=== PATIENT | female | born 1965 | race Caucasian/White ===

== ENCOUNTER 2019-10-25 13:25 | Outpatient (RCR) | payer BC, SELFPAY ==
[2019-10-25] VITALS (9 sets, daily range): BP systolic 99–136; BP diastolic 54–76; PULSE 56–68; RESP 16–20; TEMP 35.7–35.9; O2SAT 91–95
--- NOTE | 2019-10-25 13:30 | PC.NURSE ---
REGISTRATION COMPLETED FOR OUTPATIENT BLOOD TRANSFUSION. NAME BAND PLACED ON PATIENT. WILL ENTER ORDERS, OBTAIN CONSENT, START IV, SEND LABS.
[2019-10-25 14:15] LABS: Hematocrit 24.3 % (37.0-47.0)
[2019-10-25 14:17] LABS: Hemoglobin 6.9 g/dL (12.0-15.0)
[2019-10-25] MEDS: ACETAMINOPHEN 325 MG TABLET 650 MG PO (15:47)
[2019-10-25] MEDS: SODIUM CHLORIDE 0.9% IV 250 ML 30 ML IV CONT (15:50)
[2019-10-25] MEDS: FUROSEMIDE INJ 40 MG/4 ML VIAL IV PUSH (18:21)
--- NOTE | 2019-10-25 21:31 | PC.NURSE ---
Addendum entered by Sharmila Lomeli RN 10/25/19 21:42: ARRIVED TO [facility] AT 1245. NOTE TIME 1245. KE Original Note: ARRIVED TO [facility] VIA [facility] FROM [facility] FOR BLOOD TRANSFUSION PLANNED FOR 1400. NO ORDERS HAD BEEN RECEIVED FROM [facility] OF ARRIVAL TIME. CONTACTED [facility] RE: TRANSFUSION ORDERS. PLACED PT. IN MACHINE I CUTTER 2 AND AWAIT ORDERS TO ARRIVE. PT. A&OX3, BUT DROWSY, SLIGHTLY LETHARGIC. DENIES PAIN. PT. IS NON WT. BEARING ON LEGS AND IS TOTAL ASSIST TO TRANSFER.
--- NOTE | 2019-10-25 21:37 | PC.NURSE ---
Addendum entered by Sharmila Lomeli RN 10/25/19 21:44: NOTE TIME 1300. KE Original Note: ORDERS FOR TRANSFUSION HAVE ARRIVED VIA FAX FROM [facility]. FAXED TO ADMITTING FOR V# TO INITIATE OUTPATIENT REGISTRATION.
== END 2019-11-14 23:59 | disposition home or self-care (01) ==
LOC: ANHCPCTRAN 13:25
PROVIDERS: Visit Provider Family Medicine
DX: D64.9 Anemia, unspecified (principal)
CPT/HCPCS: 36415; 36430; 85014; 85018; 86850; 86900; 86901; 86923; 96374; A9270; C1751; J1940; J7050; P9016

== ENCOUNTER 2019-10-27 02:48 | Inpatient (IN) | payer BC, SELFPAY ==
[2019-10-27] VITALS (52 sets, daily range): BP systolic 96–148; BP diastolic 55–86; PULSE 47–81; RESP 13–23; TEMP 28.9–36.4; O2SAT 94–100; BMI 66.4
--- NOTE | ~2019-10-27 | XR_ITS ---
XR chest 1V portable DATE: 11/14/2019 05:57 INDICATION: Pneumonia, aspiration TECHNIQUE: Portable AP chest on 11/14/2019 at 0519 hours COMPARISON: 11/13/2019 portable AP chest at 1736 hours FINDINGS: Tracheostomy tube in satisfactory position. Left upper extremity PIC catheter tip overlies upper right atrium. The examination is limited due to single portable view and also rotation of the patient. There is bor derline or increased heart size. There is pulmonary vascular congestion and redistribution. There is prominence of the minor fissure. There is prominence of the pulmonary interstitium suggesting pulmona ry interstitial edema. Small pleural effusions are suggested. There are infiltrates primarily in the lower lung zones which may be due to aspiration pneumonitis gi rohith history of aspiration; differential diagnosis includes pneumonia, pulmonary edema. IMPRESSION: No significant change since 11/13/2019 Reviewed, dictated and finalized at location A. D OPERATIONS SUPERVISOR
--- NOTE | ~2019-10-27 | XR_ITS ---
EXAMINATION: XR chest ET placement DATE: 10/30/2019 17:14 INDICATION: Endotracheal tube advancement TECHNIQUE: frontal view of the chest was obtained. COMPARISON: Chest radiograph dated 10/30/2019 at 11:56 AM FINDINGS: Endotracheal tube tip 2.9 cm above the desire. Nasogastric tube extends below the left hemidiaphragm with distal tip collimated off the study. Right subclavian central venous catheter with distal tip n ear the superior cavoatrial junction. Persistent diffuse indistinct interstitial and patchy airspace opacities throughout both lungs. More dense consolidation in the left lower lung zone with blunting lateral blunting consistent with small to moderate left pleural effusion and associated basilar compressive atelectasis. No pneumothorax. Sm all posteriorly layering right pleural effusion is not excludable. Cardiac silhouette appears partial ly obscured but is likely enlarged conifer mild leftward rotation of the patient. IMPRESSION: 1. Persistent diffuse bilateral interstitial and patchy airspace opacities which could represent pulm onary edema, pneumonia, ARDS or some combination thereof. 2. Small to moderate left and possible small right pleural effusions with compressive atelectasis in the left lower lung zone. 3. Likely cardiomegaly. Reviewed, dictated and finalized at location A. ICAL LAB ASSISTANT IMPRESSION: 1. Persistent diffuse bilateral interstitial and patchy airspace opacities whic h could represent pulmonary edema, pneumonia, ARDS or some combination thereof. 2. Small to moderate left and possible small right pleural effusions with compr essive atelectasis in the left lower lung zone. 3. Likely cardiomegaly.
--- NOTE | ~2019-10-27 | XR_ITS ---
EXAMINATION: XR chest 1V portable DATE: 11/02/2019 05:36 INDICATION: Respiratory failure. Diffuse infiltrates bilaterally. TECHNIQUE: A single frontal view of the chest was obtained. COMPARISON: Chest single view 11/01/2019 FINDINGS: There are airspace opacities in all lung zones bilaterally, left worse than right. There is a small left pleural effusion. No pneumothorax. Cardiomegaly is noted. The endotracheal tube tip is 3.1 cm above the desire. The nasogastric tube tip is beyond the inferior margin of the radiograph, bu t at least to the stomach. A right subclavian central venous catheter is seen with tip in the right a trium. IMPRESSION: 1. Stable diffuse lung disease, consistent with pulmonary edema versus pneumonia. 2. Small left pleural effusion. 3. Cardiomegaly. Reviewed, dictated and finalized at location A. OFFICIAL IMPRESSION: 1. Stable diffuse lung disease, consistent with pulmonary edema versus pneumoni a. 2. Small left pleural effusion. 3. Cardiomegaly.
--- NOTE | ~2019-10-27 | XR_ITS ---
EXAMINATION: XR chest 1V DATE: 10/27/2019 04:28 INDICATION: Altered mental status. TECHNIQUE: A single frontal view of the chest was obtained. COMPARISON: None. FINDINGS: The patient is rotated to her left. Lung volumes are small. There are airspace opacities in the perihilar regions and at left lung base. Blunting of left lateral costophrenic angle may be a pr ominent pericardial fat pad or a small pleural effusion. No pneumothorax. The heart size is obscured. IMPRESSION: 1. Small lung volumes with airspace opacities in the perihilar regions and at left lung base, consist ent with atelectasis versus pulmonary edema versus pneumonia. 2. Possible small left pleural effusion. Reviewed, dictated and finalized at location A. SACTION MANAGER IMPRESSION: 1. Small lung volumes with airspace opacities in the perihilar regions and at l eft lung base, consistent with atelectasis versus pulmonary edema versus pneumo ciarra. 2. Possible small left pleural effusion.
--- NOTE | ~2019-10-27 | XR_ITS ---
XR chest 1V portable DATE: 11/04/2019 06:06 INDICATION: Respiratory failure. Bilateral diffuse infiltrates. TECHNIQUE: Portable AP chest on 11/14/2019 at 0547 hours COMPARISON: 11/03/2019 portable AP chest at 0528 hours FINDINGS: Cardiomegaly and prominent pulmonary vascular congestion and redistribution and bilateral p rominent pulmonary joints predominating centrally and in the lower lung zones, suggesting pulmonary e sai, increased since 11/03/2019. Right-sided central venous catheter. ET and NG tubes appear in satisfactory position. Diffuse osteopenia. IMPRESSION: Congestive heart failure, pulmonary edema, increased since 11/03/2019 Reviewed, dictated and finalized at location A. OPEDIC NURSE
--- NOTE | ~2019-10-27 | XR_ITS ---
XR chest 1V portable 11/13/2019 17:42 Indication: Aspiration. Tube feedings. Procedure: AP portable chest Comparison: Comparison to multiple prior studies sequentially, with oldest reviewed study dated 11/10. Findings: Cardiomegaly with interstitial edema. No significant change. Small pleural effusions. No pn eumothorax. Tracheostomy tube present. No pneumothorax. There are are advanced degenerative changes o f the left glenohumeral joint. Impression: 1: Cardiomegaly with interstitial edema. Cannot exclude superimposed pneumonia. No significant change . Reviewed, dictated and finalized at location A. E PRACTITIONER PHYSICIAN ASSISTANT Impression: 1: Cardiomegaly with interstitial edema. Cannot exclude superimposed pneumonia. No significant change.
--- NOTE | ~2019-10-27 | XR_ITS ---
EXAMINATION: XR chest PICC line DATE: 11/05/2019 15:27 INDICATION: Central line placement. TECHNIQUE: A single frontal view of the chest was obtained on 2 radiographs. COMPARISON: Chest single view 11/05/2019 at 5:49 AM FINDINGS: The patient is rotated to her left. There are airspace opacities in all lung zones bilatera lly with a perihilar predominance. There is a small left pleural effusion. No pneumothorax or cardiom egaly is noted. The endotracheal tube tip is 3.3 cm above the desire. The nasogastric tube tip is bey ond the inferior margin of the radiograph, but at least to the stomach. A right subclavian central ve nous catheter is seen with tip in the right atrium. The catheter is deviated between the clavicle and first rib. A left upper extremity peripherally inserted central venous catheter (PICC) doubles back down the arm at the axilla with tip likely in a brachial vein. IMPRESSION: 1. PICC tip in a left brachial vein. 2. Diffuse lung disease with worsening on the right, consistent with pulmonary edema versus pneumonia . 3. Unchanged small left pleural effusion. 4. Cardiomegaly. Reviewed, dictated and finalized at location A. L EQUIPMENT MAINTENANCE SUPERVISOR IMPRESSION: 1. PICC tip in a left brachial vein. 2. Diffuse lung disease with worsening on the right, consistent with pulmonary edema versus pneumonia. 3. Unchanged small left pleural effusion. 4. Cardiomegaly.
--- NOTE | ~2019-10-27 | XR_ITS ---
EXAMINATION: XR abdomen NG/feed tube insert DATE: 10/27/2019 11:29 INDICATION: Orogastric tube placement. TECHNIQUE: A supine view of the abdomen was obtained. COMPARISON: None. FINDINGS: The lower abdomen and right side of the abdomen are excluded. The nasogastric tube tip is i n the stomach. IMPRESSION: 1. Nasogastric tube tip in the stomach. Reviewed, dictated and finalized at location A. ECT TECHNICIAN
--- NOTE | ~2019-10-27 | US_ITS ---
EXAMINATION: US renal BI DATE: 10/31/2019 08:41 INDICATION: Abnormal kidney function. TECHNIQUE: Multiple ultrasound grayscale images of the kidneys were obtained. COMPARISON: Ultrasound 10/27/2019 FINDINGS: The right kidney measures 11.2 x 6.7 x 5.7 cm. The left kidney is not visualized The right kidney dem onstrates normal parenchymal echogenicity. There is no hydronephrosis. The bladder is nonvisualized. IMPRESSION: 1. Normal right kidney. No hydronephrosis. 2. Left kidney not identified. Sensitivity is decreased by obesity. Reviewed, dictated and finalized at location A. RUMENTATION TECHNICIAN
--- NOTE | ~2019-10-27 | XR_ITS ---
EXAMINATION: XR chest ET placement DATE: 11/07/2019 08:11 INDICATION: Advanced endotracheal tube. TECHNIQUE: A single frontal view of the chest was obtained on 3 radiographs. COMPARISON: Chest single view at 5:02 AM FINDINGS: There are airspace opacities in all lung zones bilaterally with a perihilar and left basila r predominance. There is a small left pleural effusion. No pneumothorax. Cardiomegaly is noted. The e ndotracheal tube tip is 4.2 cm above the desire. The nasogastric tube tip in the stomach. A left uppe r extremity peripherally inserted central venous catheter (PICC) is seen with tip in the right atrium . IMPRESSION: 1. Unchanged diffuse lung disease, consistent with pulmonary edema versus pneumonia. 2. Unchanged small left pleural effusion. 3. Cardiomegaly. Reviewed, dictated and finalized at location A. ST PATROLMAN IMPRESSION: 1. Unchanged diffuse lung disease, consistent with pulmonary edema versus pneum onia. 2. Unchanged small left pleural effusion. 3. Cardiomegaly.
--- NOTE | ~2019-10-27 | XR_ITS ---
EXAMINATION: XR chest 1V portable DATE: 10/29/2019 05:51 INDICATION: Acute respiratory failure. Pneumonia. TECHNIQUE: A single frontal view of the chest was obtained. COMPARISON: Chest single view 10/28/2019 FINDINGS: The patient is rotated to her left. There are airspace opacities in the perihilar regions a nd at left lung base. There is a small to moderate-sized left pleural effusion. No pneumothorax. The heart size is obscured. The endotracheal tube tip is 4.0 cm above the desire. A right subclavian cent ral venous catheter is seen with tip in the right atrium. The catheter is deviated between the clavic le and first rib. The nasogastric tube tip is beyond the inferior margin of the radiograph, but at le ast to the stomach. IMPRESSION: 1. Unchanged airspace opacities in the perihilar regions and at left lung base, consistent with pulmo nary edema versus pneumonia. 2. Unchanged small to moderate-sized left pleural effusion. Reviewed, dictated and finalized at location A. RTYPE OPERATOR IMPRESSION: 1. Unchanged airspace opacities in the perihilar regions and at left lung base, consistent with pulmonary edema versus pneumonia. 2. Unchanged small to moderate-sized left pleural effusion.
--- NOTE | ~2019-10-27 | XR_ITS ---
EXAMINATION: XR abdomen NG/feed tube insert DATE: 10/29/2019 00:02 INDICATION: Orogastric tube placement. TECHNIQUE: A semiupright view of the abdomen was obtained. COMPARISON: Abdomen single view 10/27/2019 FINDINGS: The lower abdomen and right lateral aspect of the abdomen are excluded. The nasogastric tub e tip is in the stomach. IMPRESSION: 1. Nasogastric tube tip in the stomach. Reviewed, dictated and finalized at location A. ILER HAND
--- NOTE | ~2019-10-27 | XR_ITS ---
EXAMINATION: XR chest 1V portable DATE: 11/09/2019 05:41 INDICATION: Acute respiratory failure. Pulmonary infiltrates. TECHNIQUE: A single frontal view of the chest was obtained. COMPARISON: Chest single view 11/08/2019 FINDINGS: The patient is rotated to her left. There are airspace opacities in the perihilar regions a nd at left lung base. There is a small left pleural effusion. No pneumothorax. Cardiomegaly is noted. There is a tracheostomy tube in expected position. A left upper extremity peripherally inserted cent ral venous catheter (PICC) is seen with tip at the superior cavoatrial junction. IMPRESSION: 1. Unchanged airspace opacities in the perihilar regions and at left lung base, consistent with pulmo nary edema versus pneumonia. 2. Stable small left pleural effusion. 3. Cardiomegaly. Reviewed, dictated and finalized at location A. NURSE IMPRESSION: 1. Unchanged airspace opacities in the perihilar regions and at left lung base, consistent with pulmonary edema versus pneumonia. 2. Stable small left pleural effusion. 3. Cardiomegaly.
--- NOTE | ~2019-10-27 | XR_ITS ---
EXAMINATION: XR chest 1V portable DATE: 11/10/2019 06:50 INDICATION: Acute respiratory failure. Pulmonary infiltrates. TECHNIQUE: frontal view of the chest was obtained. COMPARISON: Chest radiograph dated 11/09/2019 FINDINGS: Evaluation is somewhat limited by patient body habitus. Tracheostomy tube at the thoracic inlet. Left upper extremity peripherally inserted central venous catheter (PICC) tip at the superior cavoatrial junction. Small lung volumes. Retrocardiac opacity left lower lung zone. Asymmetric hazy airspace opacity throu ghout the right lung. No pneumothorax. Cardiomegaly. IMPRESSION: 1. Consolidation at the left lower lung zone consistent with atelectasis and/or pneumonia, likely wit h associated small left pleural effusion. 2. Asymmetric hazy opacity in the right hemithorax which could represent a posteriorly layering small right pleural effusion. 3. Cardiomegaly. Reviewed, dictated and finalized at location A. ST EXAMINER IMPRESSION: 1. Consolidation at the left lower lung zone consistent with atelectasis and/or pneumonia, likely with associated small left pleural effusion. 2. Asymmetric hazy opacity in the right hemithorax which could represent a post eriorly layering small right pleural effusion. 3. Cardiomegaly.
--- NOTE | ~2019-10-27 | XR_ITS ---
EXAMINATION: XR chest 1V portable DATE: 11/11/2019 05:39 INDICATION: Acute respiratory failure. Pulmonary infiltrates. TECHNIQUE: frontal view of the chest was obtained. COMPARISON: Chest radiograph dated 11/10/2019 FINDINGS: Tracheostomy tube at the thoracic inlet. Dense consolidation in the left lower lung zone. Diffuse haz y airspace opacities throughout the right hemithorax and in the left midlung zone. Blunting at the b ilateral costophrenic angles consistent with small left and very small right pleural effusions. No pn eumothorax. Cardiomegaly. Patient is rotated towards the right. Degenerative skeletal changes at the bilateral shoulders. One of the right acromioclavicular joint which could be related to prior trauma or surgery. IMPRESSION: 1. Bilateral airspace disease consistent with pneumonia, pulmonary edema, atelectasis or some combina tion thereof. 2. Small left and very small right pleural effusions. 3. Cardiomegaly. Reviewed, dictated and finalized at location A. O TUNER IMPRESSION: 1. Bilateral airspace disease consistent with pneumonia, pulmonary edema, atele ctasis or some combination thereof. 2. Small left and very small right pleural effusions. 3. Cardiomegaly.
--- NOTE | ~2019-10-27 | XR_ITS ---
EXAMINATION: XR chest port-a-cath/central DATE: 10/27/2019 08:56 INDICATION: Central line placement. TECHNIQUE: A single frontal view of the chest was obtained. COMPARISON: Chest single view at 7:34 AM FINDINGS: The patient is rotated to her left. The lung volumes are small. There are airspace opacitie s in the perihilar regions. There are likely small pleural effusions. No pneumothorax. The heart size is normal. The endotracheal tube tip is 4.0 cm above the desire. There is a right chest injury as ca theter with tip at superior cavoatrial junction. IMPRESSION: 1. Central line tip at superior cavoatrial junction. No pneumothorax. 2. Persistent airspace opacities in the perihilar regions, consistent with pulmonary edema versus pne umonia. 3. Small pleural effusions. Reviewed, dictated and finalized at location A. IC AFFAIRS MANAGER IMPRESSION: 1. Central line tip at superior cavoatrial junction. No pneumothorax. 2. Persistent airspace opacities in the perihilar regions, consistent with pulm onary edema versus pneumonia. 3. Small pleural effusions.
--- NOTE | ~2019-10-27 | XR_ITS ---
EXAMINATION: XR chest 1V portable EXAM DATE: 10/30/2019 10:48 INDICATION: Endotracheal tube advanced. TECHNIQUE: Portable AP frontal chest x-ray was obtained. Comparison is made to prior examination from earlier same date. FINDINGS: The endotracheal tube is at the thoracic inlet, should be advanced about 4-5 cm. Endotrache al tube balloon appears to be inflated at the level of larynx. I discussed this finding with ICU nurs e at 10/30/2019 10:56 CRANE OILER. Can't identify the tip of the nasogastric tube but appears to be at least at the gastroesophageal felton ction. Exam is limited from patient rotation. There is probably extensive bilateral edema or pneumoni a. No evidence of pneumothorax. IMPRESSION: 1. ET tube should be advanced 4-5 cm. 2. Extensive bilateral edema or pneumonia. Reviewed, dictated and finalized at location A. E OILER
--- NOTE | ~2019-10-27 | US_ITS ---
EXAMINATION: US renal BI DATE: 10/27/2019 11:11 INDICATION: Acute kidney injury. Hyperkalemia. TECHNIQUE: Multiple ultrasound grayscale images of the kidneys were obtained. COMPARISON: None. FINDINGS: The right kidney measures 11.4 x 5.6 x 5.3 cm cm. The left kidney is not visualized. The right kidney demonstrates normal parenchymal echogenicity. There is no hydronephrosis. The bladder is decompresse d by a [place] catheter. IMPRESSION: 1. Normal right kidney. No hydronephrosis. 2. Left kidney not identified. Sensitivity is decreased by obesity. Reviewed, dictated and finalized at location A. LE OR PROBATION OFFICER
--- NOTE | ~2019-10-27 | XR_ITS ---
EXAMINATION: XR chest 1V portable DATE: 11/05/2019 06:03 INDICATION: Bilateral diffuse pulmonary infiltrates and respiratory failure. TECHNIQUE: frontal view of the chest was obtained. COMPARISON: Chest radiograph dated 11/04/2019 FINDINGS: Endotracheal tube tip 4.5 cm above the desire. Nasogastric tube extends below the left hemidiaphragm with distal tip collimated off the study. Right subclavian central venous catheter with distal tip a t the caudal superior vena cava. Small lung volumes. Slight improvement in bilateral perihilar and basilar predominant airspace opacit ies, left greater than right. Likely small left pleural effusion. No pneumothorax. Enlarged cardiac s ilhouette is partially obscured. IMPRESSION: 1. Small lung volumes with slight improvement in bilateral perihilar and basilar predominant lung dis ease most likely pulmonary edema possibly with associated atelectasis and/or pneumonia. 2. Small left pleural effusion. 3. Cardiomegaly. Reviewed, dictated and finalized at location A. HER TENDER IMPRESSION: 1. Small lung volumes with slight improvement in bilateral perihilar and basila r predominant lung disease most likely pulmonary edema possibly with associated atelectasis and/or pneumonia. 2. Small left pleural effusion. 3. Cardiomegaly.
--- NOTE | ~2019-10-27 | XR_ITS ---
EXAMINATION: XR chest 1V portable DATE: 10/30/2019 06:01 INDICATION: Acute respiratory failure. Pneumonia. TECHNIQUE: A single frontal view of the chest was obtained. COMPARISON: Chest single view 10/29/2019 FINDINGS: The patient is rotated to her left. There are airspace opacities in all lung zones bilatera lly, left worse than right. There are likely small right and moderate-sized left pleural effusions. N o pneumothorax. Cardiomegaly is noted. The endotracheal tube tip is 3.9 cm above the desire. The naso gastric tube is not well-visualized beyond the midesophagus. A right subclavian central venous cathet er is seen with tip not well visualized. IMPRESSION: 1. Stable diffuse lung disease, consistent with pulmonary edema versus pneumonia. 2. Stable small right and moderate-sized left pleural effusions. 3. Cardiomegaly. Reviewed, dictated and finalized at location A. FRIDAY IMPRESSION: 1. Stable diffuse lung disease, consistent with pulmonary edema versus pneumoni a. 2. Stable small right and moderate-sized left pleural effusions. 3. Cardiomegaly.
--- NOTE | ~2019-10-27 | XR_ITS ---
XR chest 1V portable DATE: 11/03/2019 05:36 INDICATION: Respiratory failure TECHNIQUE: Portable AP chest on 11/03/2019 at 0528 hours COMPARISON: 11/02/2019 portable AP chest at 0520 hours FINDINGS: Cardiomegaly, pulmonary vascular congestion and redistribution and extensive bilateral pred ominantly central pulmonary infiltrates are again noted, as well as prominence of minor fissure and p robable small pleural effusions, suggesting congestive heart failure and pulmonary edema. There is le ft lower lobe atelectasis and/or consolidation with air bronchograms. Endotracheal tube in satisfactory position approximately 4.5 cm above desire. NG tube noted passing i nto stomach. Right subclavian central venous catheter overlies right atrium. No pneumothorax. Osteoarthritis at the glenohumeral joints. Diffuse osteopenia. IMPRESSION: Congestive heart failure, pulmonary edema, left lower lobe atelectasis and/or consolidati on stable since 11/02/2019 Reviewed, dictated and finalized at location A. SEWER IMPRESSION: Congestive heart failure, pulmonary edema, left lower lobe atelecta sis and/or consolidation stable since 11/02/2019
--- NOTE | ~2019-10-27 | XR_ITS ---
XR chest ET placement DATE: 10/30/2019 12:00 INDICATION: Advancement of ET tube TECHNIQUE: Portable AP chest on 10/30/2019 at 1156 hours COMPARISON: 10/30/2019 portable AP chest at 1029 hours FINDINGS: ET tube is in satisfactory position 2.8 cm above desire. There is prominent lateral pulmonary infiltrate, most prominent centrally, suggesting pulmonary edema . Probable cardiomegaly, although heart size is not optimally evaluated on AP projection because of m agnification, also because of rotation of the patient. Diffuse osteopenia. A right subclavian central venous catheter overlies the superior vena cava. No evidence of pneumothor ax. A nasogastric tube is noted extending to the lower margin of the radiograph is far as the distal esop hagus, the distal portion of the tube not included in this examination. IMPRESSION: ET tube in satisfactory position Severe bilateral pulmonary infiltrates predominating centrally, suggesting severe pulmonary edema Reviewed, dictated and finalized at Location A. Reviewed, dictated and finalized at location B. NING AND MAINTENANCE WORKER IMPRESSION: ET tube in satisfactory position Severe bilateral pulmonary infiltrates predominating centrally, suggesting marin re pulmonary edema
--- NOTE | ~2019-10-27 | XR_ITS ---
EXAMINATION: XR chest 1V portable DATE: 11/07/2019 05:33 INDICATION: Acute respiratory failure. Pulmonary infiltrates. TECHNIQUE: frontal view of the chest was obtained. COMPARISON: Chest radiograph dated 11/06/2019 FINDINGS: Endotracheal tube tip 6.7 cm above the desire. Nasogastric tube extends below the left hemidiaphragm with distal tip collimated off the study. Left upper extremity peripherally inserted central venous catheter (PICC) tip at the caudal superior vena cava. Diffuse increased interstitial pattern with airspace opacities in the bilateral mid and lower lung zo bridget. Possible small left pleural effusion. No pneumothorax. Cardiomediastinal silhouette is normal ac counting for leftward rotation. Severe bilateral glenohumeral osteoarthritis. IMPRESSION: 1. No significant change in diffuse lung disease consistent with pulmonary edema versus pneumonia. 2. Likely small left pleural effusion. Reviewed, dictated and finalized at location A. ISION GRINDER EXTERNAL IMPRESSION: 1. No significant change in diffuse lung disease consistent with pulmonary milena a versus pneumonia. 2. Likely small left pleural effusion.
--- NOTE | ~2019-10-27 | XR_ITS ---
EXAMINATION: XR chest 1V portable DATE: 11/06/2019 06:01 INDICATION: Diffuse bilateral pulmonary infiltrates. Respiratory failure. TECHNIQUE: frontal view of the chest was obtained. COMPARISON: Chest radiograph dated 11/05/2019 FINDINGS: Endotracheal tube tip 6.0 cm above the desire. Right subclavian central venous catheter with distal t ip near the superior cavoatrial junction. Nasogastric tube extends below the left hemidiaphragm with distal tip collimated off the study. Elevation of the right hemidiaphragm. Again seen are patchy perihilar and lower lung predominant airs pace opacities with a few air bronchograms in the left infrahilar region. Improved aeration at the le ft lung base. No pneumothorax. Likely small left pleural effusion. Cardiomegaly. IMPRESSION: 1. Bilateral perihilar and lower lung predominant lung disease with improved aeration at the left naz g base. Differential includes pulmonary edema, pneumonia, atelectasis or combination thereof. 2. Small left pleural effusion. 3. Cardiomegaly. 4. Endotracheal tube tip 6 cm above the desire. Consider advancement by 3-4 cm. Reviewed, dictated and finalized at location A. ER PRINTED CIRCUIT BOARDS IMPRESSION: 1. Bilateral perihilar and lower lung predominant lung disease with improved ae ration at the left lung base. Differential includes pulmonary edema, pneumonia, atelectasis or combination thereof. 2. Small left pleural effusion. 3. Cardiomegaly. 4. Endotracheal tube tip 6 cm above the desire. Consider advancement by 3-4 cm.
--- NOTE | ~2019-10-27 | XR_ITS ---
EXAMINATION: XR chest 1V portable DATE: 11/13/2019 05:30 INDICATION: Pneumonia TECHNIQUE: frontal view of the chest was obtained. COMPARISON: Chest radiograph and CT dated 11/12/2019 FINDINGS: Tracheostomy tube in expected position at the thoracic inlet. Diffuse airspace opacities throughout b oth lungs with more dense retrocardiac consolidation in the left lower lung zone. Small bilateral ple ural effusions. No pneumothorax. Cardiomegaly. Right glenohumeral joint effusion with widening of the joint space. IMPRESSION: 1. Bilateral lung disease likely some combination of multifocal pneumonia, pulmonary edema and atelec tasis. 2. Cardiomegaly. Reviewed, dictated and finalized at location A. XER IMPRESSION: 1. Bilateral lung disease likely some combination of multifocal pneumonia, pulm onary edema and atelectasis. 2. Cardiomegaly.
--- NOTE | ~2019-10-27 | XR_ITS ---
EXAMINATION: XR chest 1V portable DATE: 11/01/2019 05:28 INDICATION: Acute respiratory failure. Pneumonia. TECHNIQUE: A single frontal view of the chest was obtained. COMPARISON: Chest single view 10/31/2019 FINDINGS: Sensitivity is decreased by obesity. There is elevation of right hemidiaphragm. There are p atchy airspace opacities throughout the lungs bilaterally. There are small pleural effusions. No pneu mothorax. Cardiomegaly is noted. The endotracheal tube tip is 4.3 cm above the desire. The nasogastri c tube tip is beyond the inferior margin of the radiograph, but at least to the stomach. IMPRESSION: 1. Unchanged diffuse lung disease, consistent with pulmonary edema versus pneumonia. 2. Small pleural effusions. 3. Cardiomegaly. Reviewed, dictated and finalized at location A. ING HEAD TENDER IMPRESSION: 1. Unchanged diffuse lung disease, consistent with pulmonary edema versus pneum onia. 2. Small pleural effusions. 3. Cardiomegaly.
--- NOTE | ~2019-10-27 | XR_ITS ---
EXAMINATION: XR chest 1V portable DATE: 11/08/2019 05:48 INDICATION: Acute respiratory failure and pulmonary infiltrates. TECHNIQUE: frontal and lateral views of the chest were obtained. COMPARISON: Chest radiograph dated 11/07/2019 FINDINGS: Endotracheal tube tip 3.0 cm above the desire. Is a gastric tube tip in the stomach left upper extrem ity peripherally inserted central venous catheter (PICC) tip at the superior vena cava. No significant change in bilateral perihilar airspace opacities and more dense consolidation in the l eft lower lung zone. Small left pleural effusion. No pneumothorax. Cardiomegaly. IMPRESSION: 1. Unchanged bilateral lung disease consistent with pulmonary edema versus pneumonia. 2. Small left pleural effusion. 3. Cardiomegaly. Reviewed, dictated and finalized at location A. HER STRIP MECHANIC IMPRESSION: 1. Unchanged bilateral lung disease consistent with pulmonary edema versus pneu monia. 2. Small left pleural effusion. 3. Cardiomegaly.
--- NOTE | ~2019-10-27 | XR_ITS ---
EXAMINATION: XR chest ET placement DATE: 10/27/2019 07:38 INDICATION: Intubation. TECHNIQUE: A single frontal view of the chest was obtained. COMPARISON: Chest single view at 3:20 AM FINDINGS: The patient is rotated to her left. The lung volumes are small. There are airspace opacitie s in the perihilar regions and at left lung base. There are small pleural effusions. No pneumothorax. The heart size is normal. The endotracheal tube tip is 2.6 cm above the desire. IMPRESSION: 1. Small lung volumes with worsened airspace opacities in the perihilar regions and at left lung base , consistent with pulmonary edema versus pneumonia versus atelectasis. 2. Small pleural effusions. Reviewed, dictated and finalized at location A. ES SCHEDULER IMPRESSION: 1. Small lung volumes with worsened airspace opacities in the perihilar regions and at left lung base, consistent with pulmonary edema versus pneumonia versus atelectasis. 2. Small pleural effusions.
--- NOTE | ~2019-10-27 | XR_ITS ---
XR abdomen NG/feed tube rechec DATE: 10/30/2019 12:00 INDICATION: Orogastric tube placement TECHNIQUE: Portable AP view on 10/30/2019 at 1151 hours COMPARISON: 10/30/2019 KUB at 1036 hours FINDINGS: The tip of the NG tube overlies the distal stomach or proximal duodenum. IMPRESSION: NG tube in distal stomach or proximal duodenum Reviewed, dictated and finalized at Location A. Reviewed, dictated and finalized at location B. ND CONTROL APPROACH TECHNICIAN
--- NOTE | ~2019-10-27 | XR_ITS ---
EXAMINATION: XR abdomen NG/feed tube rechec EXAM DATE: 10/30/2019 10:48 INDICATION: Feeding tube needs to be advanced. TECHNIQUE: Frontal projection(s) of the abdomen for interpretation. Comparison is made to prior exami nation from 10/28/2019. FINDINGS: Feeding tube tip and side-port project over left upper quadrant, expected position. Upper abdominal bowel gas pattern is nonobstructive. IMPRESSION: Feeding tube overlying expected position. Reviewed, dictated and finalized at location A. EE MAKER
--- NOTE | ~2019-10-27 | CT_ITS ---
EXAMINATION: CT chest wo con DATE: 11/12/2019 14:35 INDICATION: pneumonia, respiratory failure TECHNIQUE: Computed tomography (CT) of the chest was performed without intravenous contrast. Addition al 3D reconstructions utilizing coronal maximum intensity projection (MIP) were performed. Pneumonia. Respiratory failure. The dose-length product was 912.15 mGy-cm. COMPARISON: None FINDINGS: Tracheostomy tube in expected position with distal tip 4.4 cm above the desire. Left upper extremity peripherally inserted central venous catheter (PICC) tip at the high right atrium. Small left pleur al effusion. Consolidation throughout the basilar segments of the left lower lobe and in the posterio r basilar segment of the right lower lobe. Additional groundglass opacities and more focal small niles on of centrilobular nodular consolidation throughout much of the remainder of the lungs consistent wi th multifocal pneumonia. Cardiomegaly. Atherosclerotic coronary artery calcific lesions. No pericardi al effusion. Thoracic aorta is normal in caliber. No pathologically enlarged thoracic lymphadenopathy . Partially visualized at least 7.4 x 6.6 x 4.2 cm loculated fluid collection at the right supraspina tus fossa deep to the left trapezius muscle without surrounding inflammatory stranding most likely re presenting a large ganglion cyst. Severe fatty atrophy of the right rotator cuff musculature with adv anced osteoarthritis at the right glenohumeral joint. Visualized upper abdomen is unremarkable. There are bridging osteophytes at multiple levels in the spine, consistent with diffuse idiopathic skeleta l hyperostosis (DISH). IMPRESSION: 1. Dense consolidation in the bilateral lower lobes left greater than right consistent with pneumonia . More diffuse less dense airspace disease throughout the remainder of the lungs most likely addition al pneumonia although superimposed pulmonary edema not excludable. 2. Small left pleural effusion. 3. Cardiomegaly. 4. Chronic rotator cuff tears with severe fatty atrophy and advanced right rotator cuff arthritis wit h joint effusion. Likely communicating large ganglion cyst at the supraspinatus fossa. Reviewed, dictated and finalized at location A. NCIAL SYSTEMS ANALYST IMPRESSION: 1. Dense consolidation in the bilateral lower lobes left greater than right con sistent with pneumonia. More diffuse less dense airspace disease throughout the remainder of the lungs most likely additional pneumonia although superimposed pulmonary edema not excludable. 2. Small left pleural effusion. 3. Cardiomegaly. 4. Chronic rotator cuff tears with severe fatty atrophy and advanced right rota tor cuff arthritis with joint effusion. Likely communicating large ganglion cys t at the supraspinatus fossa.
--- NOTE | ~2019-10-27 | XR_ITS ---
EXAMINATION: XR chest 1V portable DATE: 10/31/2019 05:45 INDICATION: Acute respiratory failure. Pneumonia. TECHNIQUE: A single frontal view of the chest was obtained. COMPARISON: Chest single view 10/30/2019 FINDINGS: There are patchy airspace opacities throughout the lungs bilaterally with a perihilar predo minance. There is a moderate-sized left pleural effusion. No pneumothorax. Cardiomegaly is noted. The endotracheal tube tip is 2.6 cm above the desire. A right subclavian central venous catheter is seen with tip not well visualized. The nasogastric tube tip is beyond the inferior margin of the radiogra ph, but at least to the stomach. IMPRESSION: 1. Stable diffuse lung disease, consistent with pulmonary edema versus pneumonia. 2. Stable moderate-sized left pleural effusion. 3. Cardiomegaly. Reviewed, dictated and finalized at location A. RESTORER IMPRESSION: 1. Stable diffuse lung disease, consistent with pulmonary edema versus pneumoni a. 2. Stable moderate-sized left pleural effusion. 3. Cardiomegaly.
--- NOTE | ~2019-10-27 | CT_ITS ---
EXAMINATION: CT brain wo con EXAM DATE: 11/12/2019 14:34 INDICATION: Acute encephalopathy. TECHNIQUE: Spiral CT of the head was performed without contrast. Axial, coronal and sagittal images were reviewed. The dose-length product (DLP) for this examination was 1210.67 mGy-cm. The exposure was tailored according to patient size, and iterative reconstruction (ASIR) was used as additional do se reduction technique. There is no prior study for comparison. FINDINGS: Study is limited due to patient motion. There is no acute intraparenchymal hemorrhage. No evidence of intraparenchymal brain mass lesion. No evidence of acute infarction. Please note that i nitial head CT has limited sensitivity for small or acute infarctions. There is mild periventricular and subcortical hypodensity, nonspecific but probably related to small vessel ischemic disease. The re is mild prominence of the sulci and ventricles related to cerebral atrophy. There is intracrania l carotid arteriosclerosis. There are no extra-axial collections. There is no mass effect or midlin e shift. The orbits are unremarkable. Soft tissue is unremarkable. There is extensive sinus opacif ication with air-fluid levels, consistent with sinusitis. Opacified left mastoid air cells, effusion. IMPRESSION: 1. Limited but acute intracranial findings. 2. Chronic age related findings. 3. Extensive sinusitis. Reviewed, dictated and finalized at location A. SHER EYEGLASS FRAMES
--- NOTE | ~2019-10-27 | XR_ITS ---
EXAMINATION: XR chest ET placement DATE: 11/07/2019 08:11 INDICATION: Endotracheal tube repositioning. TECHNIQUE: A single frontal view of the chest was obtained. COMPARISON: Chest single view at 7:50 AM FINDINGS: There are airspace opacities in all lung zones bilaterally with a perihilar and left basila r predominance. There is a small left pleural effusion. No pneumothorax. Cardiomegaly is noted. A lef t upper extremity peripherally inserted central venous catheter (PICC) is seen with tip in the right atrium. The nasogastric tube tip is beyond the inferior margin of the radiograph, but at least to the stomach. The endotracheal tube tip is 4.5 cm above the desire. IMPRESSION: 1. Unchanged diffuse lung disease, consistent with pulmonary edema versus pneumonia. 2. Unchanged small left pleural effusion. 3. Cardiomegaly. Reviewed, dictated and finalized at location A. CAL MANAGER IMPRESSION: 1. Unchanged diffuse lung disease, consistent with pulmonary edema versus pneum onia. 2. Unchanged small left pleural effusion. 3. Cardiomegaly.
--- NOTE | ~2019-10-27 | XR_ITS ---
EXAMINATION: XR chest 1V portable INDICATION: Pneumonia and shortness of breath TECHNIQUE: Portable AP chest at 0544 hours COMPARISON: 11/11/2019 FINDINGS: A tracheostomy is in expected position. A left upper extremity PICC ends with its tip in pr oximal right atrium. Diffuse interstitial and airspace opacities of the right lung persist with sligh t improvement. Airspace opacities of the left mid and lower lung zones are unchanged. The cardiomedia stinal silhouette is normal. Small pleural effusions are suggested and unchanged. There is no pneumot horax. There is stable cardiomegaly. IMPRESSION: 1. Bilateral opacities, with slight improvement on the right, consistent with atelectasis and/or pneu monia and/or pulmonary edema. 2. Stable cardiomegaly. Reviewed, dictated and finalized at location A. RMATION SYSTEMS ANALYST IMPRESSION: 1. Bilateral opacities, with slight improvement on the right, consistent with a telectasis and/or pneumonia and/or pulmonary edema. 2. Stable cardiomegaly.
--- NOTE | ~2019-10-27 | XR_ITS ---
XR chest 1V portable 10/28/2019 06:16 Indication: Dyspnea Procedure: AP portable chest Comparison: 10/27/2019 Findings: Cardiomegaly with pulmonary edema. Left pleural effusion. Endotracheal tube tip 4.5 cm abov e the desire. NG tube in the stomach. No pneumothorax. Impression: 1: Cardiomegaly with pulmonary edema. 2: Left pleural effusion. Reviewed, dictated and finalized at location A. RVISOR WHEEL SHOP Impression: 1: Cardiomegaly with pulmonary edema. 2: Left pleural effusion.
--- NOTE | 2019-10-27 03:02 | ECG_ITS ---
Measurements Intervals [place] Rate: 80 P: -3 FL: 243 QRS: -22 QRSD: 89 T: 57 QT: 394 QTc: 456 Interpretive Statements SINUS RHYTHM WITH FIRST DEGREE AV BLOCK DELAYED PRECORDIAL R/S TRANSITION LOW QRS VOLTAGE- DIFFUSE LEADS BORDERLINE ST-T WAVE ABNORMALITY- LATERAL LEADS BASELINE ARTIFACT- I, III, AVR, AVL, AVF ABNORMAL ECG Electronically Signed On 10-27-2019 8:06:26 STRATEGIC INTELLIGENCE OFFICER by Honorio Gaviria D.O.
--- NOTE | 2019-10-27 03:06 | ED.GENADULT ---
HPI - General Adult General Chief complaint: Abdominal Pain Stated complaint: ams Time Seen by Provider: 10/27/19 03:01 History of Present Illness HPI narrative: History limited by clinical condition Sent from senior living for altered mental status. She was reportedly not herself yesterday and had been complaining of abdominal pain. She was noted to have low BP as well. EMS was called and they found her to have altered mental status. ON arrival to the ED she is awake but unable to assist in providing history. She is a morbidly obese female with h/o Related Data Allergies Allergy/AdvReac Type Severity Reaction Status Date / Time adhesive tape Allergy Unknown Verified 10/25/19 15:28 cimetidine Allergy Unknown Verified 10/25/19 15:25 gabapentin Allergy Unknown Verified 10/25/19 15:26 methotrexate Allergy Unknown Verified 10/25/19 15:26 sulfamethoxazole Allergy Unknown Verified 10/25/19 15:25 [From Bactrim] trimethoprim [From Bactrim] Allergy Unknown Verified 10/25/19 15:25 warfarin Allergy Unknown Verified 10/25/19 15:27 [facility] Social History Social History Gender identity (if verbalized by the patient): Female Course Vital Signs Vital signs: Vital Signs Temperature 36.4 C L 10/27/19 02:59 Pulse Rate 81 10/27/19 02:59 Respiratory Rate 18 10/27/19 02:59 Blood Pressure 116/65 10/27/19 02:59 Pulse Oximetry 95 10/27/19 02:59 Temperature 36.4 C L 10/27/19 02:59 Pulse Rate 74 10/27/19 05:39 Respiratory Rate 15 10/27/19 05:39 Blood Pressure 118/65 10/27/19 05:39 Pulse Oximetry 95 10/27/19 05:39 Medical Decision Making [facility] Narrative Medical decision making narrative: Evaluation of this patient is made very difficult by her size. The chest x-ray is unreadable. She is too large to obtain CT of the chest, abdomen, or pelvis. Furthermore she was not able to lay flat without quickly becoming hypoxic, so we were not able to obtain a ct of her brain either. Due to her elevated WBCs and breathing difficulties I started empirical antibiotics for pneumonia Differential Diagnosis Differential Diagnosis: Sepsis, UTI, Pneumonia, intrabdominal infection, ICH, other Medical Records Medical records reviewed: Yes I reviewed the patient's medical records. Vital Signs Vital Signs: Vital Signs Temperature 36.4 C L 10/27/19 02:59 Pulse Rate 81 10/27/19 02:59 Respiratory Rate 18 10/27/19 02:59 Blood Pressure 116/65 10/27/19 02:59 Pulse Oximetry 95 10/27/19 02:59 Temperature 36.4 C L 10/27/19 02:59 Pulse Rate 74 10/27/19 05:39 Respiratory Rate 15 10/27/19 05:39 Blood Pressure 118/65 10/27/19 05:39 Pulse Oximetry 95 10/27/19 05:39 Lab Data Result diagrams: 10/27/19 03:36 10/27/19 03:36 Labs: Lab Results 10/27/19 10/27/19 10/27/19 Range/Units 03:36 03:36 03:36 WBC 16.6 H (4.5-10.0) K/mm3 RBC 3.54 L (4.2-5.4) M/mm3 Hgb 9.7 L (12.0-15.0) g/dL Hct 32.4 L (37.0-47.0) % MCV 91.5 (80-100) fl MCH 27.4 (26-34) pg MCHC 29.9 L (32-36) g/dl RDW 17.9 H (11.5-14.5) % Plt Count 168 (150-375) k/mm3 MPV 10.8 H (7.4-10.4) fl Immature Gran % (Auto) Not Reportable Neut % (Auto) Not Reportable Lymph % (Auto) Not Reportable [place] % (Auto) Not Reportable Eos % (Auto) Not Reportable Baso % (Auto) Not Reportable Lymph # (Auto) Not Reportable [place] # (Auto) Not Reportable Eos # (Auto) Not Reportable Baso # (Auto) Not Reportable Abs Immat Gran (auto) Not Reportable Absolute Neuts (auto) Not Reportable Absolute Nucleated RBC Not Reportable Total Counted 100 Neutrophils % (Manual) 80 H (46-73) % Band Neutrophils % 13 H (0-6) % Lymphocytes % (Manual) 3.0 L (18-44) % Monocytes % (Manual) 3 (3-9) % Metamyelocytes % 1 % Nucleated RBC % Not Reportable Abs Neuts (Manual) 15.43 H (1.7-7.2) K/mm3 Abs L
[2019-10-27 03:25] LABS: Base Excess ABG -13.9 mEq/l (+/-2.0); Fractional Inspired Oxygen 21 %; Oxygen Content ABG 11.6 %vol (16.0-22.0); Oxygen Saturation ABG 92.8 % (95.0-100.0); Oxyhemoglobin 88.7 % THb (90.0-100.0); PCO2 ABG 40.7 mmHg (35.0-45.0); Total Hemoglobin 9.2 g/dL (12.0-18.0)
[2019-10-27 03:27] LABS: Device ROOM AIR; Modified Allen's Test Pass; Site Drawn LEFT RADIAL; pH ABG 7.154 (7.350-7.450)
[2019-10-27 03:44] LABS: Hematocrit 32.4 % (37.0-47.0); Hemoglobin 9.7 g/dL (12.0-15.0); Mean Corpuscular HGB Conc 29.9 g/dl (32-36); Mean Corpuscular Hemoglobin 27.4 pg (26-34); Mean Corpuscular Volume 91.5 fl (80-100); Mean Platelet Volume 10.8 fl (7.4-10.4); Platelet Count Result 168 k/mm3 (150-375); Red Blood Count 3.54 M/mm3 (4.2-5.4); Red Cell Distribution Width 17.9 % (11.5-14.5); White Blood Count 16.6 K/mm3 (4.5-10.0)
[2019-10-27] MEDS: SODIUM CHLORIDE 0.9% IV 1,000 ML 999 ML IV CONT ×3 (03:50→07:17)
[2019-10-27 04:00] LABS: INR 1.1; Prothrombin Time 13.4 Seconds (11.1-14.7)
[2019-10-27 04:01] LABS: Partial Thromboplastin Time 30.6 SECONDS (22.3-36.8)
[2019-10-27 04:05] LABS: Lactic Acid Reflex 0.8 mmol/L (0.7-2.1)
--- NOTE | 2019-10-27 04:08 | PC.NURSE ---
pt to CT via stretcher
[2019-10-27 04:13] LABS: Alanine Aminotransferase 27 U/L (4-35); Alkaline Phosphatase 168 U/L (38-126); Aspartate Amino Transferase 24 U/L (14-36); Bilirubin,Total 0.6 mg/dL (0.2-1.3); Carbon Dioxide 14 mmol/L (22-30); Chloride 108 mmol/L (98-107); Estimated Glomerular Filt Rate 16; Glucose 191 mg/dL (65-105); Potassium 6.2 mmol/L (3.4-5.0); Sodium 137 mmol/L (137-145)
[2019-10-27 04:16] LABS: Troponin I < 0.012 ng/mL (0.000-0.034)
[2019-10-27 04:21] LABS: Blood Urea Nitrogen 125 mg/dL (7-17); CRP 14.7 mg/dL (<1.0)
--- NOTE | 2019-10-27 04:30 | PC.NURSE ---
this rn saw pt HR drop to 35 on transport monitor while pt is in CT. this RN went to OB and had CT help get pt over to her stretcher and lift head of bed up. they state pt wouldn't hold still which is why they weren't finished with CT. Pt pulse increased to 82. pt brought back to ed room 4 at this time. notified. will continue to monitor.
[2019-10-27 04:44] LABS: Band Neutrophils Percent 13 % (0-6); Lymphocytes Absolute Manual 0.49 K/mm3 (1.1-4.5); Metamyelocytes Percent 1 %; Monocytes Absolute Manual 0.49 K/mm3 (0.1-0.90); Monocytes Percent Manual 3 % (3-9); Neutrophils Absolute Manual 15.43 K/mm3 (1.7-7.2); Neutrophils Percent Manual 80 % (46-73); Platelet Estimate Adequate (Adequate); Total Cells Counted 100
[2019-10-27 04:45] LABS: Macrocytosis 1+ (NORMAL); Ovalocytes 1+ (NORMAL)
[2019-10-27] MEDS: ALBUTEROL SULFATE NEB 2.5 MG/0.5 ML INH 10 MG INHALATION (04:49)
[2019-10-27] MEDS: CALCIUM GLUCONATE 1,000 MG/10 ML VIAL 1000 MG IV PUSH ×2 (04:57→13:17)
[2019-10-27] MEDS: INSULIN HUMAN REGULAR (*BKC) 100 UNITS/ML 10 UNITS IV PUSH ×2 (04:57→11:49)
[2019-10-27] MEDS: DEXTROSE 50% 25 GM/50 ML SYRINGE IV PUSH ×2 (04:57→11:52)
[2019-10-27 05:51] LABS: Add Urine Microscopic? YES; Appearance Urine Cloudy (Clear); Bacteria Urine Trace /hpf; Bilirubin Urine Negative (Negative); Blood Urine Negative (Negative); Color Urine Yellow (Yellow); Glucose Urine UA Negative (Negative); Ketones Urine Negative (Negative); Leukocyte Esterase Ur Trace LEU/UL (Negative); Mucus Urine Rare /lpf; Nitrate Urine Negative (Negative); Protein Urine Negative (Negative); Specific Grav Ur 1.013 (1.001-1.035); Squamous Epithelial Cell Urine Few /hpf (Few); Urobilinogen Urine Negative mg/dL (<2.0)
--- NOTE | 2019-10-27 06:50 | PC.NURSE ---
pt lost pulse 0650, acls protocol started. rob rn doing compressions at this time.
--- NOTE | 2019-10-27 06:52 | PC.NURSE ---
pt has a pulse at this time. see code sheet.
[2019-10-27 07:26] LABS: Blood Urea Nitrogen 118 mg/dL (7-17); Calcium 6.8 mg/dL (8.4-10.2); Carbon Dioxide 14 mmol/L (22-30); Chloride 107 mmol/L (98-107); Estimated Glomerular Filt Rate 16; Glucose 262 mg/dL (65-105); Potassium 5.7 mmol/L (3.4-5.0); Sodium 137 mmol/L (137-145)
[2019-10-27 07:30] LABS: Glucose Point of Care 260 (65-105)
[2019-10-27] MEDS: RAPID SEQUENCE INTUBATION KIT 1 EACH (07:38)
[2019-10-27 07:40] LABS: Alveolar/Arterial O2 Gradient 403.2 mmHg; Base Excess ABG -14.9 mEq/l (+/-2.0); Carboxyhemoglobin 0.1 % THb (0-2.0); Fractional Inspired Oxygen 100 %; HCO3 ABG 15.7 mEq/l (22.0-26.0); Methemoglobin ABG 0.1 %THb (0-1.5); Oxygen Saturation ABG 99.1 % (95.0-100.0); Oxyhemoglobin 94.7 % THb (90.0-100.0); PO2 ABG 246.4 mmHg (80.0-100.0); PO2 FiO2 Ratio Arterial Blood 2.46 %; Reduced Hemoglobin 5.1 %THb (0-5.0); Total Hemoglobin 9.3 g/dL (12.0-18.0)
[2019-10-27 07:41] LABS: pH ABG 7.013 (7.350-7.450)
[2019-10-27 07:42] LABS: Device VENTILATOR; Modified Allen's Test Pass; PCO2 ABG 63.4 mmHg (35.0-45.0); Site Drawn LEFT RADIAL
[2019-10-27 07:43] LABS: Arterial Blood Gas PEEP 5 cmH2O; Arterial Blood Gas Tidal Volume 400 ml; Arterial Blood Gas Vent Mode CMV; Arterial Blood Gas Ventilator rate 16 /MIN; Peak Inspiratory Pressure 0 cmH2O
[2019-10-27] MEDS: MIDAZOLAM HCL 50 MG in DEXTROSE 5% 90 ML IV CONT ×2 (07:55→18:44)
--- NOTE | 2019-10-27 08:04 | PC.NURSE ---
Attempted central x [address] Fernández, unsuccessful at this time.
--- NOTE | 2019-10-27 09:41 | ADMGEN ---
This patient, Stevan Rahman, was admitted to Intensive Care Unit-12. Patient/family oriented to hospital policies and general routines including ID bracelet, bed and alarms, visiting hours, pain management, procedures, bathroom and other care routines, personal items, smoking policy, room service/diet, and visiting hours. Valuables list has been completed. Information on how to activate the Rapid Response Team has been discussed. Patient/Family are encouraged to report perceived risks to care and to ask questions if they do not understand what they are told or what they should do.
[2019-10-27] MEDS: SODIUM BICARBONATE 8.4% 150 MEQ in WATER, STERILE FOR INJECTION 1,000 ML 100 MEQ IV CONT (10:21)
[2019-10-27] MEDS: PANTOPRAZOLE SODIUM IV 40 MG VIAL IV PUSH (10:28)
[2019-10-27 10:30] LABS: Alveolar/Arterial O2 Gradient 203.6 mmHg; Base Excess ABG -11.9 mEq/l (+/-2.0); Fractional Inspired Oxygen 50 %; HCO3 ABG 14.5 mEq/l (22.0-26.0); Oxygen Content ABG 11.5 %vol (16.0-22.0); Oxygen Saturation ABG 97.5 % (95.0-100.0); Oxyhemoglobin 93.1 % THb (90.0-100.0); PCO2 ABG 34.8 mmHg (35.0-45.0); PO2 ABG 113.8 mmHg (80.0-100.0); PO2 FiO2 Ratio Arterial Blood 2.28 %; Total Hemoglobin 8.6 g/dL (12.0-18.0)
[2019-10-27 10:33] LABS: Device VENTILATOR; Modified Allen's Test Pass; Site Drawn LEFT RADIAL; pH ABG 7.237 (7.350-7.450)
[2019-10-27 10:35] LABS: Arterial Blood Gas PEEP 10 cmH2O; Arterial Blood Gas Tidal Volume 400 ml; Arterial Blood Gas Vent Mode CMV; Arterial Blood Gas Ventilator rate 24 /MIN
[2019-10-27 10:38] LABS: Creatine Kinase 78 U/L (30-135); Lactic Acid Reflex 0.6 mmol/L (0.7-2.1)
[2019-10-27 10:40] LABS: Alanine Aminotransferase 41 U/L (4-35); Albumin Level 2.5 g/dL (3.5-5.1); Alkaline Phosphatase 179 U/L (38-126); Aspartate Amino Transferase 49 U/L (14-36); Bilirubin,Total 0.4 mg/dL (0.2-1.3); Blood Urea Nitrogen 115 mg/dL (7-17); Calcium 6.6 mg/dL (8.4-10.2); Carbon Dioxide 15 mmol/L (22-30); Chloride 107 mmol/L (98-107); Estimated CRCL calculation 31 ml/min; Estimated Glomerular Filt Rate 16; Glucose 246 mg/dL (65-105); Potassium 5.6 mmol/L (3.4-5.0); Sodium 138 mmol/L (137-145)
--- NOTE | 2019-10-27 10:56 | ECHO_ITS ---
Patient Info Name: Stevan Rahman Age: 54 years : 1965 Gender: Female Ht: 63 in Wt: 375 lbs BSA: 2.87 m2 HR: 53 bpm BP: 142 / 77 mmHg Technical Quality: Poor Exam Date: 10/27/2019 12:15 PM Exam Location: [facility] Pulmonary Exam Room: ICU- Patient Status: Inpatient Admit Date: 10/27/2019 Staff Ordering Physician: Shanta Anaya MD Breaker Off: Jordana Amezquita RDCS Attending Provider: Samuel Trent MD Referring Physician: Jaclyn STEINER; Exam Type: CA echo doppler color flow Study Info Indications - severe sepsis chf afib Complete two-dimensional, color flow and Doppler transthoracic echocardiogram is performed. Contrast/Agitated Saline Contrast/Ag. Saline: Agitated Saline Amount: 20.00 ml Existing IV Access: Yes Reason for Poor Study: patient body habitus Summary 1. Left ventricular systolic function is normal, estimated at 50-55%. 2. There is moderately increased left ventricular wall thickness. 3. Right ventricular chamber dimension is mildly enlarged. 4. Right ventricular systolic function is normal. 5. There is no pericardial effusion. 6. No significant valvular abnormalities. Left Ventricle Left ventricular chamber dimension is normal. Left ventricular systolic function is normal, estimated at 50-55%. There is moderately increased left ventricular wall thickness. Left ventricular septal wall motion is normal. The left ventricular diastolic function is indeterminate. Right Ventricle Right ventricular chamber dimension is mildly enlarged. Right ventricular systolic function is normal. Left Atria Left atrial chamber dimension is enlarged. Right Atria Right atrial chamber dimension is normal. Aortic Valve The aortic valve is trileaflet. There is no aortic valve sclerosis. There is no aortic valve stenosis. There is no aortic valve regurgitation. Pulmonic Valve The pulmonic valve is normal. There is no pulmonic valve stenosis. There is no pulmonic regurgitation. Mitral Valve The mitral valve has normal leaflets. There is no mitral valve stenosis. There is no mitral valve regurgitation. Tricuspid Valve The tricuspid valve leaflets are normal. There is no significant tricuspid valve stenosis. There is no tricuspid valve regurgitation. No pulmonary hypertension, estimated pulmonary arterial systolic pressure is 32 mmHg. Pericardium/Pleural There is no pericardial effusion. Inferior Vena Cava Inferior vena cava is not well visualized. Left Ventricular Outflow Tract Name Value Normal LVOT 2D LVOT Diameter 2.1 cm LVOT Doppler LVOT Peak Gradient 2 mmHg LVOT Mean Gradient 1 mmHg LVOT VTI 24 cm LVOT VTI/AV VTI Ratio 0.9 LVOT Stroke Volume 82 ml LVOT CO 11.9 l/min LVOT CI 4.1 l/min/m2 Pulmonic Valve
[2019-10-27 10:57] LABS: Troponin I 0.059 ng/mL (0.000-0.034)
--- NOTE | 2019-10-27 11:17 | WPDCNINT ---
Assessment and Plan Assessment and plan (1) Sepsis: Qualifiers: Sepsis type: sepsis due to unspecified organism Sepsis acute organ dysfunction status: unspecified Qualified Code(s): A41.9 - Sepsis, unspecified organism Code(s): A41.9 - Sepsis, unspecified organism Status: Acute Assessment and Plan: patient presented with altered mental status, leukocytosis, bradycardic, hypotensive, metabolic acidosis - was adequately fluid-resuscitated - central line was inserted in the right subclavian - blood pressures have been stable since, - lactic acid levels have been normal - patient started on ceftriaxone, azithromycin for presumed pneumonia, vancomycin was added - CRP is elevated - cultures have been obtained (2) Cardiac arrest: Code(s): I46.9 - Cardiac arrest, cause unspecified Status: Acute Assessment and Plan: brief cardiac arrest most likely related to bradycardia, hyperkalemia, hypoxia, respiratory failure - ROSC brief CPR, atropine, epinephrine and bicarb was give after which her heart rate has been stable. - First set of troponin was less than 0.012, 2nd set of troponin post CPR is 0.059, will trend troponin levels - obtain echocardiogram (3) Respiratory failure: Qualifiers: Chronicity: acute Respiratory failure complication: hypoxia and hypercapnia Qualified Code(s): J96.01 - Acute respiratory failure with hypoxia; J96.02 - Acute respiratory failure with hypercapnia Code(s): J96.90 - Respiratory failure, unspecified, unspecified whether with hypoxia or hypercapnia Status: Acute Assessment and Plan: acute respiratory failure likely related to severe metabolic acidosis, hypercapnia - patient on full mechanical ventilator support, - chest x-ray shows persistent airspace opacities in the perihilar regions consistent with pulmonary edema versus pneumonia, no pneumothorax, central line at the cavoatrial junction. - ABGs reviewed, ventilator adjusted - add bronchodilators - with fentanyl and Versed infusion, daily sedation vacation, maintained RASS of 0- 2 (4) Metabolic acidosis: Code(s): E87.2 - Acidosis Status: Acute Assessment and Plan: severe metabolic acidosis likely related to acute on chronic kidney disease, possibly also due to hypercapnia, hypotension, sepsis - patient received IV fluids, maintain mean arterial pressure is greater than 65 mmHg - started on bicarb infusion - continue to monitor (5) Anemia: Qualifiers: Anemia type: unspecified type Qualified Code(s): D64.9 - Anemia, unspecified Code(s): D64.9 - Anemia, unspecified Status: Acute Assessment and Plan: patient has chronic anemia, was transfused packed RBCs on 10/25/2019 here at [facility] - hemoglobin stable today - continue to monitor (6) Atrial fibrillation: Qualifiers: Atrial fibrillation type: unspecified Qualified Code(s): I48.91 - Unspecified atrial fibrillation Code(s): I48.91 - Unspecified atrial fibrillation Status: Acute Assessment and Plan: history of chronic AFib, on Xarelto at assisted, currently in sinus bradycardia, continue to monitor - Xarelto was restarted (7) Acute kidney injury superimposed on chronic kidney disease: Code(s): N17.9 - Acute kidney failure, unspecified; N18.9 - Chronic kidney disease, unspecified Status: Acute Assessment and Plan: acute on chronic kidney disease, baseline creatinine unknown, obtaining records from [facility] and [facility]. - Likely due to dehydration, sepsis, hypertension, diuretics. Also has longstanding diabetes, hypertension, CHF which all could be contributing to her chronic kidney disease - patient has been adequately fluid-resuscitated, start bicarb infusion to severe metabolic acidosis - monitor urine output, renal function electrolytes - Hyperkal
[2019-10-27] MEDS: ALBUTEROL SULFATE NEB 2.5 MG/0.5 ML INH 15 MG INHALATION (11:37)
[2019-10-27] MEDS: INSULIN ASPART (*BKC) 100 UNITS/ML SUB-Q ×2 (11:51→18:07)
[2019-10-27] MEDS: SODIUM BICARBONATE 8.4% 50 MEQ/50 ML VIAL IV PUSH (11:55)
[2019-10-27 12:02] LABS: Glucose Point of Care 247 (65-105)
--- NOTE | 2019-10-27 12:04 | WPDPROCEDUR ---
Procedures Central Line Placement: Right SC: Discussed w/ patient and/or surrogate, the non-emergent placement of a central venous catheter, including its clinical necessity/indication & associated potential risks & complications.: No ( no one was available to discuss and patient was hypotensive) The patient and/or surrogate understand(s) and acknowledge(s) the need to proceed with central venous catheter insertion as an important element of the patient's clinical management.: No Emergently Placed - (Given emergent patient conditions, temporal constraints may not have permitted and aforementioned informed consent.): No Central Line Date: 10/27/19 Central Line Time: 08:14 Pre-procedural Time-Out was completed immediately before starting the procedure and confirmed: Patient Identification, Site, Procedure, Patient Position and the Availability of Requisite Equipment.: Yes Patient Position: supine Patient placed on monitor/pulse ox: Yes Provider Prep: mask, sterile gown, sterile gloves, Max. sterile barrier precautions, cap and hand hygiene Central line prep: Chlorhexidine scrub and sterile full body sheet applied Local anesthesia used: lidocaine 1% Amount of anesthesia used (ml): 3 Ultrasound used for placement: Yes Central line lumen inserted: triple Vietnamese: 16 Length (cm): 16 Depth of Insertion (cm): 14 Post procedure: sutured in place, good blood return, all ports aspirated, flushed, capped, tegaderm, hemostatic disc, antimicrobial disc and aseptic technique maintained throughout procedure Post procedure x-ray: tip of catheter in good position and no pneumothorax seen Patient tolerated procedure: well and no complications Complications: none
[2019-10-27 13:29] LABS: Creatinine Urine 37.1 mg/dL
[2019-10-27 13:32] LABS: Potassium Urine Random 14.5 meq/L; Sodium Urine Random 89 meq/L
[2019-10-27 14:03] LABS: Iron 39 ug/dL (37-170)
[2019-10-27 14:12] LABS: Percent Iron Saturation 19 % (20-50)
[2019-10-27 14:33] LABS: Alanine Aminotransferase 36 U/L (4-35); Albumin Level 2.3 g/dL (3.5-5.1); Alkaline Phosphatase 154 U/L (38-126); Aspartate Amino Transferase 37 U/L (14-36); Bilirubin,Total 0.4 mg/dL (0.2-1.3); Blood Urea Nitrogen 117 mg/dL (7-17); Calcium 6.5 mg/dL (8.4-10.2); Carbon Dioxide 16 mmol/L (22-30); Chloride 105 mmol/L (98-107); Estimated CRCL calculation 33 ml/min; Estimated Glomerular Filt Rate 18; Glucose 293 mg/dL (65-105); Lipase 426 U/L (23-300); Potassium 4.9 mmol/L (3.4-5.0); Sodium 136 mmol/L (137-145)
[2019-10-27] MEDS: IPRATROPIUM BR 0.02% INH SOLN 0.5 MG/2.5 ML VIAL INHALATION ×2 (14:41→20:46)
[2019-10-27] MEDS: ALBUTEROL SULFATE NEB 2.5 MG/0.5 ML INH 5 MG INHALATION ×2 (14:41→20:47)
[2019-10-27 14:56] LABS: Troponin I 0.114 ng/mL (0.000-0.034)
[2019-10-27 15:27] LABS: Influenza Control Positive
[2019-10-27 16:33] LABS: Amphetamine Screen Urine Negative (Negative); Barbiturate Screen Urine Negative (Negative); Benzodiazepines Screen Urine Negative (Negative); Cannabinoid Screen Urine Negative (Negative); Cocaine Screen Urine Negative (Negative); Methadone Screen Urine Negative (Negative); Opiate Screen Urine Positive (Negative); Phencyclidine Screen Urine Negative (Negative)
[2019-10-27] MEDS: OSELTAMIVIR PHOSPHATE 30 MG CAPSULE PO (17:13)
[2019-10-27] MEDS: RIVAROXABAN 20 MG TABLET PO (17:13)
[2019-10-27 17:44] LABS: Glucose Point of Care 231 (65-105)
--- NOTE | 2019-10-27 17:48 | PC.NURSE ---
Upon patient arrival to unit patient was turned to get excess linens out from underneath her, skin tears were noted to bilateral buttocks and this RN went to get camera and mepilex, while patient was on side her heart rate dropped into the 30's and Dr. Anaya asked us to lay her flat and sit her up. The patient also laid flat while radiology technicians were obtaining an xray and while boosting patient in bed, during both of these instances patient had episodes of bradycardia into the 30s. Dr. Anaya aware of patient's inability to turn or lay flat
[2019-10-27 18:26] LABS: Troponin I 0.115 ng/mL (0.000-0.034)
[2019-10-27] MEDS: SODIUM BICARBONATE 8.4% 150 MEQ in WATER, STERILE FOR INJECTION 950 ML 100 MEQ IV CONT (22:23)
--- NOTE | 2019-10-27 23:14 | HP_ITS ---
DATE OF SERVICE: 10/27/2019 HISTORY OF PRESENT ILLNESS: The patient is currently in the ICU, intubated on a ventilator. The patient wasseen around 11:30 this morning. The patient was brought in overnight around animal rescuer for altered mental status from the longterm. Patient lives in [place]. She is there for rehabilitation. The patient has a history of rheumatoid arthritis, severe for 5 years, has been wheelchair bound. The patient is also having some diarrhea and abdominal pain at [place]. The patient has a history of narcotic abuse, diabetes, chronic kidney disease, congestive heart failure, atrial fibrillation, chronic pain, severe rheumatoid arthritis, hyperlipidemia, psoriasis, lymphedema, chronic pancreatitis, and cervical disk disorder. The patient was found to be hypotensive in the emergency room. Unfortunately, patient suffered a cardiac arrest and has had a CPR in the emergency room, was intubated and brought up to the ICU. The patient was found to have hyperkalemia. The patient is also found to have a heart rate which is slow. The patient is found to be in acute on chronic renal failure. The patient is acidotic on the blood gas. Long discussion with the parents, patient has been living in [place] for rehabilitation, has been down with an infection and having diarrhea for few days. REVIEW OF SYSTEMS: Systems review is difficult to obtain as patient is intubated in the ICU and sedated. PAST MEDICAL HISTORY: Diabetes type 2, chronic kidney disease, congestive heart failure, atrial fibrillation, rheumatoid arthritis, chronic pain with narcotic use, hyperlipidemia, anemia, psoriasis, toxic metabolic encephalopathy lymphadenopathy, cervical disk disorder, chronic pancreatitis. PAST SURGICAL HISTORY: Mom states she has had several surgeries to her feet. Also a surgery to her stomach, having a stoma reversed. The patient does not smoke or drink. Lives in [place]. FAMILY HISTORY: Positive for rheumatoid arthritis. PHYSICAL EXAMINATION: VITALS: In the emergency room temperature is 37.5, pulse 58, respirations 20, sats 95, blood pressure 136/76. GENERAL: The patient is presently on a ventilator. The patient is morbidly obese. HEART: Sounds are present, but very slow. CHEST: Respirations have decreased breath sounds bilaterally. ABDOMEN: Soft, nontender. Central obesity. 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 NEUROLOGIC: Difficult to assess. Patient is sedated. The patient has a chronic edema. LABORATORY STUDIES: Hemoglobin and hematocrit 9.7 and 32.4, white cells 16.6, and platelets 168. Sodium 138, potassium 5.6, BUN 115, creatinine 3, glucose 246. Troponin 0.012, total kinase 76, bilirubin 0.6, AST 24, ALT 27, alkaline phos of 168, albumin 3. Urine was negative. The patient had an ABG, pH 7.237, pCO2 34, PO2 113, bicarb 14.5. Influenza A and B. The patient had a positive flu. The patient had an ultrasound of the kidneys which were normal. The patient had an echo Doppler, which shows ejection fraction of 50% with left ventricular septal wall motion is normal. The patient had a chest x-ray, which showed some small effusions and pulmonary edema versus pneumonia. The patient had abdominal x-ray which was normal. The patient is to continue on breathing treatments for acute respiratory failure. The patient is also on a corrective insulin sliding scale for her diabetes. The patient is on Levophed for blood pressure support. The patient is started on tamsulosin type A influenza positive. The patient has IV Protonix. The patient is on also on vancomycin for antibiotic coverage and patient is on Xarelto for DVT coverage. Continue to monitor patient's kidney function and respiratory
[2019-10-28] VITALS (96 sets, daily range): BP systolic 81–147; BP diastolic 49–85; PULSE 50–76; RESP 15–24; TEMP 32.7–36.4; O2SAT 88–99
[2019-10-28] MEDS: INSULIN ASPART (*BKC) 100 UNITS/ML SUB-Q ×2 (01:22→18:13)
[2019-10-28 01:42] LABS: Glucose Point of Care 240 (65-105)
[2019-10-28 03:02] LABS: Free T4 Free Thyroxine Reflex 1.04 ng/dL (0.78-2.19)
[2019-10-28 04:16] LABS: Alveolar/Arterial O2 Gradient 163.8 mmHg; Base Excess ABG -7.2 mEq/l (+/-2.0); Carboxyhemoglobin 0.3 % THb (0-2.0); Device VENTILATOR; Fractional Inspired Oxygen 40 %; HCO3 ABG 17.5 mEq/l (22.0-26.0); Methemoglobin ABG 0.1 %THb (0-1.5); Modified Allen's Test Pass; Oxygen Content ABG 10.5 %vol (16.0-22.0); Oxygen Saturation ABG 96.2 % (95.0-100.0); PCO2 ABG 31.8 mmHg (35.0-45.0); PO2 ABG 84.8 mmHg (80.0-100.0); PO2 FiO2 Ratio Arterial Blood 2.12 %; Reduced Hemoglobin 8.6 %THb (0-5.0); Site Drawn LEFT RADIAL; Total Hemoglobin 8.1 g/dL (12.0-18.0); pH ABG 7.359 (7.350-7.450)
[2019-10-28 04:17] LABS: Arterial Blood Gas PEEP 10 cmH2O; Arterial Blood Gas Vent Mode CMV; Arterial Blood Gas Ventilator rate 20 /MIN
[2019-10-28 04:18] LABS: Arterial Blood Gas Tidal Volume 400 ml
[2019-10-28 06:03] LABS: Hematocrit 25.8 % (37.0-47.0); Hemoglobin 7.8 g/dL (12.0-15.0); Mean Corpuscular HGB Conc 30.2 g/dl (32-36); Mean Corpuscular Hemoglobin 27.1 pg (26-34); Mean Corpuscular Volume 89.6 fl (80-100); Mean Platelet Volume 11.5 fl (7.4-10.4); Platelet Count Result 143 k/mm3 (150-375); Red Blood Count 2.88 M/mm3 (4.2-5.4); Red Cell Distribution Width 17.8 % (11.5-14.5); White Blood Count 11.3 K/mm3 (4.5-10.0)
[2019-10-28 06:08] LABS: Lactic Acid 1.3 mmol/L (0.7-2.1)
[2019-10-28 06:17] LABS: Alanine Aminotransferase 30 U/L (4-35); Albumin Level 2.2 g/dL (3.5-5.1); Alkaline Phosphatase 134 U/L (38-126); Aspartate Amino Transferase 25 U/L (14-36); Bilirubin,Total 0.2 mg/dL (0.2-1.3); Blood Urea Nitrogen 114 mg/dL (7-17); Calcium 6.4 mg/dL (8.4-10.2); Carbon Dioxide 19 mmol/L (22-30); Chloride 108 mmol/L (98-107); Estimated CRCL calculation 32 ml/min; Estimated Glomerular Filt Rate 17; Glucose 192 mg/dL (65-105); Magnesium 1.9 mg/dL (1.6-2.3); Phosphorus 7.2 mg/dL (2.5-4.5); Potassium 4.9 mmol/L (3.4-5.0); Sodium 140 mmol/L (137-145)
[2019-10-28 06:22] LABS: Troponin I 0.088 ng/mL (0.000-0.034)
[2019-10-28] MEDS: MIDAZOLAM HCL 50 MG in DEXTROSE 5% 90 ML 6 MG IV CONT ×2 (06:40→23:33)
[2019-10-28] MEDS: NOREPINEPHRINE 8 MG/D5W 250 ML 8 MG/250 ML BAG 9.4 MG IV CONT (07:40)
[2019-10-28 07:53] LABS: Immature Reticulocyte Fraction 24.7 % (3.0-15.9); Reticulocyte Hemoglobin Conten 29.8 pg (28.2-35.7); Reticulocyte Percent 3.28 % (0.7-4.3); Reticulocytes Absolute 0.09 B/L (32.2-175.7)
[2019-10-28] MEDS: LACTATED RINGERS 1,000 ML 999 ML IV CONT (07:57)
[2019-10-28] MEDS: OSELTAMIVIR PHOSPHATE 30 MG CAPSULE PO ×2 (07:59→17:53)
[2019-10-28] MEDS: TOLNAFTATE 1% POWDER 45 GM BTL 1 APPLIC TOPICAL ×2 (08:00→20:29)
[2019-10-28] MEDS: PANTOPRAZOLE SODIUM IV 40 MG VIAL IV PUSH (08:00)
[2019-10-28 08:03] LABS: Lactate Dehydrogenase 533 U/L (313-618)
[2019-10-28] MEDS: ALBUTEROL SULFATE NEB 2.5 MG/0.5 ML INH 5 MG INHALATION ×5 (09:27→22:16)
[2019-10-28] MEDS: IPRATROPIUM BR 0.02% INH SOLN 0.5 MG/2.5 ML VIAL INHALATION ×4 (09:28→22:14)
[2019-10-28] MEDS: SODIUM BICARBONATE 8.4% 150 MEQ in WATER, STERILE FOR INJECTION 950 ML 100 MEQ IV CONT ×2 (09:57→20:33)
[2019-10-28 11:49] LABS: Glucose Point of Care 194 (65-105)
--- NOTE | 2019-10-28 13:31 | WPDINTPN ---
Progress Note: A&P Assessment and Plan (1) Septic shock: Code(s): A41.9 - Sepsis, unspecified organism; R65.21 - Severe sepsis with septic shock Status: Acute Assessment and Plan: patient presented with altered mental status, leukocytosis, bradycardic, hypotensive, metabolic acidosis - dropped her blood pressures this morning likely secondary sedation, requiring Levophed. Will maintain mean arterial pressures > 65 mmHg - will give additional IV fluid bolus this morning - central line was inserted in the right subclavian on 10/27/2019 - lactic acid levels have been normal, CRP 14.7 - continue ceftriaxone, azithromycin and vancomycin - CRP is elevated - blood cultures negative x2, MRSA nasal swab poitive (2) Cardiac arrest: Code(s): I46.9 - Cardiac arrest, cause unspecified Status: Acute Assessment and Plan: brief cardiac arrest most likely related to bradycardia, hyperkalemia, hypoxia, respiratory failure - ROSC brief CPR, atropine, epinephrine and bicarb was give after which her heart rate has been stable. - troponins trending down, likely related to cardiac arrest from respiratory failure - echocardiogram done on 10/27/2019: LVEF 50-55%, left ventricular chamber dimension is normal. Moderately increased left ventricular wall thickness, RV systolic function is normal, no pericardial effusion, no significant valvular abnormalities (3) Respiratory failure: Qualifiers: Chronicity: acute Respiratory failure complication: hypoxia and hypercapnia Qualified Code(s): J96.01 - Acute respiratory failure with hypoxia; J96.02 - Acute respiratory failure with hypercapnia Code(s): J96.90 - Respiratory failure, unspecified, unspecified whether with hypoxia or hypercapnia Status: Acute Assessment and Plan: acute respiratory failure likely related to severe metabolic acidosis, hypercapnia - patient on full mechanical ventilator support, - chest x-ray shows cardiomegaly with pulmonary edema, left pleural effusion. - ABGs reviewed, ventilator adjusted - Continue bronchodilators - with fentanyl and Versed infusion, daily sedation vacation, maintained RASS of 0- 2 (4) Metabolic acidosis: Code(s): E87.2 - Acidosis Status: Acute Assessment and Plan: RESOLVED: severe metabolic acidosis ON ADMISSION likely related to acute on chronic kidney disease, possibly also due to hypercapnia, hypotension, sepsis - patient received IV fluids, maintain mean arterial pressure is greater than 65 mmHg - continue bicarb infusion - continue to monitor (5) Anemia: Qualifiers: Anemia type: unspecified type Qualified Code(s): D64.9 - Anemia, unspecified Code(s): D64.9 - Anemia, unspecified Status: Acute Assessment and Plan: patient has chronic anemia, was transfused packed RBCs on 10/25/2019 here at [facility] - hemoglobin is dropped to 7.8 this morning. Iron panel showing anemia of chronic disease - continue to monitor (6) Influenza A: Code(s): J10.1 - Influenza due to other identified influenza virus with other respiratory manifestations Status: Acute Assessment and Plan: patient positive for influenza A, started on Tamiflu, renally dosed - droplet precautions (7) Atrial fibrillation: Qualifiers: Atrial fibrillation type: unspecified Qualified Code(s): I48.91 - Unspecified atrial fibrillation Code(s): I48.91 - Unspecified atrial fibrillation Status: Acute Assessment and Plan: history of chronic AFib, on Xarelto at [facility], currently in sinus bradycardia, continue to monitor - continue Xarelto (8) Acute kidney injury superimposed on chronic kidney disease: Code(s): N17.9 - Acute kidney failure, unspecified; N18.9 - Chronic kidney disease, unspecified Status: Acute Assessment and Plan: acute on chronic kidney disease, baseli
--- NOTE | 2019-10-28 16:59 | PM.IMPN ---
Progress Note: A&P Assessment and Plan (1) Influenza A: Code(s): J10.1 - Influenza due to other identified influenza virus with other respiratory manifestations Status: Acute Assessment and Plan: Pt is on tamiflu (2) Septic shock: Code(s): A41.9 - Sepsis, unspecified organism; R65.21 - Severe sepsis with septic shock Status: Acute Assessment and Plan: As per ICu attending, patient started on ceftriaxone, azithromycin for presumed pneumonia, vancomycin was added Pt is on levophed pt is on a bear hugger. for hypothermia (3) History of CHF (congestive heart failure): Code(s): Z86.79 - Personal history of other diseases of the circulatory system Status: Acute Assessment and Plan: Hold diuretics due to hypotension (4) Acute kidney injury superimposed on chronic kidney disease: Code(s): N17.9 - Acute kidney failure, unspecified; N18.9 - Chronic kidney disease, unspecified Status: Acute Assessment and Plan: continue to watch kidney function , pt has history of CKD, potassium is high (5) Atrial fibrillation: Qualifiers: Atrial fibrillation type: unspecified Qualified Code(s): I48.91 - Unspecified atrial fibrillation Code(s): I48.91 - Unspecified atrial fibrillation Status: Acute Assessment and Plan: pt is on xarelto for anticoagulation (6) DVT prophylaxis: Code(s): Z29.9 - Encounter for prophylactic measures, unspecified Status: Acute Assessment and Plan: pt is on xarelto for anticoagulation (7) Anemia: Qualifiers: Anemia type: unspecified type Qualified Code(s): D64.9 - Anemia, unspecified Code(s): D64.9 - Anemia, unspecified Status: Chronic Assessment and Plan: Continue to monitor (8) Metabolic acidosis: Code(s): E87.2 - Acidosis Status: Acute Assessment and Plan: pt is on sodium bicarbondate drip (9) Respiratory failure: Qualifiers: Chronicity: acute Respiratory failure complication: hypoxia and hypercapnia Qualified Code(s): J96.01 - Acute respiratory failure with hypoxia; J96.02 - Acute respiratory failure with hypercapnia Code(s): J96.90 - Respiratory failure, unspecified, unspecified whether with hypoxia or hypercapnia Status: Acute Assessment and Plan: Pt is intubated in icu (10) Cardiac arrest: Code(s): I46.9 - Cardiac arrest, cause unspecified Status: Acute Assessment and Plan: REcent cardiac arrest due to resp arrest and hyperkalaemia (11) Acute renal failure: Qualifiers: Acute renal failure type: unspecified Qualified Code(s): N17.9 - Acute kidney failure, unspecified Code(s): N17.9 - Acute kidney failure, unspecified Status: Acute Assessment and Plan: Pt has a history of CKD (12) Hyperkalemia: Code(s): E87.5 - Hyperkalemia Status: Acute Assessment and Plan: continue to monitor potassium levels. pt is on sodium bicarbonate drip Subjective Date/time seen: 10/28/19 16:59 Interval history: The patient was brought in overnight around reading intervention teacher for altered mental status from the halfway. Patient lives in [place]. She is there for rehabilitation. The patient has a history of rheumatoid arthritis, severe for 5 years, has been wheelchair bound. The patient is also having some diarrhea and abdominal pain at [place]. The patient has a history of narcotic abuse, diabetes, chronic kidney disease, congestive heart failure, atrial fibrillation, chronic pain, severe rheumatoid arthritis, hyperlipidemia, psoriasis, lymphedema, chronic pancreatitis, and cervical disk disorder. The patient was found to be hypotensive in the emergency room. Unfortunately, patient suffered a cardiac arrest and has had a CPR in the emergency room, was intubated and brought up to the ICU. The patient was found to have hyperkalemia. Pt
[2019-10-28] MEDS: RIVAROXABAN 20 MG TABLET PO (17:53)
[2019-10-28 18:21] LABS: Glucose Point of Care 208 (65-105)
[2019-10-28] MEDS: MUPIROCIN 2% OINT 22 GM TUBE 1 APPLIC EACH NARE (20:29)
[2019-10-28 23:47] LABS: Glucose Point of Care 186 (65-105)
[2019-10-29] VITALS (28 sets, daily range): BP systolic 92–118; BP diastolic 47–57; PULSE 71–87; RESP 18–21; TEMP 36.3–37.7; O2SAT 86–99; BMI 86.3
[2019-10-29] MEDS: ALBUTEROL SULFATE NEB 2.5 MG/0.5 ML INH 5 MG INHALATION ×4 (02:15→21:25)
[2019-10-29] MEDS: IPRATROPIUM BR 0.02% INH SOLN 0.5 MG/2.5 ML VIAL INHALATION ×4 (02:15→21:24)
[2019-10-29 03:52] LABS: Base Excess ABG -4.3 mEq/l (+/-2.0); Carboxyhemoglobin 1.3 % THb (0-2.0); Fractional Inspired Oxygen 40 %; HCO3 ABG 20.5 mEq/l (22.0-26.0); Methemoglobin ABG 0.1 %THb (0-1.5); Oxygen Content ABG 9.2 %vol (16.0-22.0); Oxygen Saturation ABG 92.1 % (95.0-100.0); Oxyhemoglobin 86.2 % THb (90.0-100.0); PCO2 ABG 36.4 mmHg (35.0-45.0); PO2 ABG 64.3 mmHg (80.0-100.0); PO2 FiO2 Ratio Arterial Blood 1.61 %; Reduced Hemoglobin 12.4 %THb (0-5.0); pH ABG 7.369 (7.350-7.450)
[2019-10-29 03:56] LABS: Device VENTILATOR; Modified Allen's Test Pass; Site Drawn LEFT RADIAL; Total Hemoglobin 7.5 g/dL (12.0-18.0)
[2019-10-29 03:57] LABS: Arterial Blood Gas PEEP 10 cmH2O; Arterial Blood Gas Tidal Volume 400 ml; Arterial Blood Gas Vent Mode CMV; Arterial Blood Gas Ventilator rate 20 /MIN
[2019-10-29 04:17] LABS: Hematocrit 25.9 % (37.0-47.0); Hemoglobin 7.9 g/dL (12.0-15.0); Mean Corpuscular HGB Conc 30.5 g/dl (32-36); Mean Corpuscular Hemoglobin 27.4 pg (26-34); Mean Corpuscular Volume 89.9 fl (80-100); Mean Platelet Volume 11.9 fl (7.4-10.4); Platelet Count Result 115 k/mm3 (150-375); Red Blood Count 2.88 M/mm3 (4.2-5.4); Red Cell Distribution Width 18.6 % (11.5-14.5); White Blood Count 16.5 K/mm3 (4.5-10.0)
[2019-10-29 04:31] LABS: Alanine Aminotransferase 26 U/L (4-35); Albumin Level 2.1 g/dL (3.5-5.1); Alkaline Phosphatase 129 U/L (38-126); Aspartate Amino Transferase 20 U/L (14-36); Bilirubin,Total 0.3 mg/dL (0.2-1.3); Blood Urea Nitrogen 113 mg/dL (7-17); Carbon Dioxide 19 mmol/L (22-30); Chloride 106 mmol/L (98-107); Estimated CRCL calculation 34 ml/min; Estimated Glomerular Filt Rate 18; Glucose 211 mg/dL (65-105); Magnesium 1.8 mg/dL (1.6-2.3); Phosphorus 6.9 mg/dL (2.5-4.5); Sodium 138 mmol/L (137-145)
[2019-10-29] MEDS: OSELTAMIVIR PHOSPHATE 30 MG CAPSULE PO ×2 (06:26→16:55)
[2019-10-29] MEDS: INSULIN ASPART (*BKC) 100 UNITS/ML SUB-Q ×2 (06:32→12:14)
[2019-10-29 06:52] LABS: Glucose Point of Care 202 (65-105)
[2019-10-29] MEDS: SODIUM BICARBONATE 8.4% 150 MEQ in WATER, STERILE FOR INJECTION 950 ML 100 MEQ IV CONT (07:31)
[2019-10-29] MEDS: MUPIROCIN 2% OINT 22 GM TUBE 1 APPLIC EACH NARE ×2 (08:22→20:35)
[2019-10-29] MEDS: TOLNAFTATE 1% POWDER 45 GM BTL 1 APPLIC TOPICAL ×2 (08:22→20:35)
[2019-10-29] MEDS: PANTOPRAZOLE SODIUM IV 40 MG VIAL IV PUSH (08:23)
[2019-10-29 08:57] LABS: Hematocrit 24.6 % (37.0-47.0); Hemoglobin 7.3 g/dL (12.0-15.0); Mean Corpuscular HGB Conc 29.7 g/dl (32-36); Mean Corpuscular Hemoglobin 26.8 pg (26-34); Mean Corpuscular Volume 90.4 fl (80-100); Mean Platelet Volume 11.2 fl (7.4-10.4); Platelet Count Result 100 k/mm3 (150-375); Red Blood Count 2.72 M/mm3 (4.2-5.4); Red Cell Distribution Width 18.6 % (11.5-14.5); White Blood Count 14.1 K/mm3 (4.5-10.0)
[2019-10-29 09:26] LABS: Blood Urea Nitrogen 113 mg/dL (7-17); Calcium 5.9 mg/dL (8.4-10.2); Carbon Dioxide 21 mmol/L (22-30); Chloride 102 mmol/L (98-107); Estimated CRCL calculation 39 ml/min; Estimated Glomerular Filt Rate 18; Glucose 217 mg/dL (65-105); Potassium 4.7 mmol/L (3.4-5.0); Sodium 135 mmol/L (137-145)
[2019-10-29] MEDS: FUROSEMIDE INJ 100 MG/10 ML VIAL 80 MG IV PUSH (10:13)
[2019-10-29 12:07] LABS: Glucose Point of Care 211 (65-105)
[2019-10-29] MEDS: NEOMYCIN/POLYMYXIN/BACITRACIN OINTMENT 15 GM TUBE 1 APPLIC TOPICAL (12:18)
[2019-10-29] MEDS: FUROSEMIDE INJ 100 MG in SODIUM CHLORIDE 0.9% IV 90 ML IV CONT (14:24)
[2019-10-29] MEDS: SILVERGEL (ELTA) 45 ML 1 APPLIC TOPICAL (15:14)
--- NOTE | 2019-10-29 15:34 | WPDINTPN ---
Progress Note: A&P Assessment and Plan (1) Septic shock: Code(s): A41.9 - Sepsis, unspecified organism; R65.21 - Severe sepsis with septic shock Status: Acute Assessment and Plan: patient presented with altered mental status, leukocytosis, bradycardic, hypotensive, metabolic acidosis - dropped her blood pressures this morning likely secondary sedation, requiring Levophed. Will maintain mean arterial pressures > 65 mmH - central line was inserted in the right subclavian on 10/27/2019 - lactic acid levels have been normal, CRP 14.7 - continue ceftriaxone, azithromycin and vancomycin - CRP is elevated - blood cultures negative x2, MRSA nasal swab positive (2) Cardiac arrest: Code(s): I46.9 - Cardiac arrest, cause unspecified Status: Acute Assessment and Plan: brief cardiac arrest most likely related to bradycardia, hyperkalemia, hypoxia, respiratory failure - ROSC brief CPR, atropine, epinephrine and bicarb was give after which her heart rate has been stable. - troponins trending down, likely related to cardiac arrest from respiratory failure - echocardiogram done on 10/27/2019: LVEF 50-55%, left ventricular chamber dimension is normal. Moderately increased left ventricular wall thickness, RV systolic function is normal, no pericardial effusion, no significant valvular abnormalities (3) Respiratory failure: Qualifiers: Chronicity: acute Respiratory failure complication: hypoxia and hypercapnia Qualified Code(s): J96.01 - Acute respiratory failure with hypoxia; J96.02 - Acute respiratory failure with hypercapnia Code(s): J96.90 - Respiratory failure, unspecified, unspecified whether with hypoxia or hypercapnia Status: Acute Assessment and Plan: acute respiratory failure likely related to severe metabolic acidosis, hypercapnia - patient on full mechanical ventilator support, - chest x-ray shows cardiomegaly with pulmonary edema, left pleural effusion. - ABGs reviewed, ventilator adjusted - Continue bronchodilators - sedation is off - strated on lasix drip (4) Metabolic acidosis: Code(s): E87.2 - Acidosis Status: Acute Assessment and Plan: RESOLVED: severe metabolic acidosis ON ADMISSION likely related to acute on chronic kidney disease, possibly also due to hypercapnia, hypotension, sepsis - patient received IV fluids, maintain mean arterial pressure is greater than 65 mmHg - continue bicarb infusion - continue to monitor (5) Anemia: Qualifiers: Anemia type: unspecified type Qualified Code(s): D64.9 - Anemia, unspecified Code(s): D64.9 - Anemia, unspecified Status: Chronic Assessment and Plan: patient has chronic anemia, was transfused packed RBCs on 10/25/2019 here at [facility] - hemoglobin is dropped to 7.3 this morning. Iron panel showing anemia of chronic disease - continue to monitor (6) Influenza A: Code(s): J10.1 - Influenza due to other identified influenza virus with other respiratory manifestations Status: Acute Assessment and Plan: patient positive for influenza A, started on Tamiflu, renally dosed - droplet precautions (7) Atrial fibrillation: Qualifiers: Atrial fibrillation type: unspecified Qualified Code(s): I48.91 - Unspecified atrial fibrillation Code(s): I48.91 - Unspecified atrial fibrillation Status: Acute Assessment and Plan: history of chronic AFib, on Xarelto at [facility], currently in sinus bradycardia, continue to monitor - continue Xarelto (8) Acute kidney injury superimposed on chronic kidney disease: Code(s): N17.9 - Acute kidney failure, unspecified; N18.9 - Chronic kidney disease, unspecified Status: Acute Assessment and Plan: acute on chronic kidney disease, baseline creatinine 1.1-1.3 in November 2018 at [facility]. - Likely due to deh
[2019-10-29] MEDS: RIVAROXABAN 20 MG TABLET PO (16:55)
[2019-10-29 17:12] LABS: Glucose Point of Care 173 (65-105)
--- NOTE | 2019-10-29 18:45 | PM.IMPN ---
Progress Note: A&P Assessment and Plan (1) Influenza A: Code(s): J10.1 - Influenza due to other identified influenza virus with other respiratory manifestations Status: Acute Assessment and Plan: Pt is on tamiflu (2) Septic shock: Code(s): A41.9 - Sepsis, unspecified organism; R65.21 - Severe sepsis with septic shock Status: Acute Assessment and Plan: Patient is a 54-year-old female morbidly obese resident of [facility] was sent to emergency department acute mental status change as patient was not responding and was not herself upon arrival to emergency department see was not able to provide any review of symptoms patient was re-evaluated and was found to be bradycardiac and may need to cardiac arrest CPR was initiated and patient was intubated and transferred to ICU currently patient on vent and to provide any review of symptoms, patient was found to have pneumonia positive for influenza A, in ICU patient was hypothermic be hugger was started as well as hypertensive and was placed on Levophed patient is seen by hand cell tuber and we appreciate (3) History of CHF (congestive heart failure): Code(s): Z86.79 - Personal history of other diseases of the circulatory system Status: Acute Assessment and Plan: Hold diuretics due to hypotension (4) Acute kidney injury superimposed on chronic kidney disease: Code(s): N17.9 - Acute kidney failure, unspecified; N18.9 - Chronic kidney disease, unspecified Status: Acute Assessment and Plan: continue to watch kidney function , pt has history of CKD, potassium is high (5) Atrial fibrillation: Qualifiers: Atrial fibrillation type: unspecified Qualified Code(s): I48.91 - Unspecified atrial fibrillation Code(s): I48.91 - Unspecified atrial fibrillation Status: Acute Assessment and Plan: pt is on xarelto for anticoagulation (6) DVT prophylaxis: Code(s): Z29.9 - Encounter for prophylactic measures, unspecified Status: Acute Assessment and Plan: pt is on xarelto for anticoagulation (7) Anemia: Qualifiers: Anemia type: unspecified type Qualified Code(s): D64.9 - Anemia, unspecified Code(s): D64.9 - Anemia, unspecified Status: Chronic Assessment and Plan: Continue to monitor (8) Metabolic acidosis: Code(s): E87.2 - Acidosis Status: Acute Assessment and Plan: pt is on sodium bicarbondate drip (9) Respiratory failure: Qualifiers: Chronicity: acute Respiratory failure complication: hypoxia and hypercapnia Qualified Code(s): J96.01 - Acute respiratory failure with hypoxia; J96.02 - Acute respiratory failure with hypercapnia Code(s): J96.90 - Respiratory failure, unspecified, unspecified whether with hypoxia or hypercapnia Status: Acute Assessment and Plan: Pt is intubated in icu (10) Cardiac arrest: Code(s): I46.9 - Cardiac arrest, cause unspecified Status: Acute Assessment and Plan: REcent cardiac arrest due to resp arrest and hyperkalaemia (11) Acute renal failure: Qualifiers: Acute renal failure type: unspecified Qualified Code(s): N17.9 - Acute kidney failure, unspecified Code(s): N17.9 - Acute kidney failure, unspecified Status: Acute Assessment and Plan: Pt has a history of CKD (12) Hyperkalemia: Code(s): E87.5 - Hyperkalemia Status: Acute Assessment and Plan: continue to monitor potassium levels. pt is on sodium bicarbonate drip Subjective Date/time seen: 10/29/19 18:45 Interval history: Patient is a 54-year-old female morbidly obese [facility] was sent to emergency department acute mental status change as patient was not responding and was not herself upon arrival to emergency department see was not able to provide any review of symptoms patient was re-evaluated and was found to be br
[2019-10-29] MEDS: SODIUM BICARBONATE 8.4% 150 MEQ in WATER, STERILE FOR INJECTION 950 ML 60 MEQ IV CONT (23:28)
[2019-10-29 23:37] LABS: Glucose Point of Care 274 (65-105)
[2019-10-29] MEDS: FUROSEMIDE INJ 100 MG in SODIUM CHLORIDE 0.9% IV 90 ML 15 MG IV CONT (23:37)
[2019-10-30] VITALS (33 sets, daily range): BP systolic 101–169; BP diastolic 47–103; PULSE 64–93; RESP 18–22; TEMP 35.2–37.6; O2SAT 90–98
[2019-10-30] MEDS: INSULIN ASPART (*BKC) 100 UNITS/ML SUB-Q ×5 (00:10→23:49)
[2019-10-30] MEDS: ALBUTEROL SULFATE NEB 2.5 MG/0.5 ML INH 5 MG INHALATION ×4 (02:48→19:10)
[2019-10-30] MEDS: IPRATROPIUM BR 0.02% INH SOLN 0.5 MG/2.5 ML VIAL INHALATION ×4 (02:48→19:10)
[2019-10-30 04:10] LABS: Alveolar/Arterial O2 Gradient 238.4 mmHg; Base Excess ABG -4.8 mEq/l (+/-2.0); Carboxyhemoglobin 0.5 % THb (0-2.0); Fractional Inspired Oxygen 50 %; HCO3 ABG 20.7 mEq/l (22.0-26.0); Methemoglobin ABG 0.1 %THb (0-1.5); Oxygen Content ABG 9.9 %vol (16.0-22.0); Oxygen Saturation ABG 93.8 % (95.0-100.0); Oxyhemoglobin 88.2 % THb (90.0-100.0); PO2 ABG 73.1 mmHg (80.0-100.0); PO2 FiO2 Ratio Arterial Blood 1.46 %; Reduced Hemoglobin 11.2 %THb (0-5.0); pH ABG 7.332 (7.350-7.450)
[2019-10-30 04:13] LABS: Arterial Blood Gas Ventilator rate 20 /MIN; Device VENTILATOR; Modified Allen's Test Pass; Site Drawn LEFT RADIAL; Total Hemoglobin 7.9 g/dL (12.0-18.0)
[2019-10-30 04:14] LABS: Arterial Blood Gas PEEP 10 cmH2O; Arterial Blood Gas Tidal Volume 400 ml; Arterial Blood Gas Vent Mode CMV
[2019-10-30] MEDS: FUROSEMIDE INJ 100 MG in SODIUM CHLORIDE 0.9% IV 90 ML 15 MG IV CONT ×3 (05:58→23:11)
[2019-10-30] MEDS: OSELTAMIVIR PHOSPHATE 30 MG CAPSULE PO ×2 (06:04→17:10)
[2019-10-30 06:12] LABS: Hematocrit 23.5 % (37.0-47.0); Mean Corpuscular HGB Conc 29.4 g/dl (32-36); Mean Corpuscular Hemoglobin 27.2 pg (26-34); Mean Corpuscular Volume 92.5 fl (80-100); Mean Platelet Volume 12.3 fl (7.4-10.4); Platelet Count Result 77 k/mm3 (150-375); Red Blood Count 2.54 M/mm3 (4.2-5.4); Red Cell Distribution Width 18.6 % (11.5-14.5); White Blood Count 13.1 K/mm3 (4.5-10.0)
[2019-10-30 06:17] LABS: Alanine Aminotransferase 20 U/L (4-35); Albumin Level 1.9 g/dL (3.5-5.1); Alkaline Phosphatase 124 U/L (38-126); Aspartate Amino Transferase 19 U/L (14-36); Bilirubin,Total 0.5 mg/dL (0.2-1.3); Blood Urea Nitrogen 116 mg/dL (7-17); Carbon Dioxide 24 mmol/L (22-30); Chloride 103 mmol/L (98-107); Estimated CRCL calculation 38 ml/min; Estimated Glomerular Filt Rate 17; Glucose 234 mg/dL (65-105); Magnesium 1.8 mg/dL (1.6-2.3); Phosphorus 7.4 mg/dL (2.5-4.5); Potassium 4.9 mmol/L (3.4-5.0); Sodium 137 mmol/L (137-145)
[2019-10-30 06:25] LABS: Hemoglobin 6.9 g/dL (12.0-15.0)
[2019-10-30] MEDS: PANTOPRAZOLE SODIUM IV 40 MG VIAL IV PUSH (07:57)
[2019-10-30] MEDS: MUPIROCIN 2% OINT 22 GM TUBE 1 APPLIC EACH NARE ×2 (07:58→22:18)
[2019-10-30] MEDS: TOLNAFTATE 1% POWDER 45 GM BTL 1 APPLIC TOPICAL ×2 (07:58→22:18)
[2019-10-30] MEDS: NEOMYCIN/POLYMYXIN/BACITRACIN OINTMENT 15 GM TUBE 1 APPLIC TOPICAL (07:58)
[2019-10-30] MEDS: SILVERGEL (ELTA) 45 ML 1 APPLIC TOPICAL (07:58)
[2019-10-30] MEDS: MIDAZOLAM HCL 2 MG/2 ML VIAL 4 MG IV PUSH (10:17)
--- NOTE | 2019-10-30 11:31 | PCDIET ---
Nutrition Follow-Up Complete: Nutrition Diagnosis: Inadequate oral intake related to oral intubation as evidenced by inability to take oral diet. Nutrition Goal: Tube feeding tolerance at goal rate Goal met. Patient tolerating Nepro @ 40mL/hr goal rate with residuals 130mL and below. Last recorded weight is 218 kg which is down from previous day. +I/O. Bowel Motility: +BM today. Labs Reviewed: Glu (234), BUN (116), Cr (2.9), Alb (1.9), Hgb (6.9), Hct (23.5) Meds Noted: Albuterol, Fentanyl, Novolog, Versed, Rocephin, IV Lasix, Levophed, Protonix, Vancomycin Additional Notes: Patient receiving 1 unit RBC today. Bilateral feet with ulcers; abdomen and backside macerated, per nursing. Recommend continuing present tube feeding at this time. Will continue to monitor with same goal. Nutrition Monitoring and Evaluation: Follow up every Tuesday/Tuesday. Follow daily in ICU rounds.
[2019-10-30 12:18] LABS: Glucose Point of Care 247 (65-105)
--- NOTE | 2019-10-30 13:20 | PM.CNNEP ---
Assessment and Plan Assessment and plan (1) Acute renal failure: Qualifiers: Acute renal failure type: unspecified Qualified Code(s): N17.9 - Acute kidney failure, unspecified Code(s): N17.9 - Acute kidney failure, unspecified Status: Acute Assessment and Plan: The patient has acute kidney injury. She may have very mild chronic kidney disease depending on how her muscle mass is. Since she is wheelchair-bound if her muscle mass is very low then her serum creatinine would underestimate her degree of kidney insufficiency. There are several possibilities of why she has ALLEGRA She did have a cardiac arrest when she was admitted. She also had hypotension requiring Levophed for the days before yesterday. She could have acute tubular necrosis from these processes. She could also have pre renal azotemia. The main issues swaying toward this possibility is that she was on metolazone and furosemide before she came in. In addition she has pulmonary hypertension and so could have a mild chronic pre renal azotemia from the diuretics. In addition the patient has a very high BUN to creatinine ratio which might suggest pre renal azotemia as well. She could have both of the above. Other issues could be obstruction. We will get a renal ultrasound. Also interstitial nephritis We will get urine eosinophils and also a CBC with diff. Also glomerulonephritis as she already has rheumatoid arthritis and psoriasis and so she might be more likely to get another autoimmune disease. However her urinalysis shows a bland sediment. At this point will get serology and immunofixation. The renal ultrasound, urine electrolytes eosinophils and urine urea nitrogen. It is hard do know what her volume status really is. Clearly she is very swollen and her chest x-ray does show some fluid. She is on 50% oxygen with 10 of peep. So she does not have a whole lot of room for desaturation so looking at the risks and benefits of fluid verses diuretics I would lean on the side of diuretics for now and reassess as we go. I do not think we are going to make so much urine that she becomes more dehydrated. (2) Septic shock: Code(s): A41.9 - Sepsis, unspecified organism; R65.21 - Severe sepsis with septic shock Status: Acute Assessment and Plan: She is getting supportive care. Her blood pressure is better. Her lactic acid level was okay. (3) Anemia: Qualifiers: Anemia type: unspecified type Qualified Code(s): D64.9 - Anemia, unspecified Code(s): D64.9 - Anemia, unspecified Status: Chronic Assessment and Plan: Hemoglobin has dropped a little bit Will keep an eye on this. (4) Metabolic acidosis: Code(s): E87.2 - Acidosis Status: Acute (5) Respiratory failure: Qualifiers: Chronicity: acute Respiratory failure complication: hypoxia and hypercapnia Qualified Code(s): J96.01 - Acute respiratory failure with hypoxia; J96.02 - Acute respiratory failure with hypercapnia Code(s): J96.90 - Respiratory failure, unspecified, unspecified whether with hypoxia or hypercapnia Status: Acute Assessment and Plan: She is on the ventilator. She has fairly aggressive ventilator. Settings to keep up with her oxygenation. (6) Atrial fibrillation: Qualifiers: Atrial fibrillation type: unspecified Qualified Code(s): I48.91 - Unspecified atrial fibrillation Code(s): I48.91 - Unspecified atrial fibrillation Status: Acute Assessment and Plan: This must be paroxysmal. He is in sinus rhythm now. (7) Rheumatoid arthritis: Code(s): M06.9 - Rheumatoid arthritis, unspecified Status: Acute Assessment and Plan: She has rheumatoid arthritis treated with prednisone. We will get a cortisol level and start on stress dose steroids. History of Present Illness Reason for Consult Consult date: 10/30/19 Chief Complaint Ch
[2019-10-30] MEDS: SODIUM CHLORIDE 0.9% IV 250 ML 30 ML IV CONT (14:04)
--- NOTE | 2019-10-30 14:08 | WPDCNINT ---
Physician Anesthesiologist Consult Note Consult date: 10/30/19 [facility] Past Medical History Medical History (Updated 10/30/19 @ 13:59 by Peter Bey MD) Rheumatoid arthritis Family History Family History Other Unknown family medical history Social History Social History Smoking status: Never smoker Alcohol intake: former Substance use: never Gender identity (if verbalized by the patient): Female Spiritual care concerns: No Agree to blood products: Yes Meds Home Medications and Allergies Home Medications Medication Instructions Recorded Confirmed Type amlodipine 10 mg PO DAILY 10/27/19 10/27/19 History atorvastatin 20 mg PO HS 10/27/19 10/27/19 History carvedilol 25 mg PO Q12H 10/27/19 10/27/19 History ergocalciferol (vitamin D2) 1,250 mcg PO WEEKLY 10/27/19 10/27/19 History ferrous sulfate 325 mg PO BID 10/27/19 10/27/19 History furosemide 40 mg PO DAILY 10/27/19 10/27/19 History hydralazine 25 mg PO TID 10/27/19 10/27/19 History hydroxychloroquine 200 mg PO BID 10/27/19 10/27/19 History insulin NPH isoph U-100 human 45 unit SUBCUT BID 10/27/19 10/28/19 History [Humulin N NPH U-100 Insulin] insulin lispro [Humalog U-100 40 sliding scale dose SUBCUT AC 10/27/19 10/28/19 History Insulin] leflunomide 20 mg PO DAILY 10/27/19 10/27/19 History wswneu-chjohnjr-vacvplt [Creon] 1 cap PO TID 10/27/19 10/27/19 History meloxicam 7.5 mg PO BID 10/27/19 10/27/19 History methocarbamol 750 mg PO TID 10/27/19 10/27/19 History metolazone 5 mg PO DAILY 10/27/19 10/27/19 History morphine 30 mg PO Q12H 10/27/19 10/27/19 History multivitamin [Daily-Devin] 1 tablet PO DAILY 10/27/19 10/27/19 History naloxegol [Movantik] 25 mg PO QAM 10/27/19 10/27/19 History omeprazole 20 mg PO DAILY 10/27/19 10/27/19 History oxycodone-acetaminophen 1 tablet PO Q4H PRN 10/27/19 10/27/19 History prednisone 20 mg PO DAILY 10/27/19 10/27/19 History rivaroxaban [Xarelto] 20 mg PO DAILY 10/27/19 10/27/19 History sennosides [senna] 8.6 mg PO BID PRN 10/27/19 10/27/19 History Allergies Allergy/AdvReac Type Severity Reaction Status Date / Time adhesive tape Allergy Unknown Verified 10/25/19 15:28 cimetidine Allergy Unknown Verified 10/25/19 15:25 gabapentin Allergy Unknown Verified 10/25/19 15:26 methotrexate Allergy Unknown Verified 10/25/19 15:26 sulfamethoxazole Allergy Unknown Verified 10/25/19 15:25 [From Bactrim] trimethoprim [From Bactrim] Allergy Unknown Verified 10/25/19 15:25 warfarin Allergy Unknown Verified 10/25/19 15:27 Vital Signs Vital Signs - 24 hr 10/29/19 15:15 10/29/19 15:16 10/29/19 16:00 Temperature 37.0 C Pulse Rate 75 76 77 Respiratory Rate 20 18 Blood Pressure 96/51 L Pulse Oximetry 91 87 L 10/29/19 18:00 10/29/19 18:01 10/29/19 18:09 Temperature 37.1 C Pulse Rate 76 76 77 Respiratory Rate 20 Blood Pressure 109/56 L Pulse Oximetry 93 92 10/29/19 20:00 10/29/19 21:25 10/29/19 21:36 Temperature 37.1 C Pulse Rate 83 84 85 Respiratory Rate 20 20 20 Blood Pressure 118/53 L Pulse Oximetry 92 91 10/29/19 22:00 10/29/19 23:34 10/30/19 00:00 Temperature 37.3 C Pulse Rate 83 79 82 Respiratory Rate 20 20 Blood Pressure 118/55 L 107/47 L Pulse Oximetry 91 91 91 10/30/19 02:00 10/30/19 02:48 10/30/19 02:57 Temperature Pulse Rate 84 87 86 Respiratory Rate 20 20 20 Blood Pressure 101/50 L Pulse Oximetry 92 96 10/30/19 04:00 10/30/19 05:00 10/30/19 06:00 Temperature 37.3 C 37.4 C Pulse Rate 82 82 82 Respiratory Rate 20 20 Blood Pressure 103/47 L 101/50 L Pulse Oximetry 93 94 93 10/30/19 08:00 10/30/19 08:58 10/30/19 09:05 Temperature 37.6 C H Pulse Rate 89 89 92 Respiratory Rate 18 20 Blood Pressure 112/57 L Pulse Oximetry 91 92 10/30/19 11:30 10/30/19 14:06 Temperature 36.3 C L Pulse Rate 92 76 Respiratory Rate 20 Bl
[2019-10-30] MEDS: HYDROCORTISONE SODIUM SUCCINATE 100 MG/2 ML VIAL 50 MG IV PUSH ×3 (14:29→23:48)
[2019-10-30 14:38] LABS: Creatine Kinase 77 U/L (30-135)
[2019-10-30 14:40] LABS: Hemoglobin A1C 6.7 % (<5.7)
[2019-10-30 14:44] LABS: IFOB Positive Control Positive; Immunochemical Fecal Occult Bl Positive (N)
[2019-10-30 14:47] LABS: Complement C3 76 mg/dL (88-165)
[2019-10-30 14:58] LABS: Rheumatoid Factor < 8.6 IU/ML (<12)
[2019-10-30 15:09] LABS: Cortisol Random 6.73 ug/dL
[2019-10-30 15:21] LABS: Erythrocyte Sedimentation Rate > 140 mm/hr (0-20)
[2019-10-30 15:45] LABS: Total Protein Urine Random 12 mg/dL
[2019-10-30 15:49] LABS: Creatinine Urine 33.3 mg/dL; Urea Random Urine 305 MG/DL
[2019-10-30 15:52] LABS: Sodium Urine Random 95 meq/L
--- NOTE | 2019-10-30 16:11 | WPDINTPN ---
Progress Note: A&P Assessment and Plan (1) Septic shock: Code(s): A41.9 - Sepsis, unspecified organism; R65.21 - Severe sepsis with septic shock Status: Acute Assessment and Plan: patient presented with altered mental status, leukocytosis, bradycardic, hypotensive, metabolic acidosis - off levophed - central line was inserted in the right subclavian on 10/27/2019 - lactic acid levels have been normal, CRP 14.7 - continue ceftriaxone, azithromycin and vancomycin - CRP is elevated - blood cultures negative x2, MRSA nasal swab positive (2) Cardiac arrest: Code(s): I46.9 - Cardiac arrest, cause unspecified Status: Acute Assessment and Plan: brief cardiac arrest most likely related to bradycardia, hyperkalemia, hypoxia, respiratory failure - ROSC brief CPR, atropine, epinephrine and bicarb was give after which her heart rate has been stable. - troponins trending down, likely related to cardiac arrest from respiratory failure - echocardiogram done on 10/27/2019: LVEF 50-55%, left ventricular chamber dimension is normal. Moderately increased left ventricular wall thickness, RV systolic function is normal, no pericardial effusion, no significant valvular abnormalities (3) Respiratory failure: Qualifiers: Chronicity: acute Respiratory failure complication: hypoxia and hypercapnia Qualified Code(s): J96.01 - Acute respiratory failure with hypoxia; J96.02 - Acute respiratory failure with hypercapnia Code(s): J96.90 - Respiratory failure, unspecified, unspecified whether with hypoxia or hypercapnia Status: Acute Assessment and Plan: acute respiratory failure likely related to severe metabolic acidosis, hypercapnia - patient on full mechanical ventilator support, - chest x-ray shows cardiomegaly with pulmonary edema, left pleural effusion. - ABGs reviewed, ventilator adjusted - Continue bronchodilators - sedation is off - strated on lasix drip - on IV abx and tamiflu (4) Metabolic acidosis: Code(s): E87.2 - Acidosis Status: Acute Assessment and Plan: RESOLVED: severe metabolic acidosis ON ADMISSION likely related to acute on chronic kidney disease, possibly also due to hypercapnia, hypotension, sepsis - patient received IV fluids, maintain mean arterial pressure is greater than 65 mmHg - continue bicarb infusion - continue to monitor (5) Anemia: Qualifiers: Anemia type: unspecified type Qualified Code(s): D64.9 - Anemia, unspecified Code(s): D64.9 - Anemia, unspecified Status: Chronic Assessment and Plan: patient has chronic anemia, was transfused packed RBCs on 10/25/2019 here at [facility] - hemoglobin is dropped to 6.9 this morning. Iron panel showing anemia of chronic disease. one unit PRBC given today - continue to monitor - stool guaiac pending (6) Influenza A: Code(s): J10.1 - Influenza due to other identified influenza virus with other respiratory manifestations Status: Acute Assessment and Plan: patient positive for influenza A, started on Tamiflu, renally dosed - droplet precautions (7) Atrial fibrillation: Qualifiers: Atrial fibrillation type: unspecified Qualified Code(s): I48.91 - Unspecified atrial fibrillation Code(s): I48.91 - Unspecified atrial fibrillation Status: Acute Assessment and Plan: history of chronic AFib, [facility], currently in sinus bradycardia, continue to monitor - continue Xarelto (8) Acute kidney injury superimposed on chronic kidney disease: Code(s): N17.9 - Acute kidney failure, unspecified; N18.9 - Chronic kidney disease, unspecified Status: Acute Assessment and Plan: acute on chronic kidney disease, baseline creatinine 1.1-1.3 in November 2018 at [facility]. - Likely due to dehydration, sepsis, hypertension, diuretics. A
[2019-10-30] MEDS: RIVAROXABAN 20 MG TABLET PO (17:13)
[2019-10-30 17:48] LABS: Glucose Point of Care 248 (65-105)
[2019-10-30 20:17] LABS: Hematocrit 26.9 % (37.0-47.0); Hemoglobin 8.2 g/dL (12.0-15.0)
[2019-10-31] VITALS (32 sets, daily range): BP systolic 124–195; BP diastolic 77–112; PULSE 67–92; RESP 20–27; TEMP 36.1–36.8; O2SAT 94–98
[2019-10-31 00:01] LABS: Glucose Point of Care 337 (65-105)
[2019-10-31] MEDS: ALBUTEROL SULFATE NEB 2.5 MG/0.5 ML INH 5 MG INHALATION ×4 (01:15→20:19)
[2019-10-31] MEDS: IPRATROPIUM BR 0.02% INH SOLN 0.5 MG/2.5 ML VIAL INHALATION ×4 (01:15→20:19)
[2019-10-31 05:08] LABS: Alveolar/Arterial O2 Gradient 209.8 mmHg; Base Excess ABG -4.8 mEq/l (+/-2.0); Carboxyhemoglobin 0.3 % THb (0-2.0); Fractional Inspired Oxygen 50 %; HCO3 ABG 19.5 mEq/l (22.0-26.0); Methemoglobin ABG 0.1 %THb (0-1.5); Oxygen Content ABG 11.1 %vol (16.0-22.0); Oxyhemoglobin 93.6 % THb (90.0-100.0); PCO2 ABG 33.1 mmHg (35.0-45.0); PO2 ABG 109.5 mmHg (80.0-100.0); PO2 FiO2 Ratio Arterial Blood 2.19 %; Total Hemoglobin 8.3 g/dL (12.0-18.0); pH ABG 7.389 (7.350-7.450)
[2019-10-31 05:09] LABS: Device VENTILATOR; Modified Allen's Test Pass; Site Drawn LEFT RADIAL
[2019-10-31 05:10] LABS: Arterial Blood Gas Minute Volume 8 LPM; Arterial Blood Gas PEEP 10 cmH2O; Arterial Blood Gas Tidal Volume 400 ml; Arterial Blood Gas Vent Mode CMV; Arterial Blood Gas Ventilator rate 20 /MIN
[2019-10-31 05:31] LABS: Hematocrit 27.3 % (37.0-47.0); Hemoglobin 8.3 g/dL (12.0-15.0); Mean Corpuscular HGB Conc 30.4 g/dl (32-36); Mean Corpuscular Volume 88.9 fl (80-100); Mean Platelet Volume 11.1 fl (7.4-10.4); Platelet Count Result 70 k/mm3 (150-375); Red Blood Count 3.07 M/mm3 (4.2-5.4); Red Cell Distribution Width 17.6 % (11.5-14.5); White Blood Count 18.4 K/mm3 (4.5-10.0)
[2019-10-31] MEDS: FUROSEMIDE INJ 100 MG in SODIUM CHLORIDE 0.9% IV 90 ML 15 MG IV CONT ×3 (05:54→20:02)
[2019-10-31] MEDS: HYDROCORTISONE SODIUM SUCCINATE 100 MG/2 ML VIAL 50 MG IV PUSH (05:57)
[2019-10-31] MEDS: OSELTAMIVIR PHOSPHATE 30 MG CAPSULE PO ×2 (06:03→17:17)
[2019-10-31] MEDS: INSULIN ASPART (*BKC) 100 UNITS/ML SUB-Q ×3 (06:11→17:20)
[2019-10-31] MEDS: LABETALOL HCL INJ 100 MG/20 ML VIAL 20 MG IV PUSH (06:19)
[2019-10-31 06:26] LABS: Glucose Point of Care 396 (65-105)
[2019-10-31 06:31] LABS: Alanine Aminotransferase 20 U/L (4-35); Albumin Level 2.2 g/dL (3.5-5.1); Alkaline Phosphatase 163 U/L (38-126); Aspartate Amino Transferase 25 U/L (14-36); Bilirubin,Total 0.4 mg/dL (0.2-1.3); Blood Urea Nitrogen 116 mg/dL (7-17); Calcium 6.4 mg/dL (8.4-10.2); Carbon Dioxide 23 mmol/L (22-30); Chloride 98 mmol/L (98-107); Estimated CRCL calculation 39 ml/min; Estimated Glomerular Filt Rate 18; Glucose 365 mg/dL (65-105); Magnesium 1.8 mg/dL (1.6-2.3); Phosphorus 7.8 mg/dL (2.5-4.5); Sodium 134 mmol/L (137-145)
[2019-10-31] MEDS: SILVERGEL (ELTA) 45 ML 1 APPLIC TOPICAL (09:11)
[2019-10-31] MEDS: MUPIROCIN 2% OINT 22 GM TUBE 1 APPLIC EACH NARE ×2 (09:11→20:04)
[2019-10-31] MEDS: NEOMYCIN/POLYMYXIN/BACITRACIN OINTMENT 15 GM TUBE 1 APPLIC TOPICAL (09:12)
[2019-10-31] MEDS: TOLNAFTATE 1% POWDER 45 GM BTL 1 APPLIC TOPICAL ×2 (09:12→20:05)
[2019-10-31] MEDS: PANTOPRAZOLE SODIUM IV 40 MG VIAL IV PUSH (09:12)
--- NOTE | 2019-10-31 11:59 | PCDIET ---
ICU Rounding Note: Patient continues to tolerate Nepro @ 40mL/hr goal rate. Residuals 50mL and below. Last recorded weight is 217kg which is slightly decreased, despite +I/O. Bowel Motility: +BM on 10/30/19. Labs Reviewed: Glu (365), BUN (116), Cr (2.8), Na (134), Alb (2.2), PO4 (7.8) Meds Noted: Albuterol, Rocephin, Fentanyl, Lasix, Novolog, Levophed, Protonix, Vancomycin Additional Notes: Discussed blood sugars during rounds. MD to add insulin. Recommend continuing present tube feeding at this time. Following daily in ICU rounds. Assessing/reassessing every Tuesday/Tuesday.
[2019-10-31] MEDS: INSULIN GLARGINE (*BKC) 100 UNITS/ML 20 UNITS SUB-Q (14:06)
--- NOTE | 2019-10-31 15:31 | WPDINTPN ---
Progress Note: A&P Assessment and Plan (1) Septic shock: Code(s): A41.9 - Sepsis, unspecified organism; R65.21 - Severe sepsis with septic shock Status: Acute Assessment and Plan: patient presented with altered mental status, leukocytosis, bradycardic, hypotensive, metabolic acidosis - off levophed - central line was inserted in the right subclavian on 10/27/2019 - lactic acid levels have been normal, CRP 14.7 - continue ceftriaxone, azithromycin and vancomycin - CRP is elevated - blood cultures negative x2, MRSA nasal swab positive (2) Cardiac arrest: Code(s): I46.9 - Cardiac arrest, cause unspecified Status: Acute Assessment and Plan: brief cardiac arrest most likely related to bradycardia, hyperkalemia, hypoxia, respiratory failure - ROSC brief CPR, atropine, epinephrine and bicarb was give after which her heart rate has been stable. - troponins trending down, likely related to cardiac arrest from respiratory failure - echocardiogram done on 10/27/2019: LVEF 50-55%, left ventricular chamber dimension is normal. Moderately increased left ventricular wall thickness, RV systolic function is normal, no pericardial effusion, no significant valvular abnormalities (3) Respiratory failure: Qualifiers: Chronicity: acute Respiratory failure complication: hypoxia and hypercapnia Qualified Code(s): J96.01 - Acute respiratory failure with hypoxia; J96.02 - Acute respiratory failure with hypercapnia Code(s): J96.90 - Respiratory failure, unspecified, unspecified whether with hypoxia or hypercapnia Status: Acute Assessment and Plan: acute respiratory failure likely related to severe metabolic acidosis, hypercapnia - patient on full mechanical ventilator support, - chest x-ray shows cardiomegaly with pulmonary edema, left pleural effusion. - ABGs reviewed, ventilator adjusted - Continue bronchodilators - on low dose fentanyl drip - strated on lasix drip - on IV abx and tamiflu (4) Metabolic acidosis: Code(s): E87.2 - Acidosis Status: Acute Assessment and Plan: RESOLVED: severe metabolic acidosis ON ADMISSION likely related to acute on chronic kidney disease, possibly also due to hypercapnia, hypotension, sepsis - patient received IV fluids, maintain mean arterial pressure is greater than 65 mmHg - off bicarb infusion - continue to monitor (5) Anemia: Qualifiers: Anemia type: unspecified type Qualified Code(s): D64.9 - Anemia, unspecified Code(s): D64.9 - Anemia, unspecified Status: Chronic Assessment and Plan: patient has chronic anemia, was transfused packed RBCs on 10/25/2019 here at [facility] - hemoglobin is dropped to 6.9 this morning. Iron panel showing anemia of chronic disease. one unit PRBC given today - continue to monitor - stool guaiac positive (6) Influenza A: Code(s): J10.1 - Influenza due to other identified influenza virus with other respiratory manifestations Status: Acute Assessment and Plan: patient positive for influenza A, started on Tamiflu, renally dosed - droplet precautions (7) Atrial fibrillation: Qualifiers: Atrial fibrillation type: unspecified Qualified Code(s): I48.91 - Unspecified atrial fibrillation Code(s): I48.91 - Unspecified atrial fibrillation Status: Acute Assessment and Plan: history of chronic AFib, [facility], currently in sinus bradycardia, continue to monitor - continue Xarelto (8) Acute kidney injury superimposed on chronic kidney disease: Code(s): N17.9 - Acute kidney failure, unspecified; N18.9 - Chronic kidney disease, unspecified Status: Acute Assessment and Plan: acute on chronic kidney disease, baseline creatinine 1.1-1.3 in November 2018 at [facility]. - Likely due to dehydration, sepsis, hypertension, diure
[2019-10-31 15:35] LABS: Glucose Point of Care 403 (65-105)
[2019-10-31] MEDS: RIVAROXABAN 20 MG TABLET PO (17:17)
[2019-10-31 17:27] LABS: Glucose Point of Care 403 (65-105)
[2019-10-31 17:30] LABS: Chloride Rand Ur 73 mmol/L (32-290); Chloride/Creatinine Rand Ur 203 (38-318); Creatinine Random Urine 36 mg/dL (20-275)
--- NOTE | 2019-10-31 17:37 | PM.CNNEP ---
Assessment and Plan Assessment and plan (1) Acute renal failure: Qualifiers: Acute renal failure type: unspecified Qualified Code(s): N17.9 - Acute kidney failure, unspecified Code(s): N17.9 - Acute kidney failure, unspecified Status: Acute Assessment and Plan: The patient has acute kidney injury. renal ultrasound only could see the right kidney. This was normal. Left kidney was unable to be seen. Possibly technical limitation because of her obesity urine electrolytes are non pre renal. fractional secretion of urea is around 30% which is borderline pre renal. She is on diuretics. Her CPK is normal. Other tests are pending. The urine output has picked up dramatically. Her blood pressure is also much higher. Hopefully she is turning around. At this point since she is doing better, urine output is up, and blood pressure is good, we should continue her diuretics. Her blood pressure is high. Will restart antihypertensives discussed with DR Steel. (2) Septic shock: Code(s): A41.9 - Sepsis, unspecified organism; R65.21 - Severe sepsis with septic shock Status: Acute Assessment and Plan: She is getting supportive care. Her blood pressure Much improved. (3) Anemia: Qualifiers: Anemia type: unspecified type Qualified Code(s): D64.9 - Anemia, unspecified Code(s): D64.9 - Anemia, unspecified Status: Chronic Assessment and Plan: Hemoglobin has dropped a little bit Will keep an eye on this. (4) Metabolic acidosis: Code(s): E87.2 - Acidosis Status: Acute Assessment and Plan: Her CO2 is now normal. (5) Respiratory failure: Qualifiers: Chronicity: acute Respiratory failure complication: hypoxia and hypercapnia Qualified Code(s): J96.01 - Acute respiratory failure with hypoxia; J96.02 - Acute respiratory failure with hypercapnia Code(s): J96.90 - Respiratory failure, unspecified, unspecified whether with hypoxia or hypercapnia Status: Acute Assessment and Plan: She is on the ventilator. She has fairly aggressive ventilator. Settings to keep up with her oxygenation. (6) Atrial fibrillation: Qualifiers: Atrial fibrillation type: unspecified Qualified Code(s): I48.91 - Unspecified atrial fibrillation Code(s): I48.91 - Unspecified atrial fibrillation Status: Acute Assessment and Plan: This must be paroxysmal. He is in sinus rhythm now. (7) Rheumatoid arthritis: Code(s): M06.9 - Rheumatoid arthritis, unspecified Status: Acute Assessment and Plan: She has rheumatoid arthritis treated with prednisone. She inessa stress dose steroids. her serum cortisol level was only 6.7. History of Present Illness Reason for Consult Consult date: 10/31/19 Chief Complaint Chief complaint: acute renal failure/hyperkalemia/altered mental st History of Present Illness Narrative: Stevan is resting comfortably in bed on the ventilator. She is sedated. Review of Systems Cardiovascular: Cardiovascular: Reports no additional cardiovascular complaints Respiratory: Respiratory: Reports no additional respiratory complaints Gastrointestinal: Gastrointestinal: Reports no additional gastrointestinal complaints Genitourinary: Genitourinary: Reports no additional female genitourinary complaints [facility] Past Medical History Medical History (Updated 10/30/19 @ 13:59 by Peter Bey MD) Rheumatoid arthritis Family History Family History Other Unknown family medical history Social History Social History Smoking status: Never smoker Alcohol intake: former Substance use: never Gender identity (if verbalized by the patient): Female Spiritual care concerns: No Agree to blood products: Yes Meds Kian
[2019-10-31] MEDS: hydrALAZINE HCL 25 MG TABLET PO (20:09)
[2019-10-31 22:12] LABS: Haptoglobin 290 mg/dL (43-212)
[2019-11-01] VITALS (27 sets, daily range): BP systolic 133–183; BP diastolic 68–88; PULSE 65–84; RESP 11–25; TEMP 36.1–36.8; O2SAT 90–94
[2019-11-01 01:09] LABS: Glucose Point of Care 358 (65-105)
[2019-11-01] MEDS: hydrALAZINE HCL 25 MG TABLET PO ×5 (01:16→20:12)
[2019-11-01] MEDS: INSULIN ASPART (*BKC) 100 UNITS/ML SUB-Q ×5 (01:18→23:06)
[2019-11-01] MEDS: MIDAZOLAM HCL 50 MG in DEXTROSE 5% 90 ML IV CONT (01:18)
[2019-11-01] MEDS: ALBUTEROL SULFATE NEB 2.5 MG/0.5 ML INH 5 MG INHALATION ×4 (02:13→20:53)
[2019-11-01] MEDS: IPRATROPIUM BR 0.02% INH SOLN 0.5 MG/2.5 ML VIAL INHALATION ×4 (02:13→20:53)
[2019-11-01] MEDS: FUROSEMIDE INJ 100 MG in SODIUM CHLORIDE 0.9% IV 90 ML 15 MG IV CONT ×4 (03:19→23:00)
[2019-11-01 04:09] LABS: Alveolar/Arterial O2 Gradient 107.6 mmHg; Base Excess ABG -2.5 mEq/l (+/-2.0); Fractional Inspired Oxygen 30 %; HCO3 ABG 21.7 mEq/l (22.0-26.0); Methemoglobin ABG 0.1 %THb (0-1.5); Oxygen Content ABG 11.4 %vol (16.0-22.0); Oxygen Saturation ABG 93.2 % (95.0-100.0); Oxyhemoglobin 87.2 % THb (90.0-100.0); PCO2 ABG 35.1 mmHg (35.0-45.0); PO2 ABG 65.1 mmHg (80.0-100.0); PO2 FiO2 Ratio Arterial Blood 2.17 %; Reduced Hemoglobin 11.7 %THb (0-5.0); Total Hemoglobin 9.2 g/dL (12.0-18.0)
[2019-11-01 04:11] LABS: Device VENTILATOR; Modified Allen's Test Pass; Site Drawn LEFT RADIAL
[2019-11-01 04:12] LABS: Arterial Blood Gas PEEP 8 cmH2O; Arterial Blood Gas Vent Mode PRESSURE CONTROL; Arterial Blood Gas Ventilator rate 20 /MIN; Peak Inspiratory Pressure 28 cmH2O
[2019-11-01 05:41] LABS: Basophils Percent Auto 0.1 % (0.2-1.2); Eosinophils Absolute Auto 0.1 K/mm3 (0-0.3); Eosinophils Percent Auto 1.1 % (0-4.4); Hematocrit 24.9 % (37.0-47.0); Hemoglobin 7.7 g/dL (12.0-15.0); Immature Granulocyte Absolute 0.11 K/mm3 (0.00-0.031); Immature Granulocyte Percent A 0.9 % (0-0.5); Immature Platelet Fraction Pct 4.5 % (0.9-11.2); Lymphocytes Absolute Auto 0.61 K/mm3 (0.9-3.2); Mean Corpuscular HGB Conc 30.9 g/dl (32-36); Mean Corpuscular Hemoglobin 27.6 pg (26-34); Mean Corpuscular Volume 89.2 fl (80-100); Mean Platelet Volume 13.1 fl (7.4-10.4); Monocytes Absolute Auto 0.2 K/mm3 (0.1-0.6); Monocytes Percent Auto 1.5 % (2.6-8.5); Neutrophils Absolute Auto 11.2 K/mm3 (1.3-6.7); Neutrophils Percent Auto 91.4 % (45.5-73.1); Nucleated Red Blood Cells Absolute Auto 0.1 K/mm3 (0.0-0.012); Platelet Count Result 56 k/mm3 (150-375); Red Blood Count 2.79 M/mm3 (4.2-5.4); Red Cell Distribution Width 17.4 % (11.5-14.5); White Blood Count 12.3 K/mm3 (4.5-10.0)
[2019-11-01 05:43] LABS: Lactic Acid 1.2 mmol/L (0.7-2.1)
[2019-11-01 05:44] LABS: Alanine Aminotransferase 16 U/L (4-35); Albumin Level 2.1 g/dL (3.5-5.1); Alkaline Phosphatase 148 U/L (38-126); Aspartate Amino Transferase 16 U/L (14-36); Bilirubin,Total 0.2 mg/dL (0.2-1.3); Blood Urea Nitrogen 112 mg/dL (7-17); Calcium 6.5 mg/dL (8.4-10.2); Carbon Dioxide 25 mmol/L (22-30); Chloride 98 mmol/L (98-107); Estimated CRCL calculation 38 ml/min; Estimated Glomerular Filt Rate 17; Glucose 361 mg/dL (65-105); Magnesium 1.8 mg/dL (1.6-2.3); Phosphorus 7.1 mg/dL (2.5-4.5); Potassium 3.8 mmol/L (3.4-5.0); Sodium 136 mmol/L (137-145)
[2019-11-01] MEDS: OSELTAMIVIR PHOSPHATE 30 MG CAPSULE PO (06:17)
--- NOTE | 2019-11-01 08:04 | PM.PNNEP ---
Progress Note: A&P Assessment and Plan (1) Acute renal failure: Qualifiers: Acute renal failure type: unspecified Qualified Code(s): N17.9 - Acute kidney failure, unspecified Code(s): N17.9 - Acute kidney failure, unspecified Status: Acute Assessment and Plan: The patient has acute kidney injury. renal ultrasound only could see the right kidney. This was normal. Left kidney was unable to be seen. Possibly technical limitation because of her obesity urine electrolytes are non pre renal. fractional secretion of urea is around 30% which is borderline pre renal. She is on diuretics. UA shows a bland sediment. Her CPK is normal. ESR is greater than 140 C3 is slightly low at 76. C4 is normal. Rheumatoid factor is low. Other tests are pending. The urine output has picked up dramatically. Her blood pressure is also much higher. Creatinine seems stable. At this point since she is doing better, urine output is up, and blood pressure is good, Her chest x-ray still shows fluid. We should continue her diuretics. She is on a Lasix drip. Her blood pressure is better on the antihypertensives. I do not want to over control. (2) Septic shock: Code(s): A41.9 - Sepsis, unspecified organism; R65.21 - Severe sepsis with septic shock Status: Acute Assessment and Plan: She is getting supportive care. Her blood pressure is much improved. (3) Anemia: Qualifiers: Anemia type: unspecified type Qualified Code(s): D64.9 - Anemia, unspecified Code(s): D64.9 - Anemia, unspecified Status: Chronic Assessment and Plan: Hemoglobin has dropped a little bit Iron saturation is low but with infection we will not treat this. Stool guaiac is positive but the stools are not grossly bloody. (4) Metabolic acidosis: Code(s): E87.2 - Acidosis Status: Acute Assessment and Plan: Her CO2 is now normal. (5) Respiratory failure: Qualifiers: Chronicity: acute Respiratory failure complication: hypoxia and hypercapnia Qualified Code(s): J96.01 - Acute respiratory failure with hypoxia; J96.02 - Acute respiratory failure with hypercapnia Code(s): J96.90 - Respiratory failure, unspecified, unspecified whether with hypoxia or hypercapnia Status: Acute Assessment and Plan: She is on the ventilator. She has fairly aggressive ventilator. Settings to keep up with her oxygenation. (6) Atrial fibrillation: Qualifiers: Atrial fibrillation type: unspecified Qualified Code(s): I48.91 - Unspecified atrial fibrillation Code(s): I48.91 - Unspecified atrial fibrillation Status: Acute Assessment and Plan: This must be paroxysmal. He is in sinus rhythm now. (7) Rheumatoid arthritis: Code(s): M06.9 - Rheumatoid arthritis, unspecified Status: Acute Assessment and Plan: She has rheumatoid arthritis treated chronically with prednisone. She is currently on stress dose steroids. her serum cortisol level was only 6.7. Subjective Date/time seen: 11/01/19 08:04 Interval history: Patient is sedated on the vent. She is not in distress. Review of Systems Cardiovascular: Cardiovascular: Reports no additional cardiovascular complaints Respiratory: Respiratory: Reports no additional respiratory complaints Gastrointestinal: Gastrointestinal: Reports no additional gastrointestinal complaints Genitourinary: Genitourinary: Reports no additional female genitourinary complaints Exam Narrative: Exam Narrative: Well developed well-nourished in no acute distress Lungs Coarse bilaterally. Heart regular without rub Abdomen bowel sounds positive soft nontender Extremities 2-3 + edema Skin no rash or subcu nodules Objective Data Vital Signs Vital Signs: Vital Signs - 24 hr 10/31/19 08:20 10/31/19 08:26 10/31/19 08:32 Temper
[2019-11-01] MEDS: NEOMYCIN/POLYMYXIN/BACITRACIN OINTMENT 15 GM TUBE 1 APPLIC TOPICAL (08:16)
[2019-11-01] MEDS: predniSONE 20 MG TABLET FEED TUBE (08:16)
[2019-11-01] MEDS: MUPIROCIN 2% OINT 22 GM TUBE 1 APPLIC EACH NARE ×2 (08:16→20:12)
[2019-11-01] MEDS: TOLNAFTATE 1% POWDER 45 GM BTL 1 APPLIC TOPICAL ×2 (08:17→20:13)
[2019-11-01] MEDS: PANTOPRAZOLE SODIUM IV 40 MG VIAL IV PUSH (08:17)
[2019-11-01] MEDS: SILVERGEL (ELTA) 45 ML 1 APPLIC TOPICAL (08:17)
[2019-11-01] MEDS: INSULIN DETEMIR 100 UNITS/ML 20 UNITS SUB-Q ×2 (09:31→20:10)
[2019-11-01] MEDS: LIOTHYRONINE SODIUM 25 MCG TABLET PO (12:10)
[2019-11-01] MEDS: LEVOTHYROXINE SODIUM INJ 100 MCG/5 ML VIAL 200 MCG IV PUSH (12:14)
[2019-11-01] MEDS: MIDAZOLAM HCL 50 MG in DEXTROSE 5% 90 ML 12 MG IV CONT ×2 (12:37→21:42)
[2019-11-01 12:47] LABS: Glucose Point of Care 286 (65-105)
--- NOTE | 2019-11-01 13:43 | PCDIET ---
ICU Rounding Note: Patient remains on Nepro @ 40mL/hr. Tolerating well with residuals 40mL and below. Last recorded weight is 220kg which is increased, despite -I/O. Bowel Motility: +BM on 10/31/19. Labs Reviewed: BUN (112), Cr (2.9), Na (136), Alb (2.1), PO4 (7.1), Thomas Ca (8.02) Meds Noted: Rocephin, Novolog, Versed, Protonix, Vancomycin, Fentanyl, IV Lasix, Levemir, Levophed, Prednisone Additional Notes: Wound nurse saw patient for multiple skin issues. Recommend continuing present tube feeding at this time. Following daily in ICU rounds. Assessing/reassessing every Tuesday/Tuesday.
--- NOTE | 2019-11-01 13:57 | WPDINTPN ---
Progress Note: A&P Assessment and Plan (1) Septic shock: Code(s): A41.9 - Sepsis, unspecified organism; R65.21 - Severe sepsis with septic shock Status: Acute Assessment and Plan: : RESOLVED: patient presented with altered mental status, leukocytosis, bradycardic, hypotensive, metabolic acidosis - off levophed - central line was inserted in the right subclavian on 10/27/2019 - lactic acid levels have been normal, CRP 14.7 - continue ceftriaxone, azithromycin and vancomycin - CRP is elevated, will repeat in a.m. - blood cultures negative x2, MRSA nasal swab positive (2) Cardiac arrest: Code(s): I46.9 - Cardiac arrest, cause unspecified Status: Acute Assessment and Plan: brief cardiac arrest most likely related to bradycardia, hyperkalemia, hypoxia, respiratory failure, hypothermia - ROSC brief CPR, atropine, epinephrine and bicarb was give after which her heart rate has been stable. - troponins trending down, likely related to cardiac arrest from respiratory failure - echocardiogram done on 10/27/2019: LVEF 50-55%, left ventricular chamber dimension is normal. Moderately increased left ventricular wall thickness, RV systolic function is normal, no pericardial effusion, no significant valvular abnormalities (3) Respiratory failure: Qualifiers: Chronicity: acute Respiratory failure complication: hypoxia and hypercapnia Qualified Code(s): J96.01 - Acute respiratory failure with hypoxia; J96.02 - Acute respiratory failure with hypercapnia Code(s): J96.90 - Respiratory failure, unspecified, unspecified whether with hypoxia or hypercapnia Status: Acute Assessment and Plan: acute respiratory failure likely related to severe metabolic acidosis, hypercapnia - patient on full mechanical ventilator support, pressure control ventilation - chest x-ray shows cardiomegaly with pulmonary edema, left pleural effusion. - ABGs reviewed, ventilator adjusted - Continue bronchodilators - continue fentanyl Versed infusion, maintain RASS of 0 to -2 - patient on Lasix drip with excellent urine output - on antibiotics as above, status post Tamiflu (4) Metabolic acidosis: Code(s): E87.2 - Acidosis Status: Acute Assessment and Plan: RESOLVED: severe metabolic acidosis ON ADMISSION likely related to acute on chronic kidney disease, possibly also due to hypercapnia, hypotension, sepsis - patient received IV fluids, maintain mean arterial pressure is greater than 65 mmHg - off bicarb infusion - continue to monitor (5) Anemia: Qualifiers: Anemia type: unspecified type Qualified Code(s): D64.9 - Anemia, unspecified Code(s): D64.9 - Anemia, unspecified Status: Chronic Assessment and Plan: patient has chronic anemia, was transfused packed RBCs on 10/25/2019 here at [facility] - hemoglobin stable. Iron panel showing anemia of chronic disease. one unit PRBC given today - continue to monitor - stool guaiac positive (6) Influenza A: Code(s): J10.1 - Influenza due to other identified influenza virus with other respiratory manifestations Status: Acute Assessment and Plan: patient positive for influenza A, status post Tamiflu - droplet precautions (7) Atrial fibrillation: Qualifiers: Atrial fibrillation type: unspecified Qualified Code(s): I48.91 - Unspecified atrial fibrillation Code(s): I48.91 - Unspecified atrial fibrillation Status: Acute Assessment and Plan: history of chronic AFib, on Xarelto at [facility], currently in sinus bradycardia, continue to monitor - continue Xarelto (8) Acute kidney injury superimposed on chronic kidney disease: Code(s): N17.9 - Acute kidney failure, unspecified; N18.9 - Chronic kidney disease, unspecified Status: Acute Assessment and Plan: acute on chronic kidney disease, baseline
--- NOTE | 2019-11-01 15:02 | PM.IMPN ---
Progress Note: A&P Assessment and Plan (1) Influenza A: Code(s): J10.1 - Influenza due to other identified influenza virus with other respiratory manifestations Status: Acute Assessment and Plan: Pt is on tamiflu (2) Septic shock: Code(s): A41.9 - Sepsis, unspecified organism; R65.21 - Severe sepsis with septic shock Status: Acute Assessment and Plan: Patient is a 54-year-old female morbidly obese resident of custodial was sent to emergency department acute mental status change as patient was not responding and was not herself upon arrival to emergency department see was not able to provide any review of symptoms patient was re-evaluated and was found to be bradycardiac and may need to cardiac arrest CPR was initiated and patient was intubated and transferred to ICU currently patient on vent and to provide any review of symptoms, patient was found to have pneumonia positive for influenza A, in ICU patient was hypothermic be hugger was started as well as hypertensive and was placed on Levophed patient is seen by [employer] and we appreciate, on 11/01 patient still on vent, symptoms are improving, patient is off levophed however patient with hypothyroids, low free T3, hypothermia, bradycardia pantient may have myxedema coma patient on steroids, will add levothyroxine and liothyronine (3) History of CHF (congestive heart failure): Code(s): Z86.79 - Personal history of other diseases of the circulatory system Status: Acute Assessment and Plan: Hold diuretics due to hypotension (4) Acute kidney injury superimposed on chronic kidney disease: Code(s): N17.9 - Acute kidney failure, unspecified; N18.9 - Chronic kidney disease, unspecified Status: Acute Assessment and Plan: continue to watch kidney function , pt has history of CKD, potassium was high, seen by Dr. Bey (5) Atrial fibrillation: Qualifiers: Atrial fibrillation type: unspecified Qualified Code(s): I48.91 - Unspecified atrial fibrillation Code(s): I48.91 - Unspecified atrial fibrillation Status: Acute Assessment and Plan: pt is on xarelto for anticoagulation (6) DVT prophylaxis: Code(s): Z29.9 - Encounter for prophylactic measures, unspecified Status: Acute Assessment and Plan: pt is on xarelto for anticoagulation (7) Anemia: Qualifiers: Anemia type: unspecified type Qualified Code(s): D64.9 - Anemia, unspecified Code(s): D64.9 - Anemia, unspecified Status: Chronic Assessment and Plan: Continue to monitor (8) Metabolic acidosis: Code(s): E87.2 - Acidosis Status: Acute Assessment and Plan: pt was on sodium bicarbondate drip now resolved (9) Respiratory failure: Qualifiers: Chronicity: acute Respiratory failure complication: hypoxia and hypercapnia Qualified Code(s): J96.01 - Acute respiratory failure with hypoxia; J96.02 - Acute respiratory failure with hypercapnia Code(s): J96.90 - Respiratory failure, unspecified, unspecified whether with hypoxia or hypercapnia Status: Acute Assessment and Plan: Pt is intubated in icu (10) Cardiac arrest: Code(s): I46.9 - Cardiac arrest, cause unspecified Status: Acute Assessment and Plan: REcent cardiac arrest due to resp arrest and hyperkalaemia (11) Acute renal failure: Qualifiers: Acute renal failure type: unspecified Qualified Code(s): N17.9 - Acute kidney failure, unspecified Code(s): N17.9 - Acute kidney failure, unspecified Status: Acute Assessment and Plan: Pt has a history of CKD (12) Hyperkalemia: Code(s): E87.5 - Hyperkalemia Status: Acute Assessment and Plan: continue to monitor potassium levels. pt is on sodium bicarbonate drip Subjective Date/time seen: 11/01/19 15:02 Patient is a 54-year-old female morbidly obese residen
[2019-11-01] MEDS: RIVAROXABAN 20 MG TABLET PO (17:01)
[2019-11-01 17:22] LABS: Glucose Point of Care 284 (65-105)
[2019-11-01 19:19] LABS: RNP Antibodies <1.0
[2019-11-01 22:50] LABS: Vancomycin Trough 20.1 ug/mL (10.0-20.0)
[2019-11-01 23:07] LABS: Glucose Point of Care 303 (65-105)
[2019-11-02] VITALS (31 sets, daily range): BP systolic 131–193; BP diastolic 57–93; PULSE 62–92; RESP 14–20; TEMP 36.1–37.9; O2SAT 90–95
[2019-11-02] MEDS: ALBUTEROL SULFATE NEB 2.5 MG/0.5 ML INH 5 MG INHALATION ×4 (03:20→19:11)
[2019-11-02] MEDS: IPRATROPIUM BR 0.02% INH SOLN 0.5 MG/2.5 ML VIAL INHALATION ×4 (03:20→19:11)
[2019-11-02 05:09] LABS: Alveolar/Arterial O2 Gradient 100.4 mmHg; Base Excess ABG 3.2 mEq/l (+/-2.0); Carboxyhemoglobin 1.4 % THb (0-2.0); Fractional Inspired Oxygen 30 %; HCO3 ABG 26.8 mEq/l (22.0-26.0); Methemoglobin ABG 0.1 %THb (0-1.5); Oxygen Content ABG 9.9 %vol (16.0-22.0); Oxygen Saturation ABG 95.5 % (95.0-100.0); Oxyhemoglobin 89.5 % THb (90.0-100.0); PO2 ABG 71.2 mmHg (80.0-100.0); PO2 FiO2 Ratio Arterial Blood 2.37 %; pH ABG 7.489 (7.350-7.450)
[2019-11-02 05:10] LABS: Site Drawn LEFT RADIAL; Total Hemoglobin 7.8 g/dL (12.0-18.0)
[2019-11-02 05:11] LABS: Device VENTILATOR; Modified Allen's Test Pass
[2019-11-02 05:12] LABS: Arterial Blood Gas PEEP 10 cmH2O; Arterial Blood Gas Vent Mode PRESSURE CONTROL; Arterial Blood Gas Ventilator rate 20 /MIN; Peak Inspiratory Pressure 28 cmH2O
[2019-11-02] MEDS: INSULIN ASPART (*BKC) 100 UNITS/ML SUB-Q ×3 (05:16→17:25)
[2019-11-02] MEDS: FUROSEMIDE INJ 100 MG in SODIUM CHLORIDE 0.9% IV 90 ML 15 MG IV CONT ×3 (05:18→20:22)
[2019-11-02] MEDS: MIDAZOLAM HCL 50 MG in DEXTROSE 5% 90 ML 12 MG IV CONT ×2 (05:20→15:19)
[2019-11-02] MEDS: LEVOTHYROXINE SODIUM INJ 100 MCG/5 ML VIAL 50 MCG IV PUSH (05:22)
[2019-11-02 05:54] LABS: Albumin Level 2.2 g/dL (3.5-5.1); Blood Urea Nitrogen 114 mg/dL (7-17); Calcium 6.5 mg/dL (8.4-10.2); Carbon Dioxide 28 mmol/L (22-30); Chloride 98 mmol/L (98-107); Estimated CRCL calculation 42 ml/min; Estimated Glomerular Filt Rate 19; Glucose 284 mg/dL (65-105); Phosphorus 6.1 mg/dL (2.5-4.5); Potassium 3.5 mmol/L (3.4-5.0); Sodium 139 mmol/L (137-145)
[2019-11-02 05:55] LABS: Blood Urea Nitrogen 110 mg/dL (7-17); Calcium 6.6 mg/dL (8.4-10.2); Carbon Dioxide 28 mmol/L (22-30); Chloride 97 mmol/L (98-107); Estimated CRCL calculation 40 ml/min; Estimated Glomerular Filt Rate 18; Glucose 282 mg/dL (65-105); Magnesium 1.7 mg/dL (1.6-2.3); Potassium 3.5 mmol/L (3.4-5.0); Sodium 139 mmol/L (137-145)
[2019-11-02 06:18] LABS: CRP 25.2 mg/dL (<1.0)
[2019-11-02 08:00] LABS: Hematocrit 24.4 % (37.0-47.0); Hemoglobin 7.5 g/dL (12.0-15.0); Mean Corpuscular HGB Conc 30.7 g/dl (32-36); Mean Corpuscular Hemoglobin 27.2 pg (26-34); Mean Corpuscular Volume 88.4 fl (80-100); Mean Platelet Volume 11.3 fl (7.4-10.4); Platelet Count Result 50 k/mm3 (150-375); Red Blood Count 2.76 M/mm3 (4.2-5.4); Red Cell Distribution Width 17.2 % (11.5-14.5); White Blood Count 9.7 K/mm3 (4.5-10.0)
[2019-11-02] MEDS: predniSONE 20 MG TABLET FEED TUBE (08:29)
[2019-11-02] MEDS: hydrALAZINE HCL 25 MG TABLET PO ×4 (08:29→20:26)
[2019-11-02] MEDS: LIOTHYRONINE SODIUM 25 MCG TABLET PO (08:29)
[2019-11-02] MEDS: SILVERGEL (ELTA) 45 ML 1 APPLIC TOPICAL (08:30)
[2019-11-02] MEDS: TOLNAFTATE 1% POWDER 45 GM BTL 1 APPLIC TOPICAL ×2 (08:30→20:35)
[2019-11-02] MEDS: NEOMYCIN/POLYMYXIN/BACITRACIN OINTMENT 15 GM TUBE 1 APPLIC TOPICAL (08:30)
[2019-11-02] MEDS: MUPIROCIN 2% OINT 22 GM TUBE 1 APPLIC EACH NARE (08:30)
[2019-11-02] MEDS: PANTOPRAZOLE SODIUM IV 40 MG VIAL IV PUSH (08:30)
[2019-11-02] MEDS: INSULIN DETEMIR 100 UNITS/ML 20 UNITS SUB-Q (08:32)
[2019-11-02] MEDS: INSULIN DETEMIR 100 UNITS/ML 35 UNITS SUB-Q ×2 (08:47→23:02)
--- NOTE | 2019-11-02 10:22 | PM.PNNEP ---
Progress Note: A&P Assessment and Plan (1) Acute renal failure: Qualifiers: Acute renal failure type: unspecified Qualified Code(s): N17.9 - Acute kidney failure, unspecified Code(s): N17.9 - Acute kidney failure, unspecified Status: Acute Assessment and Plan: The patient has acute kidney injury. renal ultrasound only could see the right kidney. This was normal. Left kidney was unable to be seen. Possibly technical limitation because of her obesity urine electrolytes are non pre renal. fractional secretion of urea is around 30% which is borderline pre renal. She is on diuretics. UA shows a bland sediment. Urine eosinophils are negative. Her CPK is normal. ESR is greater than 140 C3 is slightly low at 76. C4 is normal. Rheumatoid factor is low. Other tests are pending. The urine output has picked up dramatically. Her oxygenation is better. Her blood pressure is okay. After discussion with , I think we can continue the diuretics for now. We can reassess tomorrow as to whether we should cut back on them. (2) Septic shock: Code(s): A41.9 - Sepsis, unspecified organism; R65.21 - Severe sepsis with septic shock Status: Acute Assessment and Plan: She is getting supportive care. Her blood pressure is much improved. (3) Anemia: Qualifiers: Anemia type: unspecified type Qualified Code(s): D64.9 - Anemia, unspecified Code(s): D64.9 - Anemia, unspecified Status: Chronic Assessment and Plan: Hemoglobin has dropped a little bit Iron saturation is low but with infection we will not treat this. Stool guaiac is positive but the stools are not grossly bloody. Will start Epogen. (4) Metabolic acidosis: Code(s): E87.2 - Acidosis Status: Acute Assessment and Plan: Her CO2 is now normal. (5) Respiratory failure: Qualifiers: Chronicity: acute Respiratory failure complication: hypoxia and hypercapnia Qualified Code(s): J96.01 - Acute respiratory failure with hypoxia; J96.02 - Acute respiratory failure with hypercapnia Code(s): J96.90 - Respiratory failure, unspecified, unspecified whether with hypoxia or hypercapnia Status: Acute Assessment and Plan: She is on the ventilator. She has fairly aggressive ventilator settings, but these are improved (6) Atrial fibrillation: Qualifiers: Atrial fibrillation type: unspecified Qualified Code(s): I48.91 - Unspecified atrial fibrillation Code(s): I48.91 - Unspecified atrial fibrillation Status: Acute Assessment and Plan: This must be paroxysmal. He is in sinus rhythm now. (7) Rheumatoid arthritis: Code(s): M06.9 - Rheumatoid arthritis, unspecified Status: Acute Assessment and Plan: She has rheumatoid arthritis treated chronically with prednisone. She is currently on stress dose steroids. her serum cortisol level was only 6.7. Subjective Date/time seen: 11/02/19 10:22 Interval history: Patient is sedated on the vent. She is not in distress. She made 9L of urine yesterday! Blood pressure is good. Oxygenation is improved. Swelling is a little better. Review of Systems Cardiovascular: Cardiovascular: Reports no additional cardiovascular complaints Respiratory: Respiratory: Reports no additional respiratory complaints Gastrointestinal: Gastrointestinal: Reports no additional gastrointestinal complaints Genitourinary: Genitourinary: Reports no additional female genitourinary complaints Exam Narrative: Exam Narrative: Well developed well-nourished in no acute distress Lungs Coarse bilaterally. Heart regular without rub Abdomen bowel sounds positive soft nontender Extremities 2-3 + edema. There seems to be some improvement. Specially in the lower extremities. Skin no rash or subcu nodules Objective Data Vital Signs Vital Si
[2019-11-02 11:57] LABS: Glucose Point of Care 271 (65-105)
[2019-11-02] MEDS: EPOETIN ALFA 10,000 UNITS/ML VIAL 10000 UNITS SUB-Q (12:06)
[2019-11-02 12:10] LABS: Glucose Point of Care 242 (65-105)
[2019-11-02 12:35] LABS: Complement Total CH50 43 U/mL (31-60)
--- NOTE | 2019-11-02 14:59 | PCDIET ---
Nutrition Follow-Up Complete: Nutrition Diagnosis: Inadequate oral intake related to oral intubation as evidenced by inability to take oral diet. Nutrition Goal: Tube feeding tolerance at goal rate Goal met. Patient tolerating Nepro @ 40mL/hr goal rate with residuals 150mL and below. Last recorded weight is 216.4 kg which is decreased. I/O negative. Bowel Motility: Small bowel movement documented on 11/01/19. Labs Reviewed: Glu (284), BUN (114), Cr (2.6), Alb (2.2), Thomas Ca (7.94), PO4 (6.1), Hgb (7.5), Hct (24.4) Meds Noted: Albuterol, Rocephin, Fentanyl, Furosemide, Vancomycin, Novolog, Levemir, Versed, Levophed, Protonix, Prednisone Additional Notes: No change in skin issues, per nursing. Patient with multiple areas of maceration. Recommend continuing present tube feeding/rate. Would consider obtaining ionized calcium and replacing, if indicated. Will continue to monitor with same goal. Nutrition Monitoring and Evaluation: Follow up every Tuesday/Tuesday. Follow daily in ICU rounds.
--- NOTE | 2019-11-02 15:54 | PM.IMPN ---
Progress Note: A&P Assessment and Plan (1) Influenza A: Code(s): J10.1 - Influenza due to other identified influenza virus with other respiratory manifestations Status: Acute Assessment and Plan: Pt is on tamiflu (2) Septic shock: Code(s): A41.9 - Sepsis, unspecified organism; R65.21 - Severe sepsis with septic shock Status: Acute Assessment and Plan: 11/02/19 15:54 Patient is a 54-year-old female morbidly obese resident of custodial was sent to emergency department acute mental status change as patient was not responding and was not herself upon arrival to emergency department see was not able to provide any review of symptoms patient was re-evaluated and was found to be bradycardiac and may need to cardiac arrest CPR was initiated and patient was intubated and transferred to ICU currently patient on vent and to provide any review of symptoms, patient was found to have pneumonia positive for influenza A, in ICU patient was hypothermic be hugger was started as well as hypertensive and was placed on Levophed patient is seen by [employer] and we appreciate, on 11/01 patient still on vent, symptoms are improving, patient is off levophed however patient with hypothyroids, low free T3, hypothermia, bradycardia pantient may have myxedema coma patient on steroids, added levothyroxine and liothyronine, patient's prognosis is very poor will need trach family is thinking about possible hospice care (3) History of CHF (congestive heart failure): Code(s): Z86.79 - Personal history of other diseases of the circulatory system Status: Acute Assessment and Plan: Hold diuretics due to hypotension (4) Acute kidney injury superimposed on chronic kidney disease: Code(s): N17.9 - Acute kidney failure, unspecified; N18.9 - Chronic kidney disease, unspecified Status: Acute Assessment and Plan: continue to watch kidney function , pt has history of CKD, potassium was high, seen by Dr. Bey (5) Atrial fibrillation: Qualifiers: Atrial fibrillation type: unspecified Qualified Code(s): I48.91 - Unspecified atrial fibrillation Code(s): I48.91 - Unspecified atrial fibrillation Status: Acute Assessment and Plan: pt is on xarelto for anticoagulation (6) DVT prophylaxis: Code(s): Z29.9 - Encounter for prophylactic measures, unspecified Status: Acute Assessment and Plan: pt is on xarelto for anticoagulation (7) Anemia: Qualifiers: Anemia type: unspecified type Qualified Code(s): D64.9 - Anemia, unspecified Code(s): D64.9 - Anemia, unspecified Status: Chronic Assessment and Plan: Continue to monitor (8) Metabolic acidosis: Code(s): E87.2 - Acidosis Status: Acute Assessment and Plan: pt was on sodium bicarbondate drip now resolved (9) Respiratory failure: Qualifiers: Chronicity: acute Respiratory failure complication: hypoxia and hypercapnia Qualified Code(s): J96.01 - Acute respiratory failure with hypoxia; J96.02 - Acute respiratory failure with hypercapnia Code(s): J96.90 - Respiratory failure, unspecified, unspecified whether with hypoxia or hypercapnia Status: Acute Assessment and Plan: Pt is intubated in icu (10) Cardiac arrest: Code(s): I46.9 - Cardiac arrest, cause unspecified Status: Acute Assessment and Plan: REcent cardiac arrest due to resp arrest and hyperkalaemia (11) Acute renal failure: Qualifiers: Acute renal failure type: unspecified Qualified Code(s): N17.9 - Acute kidney failure, unspecified Code(s): N17.9 - Acute kidney failure, unspecified Status: Acute Assessment and Plan: Pt has a history of CKD (12) Hyperkalemia: Code(s): E87.5 - Hyperkalemia Status: Acute Assessment and Plan: continue to monitor potassium levels. pt is on sodium bicarbon
--- NOTE | 2019-11-02 16:09 | WPDINTPN ---
Progress Note: A&P Assessment and Plan (1) Septic shock: Code(s): A41.9 - Sepsis, unspecified organism; R65.21 - Severe sepsis with septic shock Status: Acute Assessment and Plan: : RESOLVED: patient presented with altered mental status, leukocytosis, bradycardic, hypotensive, metabolic acidosis - off levophed - central line was inserted in the right subclavian on 10/27/2019 - lactic acid levels have been normal, - continue ceftriaxone, azithromycin and vancomycin. - blood cultures negative x2, MRSA nasal swab positive - CRP 25.2 01/21/2020 (2) Cardiac arrest: Code(s): I46.9 - Cardiac arrest, cause unspecified Status: Acute Assessment and Plan: brief cardiac arrest most likely related to bradycardia, hyperkalemia, hypoxia, respiratory failure, hypothermia - ROSC brief CPR, atropine, epinephrine and bicarb was give after which her heart rate has been stable. - troponins trending down, likely related to cardiac arrest from respiratory failure - echocardiogram done on 10/27/2019: LVEF 50-55%, left ventricular chamber dimension is normal. Moderately increased left ventricular wall thickness, RV systolic function is normal, no pericardial effusion, no significant valvular abnormalities (3) Respiratory failure: Qualifiers: Chronicity: acute Respiratory failure complication: hypoxia and hypercapnia Qualified Code(s): J96.01 - Acute respiratory failure with hypoxia; J96.02 - Acute respiratory failure with hypercapnia Code(s): J96.90 - Respiratory failure, unspecified, unspecified whether with hypoxia or hypercapnia Status: Acute Assessment and Plan: acute respiratory failure likely related to severe metabolic acidosis, hypercapnia - patient on full mechanical ventilator support, pressure control ventilation - chest x-ray shows cardiomegaly with pulmonary edema, left pleural effusion. - ABGs reviewed, increased FiO2 40% and currently in a peep of 10 - Continue bronchodilators - continue fentanyl Versed infusion, maintain RASS of 0 to -2 - patient on Lasix drip with excellent urine output, discussed with nephrology - on antibiotics as above, status post Tamiflu (4) Metabolic acidosis: Code(s): E87.2 - Acidosis Status: Acute Assessment and Plan: RESOLVED: severe metabolic acidosis ON ADMISSION likely related to acute on chronic kidney disease, possibly also due to hypercapnia, hypotension, sepsis - patient received IV fluids, maintain mean arterial pressure is greater than 65 mmHg - off bicarb infusion - continue to monitor (5) Anemia: Qualifiers: Anemia type: unspecified type Qualified Code(s): D64.9 - Anemia, unspecified Code(s): D64.9 - Anemia, unspecified Status: Chronic Assessment and Plan: patient has chronic anemia, was transfused packed RBCs on 10/25/2019 here at [facility] - hemoglobin stable. Iron panel showing anemia of chronic disease. one unit PRBC given today - continue to monitor - stool guaiac positive (6) Influenza A: Code(s): J10.1 - Influenza due to other identified influenza virus with other respiratory manifestations Status: Acute Assessment and Plan: patient positive for influenza A, status post Tamiflu (7) Atrial fibrillation: Qualifiers: Atrial fibrillation type: unspecified Qualified Code(s): I48.91 - Unspecified atrial fibrillation Code(s): I48.91 - Unspecified atrial fibrillation Status: Acute Assessment and Plan: history of chronic AFib, on Xarelto at [facility], currently in sinus bradycardia, continue to monitor - continue Xarelto (8) Acute kidney injury superimposed on chronic kidney disease: Code(s): N17.9 - Acute kidney failure, unspecified; N18.9 - Chronic kidney disease, unspecified Status: Acute Assessment and Plan: acute on chronic kidney disease
[2019-11-02] MEDS: RIVAROXABAN 20 MG TABLET PO (17:23)
[2019-11-02 17:39] LABS: Glucose Point of Care 277 (65-105)
[2019-11-02 22:18] LABS: Kappa\\Lambda Light Chains 2.03 (0.26-1.65); Lambda Light Chain 37.8 mg/L (5.7-26.3)
[2019-11-03] VITALS (37 sets, daily range): BP systolic 142–171; BP diastolic 58–82; PULSE 56–84; RESP 14–21; TEMP 35.7–37.9; O2SAT 93–97
[2019-11-03] MEDS: MIDAZOLAM HCL 50 MG in DEXTROSE 5% 90 ML 12 MG IV CONT ×3 (00:42→18:19)
[2019-11-03] MEDS: INSULIN ASPART (*BKC) 100 UNITS/ML SUB-Q ×4 (01:00→18:19)
[2019-11-03 01:06] LABS: Glucose Point of Care 295 (65-105)
[2019-11-03 01:06] LABS: Glucose Point of Care 304 (65-105)
[2019-11-03] MEDS: IPRATROPIUM BR 0.02% INH SOLN 0.5 MG/2.5 ML VIAL INHALATION ×4 (01:11→20:56)
[2019-11-03] MEDS: ALBUTEROL SULFATE NEB 2.5 MG/0.5 ML INH 5 MG INHALATION ×4 (01:12→20:56)
[2019-11-03 03:32] LABS: Alveolar/Arterial O2 Gradient 177.7 mmHg; Base Excess ABG 3.7 mEq/l (+/-2.0); Carboxyhemoglobin 0.9 % THb (0-2.0); Fractional Inspired Oxygen 40 %; HCO3 ABG 26.2 mEq/l (22.0-26.0); Oxygen Content ABG 12.7 %vol (16.0-22.0); Oxyhemoglobin 90.7 % THb (90.0-100.0); PCO2 ABG 31.8 mmHg (35.0-45.0); PO2 ABG 70.9 mmHg (80.0-100.0); PO2 FiO2 Ratio Arterial Blood 1.77 %; Reduced Hemoglobin 8.4 %THb (0-5.0); Total Hemoglobin 9.9 g/dL (12.0-18.0)
[2019-11-03 03:33] LABS: pH ABG 7.533 (7.350-7.450)
[2019-11-03 03:34] LABS: Arterial Blood Gas Vent Mode PRESSURE CONTROL; Arterial Blood Gas Ventilator rate 20 /MIN; Device VENTILATOR; Modified Allen's Test Pass; Site Drawn LEFT RADIAL
[2019-11-03 03:35] LABS: Arterial Blood Gas PEEP 10 cmH2O; Peak Inspiratory Pressure 28 cmH2O
[2019-11-03] MEDS: FUROSEMIDE INJ 100 MG in SODIUM CHLORIDE 0.9% IV 90 ML 15 MG IV CONT (04:00)
[2019-11-03] MEDS: LEVOTHYROXINE SODIUM INJ 100 MCG/5 ML VIAL 50 MCG IV PUSH ×2 (05:42→06:11)
[2019-11-03 06:48] LABS: Hematocrit 25.2 % (37.0-47.0); Hemoglobin 7.6 g/dL (12.0-15.0); Immature Platelet Fraction Pct 5.9 % (0.9-11.2); Mean Corpuscular HGB Conc 30.2 g/dl (32-36); Mean Corpuscular Volume 89.7 fl (80-100); Mean Platelet Volume 12.4 fl (7.4-10.4); Platelet Count Result 51 k/mm3 (150-375); Red Blood Count 2.81 M/mm3 (4.2-5.4); Red Cell Distribution Width 16.9 % (11.5-14.5); White Blood Count 7.6 K/mm3 (4.5-10.0)
[2019-11-03 07:04] LABS: Blood Urea Nitrogen 109 mg/dL (7-17); Calcium 6.3 mg/dL (8.4-10.2); Carbon Dioxide 31 mmol/L (22-30); Chloride 94 mmol/L (98-107); Estimated CRCL calculation 47 ml/min; Estimated Glomerular Filt Rate 22; Glucose 293 mg/dL (65-105); Magnesium 1.6 mg/dL (1.6-2.3); Phosphorus 4.8 mg/dL (2.5-4.5); Potassium 3.2 mmol/L (3.4-5.0); Sodium 138 mmol/L (137-145)
[2019-11-03 07:08] LABS: Albumin Level 2.2 g/dL (3.5-5.1); Blood Urea Nitrogen 110 mg/dL (7-17); Calcium 6.3 mg/dL (8.4-10.2); Carbon Dioxide 32 mmol/L (22-30); Chloride 93 mmol/L (98-107); Estimated CRCL calculation 47 ml/min; Estimated Glomerular Filt Rate 22; Glucose 291 mg/dL (65-105); Phosphorus 4.8 mg/dL (2.5-4.5); Potassium 3.2 mmol/L (3.4-5.0); Sodium 139 mmol/L (137-145)
[2019-11-03 07:17] LABS: T4 Thyroxine 3.97 ug/dL (5.53-11.0)
[2019-11-03 07:18] LABS: Vancomycin Random 15.5 ug/mL (10-20)
[2019-11-03 07:31] LABS: Total Triiodothyronine (T3) 0.29 NG/ML (0.97-1.69)
[2019-11-03] MEDS: TOLNAFTATE 1% POWDER 45 GM BTL 1 APPLIC TOPICAL ×2 (09:44→22:19)
[2019-11-03] MEDS: PANTOPRAZOLE SODIUM IV 40 MG VIAL IV PUSH (09:47)
[2019-11-03] MEDS: SILVERGEL (ELTA) 45 ML 1 APPLIC TOPICAL (09:47)
[2019-11-03] MEDS: LIOTHYRONINE SODIUM 25 MCG TABLET PO (09:48)
[2019-11-03] MEDS: hydrALAZINE HCL 25 MG TABLET PO ×4 (09:48→22:22)
[2019-11-03] MEDS: INSULIN DETEMIR 100 UNITS/ML 50 UNITS SUB-Q ×2 (09:48→22:53)
[2019-11-03] MEDS: NEOMYCIN/POLYMYXIN/BACITRACIN OINTMENT 15 GM TUBE 1 APPLIC TOPICAL (09:48)
[2019-11-03] MEDS: predniSONE 20 MG TABLET FEED TUBE (09:49)
--- NOTE | 2019-11-03 11:09 | PM.PNNEP ---
Progress Note: A&P Assessment and Plan (1) Acute renal failure: Qualifiers: Acute renal failure type: unspecified Qualified Code(s): N17.9 - Acute kidney failure, unspecified Code(s): N17.9 - Acute kidney failure, unspecified Status: Acute Assessment and Plan: baseline creatinine ~ 0.8 - 1.3mg/dl (from review of OSH records) renal ultrasound only could see the right kidney which was normal; left kidney was unable to be seen possibly technical limitation because of her obesity urine electrolytes are non pre renal, Fe-Urea is around 30% which is borderline pre renal. She is on diuretic gtt UA shows a bland sediment; urine eosinophils are negative; CPK is normal; ESR is greater than 140; C3 is slightly low at 76 and C4 is normal. Rheumatoid factor is low;other tests are pending. urine output is better with lasix gtt -- component of overdiuresis - CXR does not look significantly different despite being almost 14L negative discussed with Dr. Anaya - trial of scheduled diuretics (lasix 80mg IV q12hr) and follow trend of labs and UOP (2) Septic shock: Code(s): A41.9 - Sepsis, unspecified organism; R65.21 - Severe sepsis with septic shock Status: Acute Assessment and Plan: doing much better at this time follow trend of hemodynamics (3) Anemia: Qualifiers: Anemia type: unspecified type Qualified Code(s): D64.9 - Anemia, unspecified Code(s): D64.9 - Anemia, unspecified Status: Chronic Assessment and Plan: likely due to acute illness, ALLEGRA, and iron deficiency based on anemia studies - holding venofer in the setting of acute infection empirically started on Epogen follow trend of H/H (4) Respiratory failure: Qualifiers: Chronicity: acute Respiratory failure complication: hypoxia and hypercapnia Qualified Code(s): J96.01 - Acute respiratory failure with hypoxia; J96.02 - Acute respiratory failure with hypercapnia Code(s): J96.90 - Respiratory failure, unspecified, unspecified whether with hypoxia or hypercapnia Status: Acute Assessment and Plan: remains on ventilator settings are stable if not better however, CXR concerning that fluid may not be the only issues/problems (5) Rheumatoid arthritis: Code(s): M06.9 - Rheumatoid arthritis, unspecified Status: Acute Assessment and Plan: treated chronically with prednisone currently on stress dose steroids serum cortisol level was only 6.7 Will continue to follow Subjective Date/time seen: 11/03/19 11:09 She remains intubated and on mechanical ventilation -- however, she is opening her eyes and follow some simple commands; continues to make excellent urine output with lasix gtt; no apparent distress noted. Exam Narrative: Exam Narrative: General: WD/WN female in NAD Heart: normal S1 and S2; no rub Lungs: coarse throughout Abdomen: soft, nontender, nondistended, positive bowel sounds Extremities: no cyanosis or clubbing; 2+ edema Skin: warm and dry Objective Data Vital Signs Vital Signs: Vital Signs Temp Pulse Resp BP Pulse Ox 11/03/19 10:11 76 11/03/19 10:00 36.6 C 73 16 143/65 H 96 11/03/19 08:55 71 94 11/03/19 08:07 81 96 11/03/19 08:00 36.9 C 72 21 H 161/72 H 96 11/03/19 07:58 81 20 11/03/19 06:00 37.3 C 65 20 142/59 H 95 11/03/19 05:28 65 94 11/03/19 04:00 71 11/03/19 03:30 37.7 C H 65 20 163/66 H 94 11/03/19 02:00 37.8 C H 65 20 164/71 H 95 11/03/19 01:26 79 18 11/03/19 01:13 75 94 11/03/19 01:12 77 18 11/03/19 00:00 37.9 C H 63 20 171/58 H 94 11/02/19 23:36 62 94 11/02/19 22:00 37.9 C H 82 18 193/65 H 95 11/02/19 20:00 37.8 C H 72 20 181/66 H 95 11/02/19 19:20 88 20 11/02/19 19:12 82 95 11/02/19 19:11 83 20 11/02/19 18:01 37.8 C H 72 20 166/60 H 94 11/02/19 17
[2019-11-03] MEDS: MAGNESIUM SULF 2 GM/WATER 50ML 2 GM/50 ML BAG IVPB (11:57)
[2019-11-03] MEDS: POTASSIUM CHLORIDE 20 MEQ PACKET (FOR LIQUID) 60 MEQ PO (11:57)
[2019-11-03 13:22] LABS: Glucose Point of Care 301 (65-105)
--- NOTE | 2019-11-03 13:56 | WPDINTPN ---
Progress Note: A&P Assessment and Plan (1) Respiratory failure: Qualifiers: Chronicity: acute Respiratory failure complication: hypoxia and hypercapnia Qualified Code(s): J96.01 - Acute respiratory failure with hypoxia; J96.02 - Acute respiratory failure with hypercapnia Code(s): J96.90 - Respiratory failure, unspecified, unspecified whether with hypoxia or hypercapnia Status: Acute Assessment and Plan: acute respiratory failure likely related to severe metabolic acidosis, hypercapnia - patient intubated on 10/27/2019, pressure control ventilation, chest x-ray and ABGs reviewed, on 40% FiO2 and peep of 10 - Continue bronchodilators, continue ceftriaxone, azithromycin and vancomycin - continue fentanyl Versed infusion, maintain RASS of 0 to -2 - patient has been on Lasix infusion with excellent urine output and 14 L negative fluid balance since admission, chest x-ray continues to show diffuse bilateral infiltrates - pulmonology has been consulted for possible bronchoscopy - status post Tamiflu (2) Septic shock: Code(s): A41.9 - Sepsis, unspecified organism; R65.21 - Severe sepsis with septic shock Status: Acute Assessment and Plan: : RESOLVED: patient presented with altered mental status, leukocytosis, bradycardic, hypotensive, metabolic acidosis - off levophed - central line was inserted in the right subclavian on 10/27/2019 - continue ceftriaxone, azithromycin and vancomycin. - blood cultures negative x2, MRSA nasal swab positive - CRP 25.2 01/21/2020 (3) Cardiac arrest: Code(s): I46.9 - Cardiac arrest, cause unspecified Status: Acute Assessment and Plan: brief cardiac arrest most likely related to bradycardia, hyperkalemia, hypoxia, respiratory failure, hypothermia, ROSC brief CPR, - echocardiogram done on 10/27/2019: LVEF 50-55%, left ventricular chamber dimension is normal. Moderately increased left ventricular wall thickness, RV systolic function is normal, no pericardial effusion, no significant valvular abnormalities - patient open her eyes and follows commands today - hemodynamically stable (4) Metabolic acidosis: Code(s): E87.2 - Acidosis Status: Acute Assessment and Plan: RESOLVED: severe metabolic acidosis ON ADMISSION likely related to acute on chronic kidney disease, possibly also due to hypercapnia, hypotension, sepsis - patient received IV fluids, maintain mean arterial pressure is greater than 65 mmHg - off bicarb infusion - continue to monitor (5) Anemia: Qualifiers: Anemia type: unspecified type Qualified Code(s): D64.9 - Anemia, unspecified Code(s): D64.9 - Anemia, unspecified Status: Chronic Assessment and Plan: patient has chronic anemia, was transfused packed RBCs on 10/25/2019 here at [facility] - hemoglobin stable. Iron panel showing anemia of chronic disease. one unit PRBC given today - continue to monitor - stool guaiac positive (6) Influenza A: Code(s): J10.1 - Influenza due to other identified influenza virus with other respiratory manifestations Status: Acute Assessment and Plan: patient was positive for influenza A on admission, status post Tamiflu (7) Atrial fibrillation: Qualifiers: Atrial fibrillation type: unspecified Qualified Code(s): I48.91 - Unspecified atrial fibrillation Code(s): I48.91 - Unspecified atrial fibrillation Status: Acute Assessment and Plan: history of chronic AFib, [facility], currently in sinus bradycardia, continue to monitor - continue Xarelto (8) Acute kidney injury superimposed on chronic kidney disease: Code(s): N17.9 - Acute kidney failure, unspecified; N18.9 - Chronic kidney disease, unspecified Status: Acute Assessment and Plan: acute on chronic kidney disease, baseline creatinine 1.1-1.3 in November 25
[2019-11-03] MEDS: FUROSEMIDE INJ 100 MG/10 ML VIAL 80 MG IV PUSH ×2 (13:58→22:18)
--- NOTE | 2019-11-03 14:10 | PM.PNPUL ---
Progress Note: A&P Assessment and Plan (1) Respiratory failure: Qualifiers: Chronicity: acute Respiratory failure complication: hypoxia and hypercapnia Qualified Code(s): J96.01 - Acute respiratory failure with hypoxia; J96.02 - Acute respiratory failure with hypercapnia Code(s): J96.90 - Respiratory failure, unspecified, unspecified whether with hypoxia or hypercapnia Status: Acute Assessment and Plan: She has acute hypoxemic respiratory failure, on 40%, is not optimized for extubation as the CXR remains abnormal with Congestive heart failure, pulmonary edema, left lower lobe atelectasis and/or consolidation stable since 11/02/2019 ; she has been diuresed with 14 L off; d/w/ Dr. Anaya; will consider bronchoscopy with washings and brushings for specimen for opportunistic infections; will not perform transbronchial biopsy with increased risk of pneumothorax on ventilator. PC mode; 40%, 10 PEEP. (2) Influenza A: Code(s): J10.1 - Influenza due to other identified influenza virus with other respiratory manifestations Status: Acute Assessment and Plan: She has confirmed influenza A, with secondary bacterial pneumonia, on treatment. Had Tamiflu. (3) Acute kidney injury superimposed on chronic kidney disease: Code(s): N17.9 - Acute kidney failure, unspecified; N18.9 - Chronic kidney disease, unspecified Status: Acute Assessment and Plan: BUN was as high as 125, creat 3.0; improved with fluids, now BUN 110, creat 2.3. Still high. Dr. Soliz is managing this; K+ is acceptable. No urgent need for HD. (4) Hypothyroidism: Qualifiers: Hypothyroidism type: unspecified Qualified Code(s): E03.9 - Hypothyroidism, unspecified Code(s): E03.9 - Hypothyroidism, unspecified Status: Acute Assessment and Plan: consistent with myxedema coma; high TSH, bradycardic, hypotensive, hypothermia, hypoventilation; mild drop in sodium 134, elevated T3 and T4; she has thin eyebrows, doughy skin, decreased body hair, puffy eyelids, very classic. She is on treatment with IV Synthroid, cytomel, supportive measure including mechanical ventilation and management of infection. (5) Sepsis: Qualifiers: Sepsis acute organ dysfunction status: unspecified Sepsis type: sepsis due to unspecified organism Qualified Code(s): A41.9 - Sepsis, unspecified organism Code(s): A41.9 - Sepsis, unspecified organism Status: Acute Assessment and Plan: with hypotension; has a small amount of pressor at this time; source is lungs with influenza and pneumonia; Subjective Date/time seen: 11/03/19 14:[address] Anaya requested pulmonary consult for this 54 yo female with RA who has bilateral infiltrates with influenza; she was admitted with septic shock, acute respiratory failure, had brief respiratory arrest with ROSC; she met criteria for myxedema coma with initially high TSH, low pulse, low body temp, low T4 and T3. She has been diuresed 14 L; this was with a Lasix drip then converted to Lasix 80 mg b.i.d. She is in Pressure Control mode with FiO2 0.4, PEEP 10, and a CXR that continues to have dense bilateral infiltrates. With influenza, she may have a secondary bacterial pneumonia, and is being treated with Vanco and azithromycin. She is failing to respond to treatment for pneumonia, continues to have vent dependent respiratory failure; she was on a Lasix drip, now on Lasix 80 mg b.i.d. She is sedated with versed and fentanyl, can open eyes, nod to questions. Still requires small amount of pressors to maintain blood press
--- NOTE | 2019-11-03 15:39 | PM.IMPN ---
Progress Note: A&P Assessment and Plan (1) Influenza A: Code(s): J10.1 - Influenza due to other identified influenza virus with other respiratory manifestations Status: Acute Assessment and Plan: Pt is on tamiflu (2) Septic shock: Code(s): A41.9 - Sepsis, unspecified organism; R65.21 - Severe sepsis with septic shock Status: Acute Assessment and Plan: 11/03/19 15:39 Patient is a 54-year-old female morbidly obese resident of long term was sent to emergency department acute mental status change as patient was not responding and was not herself upon arrival to emergency department see was not able to provide any review of symptoms patient was re-evaluated and was found to be bradycardiac and may need to cardiac arrest CPR was initiated and patient was intubated and transferred to ICU currently patient on vent and to provide any review of symptoms, patient was found to have pneumonia positive for influenza A, in ICU patient was hypothermic be hugger was started as well as hypertensive and was placed on Levophed patient is seen by hasher operator and we appreciate, on 11/01 patient still on vent, symptoms are improving, patient is off levophed however patient with hypothyroids, low free T3, hypothermia, bradycardia pantient may have myxedema coma patient on steroids, added levothyroxine and liothyronine, patient is off Lasix infusion diuresed with had a 14 L urine output is still showing infiltrate pulmonology been consulted for bronchoscopy patient's prognosis is very poor will need trach family is thinking about possible hospice care (3) History of CHF (congestive heart failure): Code(s): Z86.79 - Personal history of other diseases of the circulatory system Status: Acute Assessment and Plan: Patient was placed on Lasix infusion diuresed 14 L, off infusion will schedule IV Lasix (4) Acute kidney injury superimposed on chronic kidney disease: Code(s): N17.9 - Acute kidney failure, unspecified; N18.9 - Chronic kidney disease, unspecified Status: Acute Assessment and Plan: continue to watch kidney function , pt has history of CKD, potassium was high, seen by Dr. Bey (5) Atrial fibrillation: Qualifiers: Atrial fibrillation type: unspecified Qualified Code(s): I48.91 - Unspecified atrial fibrillation Code(s): I48.91 - Unspecified atrial fibrillation Status: Acute Assessment and Plan: pt is on xarelto for anticoagulation (6) DVT prophylaxis: Code(s): Z29.9 - Encounter for prophylactic measures, unspecified Status: Acute Assessment and Plan: pt is on xarelto for anticoagulation (7) Anemia: Qualifiers: Anemia type: unspecified type Qualified Code(s): D64.9 - Anemia, unspecified Code(s): D64.9 - Anemia, unspecified Status: Chronic Assessment and Plan: Continue to monitor (8) Metabolic acidosis: Code(s): E87.2 - Acidosis Status: Acute Assessment and Plan: pt was on sodium bicarbondate drip now resolved (9) Respiratory failure: Qualifiers: Chronicity: acute Respiratory failure complication: hypoxia and hypercapnia Qualified Code(s): J96.01 - Acute respiratory failure with hypoxia; J96.02 - Acute respiratory failure with hypercapnia Code(s): J96.90 - Respiratory failure, unspecified, unspecified whether with hypoxia or hypercapnia Status: Acute Assessment and Plan: Pt is intubated in icu (10) Cardiac arrest: Code(s): I46.9 - Cardiac arrest, cause unspecified Status: Acute Assessment and Plan: REcent cardiac arrest due to resp arrest and hyperkalaemia (11) Acute renal failure: Qualifiers: Acute renal failure type: unspecified Qualified Code(s): N17.9 - Acute kidney failure, unspecified Code(s): N17.9 - Acute kidney failure, unspecified Status: Acute Assessment and Plan: Pt
[2019-11-03] MEDS: RIVAROXABAN 20 MG TABLET PO (17:20)
[2019-11-03] MEDS: POTASSIUM CHLORIDE 20 MEQ PACKET (FOR LIQUID) 40 MEQ PO (17:22)
[2019-11-03 17:40] LABS: Glucose Point of Care 315 (65-105)
[2019-11-03 23:43] LABS: Glucose Point of Care 271 (65-105)
[2019-11-04] VITALS (50 sets, daily range): BP systolic 123–177; BP diastolic 61–82; PULSE 56–108; RESP 14–30; TEMP 35.4–36.9; O2SAT 90–100
[2019-11-04] MEDS: ALBUTEROL SULFATE NEB 2.5 MG/0.5 ML INH 5 MG INHALATION ×4 (02:16→19:41)
[2019-11-04] MEDS: IPRATROPIUM BR 0.02% INH SOLN 0.5 MG/2.5 ML VIAL INHALATION ×4 (02:16→19:41)
[2019-11-04] MEDS: MIDAZOLAM HCL 50 MG in DEXTROSE 5% 90 ML 12 MG IV CONT ×3 (02:41→20:30)
[2019-11-04] MEDS: INSULIN ASPART (*BKC) 100 UNITS/ML SUB-Q ×3 (02:41→12:09)
[2019-11-04 03:18] LABS: Glucose Point of Care 248 (65-105)
[2019-11-04 04:45] LABS: Alveolar/Arterial O2 Gradient 162.9 mmHg; Base Excess ABG 10.1 mEq/l (+/-2.0); Carboxyhemoglobin 0.2 % THb (0-2.0); Fractional Inspired Oxygen 40 %; Methemoglobin ABG 0.1 %THb (0-1.5); Oxygen Content ABG 10.8 %vol (16.0-22.0); Oxygen Saturation ABG 97.8 % (95.0-100.0); Oxyhemoglobin 93.3 % THb (90.0-100.0); PCO2 ABG 32.4 mmHg (35.0-45.0); PO2 FiO2 Ratio Arterial Blood 2.13 %; Reduced Hemoglobin 6.4 %THb (0-5.0); Total Hemoglobin 8.1 g/dL (12.0-18.0)
[2019-11-04 06:42] LABS: pH ABG 7.613 (7.350-7.450)
[2019-11-04 06:43] LABS: Device VENTILATOR; Modified Allen's Test Unable to perform; Site Drawn LEFT RADIAL
[2019-11-04 06:50] LABS: Arterial Blood Gas PEEP 10 cmH2O; Arterial Blood Gas Vent Mode PRESSURE CONTROL; Arterial Blood Gas Ventilator rate 16 /MIN; Peak Inspiratory Pressure 28 cmH2O
[2019-11-04 06:53] LABS: Hematocrit 25.9 % (37.0-47.0); Immature Platelet Fraction Pct 5.4 % (0.9-11.2); Mean Corpuscular HGB Conc 30.9 g/dl (32-36); Mean Corpuscular Hemoglobin 27.3 pg (26-34); Mean Corpuscular Volume 88.4 fl (80-100); Mean Platelet Volume 13.1 fl (7.4-10.4); Platelet Count Result 76 k/mm3 (150-375); Red Blood Count 2.93 M/mm3 (4.2-5.4); Red Cell Distribution Width 16.6 % (11.5-14.5); White Blood Count 7.5 K/mm3 (4.5-10.0)
[2019-11-04 07:03] LABS: Blood Urea Nitrogen 104 mg/dL (7-17); Calcium 6.8 mg/dL (8.4-10.2); Carbon Dioxide 34 mmol/L (22-30); Chloride 90 mmol/L (98-107); Estimated CRCL calculation 46 ml/min; Estimated Glomerular Filt Rate 23; Glucose 278 mg/dL (65-105); Magnesium 1.7 mg/dL (1.6-2.3); Potassium 3.5 mmol/L (3.4-5.0); Sodium 138 mmol/L (137-145)
[2019-11-04] MEDS: INSULIN DETEMIR 100 UNITS/ML 65 UNITS SUB-Q ×2 (09:00→20:46)
[2019-11-04] MEDS: FUROSEMIDE INJ 100 MG/10 ML VIAL 80 MG IV PUSH ×2 (09:07→23:09)
[2019-11-04] MEDS: PANTOPRAZOLE SODIUM IV 40 MG VIAL IV PUSH (09:08)
[2019-11-04] MEDS: SILVERGEL (ELTA) 45 ML 1 APPLIC TOPICAL (09:08)
[2019-11-04] MEDS: TOLNAFTATE 1% POWDER 45 GM BTL 1 APPLIC TOPICAL ×2 (09:08→20:44)
[2019-11-04] MEDS: NEOMYCIN/POLYMYXIN/BACITRACIN OINTMENT 15 GM TUBE 1 APPLIC TOPICAL (09:08)
[2019-11-04] MEDS: LIOTHYRONINE SODIUM 25 MCG TABLET PO (09:08)
[2019-11-04] MEDS: hydrALAZINE HCL 25 MG TABLET PO ×4 (09:09→20:45)
[2019-11-04 12:19] LABS: Glucose Point of Care 226 (65-105)
[2019-11-04 12:37] LABS: Alveolar/Arterial O2 Gradient 144.6 mmHg; Base Excess ABG 10.8 mEq/l (+/-2.0); Carboxyhemoglobin 1.1 % THb (0-2.0); Fractional Inspired Oxygen 40 %; HCO3 ABG 35.6 mEq/l (22.0-26.0); Methemoglobin ABG 0.1 %THb (0-1.5); Oxygen Saturation ABG 96.6 % (95.0-100.0); Oxyhemoglobin 91.4 % THb (90.0-100.0); PO2 ABG 83.1 mmHg (80.0-100.0); PO2 FiO2 Ratio Arterial Blood 2.08 %; Reduced Hemoglobin 7.4 %THb (0-5.0)
[2019-11-04 12:41] LABS: Modified Allen's Test Pass; Total Hemoglobin 7.7 g/dL (12.0-18.0)
[2019-11-04 12:42] LABS: Arterial Blood Gas PEEP 10 cmH2O; Arterial Blood Gas Tidal Volume 400 ml; Arterial Blood Gas Vent Mode CMV; Arterial Blood Gas Ventilator rate 16 /MIN; Device VENTILATOR; Site Drawn LEFT RADIAL
--- NOTE | 2019-11-04 13:38 | PM.PNNEP ---
Progress Note: A&P Assessment and Plan (1) Acute renal failure: Qualifiers: Acute renal failure type: unspecified Qualified Code(s): N17.9 - Acute kidney failure, unspecified Code(s): N17.9 - Acute kidney failure, unspecified Status: Acute Assessment and Plan: baseline creatinine ~ 0.8 - 1.3mg/dl (from review of OSH records) renal ultrasound could see only the right kidney which was normal; left kidney was unable to be seen possibly due to technical limitation because of her obesity urine electrolytes are non pre renal, Fe-Urea is around 30% which is borderline pre renal. UA shows a bland sediment; urine eosinophils are negative; CPK is normal; ESR is greater than 140; C3 is slightly low at 76 and C4 is normal. Rheumatoid factor is low; other tests are pending. concern for overdiuresis with lasix gtt - CXR does not look significantly different despite being almost 22L negative changed over to scheduled diuretics (lasix 80mg IV q12hr) follow trend of labs and UOP (2) Septic shock: Code(s): A41.9 - Sepsis, unspecified organism; R65.21 - Severe sepsis with septic shock Status: Acute Assessment and Plan: doing much better at this time follow trend of hemodynamics (3) Anemia: Qualifiers: Anemia type: unspecified type Qualified Code(s): D64.9 - Anemia, unspecified Code(s): D64.9 - Anemia, unspecified Status: Chronic Assessment and Plan: likely due to acute illness, ALLEGRA, and iron deficiency based on anemia studies - holding venofer in the setting of acute infection empirically started on Epogen follow trend of H/H (4) Respiratory failure: Qualifiers: Chronicity: acute Respiratory failure complication: hypoxia and hypercapnia Qualified Code(s): J96.01 - Acute respiratory failure with hypoxia; J96.02 - Acute respiratory failure with hypercapnia Code(s): J96.90 - Respiratory failure, unspecified, unspecified whether with hypoxia or hypercapnia Status: Acute Assessment and Plan: remains on ventilator settings are stable if not better however, CXR concerning that fluid may not be the only issues/problems (5) Rheumatoid arthritis: Code(s): M06.9 - Rheumatoid arthritis, unspecified Status: Acute Assessment and Plan: treated chronically with prednisone currently on stress dose steroids serum cortisol level was only 6.7 Will continue to follow Subjective Date/time seen: 11/04/19 13:38 Continues to make good urine output but no significant change in CXR appearance -- plan bronchoscopy next week; stable hemodynamics and remains on ventilator support. Exam Narrative: Exam Narrative: General: WD/WN female in NAD Heart: normal S1 and S2; no rub Lungs: coarse throughout Abdomen: soft, nontender, nondistended, positive bowel sounds Extremities: no cyanosis or clubbing; 2+ edema Skin: warm and dry Objective Data Vital Signs Vital Signs: Vital Signs Temp Pulse Resp BP Pulse Ox 11/04/19 12:01 36.6 C 61 16 127/61 96 11/04/19 12:00 60 11/04/19 11:30 61 96 11/04/19 10:45 36.7 C 69 16 95 11/04/19 10:30 36.7 C 77 16 94 11/04/19 10:15 36.8 C 83 16 95 11/04/19 10:00 36.8 C 82 21 H 133/72 94 11/04/19 09:45 36.8 C 65 16 96 11/04/19 09:30 36.8 C 56 L 16 97 11/04/19 09:15 36.8 C 58 L 14 97 11/04/19 09:01 36.8 C 72 16 155/72 H 96 11/04/19 09:00 36.8 C 73 21 H 90 11/04/19 08:50 62 20 96 11/04/19 08:45 36.8 C 65 16 97 11/04/19 08:01 36.9 C 59 L 16 169/70 H 97 11/04/19 08:00 73 11/04/19 06:00 36.9 C 59 L 16 159/63 H 95 11/04/19 05:00 36.9 C 62 16 168/65 H 95 11/04/19 04:50 60 96 11/04/19 04:00 36.9 C 75 16 172/79 H 95 11/04/19 03:00 36.7 C 76 16 168/69 H 96 11/04/19 02:31 74 20 11/04/19 02:30 36.6 C 79 19 177/75 H 96 11/04/19 02:1
--- NOTE | 2019-11-04 13:43 | WPDINTPN ---
Progress Note: A&P Assessment and Plan (1) Respiratory failure: Qualifiers: Chronicity: acute Respiratory failure complication: hypoxia and hypercapnia Qualified Code(s): J96.01 - Acute respiratory failure with hypoxia; J96.02 - Acute respiratory failure with hypercapnia Code(s): J96.90 - Respiratory failure, unspecified, unspecified whether with hypoxia or hypercapnia Status: Acute Assessment and Plan: acute respiratory failure likely related to severe metabolic acidosis, hypercapnia. Iintubated on 10/27/2019, - chest x-ray and ABGs noted, patient alkalotic, switched to CMV mode of ventilation with improvement in her gases - Continue bronchodilators, continue ceftriaxone, azithromycin and vancomycin - continue fentanyl Versed infusion, maintain RASS of 0 to -2 - Lasix infusion has been turned off as patient has been negative 20 L in fluid balance despite which chest x-ray continues to show bilateral diffuse infiltrates - appreciate pulmonology evaluation and recommendation question consider bronchoscopy on Tuesday11/05/2019. (2) Septic shock: Code(s): A41.9 - Sepsis, unspecified organism; R65.21 - Severe sepsis with septic shock Status: Acute Assessment and Plan: : RESOLVED: patient presented with altered mental status, leukocytosis, bradycardic, hypotensive, metabolic acidosis - off levophed - central line was inserted in the right subclavian on 10/27/2019 - continue ceftriaxone, azithromycin and vancomycin. - blood cultures negative x2, MRSA nasal swab positive - CRP 25.2 01/21/2020 (3) Cardiac arrest: Code(s): I46.9 - Cardiac arrest, cause unspecified Status: Acute Assessment and Plan: brief cardiac arrest most likely related to bradycardia, hyperkalemia, hypoxia, respiratory failure, hypothermia, ROSC brief CPR, - echocardiogram done on 10/27/2019: LVEF 50-55%, left ventricular chamber dimension is normal. Moderately increased left ventricular wall thickness, RV systolic function is normal, no pericardial effusion, no significant valvular abnormalities - patient open her eyes and follows commands today - hemodynamically stable (4) Metabolic acidosis: Code(s): E87.2 - Acidosis Status: Acute Assessment and Plan: RESOLVED: severe metabolic acidosis ON ADMISSION likely related to acute on chronic kidney disease, possibly also due to hypercapnia, hypotension, sepsis - patient received IV fluids, maintain mean arterial pressure is greater than 65 mmHg - off bicarb infusion - continue to monitor (5) Anemia: Qualifiers: Anemia type: unspecified type Qualified Code(s): D64.9 - Anemia, unspecified Code(s): D64.9 - Anemia, unspecified Status: Chronic Assessment and Plan: patient has chronic anemia, was transfused packed RBCs on 10/25/2019 here at [facility] - hemoglobin stable. Iron panel showing anemia of chronic disease. Status post one unit PRBC given on 10/30/2019 - continue to monitor - stool guaiac positive (6) Influenza A: Code(s): J10.1 - Influenza due to other identified influenza virus with other respiratory manifestations Status: Acute Assessment and Plan: patient was positive for influenza A on admission, status post Tamiflu (7) Atrial fibrillation: Qualifiers: Atrial fibrillation type: unspecified Qualified Code(s): I48.91 - Unspecified atrial fibrillation Code(s): I48.91 - Unspecified atrial fibrillation Status: Acute Assessment and Plan: history of chronic AFib, [facility], currently in sinus bradycardia, continue to monitor - continue Xarelto (8) Acute kidney injury superimposed on chronic kidney disease: Code(s): N17.9 - Acute kidney failure, unspecified; N18.9 - Chronic kidney disease, unspecified Status: Acute Assessment and Plan: acute on chronic
--- NOTE | 2019-11-04 16:08 | PM.IMPN ---
Progress Note: A&P Assessment and Plan (1) Influenza A: Code(s): J10.1 - Influenza due to other identified influenza virus with other respiratory manifestations Status: Acute Assessment and Plan: Pt is on tamiflu (2) Septic shock: Code(s): A41.9 - Sepsis, unspecified organism; R65.21 - Severe sepsis with septic shock Status: Acute Assessment and Plan: 11/04/19 16:08 Patient is a 54-year-old female morbidly obese resident of long-term was sent to emergency department acute mental status change as patient was not responding and was not herself upon arrival to emergency department see was not able to provide any review of symptoms patient was re-evaluated and was found to be bradycardiac and may need to cardiac arrest CPR was initiated and patient was intubated and transferred to ICU currently patient on vent and to provide any review of symptoms, patient was found to have pneumonia positive for influenza A, in ICU patient was hypothermic be hugger was started as well as hypertensive and was placed on Levophed patient is seen by [facility] and we appreciate, on 11/01 patient still on vent, symptoms are improving, patient is off levophed however patient with hypothyroids, low free T3, hypothermia, bradycardia pantient may have myxedema coma patient on steroids, added levothyroxine and liothyronine, patient Lasix infusion was turned off 11/03 diuresed with had a 20 L urine output, chest x-ray is still showing infiltrate pulmonology been consulted for bronchoscopy possibly on 11/05, patient's prognosis is very poor will need trach family is thinking about possible hospice care (3) History of CHF (congestive heart failure): Code(s): Z86.79 - Personal history of other diseases of the circulatory system Status: Acute Assessment and Plan: Patient was placed on Lasix infusion diuresed 14 L, off infusion will schedule IV Lasix (4) Acute kidney injury superimposed on chronic kidney disease: Code(s): N17.9 - Acute kidney failure, unspecified; N18.9 - Chronic kidney disease, unspecified Status: Acute Assessment and Plan: continue to watch kidney function , pt has history of CKD, potassium was high, seen by Dr. Bey (5) Atrial fibrillation: Qualifiers: Atrial fibrillation type: unspecified Qualified Code(s): I48.91 - Unspecified atrial fibrillation Code(s): I48.91 - Unspecified atrial fibrillation Status: Acute Assessment and Plan: pt is on xarelto for anticoagulation (6) DVT prophylaxis: Code(s): Z29.9 - Encounter for prophylactic measures, unspecified Status: Acute Assessment and Plan: pt is on xarelto for anticoagulation (7) Anemia: Qualifiers: Anemia type: unspecified type Qualified Code(s): D64.9 - Anemia, unspecified Code(s): D64.9 - Anemia, unspecified Status: Chronic Assessment and Plan: Continue to monitor (8) Metabolic acidosis: Code(s): E87.2 - Acidosis Status: Acute Assessment and Plan: pt was on sodium bicarbondate drip now resolved (9) Respiratory failure: Qualifiers: Chronicity: acute Respiratory failure complication: hypoxia and hypercapnia Qualified Code(s): J96.01 - Acute respiratory failure with hypoxia; J96.02 - Acute respiratory failure with hypercapnia Code(s): J96.90 - Respiratory failure, unspecified, unspecified whether with hypoxia or hypercapnia Status: Acute Assessment and Plan: Pt is intubated in icu (10) Cardiac arrest: Code(s): I46.9 - Cardiac arrest, cause unspecified Status: Acute Assessment and Plan: REcent cardiac arrest due to resp arrest and hyperkalaemia (11) Acute renal failure: Qualifiers: Acute renal failure type: unspecified Qualified Code(s): N17.9 - Acute kidney failure, unspecified Code(s): N17.9 - Acute kidney failure, unspecified
[2019-11-04] MEDS: RIVAROXABAN 20 MG TABLET PO (16:20)
[2019-11-04 18:16] LABS: Glucose Point of Care 154 (65-105)
[2019-11-04 20:43] LABS: Glucose Point of Care 109 (65-105)
[2019-11-04 23:07] LABS: Glucose Point of Care 79 (65-105)
[2019-11-05] VITALS (29 sets, daily range): BP systolic 108–149; BP diastolic 54–66; PULSE 70–98; RESP 12–97; TEMP 36.2–36.8; O2SAT 92–100
[2019-11-05 00:28] LABS: Glucose Point of Care 77 (65-105)
[2019-11-05] MEDS: IPRATROPIUM BR 0.02% INH SOLN 0.5 MG/2.5 ML VIAL INHALATION ×4 (02:23→20:45)
[2019-11-05] MEDS: ALBUTEROL SULFATE NEB 2.5 MG/0.5 ML INH 5 MG INHALATION ×4 (02:23→20:45)
[2019-11-05] MEDS: DEXTROSE 50% 25 GM/50 ML SYRINGE IV PUSH ×4 (03:04→12:33)
[2019-11-05 03:24] LABS: Glucose Point of Care 100 (65-105)
[2019-11-05 03:24] LABS: Glucose Point of Care 46 (65-105)
[2019-11-05 03:54] LABS: Alveolar/Arterial O2 Gradient 232.5 mmHg; Base Excess ABG 14.3 mEq/l (+/-2.0); Carboxyhemoglobin 1.7 % THb (0-2.0); Fractional Inspired Oxygen 50 %; HCO3 ABG 39.7 mEq/l (22.0-26.0); Methemoglobin ABG 0.1 %THb (0-1.5); Oxygen Content ABG 10.8 %vol (16.0-22.0); Oxygen Saturation ABG 91.9 % (95.0-100.0); PCO2 ABG 56.5 mmHg (35.0-45.0); PO2 ABG 60.4 mmHg (80.0-100.0); PO2 FiO2 Ratio Arterial Blood 1.21 %; Reduced Hemoglobin 11.2 %THb (0-5.0); Total Hemoglobin 8.8 g/dL (12.0-18.0); pH ABG 7.465 (7.350-7.450)
[2019-11-05 03:55] LABS: Device VENTILATOR; Modified Allen's Test Pass; Site Drawn LEFT RADIAL
[2019-11-05 03:56] LABS: Arterial Blood Gas PEEP 10 cmH2O; Arterial Blood Gas Tidal Volume 400 ml; Arterial Blood Gas Vent Mode CMV; Arterial Blood Gas Ventilator rate 20 /MIN
[2019-11-05] MEDS: MIDAZOLAM HCL 50 MG in DEXTROSE 5% 90 ML 12 MG IV CONT ×2 (04:54→15:33)
[2019-11-05 05:01] LABS: Hematocrit 24.7 % (37.0-47.0); Hemoglobin 7.3 g/dL (12.0-15.0); Mean Corpuscular HGB Conc 29.6 g/dl (32-36); Mean Corpuscular Volume 91.5 fl (80-100); Mean Platelet Volume 12.6 fl (7.4-10.4); Platelet Count Result 115 k/mm3 (150-375); Red Cell Distribution Width 16.7 % (11.5-14.5); White Blood Count 8.6 K/mm3 (4.5-10.0)
[2019-11-05 05:17] LABS: Glucose Point of Care 52 (65-105)
[2019-11-05 05:17] LABS: Glucose Point of Care 106 (65-105)
[2019-11-05 05:25] LABS: Blood Urea Nitrogen 107 mg/dL (7-17); Calcium 6.8 mg/dL (8.4-10.2); Carbon Dioxide 39 mmol/L (22-30); Chloride 90 mmol/L (98-107); Estimated CRCL calculation 49 ml/min; Estimated Glomerular Filt Rate 26; Glucose 57 mg/dL (65-105); Magnesium 1.7 mg/dL (1.6-2.3); Phosphorus 3.9 mg/dL (2.5-4.5); Sodium 139 mmol/L (137-145)
[2019-11-05 06:08] LABS: Glucose Point of Care 131 (65-105)
[2019-11-05] MEDS: LEVOTHYROXINE SODIUM INJ 100 MCG/5 ML VIAL 50 MCG IV PUSH (06:45)
[2019-11-05] MEDS: LIOTHYRONINE SODIUM 25 MCG TABLET PO (08:45)
[2019-11-05] MEDS: hydrALAZINE HCL 25 MG TABLET PO ×3 (08:45→21:03)
[2019-11-05] MEDS: PANTOPRAZOLE SODIUM IV 40 MG VIAL IV PUSH (08:47)
[2019-11-05] MEDS: predniSONE 10 MG TABLET FEED TUBE (08:47)
[2019-11-05] MEDS: SILVERGEL (ELTA) 45 ML 1 APPLIC TOPICAL (08:49)
[2019-11-05] MEDS: NEOMYCIN/POLYMYXIN/BACITRACIN OINTMENT 15 GM TUBE 1 APPLIC TOPICAL (08:54)
[2019-11-05] MEDS: MAGNESIUM SULF 2 GM/WATER 50ML 2 GM/50 ML BAG IVPB (09:01)
[2019-11-05] MEDS: POTASSIUM CHLORIDE 20 MEQ PACKET (FOR LIQUID) 40 MEQ FEED TUBE (09:01)
[2019-11-05] MEDS: EPOETIN ALFA 10,000 UNITS/ML VIAL 10000 UNITS SUB-Q (09:14)
[2019-11-05] MEDS: TOLNAFTATE 1% POWDER 45 GM BTL 1 APPLIC TOPICAL ×2 (09:14→21:03)
[2019-11-05] MEDS: FUROSEMIDE INJ 100 MG/10 ML VIAL 80 MG IV PUSH ×2 (09:15→22:31)
[2019-11-05 10:11] LABS: Glucose Point of Care 59 (65-105)
[2019-11-05 10:11] LABS: Glucose Point of Care 91 (65-105)
[2019-11-05 10:11] LABS: Glucose Point of Care 71 (65-105)
[2019-11-05 10:42] LABS: Vancomycin Random 18.3 ug/mL (10-20)
--- NOTE | 2019-11-05 11:00 | PCDIET ---
ICU Rounding Note: Patient has been tolerating Nepro @ 40mL/hr goal rate with residuals less than 100mL. Tube feedings now being held for planned bronchoscopy today. Expect tube feedings to resume post-procedure. Last recorded weight is 188.5kg which is decreased. I/O negative. Bowel Motility: +BM today. Labs Reviewed: Glu (131), BUN (107), Cr (2.0), K (3.0), Hgb (7.3), Hct (24.7) Meds Noted: KCl, Vancomycin, Albuterol, Fentanyl, Lasix, Novolog, Rocephin, Epogen, Levemir, Magnesium Sulfate, Versed, Protonix, Prednisone Additional Notes: Multiple skin issues noted; no significant changes reported. Following daily in ICU rounds. Assessing/reassessing every Tuesday/Tuesday.
[2019-11-05] MEDS: MUPIROCIN 2% OINT 22 GM TUBE 1 APPLIC EACH NARE ×2 (12:31→21:03)
[2019-11-05 12:38] LABS: Glucose Point of Care 58 (65-105)
[2019-11-05] MEDS: DEXTROSE 10% 1,000 ML 50 ML IV CONT (13:03)
[2019-11-05 13:09] LABS: Glucose Point of Care 118 (65-105)
--- NOTE | 2019-11-05 13:28 | PM.OP ---
Procedure Note - Brief Procedure Note - Brief Date of procedure: 11/05/19 Pre-op diagnosis: acute renal failure/hyperkalemia/altered mental st Surgeon: Brief bronchoscopy note Reason: acute respiratory failure, pneumonia, on vent, failure to wean, suspect infection Post procedure dx: same Start time : 13:07 End time :13:21 Lidocaine 1%; 2 ml x 1 Moderate secretions throughout airway, mild to moderate inflammation; BAL 150 ml in LLL -> 35 ml return washing LLL 30 ml; 15 ml return FiO2 increased to 80%. Emelia Ho MD
[2019-11-05] MEDS: LIDOCAINE HCL 2% LOCAL INJ 20 ML VIAL INFILTRATE (13:29)
--- NOTE | 2019-11-05 13:30 | SUR.OPER ---
50 cc fluid back during bronchoscopy
--- NOTE | 2019-11-05 14:11 | WPDINTPN ---
Progress Note: A&P Assessment and Plan (1) Respiratory failure: Qualifiers: Chronicity: acute Respiratory failure complication: hypoxia and hypercapnia Qualified Code(s): J96.01 - Acute respiratory failure with hypoxia; J96.02 - Acute respiratory failure with hypercapnia Code(s): J96.90 - Respiratory failure, unspecified, unspecified whether with hypoxia or hypercapnia Status: Acute Assessment and Plan: acute respiratory failure likely related to severe metabolic acidosis, hypercapnia. Iintubated on 10/27/2019, - chest x-ray and ABGs noted, FiO2 requirements increased this morning to 50% - Continue bronchodilators, continue ceftriaxone, azithromycin and vancomycin - continue fentanyl Versed infusion, maintain RASS of 0 to -2 - Lasix infusion has been turned off as patient has been negative 20 L in fluid balance despite which chest x-ray continues to show bilateral diffuse infiltrates, now on scheduled Lasix 80 mg IV b.i.d. - appreciate pulmonology evaluation and recommendation. Bronchoscopy to be done today (2) Septic shock: Code(s): A41.9 - Sepsis, unspecified organism; R65.21 - Severe sepsis with septic shock Status: Acute Assessment and Plan: : RESOLVED: patient presented with altered mental status, leukocytosis, bradycardic, hypotensive, metabolic acidosis - off levophed - central line was inserted in the right subclavian on 10/27/2019, will discontinue central line and have a PICC line placed - continue ceftriaxone, azithromycin and vancomycin. - blood cultures negative x2, MRSA nasal swab positive - CRP 25.2 01/21/2020 (3) Cardiac arrest: Code(s): I46.9 - Cardiac arrest, cause unspecified Status: Acute Assessment and Plan: brief cardiac arrest most likely related to bradycardia, hyperkalemia, hypoxia, respiratory failure, hypothermia, ROSC brief CPR, - echocardiogram done on 10/27/2019: LVEF 50-55%, left ventricular chamber dimension is normal. Moderately increased left ventricular wall thickness, RV systolic function is normal, no pericardial effusion, no significant valvular abnormalities - patient open her eyes and follows commands - hemodynamically stable (4) Metabolic acidosis: Code(s): E87.2 - Acidosis Status: Acute Assessment and Plan: RESOLVED: severe metabolic acidosis ON ADMISSION likely related to acute on chronic kidney disease, possibly also due to hypercapnia, hypotension, sepsis - patient received IV fluids, maintain mean arterial pressure is greater than 65 mmHg - off bicarb infusion - continue to monitor (5) Anemia: Qualifiers: Anemia type: unspecified type Qualified Code(s): D64.9 - Anemia, unspecified Code(s): D64.9 - Anemia, unspecified Status: Chronic Assessment and Plan: patient has chronic anemia, was transfused packed RBCs on 10/25/2019 here at [facility] - hemoglobin stable. Iron panel showing anemia of chronic disease. Status post one unit PRBC given on 10/30/2019 - continue to monitor - stool guaiac positive (6) Influenza A: Code(s): J10.1 - Influenza due to other identified influenza virus with other respiratory manifestations Status: Acute Assessment and Plan: patient was positive for influenza A on admission, status post Tamiflu (7) Atrial fibrillation: Qualifiers: Atrial fibrillation type: unspecified Qualified Code(s): I48.91 - Unspecified atrial fibrillation Code(s): I48.91 - Unspecified atrial fibrillation Status: Acute Assessment and Plan: history of chronic AFib, on Xarelto at [facility], currently in sinus rhythm, continue to monitor - continue Xarelto (8) Acute kidney injury superimposed on chronic kidney disease: Code(s): N17.9 - Acute kidney failure, unspecified; N18.9 - Chronic kidney disease, unspecified Status: Acute Assessme
[2019-11-05 14:26] LABS: Glucose Point of Care 107 (65-105)
[2019-11-05 16:28] LABS: Glucose Point of Care 115 (65-105)
[2019-11-05] MEDS: RIVAROXABAN 20 MG TABLET PO (16:58)
[2019-11-05 18:13] LABS: Glucose Point of Care 148 (65-105)
--- NOTE | 2019-11-05 18:52 | PM.PNNEP ---
Progress Note: A&P Assessment and Plan (1) Acute renal failure: Qualifiers: Acute renal failure type: unspecified Qualified Code(s): N17.9 - Acute kidney failure, unspecified Code(s): N17.9 - Acute kidney failure, unspecified Status: Acute Assessment and Plan: baseline creatinine ~ 0.8 - 1.3mg/dl (from review of OSH records) renal ultrasound could see only the right kidney which was normal; left kidney was unable to be seen possibly due to technical limitation because of her obesity urine electrolytes are non pre renal, Fe-Urea is around 30% which is borderline pre renal. UA shows a bland sediment; urine eosinophils are negative; CPK is normal; ESR is greater than 140; C3 is slightly low at 76 and C4 is normal. Rheumatoid factor is low; other tests are pending. concern for overdiuresis with lasix gtt - CXR does not look significantly different despite being almost 24L negative changed over to scheduled diuretics (lasix 80mg IV q12hr) follow trend of labs and UOP (2) Septic shock: Code(s): A41.9 - Sepsis, unspecified organism; R65.21 - Severe sepsis with septic shock Status: Acute Assessment and Plan: doing much better at this time follow trend of hemodynamics (3) Anemia: Qualifiers: Anemia type: unspecified type Qualified Code(s): D64.9 - Anemia, unspecified Code(s): D64.9 - Anemia, unspecified Status: Chronic Assessment and Plan: likely due to acute illness, ALLEGRA, and iron deficiency based on anemia studies - holding venofer in the setting of acute infection empirically started on Epogen follow trend of H/H (4) Respiratory failure: Qualifiers: Chronicity: acute Respiratory failure complication: hypoxia and hypercapnia Qualified Code(s): J96.01 - Acute respiratory failure with hypoxia; J96.02 - Acute respiratory failure with hypercapnia Code(s): J96.90 - Respiratory failure, unspecified, unspecified whether with hypoxia or hypercapnia Status: Acute Assessment and Plan: remains on ventilator settings are stable if not better however, CXR concerning that fluid may not be the only issues/problems s/p bronchoscopy today Will continue to follow. Subjective Date/time seen: 11/05/19 18:52 Renal function continues to improve with adequate urine output with scheduled lasix; CXR remains unchanged; s/p bronchoscopy earlier today and tolerated procedure; remains on ventilator support with stable hemodynamics. Exam Narrative: Exam Narrative: General: WD/WN female in NAD Heart: normal S1 and S2; no rub Lungs: coarse throughout Abdomen: soft, nontender, nondistended, positive bowel sounds Extremities: no cyanosis or clubbing; 2+ edema Skin: warm and dry Objective Data Vital Signs Vital Signs: Vital Signs Temp Pulse Resp BP Pulse Ox 11/05/19 18:00 73 20 146/64 H 98 11/05/19 16:45 89 97 11/05/19 16:00 36.6 C 85 20 149/62 H 98 11/05/19 14:47 77 97 H 11/05/19 14:11 75 20 11/05/19 14:10 75 96 11/05/19 14:00 78 19 122/61 95 11/05/19 12:00 36.2 C L 79 19 122/54 L 96 11/05/19 11:37 76 96 11/05/19 10:00 76 12 108/65 97 11/05/19 09:20 83 20 11/05/19 08:52 84 20 11/05/19 08:44 84 97 11/05/19 08:00 36.2 C L 78 19 113/63 95 11/05/19 06:00 36.6 C 83 20 125/64 96 11/05/19 05:09 86 100 11/05/19 04:00 36.3 C L 76 20 123/66 96 11/05/19 03:26 82 21 H 94 11/05/19 02:35 87 20 11/05/19 02:24 88 92 11/05/19 02:23 89 26 H 11/05/19 02:00 36.3 C L 87 23 H 124/54 L 92 11/05/19 00:00 36.4 C L 78 20 123/60 95 11/04/19 23:31 81 20 91 11/04/19 22:08 81 91 11/04/19 22:00 36.1 C L 102 H 20 123/69 90 11/04/19 21:01 36.0 C L 108 H 20 99 11/04/19 21:00 36.0 C L 108 H 20 140/82 100 11/04/19 20:01 36.1 C L 86 20 133/64 92 11/04/19
--- NOTE | 2019-11-05 19:09 | PM.PNPUL ---
Subjective Date/time seen: 11/06/19 19:09 Objective Data Vital Signs Vital Signs: Vital Signs - 24 hr 11/04/19 19:41 11/04/19 19:42 11/04/19 19:49 Temperature Pulse Rate 88 87 83 Respiratory Rate 19 20 Blood Pressure Pulse Oximetry 92 11/04/19 20:00 11/04/19 20:01 11/04/19 21:00 Temperature 36.1 C L 36.1 C L 36.0 C L Pulse Rate 86 86 108 H Respiratory Rate 20 20 20 Blood Pressure 133/64 140/82 Pulse Oximetry 92 92 100 11/04/19 21:01 11/04/19 22:00 11/04/19 22:08 Temperature 36.0 C L 36.1 C L Pulse Rate 108 H 102 H 81 Respiratory Rate 20 20 Blood Pressure 123/69 Pulse Oximetry 99 90 91 11/04/19 23:31 11/05/19 00:00 11/05/19 02:00 Temperature 36.4 C L 36.3 C L Pulse Rate 81 78 87 Respiratory Rate 20 20 23 H Blood Pressure 123/60 124/54 L Pulse Oximetry 91 95 92 11/05/19 02:23 11/05/19 02:24 11/05/19 02:35 Temperature Pulse Rate 89 88 87 Respiratory Rate 26 H 20 Blood Pressure Pulse Oximetry 92 11/05/19 03:26 11/05/19 04:00 11/05/19 05:09 Temperature 36.3 C L Pulse Rate 82 76 86 Respiratory Rate 21 H 20 Blood Pressure 123/66 Pulse Oximetry 94 96 100 11/05/19 06:00 11/05/19 08:00 11/05/19 08:44 Temperature 36.6 C 36.2 C L Pulse Rate 83 78 84 Respiratory Rate 20 19 Blood Pressure 125/64 113/63 Pulse Oximetry 96 95 97 11/05/19 08:52 11/05/19 09:20 11/05/19 10:00 Temperature Pulse Rate 84 83 76 Respiratory Rate 20 20 12 Blood Pressure 108/65 Pulse Oximetry 97 11/05/19 11:37 11/05/19 12:00 11/05/19 14:00 Temperature 36.2 C L Pulse Rate 76 79 78 Respiratory Rate 19 19 Blood Pressure 122/54 L 122/61 Pulse Oximetry 96 96 95 11/05/19 14:10 11/05/19 14:11 11/05/19 14:47 Temperature Pulse Rate 75 75 77 Respiratory Rate 20 97 H Blood Pressure Pulse Oximetry 96 11/05/19 16:00 11/05/19 16:45 11/05/19 18:00 Temperature 36.6 C Pulse Rate 85 89 73 Respiratory Rate 20 20 Blood Pressure 149/62 H 146/64 H Pulse Oximetry 98 97 98 Intake/Output Intake/Output: Intake & Output 11/02/19 11/03/19 11/04/19 11/05/19 23:59 23:59 23:59 23:59 Intake Total 2238.0 2479 1496 2386.9 Output Total 56982 9700 6875 4150 [facility] -[phone] [phone] Meds/Results Medications: Active Medications Generic Name Dose Route Start Last Admin Trade Name Freq PRN Reason Stop Dose Admin Albuterol 5 mg 10/27/19 08:00 11/05/19 14:07 Albuterol Sulf Neb 2.5mg/0.5ml INHALATION 5 mg Q6HRT PILI Administration Atropine Sulfate 1 mg 10/27/19 15:48 Atropine Sulfate IV PUSH PRN PRN Bradycardia Dextrose 12.5 gm 10/27/19 10:01 11/05/19 12:33 Dextrose 50% Syringe IV PUSH 12.5 gm PRN PRN Administration Hypoglycemia Protocol Dornase Molina 2.5 mg 11/05/19 20:00 Pulmozyme INHALATION Q12HRT PILI Epoetin Molina 10,000 units 11/02/19 10:30 11/05/19 09:14 Epogen SUB-Q 10,000 units MOWEFR PILI Administration Furosemide 80 mg 11/03/19 10:40 11/05/19 09:15 Lasix Inj IV PUSH 80 mg Q12H PILI Administration Glucagon 1 mg 10/27/19 10:01 Glucagon For Inj IM PRN PRN Hypoglycemia Protocol Glucose 15 gm 10/27/19 10:01 Glutose 15 PO PRN PRN Hypoglycemia Protocol Hydralazine HCl 25 mg 10/31/19 17:00 11/05/19 17:01 Apresoline Tablet PO 25 mg QID PILI Administration Norepinephrine Bitartrate 8 mg in 250 mls @ 0 mls/hr 10/27/19 12:00 10/30/19 07:38 Levophed 8 Mg/D5w 250 Ml IV CONT Not Given .Q0M PILI Protocol Dextrose 1,000 mls @ 100 mls/hr 10/27/19 10:01 Dextrose 5% 1,000 Ml IVPB PRN PRN Hypoglycemia Protocol Ceftriaxone Sodium 2 gm in 100 mls @ 200 mls/hr 10/31/19 06:00 11/05/19 05:51 Rocephin 2 Gm/D5w 100 Ml IVPB Infused Q24H PILI Infusion Fentanyl Citrate 2,500 mcg/ 250 mls @ 15 mls/hr 10/30/19 17:30 11/05/19 17:56 Sodium Chloride IV CONT 150 mcg/hr
[2019-11-05] MEDS: DORNASE ALFA INH SOLN 1 MG/ML 2.5 ML AMP 2.5 MG INHALATION (20:45)
[2019-11-05 21:00] LABS: Glucose Point of Care 176 (65-105)
[2019-11-06] VITALS (30 sets, daily range): BP systolic 139–172; BP diastolic 56–83; PULSE 73–98; RESP 15–21; TEMP 37.1–38.5; O2SAT 96–98
[2019-11-06 00:01] LABS: Glucose Point of Care 207 (65-105)
[2019-11-06] MEDS: INSULIN ASPART (*BKC) 100 UNITS/ML SUB-Q ×4 (00:01→17:48)
[2019-11-06] MEDS: ALBUTEROL SULFATE NEB 2.5 MG/0.5 ML INH 5 MG INHALATION ×4 (02:25→20:43)
[2019-11-06] MEDS: IPRATROPIUM BR 0.02% INH SOLN 0.5 MG/2.5 ML VIAL INHALATION ×4 (02:25→20:44)
[2019-11-06 04:49] LABS: Alveolar/Arterial O2 Gradient 114.5 mmHg; Carboxyhemoglobin 0.6 % THb (0-2.0); Fractional Inspired Oxygen 40 %; HCO3 ABG 33.9 mEq/l (22.0-26.0); Methemoglobin ABG 0.1 %THb (0-1.5); Oxygen Content ABG 10.6 %vol (16.0-22.0); Oxygen Saturation ABG 98.7 % (95.0-100.0); Oxyhemoglobin 94.7 % THb (90.0-100.0); PCO2 ABG 43.3 mmHg (35.0-45.0); PO2 ABG 120.9 mmHg (80.0-100.0); PO2 FiO2 Ratio Arterial Blood 3.02 %; Reduced Hemoglobin 4.6 %THb (0-5.0)
[2019-11-06 04:50] LABS: pH ABG 7.512 (7.350-7.450)
[2019-11-06 04:51] LABS: Arterial Blood Gas Vent Mode CMV; Arterial Blood Gas Ventilator rate 20 /MIN; Device VENTILATOR; Modified Allen's Test Pass; Site Drawn LEFT RADIAL; Total Hemoglobin 7.8 g/dL (12.0-18.0)
[2019-11-06 04:52] LABS: Arterial Blood Gas PEEP 10 cmH2O; Arterial Blood Gas Tidal Volume 400 ml
[2019-11-06] MEDS: MIDAZOLAM HCL 50 MG in DEXTROSE 5% 90 ML 6 MG IV CONT (05:02)
[2019-11-06 05:09] LABS: Glucose Point of Care 268 (65-105)
[2019-11-06 05:17] LABS: Hematocrit 25.3 % (37.0-47.0); Hemoglobin 7.4 g/dL (12.0-15.0); Mean Corpuscular HGB Conc 29.2 g/dl (32-36); Mean Corpuscular Volume 92.3 fl (80-100); Mean Platelet Volume 12.4 fl (7.4-10.4); Platelet Count Result 153 k/mm3 (150-375); Red Blood Count 2.74 M/mm3 (4.2-5.4); Red Cell Distribution Width 16.7 % (11.5-14.5); White Blood Count 10.1 K/mm3 (4.5-10.0)
[2019-11-06] MEDS: LEVOTHYROXINE SODIUM INJ 100 MCG/5 ML VIAL 50 MCG IV PUSH (05:36)
[2019-11-06 06:04] LABS: Blood Urea Nitrogen 99 mg/dL (7-17); Calcium 7.3 mg/dL (8.4-10.2); Carbon Dioxide 38 mmol/L (22-30); Chloride 88 mmol/L (98-107); Estimated CRCL calculation 48 ml/min; Estimated Glomerular Filt Rate 26; Glucose 274 mg/dL (65-105); Magnesium 1.9 mg/dL (1.6-2.3); Sodium 136 mmol/L (137-145)
[2019-11-06 06:08] LABS: T4 Thyroxine 3.63 ug/dL (5.53-11.0)
[2019-11-06 06:22] LABS: Total Triiodothyronine (T3) 0.44 NG/ML (0.97-1.69)
[2019-11-06 06:31] LABS: Vancomycin Random 15.5 ug/mL (10-20)
[2019-11-06 06:56] LABS: CRP 29.5 mg/dL (<1.0)
[2019-11-06] MEDS: MUPIROCIN 2% OINT 22 GM TUBE 1 APPLIC EACH NARE ×2 (08:33→21:24)
[2019-11-06] MEDS: hydrALAZINE HCL 25 MG TABLET PO ×4 (08:34→21:22)
[2019-11-06] MEDS: PANTOPRAZOLE SODIUM IV 40 MG VIAL IV PUSH (08:34)
[2019-11-06] MEDS: predniSONE 10 MG TABLET FEED TUBE (08:34)
[2019-11-06] MEDS: LIOTHYRONINE SODIUM 25 MCG TABLET PO (08:34)
[2019-11-06] MEDS: NEOMYCIN/POLYMYXIN/BACITRACIN OINTMENT 15 GM TUBE 1 APPLIC TOPICAL (08:35)
[2019-11-06] MEDS: SILVERGEL (ELTA) 45 ML 1 APPLIC TOPICAL (08:35)
[2019-11-06] MEDS: TOLNAFTATE 1% POWDER 45 GM BTL 1 APPLIC TOPICAL ×2 (08:35→21:24)
[2019-11-06] MEDS: DORNASE ALFA INH SOLN 1 MG/ML 2.5 ML AMP 2.5 MG INHALATION ×2 (09:43→20:44)
--- NOTE | 2019-11-06 11:29 | PM.PNNEP ---
Progress Note: A&P Assessment and Plan (1) Acute renal failure: Qualifiers: Acute renal failure type: unspecified Qualified Code(s): N17.9 - Acute kidney failure, unspecified Code(s): N17.9 - Acute kidney failure, unspecified Status: Acute Assessment and Plan: baseline creatinine ~ 0.8 - 1.3mg/dl (from review of OSH records) renal ultrasound could see only the right kidney which was normal; left kidney was unable to be seen possibly due to technical limitation because of her obesity urine electrolytes are non pre renal, Fe-Urea is around 30% which is borderline pre renal. UA shows a bland sediment; urine eosinophils are negative; CPK is normal; ESR is greater than 140; C3 is slightly low at 76 and C4 is normal. Rheumatoid factor is low; other tests are pending. concern for overdiuresis with lasix gtt - CXR does not look significantly different despite being almost 24L negative changed over to scheduled diuretics (lasix 80mg IV q12hr) follow trend of labs and UOP (2) Septic shock: Code(s): A41.9 - Sepsis, unspecified organism; R65.21 - Severe sepsis with septic shock Status: Acute Assessment and Plan: doing much better at this time follow trend of hemodynamics (3) Anemia: Qualifiers: Anemia type: unspecified type Qualified Code(s): D64.9 - Anemia, unspecified Code(s): D64.9 - Anemia, unspecified Status: Chronic Assessment and Plan: likely due to acute illness, ALLEGRA, and iron deficiency based on anemia studies - holding venofer in the setting of acute infection empirically started on Epogen follow trend of H/H (4) Respiratory failure: Qualifiers: Chronicity: acute Respiratory failure complication: hypoxia and hypercapnia Qualified Code(s): J96.01 - Acute respiratory failure with hypoxia; J96.02 - Acute respiratory failure with hypercapnia Code(s): J96.90 - Respiratory failure, unspecified, unspecified whether with hypoxia or hypercapnia Status: Acute Assessment and Plan: remains on ventilator settings are stable if not better however, CXR concerning that fluid may not be the only issues/problems s/p bronchoscopy Will continue to follow intermittently since renal continues to improve. Subjective Date/time seen: 11/06/19 11:29 Appears about the same -- remains intubated and mechanical ventilation; hemodynamically stable; awakes and follows simple commands; CXR unchanged but some improved oxygenation. Exam Narrative: Exam Narrative: General: WD/WN female in NAD Heart: normal S1 and S2; no rub Lungs: coarse throughout Abdomen: soft, nontender, nondistended, positive bowel sounds Extremities: no cyanosis or clubbing; 2+ edema Skin: warm and dry Objective Data Vital Signs Vital Signs: Vital Signs Temp Pulse Resp BP Pulse Ox 11/06/19 10:07 89 19 11/06/19 09:53 85 98 11/06/19 09:46 87 18 11/06/19 08:00 37.3 C 80 18 140/63 97 11/06/19 06:00 80 20 139/67 97 11/06/19 05:57 80 11/06/19 05:05 86 97 11/06/19 04:00 37.1 C 85 20 142/69 H 97 11/06/19 03:47 83 20 96 11/06/19 02:34 85 20 11/06/19 02:30 86 97 11/06/19 02:25 87 18 11/06/19 02:00 88 16 143/69 H 97 11/06/19 00:00 37.2 C 86 20 149/66 H 96 11/05/19 23:15 84 96 11/05/19 22:00 82 21 H 142/58 H 96 11/05/19 20:55 72 20 11/05/19 20:45 72 20 11/05/19 20:00 36.8 C 74 20 149/66 H 97 11/05/19 19:55 85 97 11/05/19 18:00 73 20 146/64 H 98 11/05/19 16:45 89 97 11/05/19 16:00 36.6 C 85 20 149/62 H 98 11/05/19 14:47 77 97 H 11/05/19 14:11 75 20 11/05/19 14:10 75 96 11/05/19 14:00 78 19 122/61 95 11/05/19 12:00 36.2 C L 79 19 122/54 L 96 11/05/19 11:37 76 96 Intake/Output Intake/Output: Intake & Output 11/03/19 11/04/19 11/05/19 11/06/19 23:59
[2019-11-06 11:30] LABS: Appearance Bronchial Fluid Hazy; Color Bronchial Fluid Colorless; Lymphocytes Bronchial Fluid 1 %; Neutrophils Bronchial Fluid 99 %; Source Bronchial Fluid Bronchial Lavage
[2019-11-06] MEDS: INSULIN DETEMIR 100 UNITS/ML 20 UNITS SUB-Q ×2 (11:31→21:35)
[2019-11-06] MEDS: FUROSEMIDE INJ 100 MG/10 ML VIAL 80 MG IV PUSH ×2 (11:32→21:37)
--- NOTE | 2019-11-06 12:17 | WPDINTPN ---
Progress Note: A&P Assessment and Plan (1) Respiratory failure: Qualifiers: Chronicity: acute Respiratory failure complication: hypoxia and hypercapnia Qualified Code(s): J96.01 - Acute respiratory failure with hypoxia; J96.02 - Acute respiratory failure with hypercapnia Code(s): J96.90 - Respiratory failure, unspecified, unspecified whether with hypoxia or hypercapnia Status: Acute Assessment and Plan: acute respiratory failure likely related to severe metabolic acidosis, hypercapnia. Iintubated on 10/27/2019, - chest x-ray with no change, patient on 40% FiO2 - Continue bronchodilators, continue ceftriaxone, azithromycin and vancomycin - continue fentanyl Versed infusion, maintain RASS of 0 to -2 - was on Lasix infusion, patient diuresed very well, Now switched to scheduled Lasix 80 mg IV b.i.d. - appreciate pulmonology evaluation and recommendation. status post bronchoscopy on 11/05/2019 which showed moderate secretion throughout the airway, mild to moderate inflammation - will discuss with family regarding tracheostomy and PEG tube placement (2) Septic shock: Code(s): A41.9 - Sepsis, unspecified organism; R65.21 - Severe sepsis with septic shock Status: Acute Assessment and Plan: : RESOLVED: patient presented with altered mental status, leukocytosis, bradycardic, hypotensive, metabolic acidosis - off levophed - central line was inserted in the right subclavian on 10/27/2019, will discontinue central line, PICC line was unable to be inserted - continue ceftriaxone, azithromycin and vancomycin. - blood cultures negative x2, MRSA nasal swab positive - elevated CRP (3) Cardiac arrest: Code(s): I46.9 - Cardiac arrest, cause unspecified Status: Acute Assessment and Plan: brief cardiac arrest most likely related to bradycardia, hyperkalemia, hypoxia, respiratory failure, hypothermia, ROSC brief CPR, - echocardiogram done on 10/27/2019: LVEF 50-55%, left ventricular chamber dimension is normal. Moderately increased left ventricular wall thickness, RV systolic function is normal, no pericardial effusion, no significant valvular abnormalities - patient open her eyes and follows commands - hemodynamically stable (4) Metabolic acidosis: Code(s): E87.2 - Acidosis Status: Acute Assessment and Plan: RESOLVED: severe metabolic acidosis ON ADMISSION likely related to acute on chronic kidney disease, possibly also due to hypercapnia, hypotension, sepsis - patient received IV fluids, maintain mean arterial pressure is greater than 65 mmHg - off bicarb infusion - continue to monitor (5) Anemia: Qualifiers: Anemia type: unspecified type Qualified Code(s): D64.9 - Anemia, unspecified Code(s): D64.9 - Anemia, unspecified Status: Chronic Assessment and Plan: patient has chronic anemia, was transfused packed RBCs on 10/25/2019 here at [facility] - hemoglobin stable. Iron panel showing anemia of chronic disease. Status post one unit PRBC given on 10/30/2019 - continue to monitor - stool guaiac positive (6) Influenza A: Code(s): J10.1 - Influenza due to other identified influenza virus with other respiratory manifestations Status: Acute Assessment and Plan: patient was positive for influenza A on admission, status post Tamiflu (7) Atrial fibrillation: Qualifiers: Atrial fibrillation type: unspecified Qualified Code(s): I48.91 - Unspecified atrial fibrillation Code(s): I48.91 - Unspecified atrial fibrillation Status: Acute Assessment and Plan: history of chronic AFib, on Xarelto at skilled nursing, currently in sinus rhythm, continue to monitor - continue Xarelto (8) Acute kidney injury superimposed on chronic kidney disease: Code(s): N17.9 - Acute kidney failure, unspecified; N18.9 - Chronic kidney disease, uns
[2019-11-06 12:40] LABS: Glucose Point of Care 319 (65-105)
--- NOTE | 2019-11-06 12:58 | PCDIET ---
Nutrition Follow-Up Complete: Nutrition Diagnosis: Inadequate oral intake related to oral intubation as evidenced by inability to take oral diet. Nutrition Goal: Tube feeding tolerance at goal rate Goal met. Patient tolerating Nepro at 40mL/hr goal rate with no significant residuals. Last recorded weight is 186 kg which is decreased due to diuresis. Bowel Motility: +BM on 11/05/19 Labs Reviewed: Glu (268), BUN (99), Cr (2.0), Na (136), Hgb (7.4), Hct (25.3) Meds Noted: Albuterol, Rocephin, Epogen, Fentanyl, Lasix, Novolog, Levemir, Versed, Levophed, Protonix, Prednisone, Vancomycin Additional Notes: No skin changes reported; patient with multiple areas/issues. Recommend continuing tube feeding at this time. Will continue to monitor with same goal. Nutrition Monitoring and Evaluation: Follow up every Tuesday/Tuesday. Follow daily in ICU rounds.
[2019-11-06] MEDS: ACETAMINOPHEN 325 MG TABLET 650 MG PO (13:01)
[2019-11-06] MEDS: LIDOCAINE HCL 1% LOCAL INJ 2 ML AMPUL 5 ML INFILTRATE (14:00)
--- NOTE | 2019-11-06 17:33 | PM.IMPN ---
Progress Note: A&P Assessment and Plan (1) Influenza A: Code(s): J10.1 - Influenza due to other identified influenza virus with other respiratory manifestations Status: Acute Assessment and Plan: Pt is on tamiflu (2) Septic shock: Code(s): A41.9 - Sepsis, unspecified organism; R65.21 - Severe sepsis with septic shock Status: Acute Assessment and Plan: 11/06/19 17:33 Patient is a 54-year-old female morbidly obese resident of group home was sent to emergency department acute mental status change as patient was not responding and was not herself upon arrival to emergency department see was not able to provide any review of symptoms patient was re-evaluated and was found to be bradycardiac and may need to cardiac arrest CPR was initiated and patient was intubated and transferred to ICU currently patient on vent and to provide any review of symptoms, patient was found to have pneumonia positive for influenza A, in ICU patient was hypothermic be hugger was started as well as hypertensive and was placed on Levophed patient is seen by larriman helper and we appreciate, on 11/01 patient still on vent, symptoms are improving, patient is off levophed however patient with hypothyroids, low free T3, hypothermia, bradycardia pantient 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 (3) History of CHF (congestive heart failure): Code(s): Z86.79 - Personal history of other diseases of the circulatory system Status: Acute Assessment and Plan: Patient was placed on Lasix infusion diuresed 14 L, off infusion will schedule IV Lasix (4) Acute kidney injury superimposed on chronic kidney disease: Code(s): N17.9 - Acute kidney failure, unspecified; N18.9 - Chronic kidney disease, unspecified Status: Acute Assessment and Plan: continue to watch kidney function , pt has history of CKD, potassium was high, seen by Dr. Bey (5) Atrial fibrillation: Qualifiers: Atrial fibrillation type: unspecified Qualified Code(s): I48.91 - Unspecified atrial fibrillation Code(s): I48.91 - Unspecified atrial fibrillation Status: Acute Assessment and Plan: pt is on xarelto for anticoagulation (6) DVT prophylaxis: Code(s): Z29.9 - Encounter for prophylactic measures, unspecified Status: Acute Assessment and Plan: pt is on xarelto for anticoagulation (7) Anemia: Qualifiers: Anemia type: unspecified type Qualified Code(s): D64.9 - Anemia, unspecified Code(s): D64.9 - Anemia, unspecified Status: Chronic Assessment and Plan: Continue to monitor (8) Metabolic acidosis: Code(s): E87.2 - Acidosis Status: Acute Assessment and Plan: pt was on sodium bicarbondate drip now resolved (9) Respiratory failure: Qualifiers: Chronicity: acute Respiratory failure complication: hypoxia and hypercapnia Qualified Code(s): J96.01 - Acute respiratory failure with hypoxia; J96.02 - Acute respiratory failure with hypercapnia Code(s): J96.90 - Respiratory failure, unspecified, unspecified whether with hypoxia or hypercapnia Status: Acute Assessment and Plan: Pt is intubated in icu (10) Cardiac arrest: Code(s): I46.9 - Cardiac arrest, cause unspecified Status: Acute Assessment and Plan: REcent cardiac arrest due to resp arrest and hyperkalaemia (11) Acute renal failure: Qualifiers: Acute renal failure type: unspecified Qualified Code(s): N17.9 - Acute kidney failure, unspecified C
[2019-11-06] MEDS: RIVAROXABAN 20 MG TABLET PO (17:47)
[2019-11-06 18:02] LABS: Glucose Point of Care 340 (65-105)
[2019-11-07] VITALS (28 sets, daily range): BP systolic 130–164; BP diastolic 49–89; PULSE 63–91; RESP 16–23; TEMP 36.3–37.8; O2SAT 90–100
[2019-11-07 00:34] LABS: Glucose Point of Care 320 (65-105)
[2019-11-07] MEDS: INSULIN ASPART (*BKC) 100 UNITS/ML SUB-Q ×3 (01:03→11:53)
[2019-11-07] MEDS: ACETAMINOPHEN 325 MG TABLET 650 MG PO (01:03)
[2019-11-07] MEDS: ALBUTEROL SULFATE NEB 2.5 MG/0.5 ML INH 5 MG INHALATION ×4 (02:02→20:53)
[2019-11-07] MEDS: IPRATROPIUM BR 0.02% INH SOLN 0.5 MG/2.5 ML VIAL INHALATION ×4 (02:02→20:53)
[2019-11-07] MEDS: MIDAZOLAM HCL 50 MG in DEXTROSE 5% 90 ML 6 MG IV CONT (04:26)
[2019-11-07 04:36] LABS: Alveolar/Arterial O2 Gradient 132.1 mmHg; Carboxyhemoglobin 0.9 % THb (0-2.0); Fractional Inspired Oxygen 40 %; HCO3 ABG 39.5 mEq/l (22.0-26.0); Methemoglobin ABG 0.1 %THb (0-1.5); Oxygen Content ABG 13.9 %vol (16.0-22.0); Oxygen Saturation ABG 97.2 % (95.0-100.0); Oxyhemoglobin 93.3 % THb (90.0-100.0); PCO2 ABG 54.8 mmHg (35.0-45.0); PO2 ABG 90.1 mmHg (80.0-100.0); PO2 FiO2 Ratio Arterial Blood 2.25 %; Reduced Hemoglobin 5.7 %THb (0-5.0); Total Hemoglobin 10.5 g/dL (12.0-18.0); pH ABG 7.476 (7.350-7.450)
[2019-11-07 04:37] LABS: Arterial Blood Gas Vent Mode CMV; Arterial Blood Gas Ventilator rate 18 /MIN; Device VENTILATOR; Modified Allen's Test Pass; Site Drawn RIGHT RADIAL
[2019-11-07 04:38] LABS: Arterial Blood Gas PEEP 10 cmH2O; Arterial Blood Gas Tidal Volume 400 ml
[2019-11-07 06:02] LABS: Lactic Acid 0.8 mmol/L (0.7-2.1)
[2019-11-07 06:10] LABS: Hematocrit 23.9 % (37.0-47.0); Hemoglobin 7.1 g/dL (12.0-15.0); Mean Corpuscular HGB Conc 29.7 g/dl (32-36); Mean Corpuscular Hemoglobin 27.1 pg (26-34); Mean Corpuscular Volume 91.2 fl (80-100); Mean Platelet Volume 12.4 fl (7.4-10.4); Platelet Count Result 187 k/mm3 (150-375); Red Blood Count 2.62 M/mm3 (4.2-5.4); Red Cell Distribution Width 16.5 % (11.5-14.5); White Blood Count 9.5 K/mm3 (4.5-10.0)
[2019-11-07 06:29] LABS: Blood Urea Nitrogen 100 mg/dL (7-17); Calcium 7.7 mg/dL (8.4-10.2); Carbon Dioxide > 40 mmol/L (22-30); Chloride 89 mmol/L (98-107); Estimated CRCL calculation 60 ml/min; Estimated Glomerular Filt Rate 33; Glucose 330 mg/dL (65-105); Magnesium 1.9 mg/dL (1.6-2.3); Phosphorus 3.7 mg/dL (2.5-4.5); Potassium 4.2 mmol/L (3.4-5.0); Sodium 136 mmol/L (137-145)
[2019-11-07] MEDS: LEVOTHYROXINE SODIUM INJ 100 MCG/5 ML VIAL 50 MCG IV PUSH (06:44)
[2019-11-07 08:17] LABS: CMV DNA Quant PCR IU/mL <200 IU/mL (<200); Cytomegalovirus DNA Quant PCR <2.30 log IU/mL (<2.30)
--- NOTE | 2019-11-07 08:30 | WPDINTPN ---
Progress Note: A&P Assessment and Plan (1) Respiratory failure: Qualifiers: Chronicity: acute Respiratory failure complication: hypoxia and hypercapnia Qualified Code(s): J96.01 - Acute respiratory failure with hypoxia; J96.02 - Acute respiratory failure with hypercapnia Code(s): J96.90 - Respiratory failure, unspecified, unspecified whether with hypoxia or hypercapnia Status: Acute Assessment and Plan: Acute respiratory failure likely related to severe metabolic acidosis, hypercapnia. Intubated on 10/27/2019, - chest x-ray with no change, patient on 40% FiO2 - Decrease PEEP to 8 and TV to 350 today - Continue lasix for diuresis - Continue bronchodilators, continue ceftriaxone, azithromycin and vancomycin - In light of issues with protecting her ETT and airway, I will try to switch to propofol and see if we can achieve better and reliable sedation with it. Continue fentanyl and wean off versed - Appreciate pulmonology evaluation and recommendation. status post bronchoscopy on 11/05/2019 which showed moderate secretion throughout the airway, mild to moderate inflammation - will discuss with family regarding tracheostomy and PEG tube placement (2) Septic shock: Code(s): A41.9 - Sepsis, unspecified organism; R65.21 - Severe sepsis with septic shock Status: Acute Assessment and Plan: : RESOLVED: patient presented with altered mental status, leukocytosis, bradycardic, hypotensive, metabolic acidosis - off levophed - central line was inserted in the right subclavian on 10/27/2019, will discontinue central line, PICC line was unable to be inserted - continue ceftriaxone, azithromycin and vancomycin. - blood cultures negative x2, MRSA nasal swab positive - elevated CRP (3) Cardiac arrest: Code(s): I46.9 - Cardiac arrest, cause unspecified Status: Acute Assessment and Plan: brief cardiac arrest most likely related to bradycardia, hyperkalemia, hypoxia, respiratory failure, hypothermia, ROSC brief CPR, - echocardiogram done on 10/27/2019: LVEF 50-55%, left ventricular chamber dimension is normal. Moderately increased left ventricular wall thickness, RV systolic function is normal, no pericardial effusion, no significant valvular abnormalities - patient open her eyes and has followed commands in the past - hemodynamically stable (4) Metabolic acidosis: Code(s): E87.2 - Acidosis Status: Acute Assessment and Plan: RESOLVED: severe metabolic acidosis ON ADMISSION likely related to acute on chronic kidney disease, possibly also due to hypercapnia, hypotension, sepsis - patient received IV fluids, maintain mean arterial pressure is greater than 65 mmHg - Now has developed alkalosis - off bicarb infusion - Will decrease ventilation to allows pH to come to baseleine. I suspect pt is is CO2 retainer at baseline - continue to monitor (5) Anemia: Qualifiers: Anemia type: unspecified type Qualified Code(s): D64.9 - Anemia, unspecified Code(s): D64.9 - Anemia, unspecified Status: Chronic Assessment and Plan: patient has chronic anemia, was transfused packed RBCs on 10/25/2019 here at [facility] - hemoglobin stable. Iron panel showing anemia of chronic disease. Status post one unit PRBC given on 10/30/2019 - continue to monitor - stool guaiac positive (6) Influenza A: Code(s): J10.1 - Influenza due to other identified influenza virus with other respiratory manifestations Status: Acute Assessment and Plan: patient was positive for influenza A on admission, status post Tamiflu treatment course (7) Atrial fibrillation: Qualifiers: Atrial fibrillation type: unspecified Qualified Code(s): I48.91 - Unspecified atrial fibrillation Code(s): I48.91 - Unspecified atrial fibrillation Status: Acute Assessment and Plan: history of coffee shop aide
[2019-11-07] MEDS: hydrALAZINE HCL 25 MG TABLET PO ×4 (08:56→21:29)
[2019-11-07] MEDS: INSULIN DETEMIR 100 UNITS/ML 20 UNITS SUB-Q (08:56)
[2019-11-07] MEDS: PANTOPRAZOLE SODIUM IV 40 MG VIAL IV PUSH (08:58)
[2019-11-07] MEDS: NEOMYCIN/POLYMYXIN/BACITRACIN OINTMENT 15 GM TUBE 1 APPLIC TOPICAL (08:59)
[2019-11-07] MEDS: SILVERGEL (ELTA) 45 ML 1 APPLIC TOPICAL (08:59)
[2019-11-07] MEDS: TOLNAFTATE 1% POWDER 45 GM BTL 1 APPLIC TOPICAL ×2 (09:00→21:29)
[2019-11-07] MEDS: MUPIROCIN 2% OINT 22 GM TUBE 1 APPLIC EACH NARE ×2 (09:00→21:29)
[2019-11-07] MEDS: PROPOFOL IV EMULSION 100 ML 5.6 MG IV CONT (09:00)
[2019-11-07] MEDS: predniSONE 10 MG TABLET FEED TUBE (09:03)
[2019-11-07] MEDS: DORNASE ALFA INH SOLN 1 MG/ML 2.5 ML AMP 2.5 MG INHALATION (09:13)
[2019-11-07] MEDS: LIOTHYRONINE SODIUM 25 MCG TABLET PO (09:21)
[2019-11-07] MEDS: EPOETIN ALFA 10,000 UNITS/ML VIAL 10000 UNITS SUB-Q (11:44)
[2019-11-07] MEDS: INSULIN DETEMIR 100 UNITS/ML 10 UNITS SUB-Q (11:47)
--- NOTE | 2019-11-07 11:49 | PCDIET ---
ICU Rounding Note: Patient continues to tolerate Nepro at 40mL/hr with no significant residuals reported. MD to consult for tracheostomy and PEG placement. Last recorded weight is 186.0kg which is stable. Bowel Motility: +BM on 11/06/19 per RN. Smear BM today. Labs Reviewed: Glu (330), BUN (100), Cr (1.6), Na (136), Ca (7.7), Hgb (7.1), Hct (23.9) Meds Noted: Albuterol, Rocephin, Epogen, Protonix, Levophed, Prednisone, Fentanyl, Lasix, Novolog, Levemir, Propofol (currently infusing at 5.58mL/hr which provides 147kcal over 24 hour period) Additional Notes: MD adjusting medications for improved blood sugar. RN reports new open bleeding areas and has notified wound nurse. Recommend continuing present tube feeding for now. Suggest albumin level to ensure corrected calcium in goal range. Following daily in ICU rounds. Assessing/reassessing every Tuesday/Tuesday.
--- NOTE | 2019-11-07 11:54 | WPDGIPROGNO ---
Progress Note: A&P Additional Plan This is a 54-year-old white female patient I am asked to see at the request of the research greenhouse supervisor. Patient is ventilator dependent NG tube is requested for nutritional support. Patient admitted the hospital October 27, 2019. Patient suffered a cardiopulmonary arrest. Patient suffered respiratory failure in was placed on the ventilator she has been unable to be weaned at this time. Patient is unable to give additional history. History is obtained the assistance of the nursing and medical staff. Patient has a past medical history of morbid obesity. She has a history hypothyroidism, congestive heart failure, atrial fibrillation on Xarelto, she has chronic anemia is required transfusion during this hospital stay. No obvious GI blood loss is noted. Her stools have been Hemoccult positive. At the time of admission patient was felt to be septic, with metabolic acidosis. This is subsequently been corrected in sepsis has been treated. Current medications include albuterol, Atropine, Epogen, Pulmozyme, Lasix, Apresoline, Levophed, erosive in, Zithromax, Versed, vancomycin, propofol, insulin, levothyroxine, pantoprazole, Xarelto, and prednisone, Allergies reported to adhesive tape methotrexate gabapentin Bactrim and warfarin. Physical exam reveals her to be intubated oral gastric tube is also in place she is sedated and not responsive. HEENT exam reveals her to be anicteric. Lungs reveal a few rhonchi. Heart is without murmur. Abdomen is morbidly obese soft nontender no obvious scars are evident. 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 Labs reveal white count 9.5, hemoglobin 7.1, hematocrit 23.9, MCV 91. Platelets 187K, protime 13.4, INR 1.1, BUN of 100, creatinine 1.6. Impression 1. Ventilator dependency. Patient with respiratory failure after arrest. 2. Nutritional support. Currently by oral gastric tube. As she is currently ventilator dependent PEG tube has been requested and will be planned. We will need to hold the Xarelto for several days prior to PEG tube. Plan is for PEG tube on Tuesday. 3. Atrial fibrillation. 4. Xarelto anticoagulation. This will be held is previously mention. 5. Morbid obesity. Often body habitus may limit placement of PEG tube. Hopefully this can be placed without difficulty. 6. Chronic anemia. Occult blood in stool has been noted. This likely is multifactorial. We will evaluate upper GI tract at the time of PEG tube placement. Plan is for PEG tube on Tuesday. After Xarelto is held for several days. Subjective Date/time seen: 11/07/19 11:54 Objective Data Vital Signs Vital Signs: Vital Signs - 24 hr 11/06/19 12:00 11/06/19 12:08 11/06/19 13:01 Temperature 38.5 C H 38.5 C H Pulse Rate 89 85 Respiratory Rate 15 Blood Pressure 152/71 H Pulse Oximetry 96 96 11/06/19 14:00 11/06/19 14:01 11/06/19 14:52 Temperature 37.5 C Pulse Rate 98 97 Respiratory Rate 18 20 Blood Pressure 172/83 H Pulse Oximetry 97 11/06/19 14:56 11/06/19 15:00 11/06/19 16:00 Temperature 37.4 C Pulse Rate 88 84 78 Respiratory Rate 20 18 Blood Pressure 141/56 H Pulse Oximetry 96 97 11/06/19 16:55 11/06/19 18:00 11/06/19 20:00 Temperature 37.2 C Pulse Rate 84 73 73 Respiratory Rate 18 18 Blood Pressure 148/60 H 145/63 H Pulse Oximetry 96 97 98 11/06/19 20:43 11/06/19 20:58 11/06/19 22:00 Temperature Pulse Rate 75 79 74 Respiratory Rate 18 18 21 H Blood Pressure 153/59 H Pulse Oximetry 96 98 11/07/19 00:00 11/07/19 01:03 11/07/19 02:00 Temperature 37.8 C H 37.8 C H 37.2 C Pulse Rate 75 75 Respiratory Rate 17 17 Blood Pressure 161/68 H 156/58 H Pulse Oximetry 98 96 11/07/19 02:04 11/07/19 02:11 11/07/19 04:00 Temperature 37.2 C 37.3 C Pulse Rate 72 84 Respiratory Rate 18 16 Blood Pressure 162/63 H Pulse Oximetry 100 11/07/19 04:40 11/07/19 06:00 11/07/19 09:13 Temperature Pul
[2019-11-07 12:18] LABS: Glucose Point of Care 226 (65-105)
[2019-11-07] MEDS: FUROSEMIDE INJ 100 MG/10 ML VIAL 80 MG IV PUSH ×2 (13:55→21:23)
[2019-11-07 13:59] LABS: Basophils Percent Auto 0.2 % (0.2-1.2); Eosinophils Absolute Auto 0.3 K/mm3 (0-0.3); Eosinophils Percent Auto 2.8 % (0-4.4); Hematocrit 22.3 % (37.0-47.0); Immature Granulocyte Absolute 0.12 K/mm3 (0.00-0.031); Immature Granulocyte Percent A 1.2 % (0-0.5); Lymphocytes Absolute Auto 0.55 K/mm3 (0.9-3.2); Lymphocytes Percent Auto 5.6 % (18.3-44.2); Mean Corpuscular HGB Conc 29.1 g/dl (32-36); Mean Corpuscular Volume 92.5 fl (80-100); Mean Platelet Volume 12.2 fl (7.4-10.4); Monocytes Absolute Auto 0.3 K/mm3 (0.1-0.6); Monocytes Percent Auto 3.1 % (2.6-8.5); Neutrophils Absolute Auto 8.6 K/mm3 (1.3-6.7); Neutrophils Percent Auto 87.1 % (45.5-73.1); Platelet Count Result 182 k/mm3 (150-375); Red Blood Count 2.41 M/mm3 (4.2-5.4); Red Cell Distribution Width 16.2 % (11.5-14.5); White Blood Count 9.8 K/mm3 (4.5-10.0)
[2019-11-07 14:11] LABS: INR 1.2; Partial Thromboplastin Time 36.2 SECONDS (22.3-36.8); Prothrombin Time 14.9 Seconds (11.1-14.7)
[2019-11-07] MEDS: PROPOFOL IV EMULSION 100 ML 22.3 MG IV CONT (14:15)
[2019-11-07 14:18] LABS: Blood Urea Nitrogen 89 mg/dL (7-17); Calcium 7.3 mg/dL (8.4-10.2); Carbon Dioxide 38 mmol/L (22-30); Chloride 90 mmol/L (98-107); Estimated CRCL calculation 68 ml/min; Estimated Glomerular Filt Rate 39; Glucose 208 mg/dL (65-105); Potassium 3.2 mmol/L (3.4-5.0); Sodium 136 mmol/L (137-145)
[2019-11-07 14:25] LABS: Hemoglobin 6.5 g/dL (12.0-15.0)
--- NOTE | 2019-11-07 14:31 | PM.EVENT ---
Event Note Event Note Event Note: Spoke to pt's and sister. Explained her current status, treatment plan and answered questions. They are agreeable to both PEG and Trach. ENT and GI consulted. Pt also has anemia and positive hemoccult. EGD will serve both purposes. Plan for Tuesday. Hold Xarelto per GI Hb 6.5. Will transfuse 1 unit PRBC
--- NOTE | 2019-11-07 17:33 | PM.IMPN ---
Progress Note: A&P Assessment and Plan (1) Influenza A: Code(s): J10.1 - Influenza due to other identified influenza virus with other respiratory manifestations Status: Acute Assessment and Plan: Pt is on tamiflu (2) Septic shock: Code(s): A41.9 - Sepsis, unspecified organism; R65.21 - Severe sepsis with septic shock Status: Acute Assessment and Plan: Patient's prognosis is very poor will need trach and PEG, bag making machine tender spoke with the family, patient deciding on trach and PEG tomorrow. (3) History of CHF (congestive heart failure): Code(s): Z86.79 - Personal history of other diseases of the circulatory system Status: Acute Assessment and Plan: Patient was placed on Lasix infusion diuresed 14 L, off infusion now (4) Acute kidney injury superimposed on chronic kidney disease: Code(s): N17.9 - Acute kidney failure, unspecified; N18.9 - Chronic kidney disease, unspecified Status: Acute Assessment and Plan: continue to watch kidney function , pt has history of CKD (5) Atrial fibrillation: Qualifiers: Atrial fibrillation type: unspecified Qualified Code(s): I48.91 - Unspecified atrial fibrillation Code(s): I48.91 - Unspecified atrial fibrillation Status: Acute Assessment and Plan: pt is on xarelto for anticoagulation (6) DVT prophylaxis: Code(s): Z29.9 - Encounter for prophylactic measures, unspecified Status: Acute Assessment and Plan: pt is on xarelto for anticoagulation (7) Anemia: Qualifiers: Anemia type: unspecified type Qualified Code(s): D64.9 - Anemia, unspecified Code(s): D64.9 - Anemia, unspecified Status: Chronic Assessment and Plan: Continue to monitor (8) Metabolic acidosis: Code(s): E87.2 - Acidosis Status: Resolved Assessment and Plan: pt was on sodium bicarbondate drip now resolved (9) Respiratory failure: Qualifiers: Chronicity: acute Respiratory failure complication: hypoxia and hypercapnia Qualified Code(s): J96.01 - Acute respiratory failure with hypoxia; J96.02 - Acute respiratory failure with hypercapnia Code(s): J96.90 - Respiratory failure, unspecified, unspecified whether with hypoxia or hypercapnia Status: Acute Assessment and Plan: Pt is intubated in icu, on iv vancomycin, iv rocephin ad iv zithromax (10) Cardiac arrest: Code(s): I46.9 - Cardiac arrest, cause unspecified Status: Acute Assessment and Plan: REcent cardiac arrest due to resp arrest and hyperkalaemia (11) Acute renal failure: Qualifiers: Acute renal failure type: unspecified Qualified Code(s): N17.9 - Acute kidney failure, unspecified Code(s): N17.9 - Acute kidney failure, unspecified Status: Acute Assessment and Plan: Pt has a history of CKD (12) Hyperkalemia: Code(s): E87.5 - Hyperkalemia Status: Acute Assessment and Plan: Continue to monitor potassium levels. Subjective Date/time seen: 11/07/19 17:33 Interval history: Patient is a 54-year-old female morbidly obese resident of group home was sent to emergency department acute mental status change as patient was not responding and was not herself upon arrival to emergency department see was not able to provide any review of symptoms patient was re-evaluated and was found to be bradycardiac and may need to cardiac arrest CPR was initiated and patient was intubated and transferred to ICU currently patient on vent and to provide any review of symptoms, patient was found to have pneumonia positive for influenza A, acute kidney injury, septic shock. As per previous notes. Unfortunately pt is difficult to wean off the ventilator, pt in icu, family deciding on PEg and trachestomy Review of Systems Review of Systems: ROS unobtainable: unobtainable due to endotracheal tube Exam Narrative:
[2019-11-07 17:41] LABS: Glucose Point of Care 198 (65-105)
[2019-11-07] MEDS: PROPOFOL IV EMULSION 100 ML 16.7 MG IV CONT (18:03)
--- NOTE | 2019-11-07 19:40 | PM.PNPUL ---
Progress Note: A&P Assessment and Plan (1) Respiratory failure: Qualifiers: Chronicity: acute Respiratory failure complication: hypoxia and hypercapnia Qualified Code(s): J96.01 - Acute respiratory failure with hypoxia; J96.02 - Acute respiratory failure with hypercapnia Code(s): J96.90 - Respiratory failure, unspecified, unspecified whether with hypoxia or hypercapnia Status: Acute Assessment and Plan: She has acute hypoxemic respiratory failure, on 40%, is not optimized for extubation as the CXR remains abnormal with Congestive heart failure, pulmonary edema, left lower lobe atelectasis and/or consolidation stable since 11/02/2019 ; she has been diuresed with 14 L off; d/w/ Dr. Anaya; will consider bronchoscopy with washings and brushings for specimen for opportunistic infections; will not perform transbronchial biopsy with increased risk of pneumothorax on ventilator. PC mode; 40%, 10 PEEP. (2) Influenza A: Code(s): J10.1 - Influenza due to other identified influenza virus with other respiratory manifestations Status: Acute Assessment and Plan: She has confirmed influenza A, with secondary bacterial pneumonia, on treatment. Had Tamiflu. (3) Acute kidney injury superimposed on chronic kidney disease: Code(s): N17.9 - Acute kidney failure, unspecified; N18.9 - Chronic kidney disease, unspecified Status: Acute Assessment and Plan: BUN was as high as 125, creat 3.0; improved with fluids, now BUN 110, creat 2.3. Still high. Dr. Soliz is managing this; K+ is acceptable. No urgent need for HD. (4) Hypothyroidism: Qualifiers: Hypothyroidism type: unspecified Qualified Code(s): E03.9 - Hypothyroidism, unspecified Code(s): E03.9 - Hypothyroidism, unspecified Status: Acute Assessment and Plan: consistent with myxedema coma; high TSH, bradycardic, hypotensive, hypothermia, hypoventilation; mild drop in sodium 134, elevated T3 and T4; she has thin eyebrows, doughy skin, decreased body hair, puffy eyelids, very classic. She is on treatment with IV Synthroid, cytomel, supportive measure including mechanical ventilation and management of infection. (5) Sepsis: Qualifiers: Sepsis acute organ dysfunction status: unspecified Sepsis type: sepsis due to unspecified organism Qualified Code(s): A41.9 - Sepsis, unspecified organism Code(s): A41.9 - Sepsis, unspecified organism Status: Acute Assessment and Plan: with hypotension; has a small amount of pressor at this time; source is lungs with influenza and pneumonia; Subjective Date/time seen: 11/07/19 19:40 This 54 yo female is seen in follow up for acute hypoxemic resp failure; sedated, mechanically ventilated. 'Had bronchoscopy TuesdayNov 05. Review of Systems Review of Systems: Narrative: not obtainable form the patient due to patient factors including sedation and intubation Exam Narrative: Exam Narrative: Morbidly obese female orally intubated; not in distress; she is flat in the bariatric bed, left arm PICC. Scattered ecchymoses over her chest. Edema 2+ in upper extremities. Legs are less swollen, Const: General: no acute distress Eyes: Pupils: Equal, round and reactive pupils present Other: puffy upper eyelids; thinned eyebrows betty outer portion Neck: Lymphatic: lymphadenopathy not noted Other: has bruising under the right side of her chin Resp: Auscultation: diminished lung sounds Other: decreased lung sounds both sides of her chest; she is large BMI 72 in a bariatric bed, and the stethoscope is an isolation scope with li
[2019-11-07 20:48] LABS: Glucose Point of Care 189 (65-105)
[2019-11-07] MEDS: SODIUM CHLORIDE 0.9% IV 250 ML 30 ML IV CONT (21:00)
[2019-11-07] MEDS: INSULIN DETEMIR 100 UNITS/ML 30 UNITS SUB-Q (21:04)
[2019-11-08] VITALS (28 sets, daily range): BP systolic 117–170; BP diastolic 58–74; PULSE 66–98; RESP 17–27; TEMP 36.6–36.8; O2SAT 90–96
[2019-11-08] MEDS: PROPOFOL IV EMULSION 100 ML 16.7 MG IV CONT (00:36)
[2019-11-08 00:43] LABS: Glucose Point of Care 243 (65-105)
[2019-11-08] MEDS: INSULIN ASPART (*BKC) 100 UNITS/ML SUB-Q ×2 (00:43→05:35)
[2019-11-08] MEDS: IPRATROPIUM BR 0.02% INH SOLN 0.5 MG/2.5 ML VIAL INHALATION ×4 (02:37→20:21)
[2019-11-08] MEDS: ALBUTEROL SULFATE NEB 2.5 MG/0.5 ML INH 5 MG INHALATION ×4 (02:37→20:20)
[2019-11-08 04:58] LABS: Hematocrit 27.7 % (37.0-47.0); Hemoglobin 8.4 g/dL (12.0-15.0); Mean Corpuscular HGB Conc 30.3 g/dl (32-36); Mean Corpuscular Hemoglobin 27.5 pg (26-34); Mean Corpuscular Volume 90.8 fl (80-100); Mean Platelet Volume 12.4 fl (7.4-10.4); Platelet Count Result 209 k/mm3 (150-375); Red Blood Count 3.05 M/mm3 (4.2-5.4); White Blood Count 7.6 K/mm3 (4.5-10.0)
[2019-11-08 05:12] LABS: Lactic Acid 1.2 mmol/L (0.7-2.1)
[2019-11-08 05:15] LABS: Alveolar/Arterial O2 Gradient 105.1 mmHg; Base Excess ABG 14.9 mEq/l (+/-2.0); Carboxyhemoglobin 2.3 % THb (0-2.0); Fractional Inspired Oxygen 30 %; HCO3 ABG 39.2 mEq/l (22.0-26.0); Methemoglobin ABG 0.2 %THb (0-1.5); Oxygen Content ABG 10.3 %vol (16.0-22.0); PCO2 ABG 48.1 mmHg (35.0-45.0); PO2 ABG 52.3 mmHg (80.0-100.0); PO2 FiO2 Ratio Arterial Blood 1.74 %; Reduced Hemoglobin 11.5 %THb (0-5.0); Total Hemoglobin 8.5 g/dL (12.0-18.0); pH ABG 7.529 (7.350-7.450)
[2019-11-08 05:16] LABS: Arterial Blood Gas PEEP 8 cmH2O; Arterial Blood Gas Tidal Volume 350 ml; Arterial Blood Gas Vent Mode CMV; Arterial Blood Gas Ventilator rate 18 /MIN; Device VENTILATOR; Modified Allen's Test Unable to perform; Site Drawn LEFT RADIAL
[2019-11-08 05:22] LABS: Blood Urea Nitrogen 93 mg/dL (7-17); Calcium 8.1 mg/dL (8.4-10.2); Carbon Dioxide > 40 mmol/L (22-30); Chloride 88 mmol/L (98-107); Estimated CRCL calculation 64 ml/min; Estimated Glomerular Filt Rate 36; Glucose 256 mg/dL (65-105); Magnesium 1.9 mg/dL (1.6-2.3); Phosphorus 3.9 mg/dL (2.5-4.5); Potassium 4.5 mmol/L (3.4-5.0); Sodium 136 mmol/L (137-145)
[2019-11-08] MEDS: PROPOFOL IV EMULSION 100 ML 11.2 MG IV CONT ×2 (05:37→14:19)
[2019-11-08] MEDS: LEVOTHYROXINE SODIUM INJ 100 MCG/5 ML VIAL 50 MCG IV PUSH (06:02)
[2019-11-08] MEDS: DORNASE ALFA INH SOLN 1 MG/ML 2.5 ML AMP 2.5 MG INHALATION ×2 (08:44→20:21)
[2019-11-08] MEDS: LIOTHYRONINE SODIUM 25 MCG TABLET PO (10:13)
[2019-11-08] MEDS: FUROSEMIDE INJ 100 MG/10 ML VIAL 80 MG IV PUSH ×2 (10:13→21:32)
[2019-11-08] MEDS: hydrALAZINE HCL 25 MG TABLET PO (10:14)
[2019-11-08] MEDS: PANTOPRAZOLE SODIUM IV 40 MG VIAL IV PUSH (10:14)
[2019-11-08] MEDS: MUPIROCIN 2% OINT 22 GM TUBE 1 APPLIC EACH NARE ×2 (10:22→21:31)
[2019-11-08] MEDS: NEOMYCIN/POLYMYXIN/BACITRACIN OINTMENT 15 GM TUBE 1 APPLIC TOPICAL (10:22)
[2019-11-08] MEDS: SILVERGEL (ELTA) 45 ML 1 APPLIC TOPICAL (10:22)
[2019-11-08] MEDS: TOLNAFTATE 1% POWDER 45 GM BTL 1 APPLIC TOPICAL ×2 (10:25→21:28)
--- NOTE | 2019-11-08 10:50 | WPDGIPROGNO ---
Progress Note: A&P Additional Plan Patient unchanged. She remains on the ventilator. Sedated and unresponsive currently. Physical exam reveals her to be ventilator dependent. Lungs reveal rhonchi. Abdomen is obese no organomegaly appreciated. Labs reveal WBC 7.6, hemoglobin 8.4, hematocrit 27. Platelets 209 K BUN 93, creatinine 1.5, Impression 1. Ventilator dependent. 2. Morbid Obesity 3. Xarelto anticoagulation , on hold 4. atrial fibrillation Plan is for PEG tube placement tomorrow on Tuesday. Xarelto will need to continue to be held. Subjective Date/time seen: 11/08/19 10:50 Objective Data Vital Signs Vital Signs: Vital Signs - 24 hr 11/07/19 11:35 11/07/19 12:00 11/07/19 14:00 Temperature 36.6 C Pulse Rate 81 77 67 Respiratory Rate 18 18 Blood Pressure 145/67 H 140/67 Pulse Oximetry 94 94 96 11/07/19 15:02 11/07/19 16:00 11/07/19 17:10 Temperature 36.4 C Pulse Rate 83 64 83 Respiratory Rate 19 18 Blood Pressure 143/89 H Pulse Oximetry 100 97 100 11/07/19 18:00 11/07/19 20:00 11/07/19 20:53 Temperature 36.3 C L Pulse Rate 68 69 74 Respiratory Rate 18 18 18 Blood Pressure 143/89 H 156/77 H Pulse Oximetry 95 94 94 11/07/19 21:01 11/07/19 21:13 11/07/19 21:18 Temperature 36.6 C 36.3 C L Pulse Rate 68 72 71 Respiratory Rate 18 18 18 Blood Pressure 156/77 H 157/78 H Pulse Oximetry 94 90 11/07/19 22:00 11/07/19 22:18 11/07/19 23:15 Temperature 36.3 C L 36.6 C Pulse Rate 69 66 69 Respiratory Rate 18 18 Blood Pressure 161/76 H 164/75 H Pulse Oximetry 94 95 94 11/08/19 00:00 11/08/19 00:18 11/08/19 00:49 Temperature 36.6 C 36.6 C 36.6 C Pulse Rate 66 67 67 Respiratory Rate 18 18 18 Blood Pressure 165/73 H 165/73 H 170/74 H Pulse Oximetry 95 95 95 11/08/19 02:00 11/08/19 02:37 11/08/19 02:50 Temperature Pulse Rate 81 77 74 Respiratory Rate 21 H 18 18 Blood Pressure 165/71 H Pulse Oximetry 95 96 11/08/19 04:00 11/08/19 05:28 11/08/19 06:00 Temperature 36.6 C Pulse Rate 89 69 74 Respiratory Rate 18 21 H Blood Pressure 136/67 147/58 H Pulse Oximetry 90 94 93 11/08/19 08:44 11/08/19 08:47 11/08/19 08:59 Temperature Pulse Rate 80 78 81 Respiratory Rate 20 18 Blood Pressure Pulse Oximetry 93 Intake/Output Intake/Output: Intake & Output 11/05/19 11/06/19 11/07/19 11/08/19 23:59 23:59 23:59 23:59 Intake Total 2386.9 2081.1 1572 1466.7 Output Total 4150 6350 4350 3300 Balance -1763.1 -4268.9 -2778 -1833.3 Meds/Results Medications: Active Medications Generic Name Dose Route Start Last Admin Trade Name Freq PRN Reason Stop Dose Admin Acetaminophen 650 mg 11/06/19 12:37 11/07/19 01:03 Tylenol Tablet PO 650 mg Q6H PRN Administration Mild Pain (1-3) or Fever Albuterol 5 mg 10/27/19 08:00 11/08/19 08:44 Albuterol Sulf Neb 2.5mg/0.5ml INHALATION 5 mg Q6HRT PILI Administration Atropine Sulfate 1 mg 10/27/19 15:48 Atropine Sulfate IV PUSH PRN PRN Bradycardia Dextrose 12.5 gm 10/27/19 10:01 11/05/19 12:33 Dextrose 50% Syringe IV PUSH 12.5 gm PRN PRN Administration Hypoglycemia Protocol Dornase Molina 2.5 mg 11/05/19 20:00 11/08/19 08:44 Pulmozyme INHALATION 2.5 mg Q12HRT PILI Administration Epoetin Molina 10,000 units 11/02/19 10:30 11/07/19 11:44 Epogen SUB-Q 10,000 units MOWEFR PILI Administration Furosemide 80 mg 11/07/19 11:45 11/08/19 10:13 Lasix Inj IV PUSH 80 mg Q12HR PILI Administration Glucagon 1 mg 10/27/19 10:01 Glucagon For Inj IM PRN PRN Hypoglycemia Protocol Glucose 15 gm 10/27/19 10:01 Glutose 15 PO PRN PRN Hypoglycemia Protocol Hydralazine HCl 25 mg 10/31/19 17:00 11/08/19 10:14 Apresoline Tablet PO 25 mg QID PILI Administration Norepinephrine Bitartrate 8 mg in 250 mls @ 0 mls/hr 10/27/19 12:00 10/30/19 07:38 Levophed 8 Mg/D5w 250 Ml
[2019-11-08] MEDS: INSULIN DETEMIR 100 UNITS/ML 30 UNITS SUB-Q (10:51)
[2019-11-08 10:55] LABS: Glucose Point of Care 200 (65-105)
[2019-11-08 11:24] LABS: Vancomycin Random 19.1 ug/mL (10-20)
--- NOTE | 2019-11-08 13:01 | WPDANESEPPF ---
Anes - Initial Pre Proc Eval Procedure: Operation Date: 11/08/19 13:30 Proposed Procedures p Tracheostomy - Eliot Rice MD Date/Time: 11/08/19 13:01 Surgeon: Dwayne Pre Op Diagnosis: acute renal failure/hyperkalemia/altered mental st Patient Data Age: 54 Gender: F Height: 1.6 m Weight: 179 kg Last Vital Signs Temp 36.6 C 11/08/19 04:00 Pulse 77 11/08/19 11:22 Resp 18 11/08/19 08:59 BP 147/58 H 11/08/19 06:00 Pulse Ox 93 11/08/19 11:22 Allergies Allergy/AdvReac Type Severity Reaction Status Date / Time adhesive tape Allergy Unknown Verified 10/25/19 15:28 cimetidine Allergy Unknown Verified 10/25/19 15:25 gabapentin Allergy Unknown Verified 10/25/19 15:26 methotrexate Allergy Unknown Verified 10/25/19 15:26 sulfamethoxazole Allergy Unknown Verified 10/25/19 15:25 [From Bactrim] trimethoprim [From Bactrim] Allergy Unknown Verified 10/25/19 15:25 warfarin Allergy Unknown Verified 10/25/19 15:27 plastic Allergy Blister Uncoded 11/04/19 09:40 Home Medications Medication Instructions Recorded Confirmed Type amlodipine 10 mg PO DAILY 10/27/19 10/27/19 History atorvastatin 20 mg PO HS 10/27/19 10/27/19 History carvedilol 25 mg PO Q12H 10/27/19 10/27/19 History ergocalciferol (vitamin D2) 1,250 mcg PO WEEKLY 10/27/19 10/27/19 History ferrous sulfate 325 mg PO BID 10/27/19 10/27/19 History furosemide 40 mg PO DAILY 10/27/19 10/27/19 History hydralazine 25 mg PO TID 10/27/19 10/27/19 History hydroxychloroquine 200 mg PO BID 10/27/19 10/27/19 History insulin NPH isoph U-100 human 45 unit SUBCUT BID 10/27/19 10/28/19 History [Humulin N NPH U-100 Insulin] insulin lispro [Humalog U-100 40 sliding scale dose SUBCUT AC 10/27/19 10/28/19 History Insulin] leflunomide 20 mg PO DAILY 10/27/19 10/27/19 History brpqmz-lioftlac-zysbgcv [Creon] 1 cap PO TID 10/27/19 10/27/19 History meloxicam 7.5 mg PO BID 10/27/19 10/27/19 History methocarbamol 750 mg PO TID 10/27/19 10/27/19 History metolazone 5 mg PO DAILY 10/27/19 10/27/19 History morphine 30 mg PO Q12H 10/27/19 10/27/19 History multivitamin [Daily-Devin] 1 tablet PO DAILY 10/27/19 10/27/19 History naloxegol [Movantik] 25 mg PO QAM 10/27/19 10/27/19 History omeprazole 20 mg PO DAILY 10/27/19 10/27/19 History oxycodone-acetaminophen 1 tablet PO Q4H PRN 10/27/19 10/27/19 History prednisone 20 mg PO DAILY 10/27/19 10/27/19 History rivaroxaban [Xarelto] 20 mg PO DAILY 10/27/19 10/27/19 History sennosides [senna] 8.6 mg PO BID PRN 10/27/19 10/27/19 History Laboratory Tests 10/30/19 11/05/19 11/05/19 08:06 13:34 13:39 WBC RBC Hgb Hct MCV MCH MCHC RDW Plt Count MPV Immature Gran % (Auto) Neut % (Auto) Lymph % (Auto) Weston % (Auto) Eos % (Auto) Baso % (Auto) Lymph # (Auto) [place]on # (Auto) Eos # (Auto) Baso # (Auto) Abs Immat Gran (auto) Absolute Neuts (auto) Absolute Nucleated RBC Nucleated RBC % PT INR APTT Puncture Site ABG pH ABG pCO2 ABG pO2 ABG PO2/FiO2 Ratio ABG HCO3 ABG O2 Saturation ABG O2 Content ABG Base Excess A-a Gradient Oxyhemoglobin Carboxyhemoglobin Methemoglobin Reduced Hemoglobin Total Hemoglobin O2 Delivery Device O2 Liters/Min Minute Volume Vent Rate Vent Mode FiO2 Tidal Volume PEEP Peak Inspir Pressure Pressure Support Sodium Potassium Chloride
[2019-11-08] MEDS: LIDO 1%/EPINEPHRINE 1:100,000 20 ML VIAL INFILTRATE (13:03)
--- NOTE | 2019-11-08 13:25 | P.OP_ITS ---
Procedure Note - Detailed Date of procedure: 11/08/19 Pre-op diagnosis: acute renal failure/hyperkalemia/altered mental st Description of procedure: Patient was prepped and draped general anesthesia. She was under intubation on a ventilator. A low collar incision was made. Subjective xylocaine with adrenaline. Fat was grasped large amount of fat was removed with bipolar electrocautery. The midline of the tracheal muscles were divided trach hook placed in the 3rd tracheal ring a U-shaped incision made in t he trachea and a 8. Shiley tube placed in and sutured in place was adequate CO2 returned and the patient the procedure was terminated Anesthesia: GLMA and VARGAS Surgeon: Eliot Rice MD Estimated blood loss (mL): 5 Drains: No Packing: No Pathology: none sent Complications: No immediate complications Condition: stable Disposition: ICU
--- NOTE | 2019-11-08 13:44 | WPDINTPN ---
Progress Note: A&P Assessment and Plan (1) Respiratory failure: Qualifiers: Chronicity: acute Respiratory failure complication: hypoxia and hypercapnia Qualified Code(s): J96.01 - Acute respiratory failure with hypoxia; J96.02 - Acute respiratory failure with hypercapnia Code(s): J96.90 - Respiratory failure, unspecified, unspecified whether with hypoxia or hypercapnia Status: Acute Assessment and Plan: Acute respiratory failure likely related to severe metabolic acidosis, hypercapnia. Intubated on 10/27/2019, - chest x-ray with no change, patient on 40% FiO2 - Decrease PEEP to 8 and TV to 350 today - Continue lasix for diuresis - Continue bronchodilators, continue ceftriaxone, azithromycin and vancomycin - patient was switched to propofol infusion for sedation - Appreciate pulmonology evaluation and recommendation. status post bronchoscopy on 11/05/2019 which showed moderate secretion throughout the airway, mild to moderate inflammation - tracheostomy tube to be placed today on 11/08/2019 in peg tube with tube placed tomorrow on 11/09/2019 - patient to LTAC once accepted (2) Septic shock: Code(s): A41.9 - Sepsis, unspecified organism; R65.21 - Severe sepsis with septic shock Status: Acute Assessment and Plan: : RESOLVED: patient presented with altered mental status, leukocytosis, bradycardic, hypotensive, metabolic acidosis - off levophed - central line was inserted in the right subclavian on 10/27/2019, will discontinue central line, PICC line was unable to be inserted - continue ceftriaxone, azithromycin and vancomycin. - blood cultures negative x2, MRSA nasal swab positive - elevated CRP (3) Cardiac arrest: Code(s): I46.9 - Cardiac arrest, cause unspecified Status: Acute Assessment and Plan: brief cardiac arrest most likely related to bradycardia, hyperkalemia, hypoxia, respiratory failure, hypothermia, ROSC brief CPR, - echocardiogram done on 10/27/2019: LVEF 50-55%, left ventricular chamber dimension is normal. Moderately increased left ventricular wall thickness, RV systolic function is normal, no pericardial effusion, no significant valvular abnormalities - patient open her eyes and has followed commands in the past - hemodynamically stable (4) Metabolic acidosis: Code(s): E87.2 - Acidosis Status: Resolved Assessment and Plan: RESOLVED: severe metabolic acidosis ON ADMISSION likely related to acute on chronic kidney disease, possibly also due to hypercapnia, hypotension, sepsis - patient received IV fluids, maintain mean arterial pressure is greater than 65 mmHg - Now has developed alkalosis - off bicarb infusion - Will decrease ventilation to allows pH to come to base[place]. I suspect pt is is CO2 retainer at baseline - continue to monitor (5) Anemia: Qualifiers: Anemia type: unspecified type Qualified Code(s): D64.9 - Anemia, unspecified Code(s): D64.9 - Anemia, unspecified Status: Chronic Assessment and Plan: patient has chronic anemia, was transfused packed RBCs on 10/25/2019 here at [facility] - hemoglobin stable. Iron panel showing anemia of chronic disease. Status post one unit PRBC given on 10/30/2019 - continue to monitor - stool guaiac positive, patient for PEG tube placement 11/09/2019 at the same time patient will get an EGD to evaluate (6) Influenza A: Code(s): J10.1 - Influenza due to other identified influenza virus with other respiratory manifestations Status: Acute Assessment and Plan: patient was positive for influenza A on admission, status post Tamiflu treatment course (7) Atrial fibrillation: Qualifiers: Atrial fibrillation type: unspecified Qualified Code(s): I48.91 - Unspecified atrial fibrillation Code(s): I48.91 - Unspecified atrial fibrillation Status: Acute Assessm
--- NOTE | 2019-11-08 14:16 | PCDIET ---
ICU Rounding Note: Pt current nutrition is Nepro at 40 ml/hour. Nutrition recommendation: Continue with current EN Last recorded weight is 179 kg. Bowel Motility:BM today Labs Reviewed:Na 136, BUN 93, Cr 1.5, GFR 36, Glu 256 Meds Noted:lasix, novolog, levemir, protonix, Prop at 11.2 ml/hour Additional Notes: Pt to get trach today, and PEG placed tomorrow. Continue with current EN at 40 ml / hour of Nepro. Pt on propofol at 11.2 ml/hour providing 296 kcals/day. Pt on diuretic therapy with - I&O balance. Following daily in ICU rounds. Assessing/reassessing every tuesday/tuesday.
[2019-11-08 14:54] LABS: Glucose Point of Care 189 (65-105)
--- NOTE | 2019-11-08 18:07 | PM.PNPUL ---
Progress Note: A&P Assessment and Plan (1) Respiratory failure: Qualifiers: Chronicity: acute Respiratory failure complication: hypoxia and hypercapnia Qualified Code(s): J96.01 - Acute respiratory failure with hypoxia; J96.02 - Acute respiratory failure with hypercapnia Code(s): J96.90 - Respiratory failure, unspecified, unspecified whether with hypoxia or hypercapnia Status: Acute Assessment and Plan: She has acute hypoxemic respiratory failure, on 40%, had trach today; she has been diuresed, was not able to wean, has a new Shiley trach with too much movement of her head for a new tracheostomy/. Spoke with her nurse about increasing sedation to prevent losing the trach. She has mild hypercapnea which is compensatory for hte metabolic alkalosis. Growing Pseudomonas. (2) Influenza A: Code(s): J10.1 - Influenza due to other identified influenza virus with other respiratory manifestations Status: Acute Assessment and Plan: She has confirmed influenza A, with secondary bacterial pneumonia, on treatment. Had Tamiflu. (3) Acute kidney injury superimposed on chronic kidney disease: Code(s): N17.9 - Acute kidney failure, unspecified; N18.9 - Chronic kidney disease, unspecified Status: Acute Assessment and Plan: BUN was as high as 125, creat 3.0; improved with fluids, now BUN 95, creat 1.5. (4) Hypothyroidism: Qualifiers: Hypothyroidism type: unspecified Qualified Code(s): E03.9 - Hypothyroidism, unspecified Code(s): E03.9 - Hypothyroidism, unspecified Status: Acute Assessment and Plan: consistent with myxedema coma; high TSH, bradycardic, hypotensive, hypothermia, hypoventilation; mild drop in sodium 134, elevated T3 and T4; she has thin eyebrows, doughy skin, decreased body hair, puffy eyelids, very classic. She is on treatment with IV Synthroid, cytomel, supportive measure including mechanical ventilation and management of infection. (5) Sepsis: Qualifiers: Sepsis acute organ dysfunction status: unspecified Sepsis type: sepsis due to unspecified organism Qualified Code(s): A41.9 - Sepsis, unspecified organism Code(s): A41.9 - Sepsis, unspecified organism Status: Acute Assessment and Plan: initially with hypotension; weaned from pressor; source was lungs with influenza and pneumonia; Subjective Date/time seen: 11/08/19 18:07 She had a trach today, now sedated on propofol. She is moving her head up and down, and side to side, more now than before the trach. FiO2 30%, PEEP 8, CMV mode. She is not following commands. She is 54 yo, admitted with acute respiratory failure after influenza A; acute kidney injury, sepsis with shock, had trach for failure to wean. Bronch was 11/05; growing Pseudomonas from the bronch specimen. Pansensitive. Review of Systems Review of Systems: Narrative: not obtainable from the patient due to patient factors including sedation and intubation Exam Narrative: Exam Narrative: Morbidly obese female with new trach in place; no bleeding; she is nodding head up and down, very vigorous head movements that my endanger the trach site; not in distress; she is flat in the bariatric bed, left arm PICC. Not following commands. Scattered ecchymoses over her chest. Edema 2+ in upper extremities. She has a new trachesotomy midline neck,legs are less swollen, Const: General: no acute distress Eyes: Pupils: Equal, round and reactive pupils present Other: puffy upper eyelids; thinned eyebrows betty outer portion Neck: Lymphatic: lymphadenopathy not noted Other: h
[2019-11-08 18:41] LABS: Glucose Point of Care 139 (65-105)
--- NOTE | 2019-11-08 18:43 | PM.PNNEP ---
Progress Note: A&P Assessment and Plan (1) Acute renal failure: Qualifiers: Acute renal failure type: unspecified Qualified Code(s): N17.9 - Acute kidney failure, unspecified Code(s): N17.9 - Acute kidney failure, unspecified Status: Acute Assessment and Plan: baseline creatinine ~ 0.8 - 1.3mg/dl (from review of OSH records) renal ultrasound could see only the right kidney which was normal; left kidney was unable to be seen possibly due to technical limitation because of her obesity urine electrolytes are non pre renal, Fe-Urea is around 30% which is borderline pre renal. UA shows a bland sediment; urine eosinophils are negative; CPK is normal; ESR is greater than 140; C3 is slightly low at 76 and C4 is normal. Rheumatoid factor is low; other tests are pending. concern for overdiuresis with lasix gtt - CXR does not look significantly different despite being almost 24L negative changed over to scheduled diuretics (lasix 80mg IV q12hr) follow trend of labs and UOP (2) Septic shock: Code(s): A41.9 - Sepsis, unspecified organism; R65.21 - Severe sepsis with septic shock Status: Acute Assessment and Plan: doing much better at this time follow trend of hemodynamics (3) Anemia: Qualifiers: Anemia type: unspecified type Qualified Code(s): D64.9 - Anemia, unspecified Code(s): D64.9 - Anemia, unspecified Status: Chronic Assessment and Plan: likely due to acute illness, ALLEGRA, and iron deficiency based on anemia studies - holding venofer in the setting of acute infection follow trend of H/H (4) Respiratory failure: Qualifiers: Chronicity: acute Respiratory failure complication: hypoxia and hypercapnia Qualified Code(s): J96.01 - Acute respiratory failure with hypoxia; J96.02 - Acute respiratory failure with hypercapnia Code(s): J96.90 - Respiratory failure, unspecified, unspecified whether with hypoxia or hypercapnia Status: Acute Assessment and Plan: remains on ventilator s/p tracheostomy settings are stable if not better Will continue to follow intermittently since renal continues to improve. Subjective Date/time seen: 11/08/19 18:43 S/P tracheostomy earlier today and tolerated reasonably well; continues to make good urine output albeit with diuretic therapy; no other acute issues or problems noted today. Exam Narrative: Exam Narrative: General: WD/WN female in NAD; tracheostomy Heart: normal S1 and S2; no rub Lungs: coarse throughout Abdomen: soft, nontender, nondistended, positive bowel sounds Extremities: no cyanosis or clubbing; 1+ edema Skin: warm and dry Objective Data Vital Signs Vital Signs: Vital Signs Temp Pulse Resp BP Pulse Ox 11/08/19 17:25 85 93 11/08/19 14:16 88 27 H 11/08/19 14:00 83 20 11/08/19 13:40 76 92 11/08/19 12:00 77 20 145/62 H 92 11/08/19 11:22 77 93 11/08/19 10:00 82 20 137/60 91 11/08/19 08:59 81 18 11/08/19 08:47 78 93 11/08/19 08:44 80 20 11/08/19 08:00 36.7 C 78 18 117/68 93 11/08/19 06:00 74 21 H 147/58 H 93 11/08/19 05:28 69 94 11/08/19 04:00 36.6 C 89 18 136/67 90 11/08/19 02:50 74 18 11/08/19 02:37 77 18 96 11/08/19 02:00 81 21 H 165/71 H 95 11/08/19 00:49 36.6 C 67 18 170/74 H 95 11/08/19 00:18 36.6 C 67 18 165/73 H 95 11/08/19 00:00 36.6 C 66 18 165/73 H 95 11/07/19 23:15 69 94 11/07/19 22:18 36.6 C 66 18 164/75 H 95 11/07/19 22:00 36.3 C L 69 18 161/76 H 94 11/07/19 21:18 36.3 C L 71 18 157/78 H 90 11/07/19 21:13 72 18 11/07/19 21:01 36.6 C 68 18 156/77 H 94 11/07/19 20:53 74 18 94 11/07/19 20:00 36.3 C L 69 18 156/77 H 94 Intake/Output Intake/Output: Intake & Output 11/05/19 11/06/19 11/07/19 11/08/19 23:59 23:59 23:59 23:59 Intake Total 2386.9 2081.1 15
[2019-11-08] MEDS: PROPOFOL IV EMULSION 100 ML 22.3 MG IV CONT (20:22)
[2019-11-08 21:43] LABS: Glucose Point of Care 95 (65-105)
[2019-11-09] VITALS (27 sets, daily range): BP systolic 94–154; BP diastolic 45–77; PULSE 82–95; RESP 16–28; TEMP 37.1–37.4; O2SAT 91–96
[2019-11-09] MEDS: DEXTROSE 5% 1,000 ML 1,000 ML 100 ML IVPB (00:36)
[2019-11-09 01:07] LABS: Glucose Point of Care 70 (65-105)
[2019-11-09 01:07] LABS: Glucose Point of Care 79 (65-105)
[2019-11-09] MEDS: PROPOFOL IV EMULSION 100 ML 22.3 MG IV CONT ×2 (01:45→08:11)
[2019-11-09] MEDS: IPRATROPIUM BR 0.02% INH SOLN 0.5 MG/2.5 ML VIAL INHALATION ×4 (03:15→21:09)
[2019-11-09] MEDS: ALBUTEROL SULFATE NEB 2.5 MG/0.5 ML INH 5 MG INHALATION ×4 (03:15→21:09)
[2019-11-09 03:21] LABS: Glucose Point of Care 99 (65-105)
[2019-11-09 05:12] LABS: Alveolar/Arterial O2 Gradient 181.1 mmHg; Base Excess ABG 15.3 mEq/l (+/-2.0); Carboxyhemoglobin 1.4 % THb (0-2.0); Fractional Inspired Oxygen 40 %; HCO3 ABG 38.7 mEq/l (22.0-26.0); Methemoglobin ABG 0.2 %THb (0-1.5); Oxygen Content ABG 12.4 %vol (16.0-22.0); Oxygen Saturation ABG 92.5 % (95.0-100.0); Oxyhemoglobin 88.7 % THb (90.0-100.0); PCO2 ABG 42.6 mmHg (35.0-45.0); PO2 ABG 55.1 mmHg (80.0-100.0); PO2 FiO2 Ratio Arterial Blood 1.38 %; Reduced Hemoglobin 9.7 %THb (0-5.0); Total Hemoglobin 9.9 g/dL (12.0-18.0)
[2019-11-09 05:14] LABS: Arterial Blood Gas PEEP 8 cmH2O; Arterial Blood Gas Tidal Volume 350 ml; Arterial Blood Gas Vent Mode CMV; Arterial Blood Gas Ventilator rate 18 /MIN; Device VENTILATOR; Modified Allen's Test Pass; Site Drawn RIGHT RADIAL; pH ABG 7.576 (7.350-7.450)
[2019-11-09 06:02] LABS: Hematocrit 28.7 % (37.0-47.0); Hemoglobin 8.5 g/dL (12.0-15.0); Mean Corpuscular HGB Conc 29.6 g/dl (32-36); Mean Corpuscular Hemoglobin 27.1 pg (26-34); Mean Corpuscular Volume 91.4 fl (80-100); Mean Platelet Volume 11.5 fl (7.4-10.4); Platelet Count Result 287 k/mm3 (150-375); Red Blood Count 3.14 M/mm3 (4.2-5.4); Red Cell Distribution Width 15.9 % (11.5-14.5); White Blood Count 8.7 K/mm3 (4.5-10.0)
[2019-11-09 06:08] LABS: Glucose Point of Care 98 (65-105)
[2019-11-09 06:10] LABS: Lactic Acid 0.9 mmol/L (0.7-2.1)
[2019-11-09] MEDS: LEVOTHYROXINE SODIUM INJ 100 MCG/5 ML VIAL 50 MCG IV PUSH (06:47)
[2019-11-09 06:51] LABS: Vancomycin Random 16.3 ug/mL (10-20)
[2019-11-09 06:52] LABS: Blood Urea Nitrogen 79 mg/dL (7-17); Calcium 7.8 mg/dL (8.4-10.2); Carbon Dioxide > 40 mmol/L (22-30); Chloride 88 mmol/L (98-107); Estimated CRCL calculation 47 ml/min; Estimated Glomerular Filt Rate 31; Glucose 121 mg/dL (65-105); Magnesium 1.5 mg/dL (1.6-2.3); Phosphorus 2.9 mg/dL (2.5-4.5); Sodium 138 mmol/L (137-145)
[2019-11-09] MEDS: MAGNESIUM SULF 2 GM/WATER 50ML 2 GM/50 ML BAG IVPB (09:40)
[2019-11-09] MEDS: FUROSEMIDE INJ 100 MG/10 ML VIAL 40 MG IV PUSH ×2 (09:40→21:49)
[2019-11-09] MEDS: DORNASE ALFA INH SOLN 1 MG/ML 2.5 ML AMP 2.5 MG INHALATION ×2 (09:50→19:50)
[2019-11-09] MEDS: MUPIROCIN 2% OINT 22 GM TUBE 1 APPLIC EACH NARE ×2 (09:53→21:53)
[2019-11-09] MEDS: PANTOPRAZOLE SODIUM IV 40 MG VIAL IV PUSH (09:53)
[2019-11-09] MEDS: NEOMYCIN/POLYMYXIN/BACITRACIN OINTMENT 15 GM TUBE 1 APPLIC TOPICAL (09:53)
[2019-11-09] MEDS: SILVERGEL (ELTA) 45 ML 1 APPLIC TOPICAL (09:54)
--- NOTE | 2019-11-09 09:57 | PM.PNNEP ---
Progress Note: A&P Assessment and Plan (1) Acute renal failure: Qualifiers: Acute renal failure type: unspecified Qualified Code(s): N17.9 - Acute kidney failure, unspecified Code(s): N17.9 - Acute kidney failure, unspecified Status: Acute Assessment and Plan: baseline creatinine ~ 0.8 - 1.3mg/dl (from review of OSH records) renal ultrasound could see only the right kidney which was normal; left kidney was unable to be seen possibly due to technical limitation because of her obesity urine electrolytes are non pre renal, Fe-Urea is around 30% which is borderline pre renal. UA shows a bland sediment; urine eosinophils are negative; CPK is normal; ESR is greater than 140; C3 is slightly low at 76 and C4 is normal. Rheumatoid factor is low; other tests are pending. The patient's creatinine was improved an hours slightly higher. Volume status looks much better. Holding diuretics discussed with Dr Anaya (2) Septic shock: Code(s): A41.9 - Sepsis, unspecified organism; R65.21 - Severe sepsis with septic shock Status: Acute Assessment and Plan: doing much better at this time On no pressors. (3) Anemia: Qualifiers: Anemia type: unspecified type Qualified Code(s): D64.9 - Anemia, unspecified Code(s): D64.9 - Anemia, unspecified Status: Chronic Assessment and Plan: likely due to acute illness, ALLEGRA, and iron deficiency based on anemia studies - holding venofer in the setting of acute infection follow trend of H/H (4) Respiratory failure: Qualifiers: Chronicity: acute Respiratory failure complication: hypoxia and hypercapnia Qualified Code(s): J96.01 - Acute respiratory failure with hypoxia; J96.02 - Acute respiratory failure with hypercapnia Code(s): J96.90 - Respiratory failure, unspecified, unspecified whether with hypoxia or hypercapnia Status: Acute Assessment and Plan: remains on ventilator s/p tracheostomy Subjective Date/time seen: 11/09/19 09:57 Interval history: Patient is on the ventilator per tracheostomy. She looks comfortable. Review of Systems Review of Systems: ROS unobtainable: unobtainable due to mental condition Exam Narrative: Exam Narrative: General: WD/WN female in NAD; tracheostomy Heart: normal S1 and S2; no rub or gallop Lungs: coarse throughout and symmetric Abdomen: soft, nontender, nondistended, positive bowel sounds Extremities: no cyanosis or clubbing; 1+ edema. Much improved since the last time I saw her Skin: warm and dry without rash Objective Data Vital Signs Vital Signs: Vital Signs - 24 hr 11/08/19 10:00 11/08/19 11:22 11/08/19 12:00 Temperature Pulse Rate 82 77 76 Respiratory Rate 20 20 Blood Pressure 137/60 145/62 H Pulse Oximetry 91 93 92 11/08/19 13:40 11/08/19 14:00 11/08/19 14:16 Temperature Pulse Rate 76 82 88 Respiratory Rate 17 27 H Blood Pressure 146/65 H Pulse Oximetry 92 91 11/08/19 16:00 11/08/19 17:25 11/08/19 18:00 Temperature 36.6 C Pulse Rate 83 85 86 Respiratory Rate 26 H 21 H Blood Pressure 154/69 H 149/73 H Pulse Oximetry 90 93 91 11/08/19 20:00 11/08/19 20:21 11/08/19 20:27 Temperature 36.8 C Pulse Rate 94 91 89 Respiratory Rate 24 H 22 H 25 H Blood Pressure 149/68 H Pulse Oximetry 92 11/08/19 22:00 11/08/19 23:00 11/09/19 00:00 Temperature 37.4 C Pulse Rate 93 93 91 Respiratory Rate 25 H 18 Blood Pressure 156/70 H 154/63 H Pulse Oximetry 94 95 94 11/09/19 02:00 11/09/19 02:18 11/09/19 03:16 Temperature Pulse Rate 89 89 89 Respiratory Rate 22 H 21 H Blood Pressure 145/52 H Pulse Oximetry 92 92 11/09/19 03:22 11/09/19 04:00 11/09/19 05:25 Temperature 37.2 C Pulse Rate 88 95 94 Respiratory Rate 21 H 24 H Blood Pressure 154/45 H Pulse Oximetry 93 92 11/09/19 06:00 11/09/19 08:00 11/09/19 09:55 Temperature 37.4 C Pulse Rate
[2019-11-09 12:04] LABS: Glucose Point of Care 135 (65-105)
[2019-11-09 12:04] LABS: Glucose Point of Care 194 (65-105)
--- NOTE | 2019-11-09 12:05 | PCDIET ---
Nutrition Follow-Up Complete: Nutrition Diagnosis: Inadequate oral intake related to oral intubation as evidenced by inability to take oral diet. Nutrition Goal: Tube feeding tolerance at goal rate Goal previously met, but tube feedings now on hold for PEG placement. Expect feedings to resume once PEG placed and verified for use. Last recorded weight is 142.5 kg. Bowel Motility: +BM on 11/08/19. Labs Reviewed: Glu (121), BUN (79), Cr (1.7), K (3.0), Mg (1.5) Meds Noted: Albuterol, Ceftazidime, Fentanyl, Epogen, Lasix, Novolog, Levemir, Levophed, Protonix, KCl, Vancomycin, Diprivan (rate of 22.3mL/hr provides 588kcal over 24 hour period) Additional Notes: s/p magnesium sulfate earlier today. No new skin issues reported. Will continue to monitor with same goals. Nutrition Monitoring and Evaluation: Follow up every Tuesday/Tuesday. Follow daily in ICU rounds.
--- NOTE | 2019-11-09 13:10 | P.OPB_ITS ---
Procedure Note - Brief Procedure Note - Brief Date of procedure: 11/09/19 Pre-op diagnosis: acute renal failure/hyperkalemia/altered mental st Surgeon: Gennaro Hernandez MD EGD and PEG placement today. Preop diagnosis nutritional support ventilator dependency Postop diagnosis normal EGD with PEG placement Informed consent is obtained from the [id number] the risks benefits alternatives indications discussed agree to prior to starting the procedure risks include but are not limited to adverse reaction to medications including allergies. The risk of bleeding possible need for transfusion. The risk perforation possible need for surgery. Risk for infections at the skin and el sewhere. POA agreed to proceed Description procedure. Quint[employer] video endoscope passes the esophagus which appears normal squamocolumnar junction intact at 40cm. Stomach his hands in turn , u turn is normal. One reveals normal bulb sweep 2nd portion impression normal EGD. In the area of maximal light transillumination and finger indentation left upper quadrant of the abdomen 1% lidocaine anesthesia issues. Needle is passed to the abdominal wall visualized within the body of the stomach. Guidewire passed through the needle. Guidewire was withdrawn through the mouth over this a 20gauge gastrostomy tube is placed without difficulty. Impression status post normal EGD with PEG placement. Plan is to start tube feedings in 4 hours at a slow rate 30cc . or per hour tonight and advance to 60cc per are in the morning. Frequent cleansing of G- tube site is advised in discussed with nursing service thank you
[2019-11-09] MEDS: PROPOFOL IV EMULSION 100 ML 27.9 MG IV CONT ×3 (13:29→21:46)
--- NOTE | 2019-11-09 14:02 | WPDINTPN ---
Progress Note: A&P Assessment and Plan (1) Respiratory failure: Qualifiers: Chronicity: acute Respiratory failure complication: hypoxia and hypercapnia Qualified Code(s): J96.01 - Acute respiratory failure with hypoxia; J96.02 - Acute respiratory failure with hypercapnia Code(s): J96.90 - Respiratory failure, unspecified, unspecified whether with hypoxia or hypercapnia Status: Acute Assessment and Plan: Intubated on 10/27/2019, status post tracheostomy on 11/08/2019 - chest x-ray with no change, patient was hypoxic on ABGs, increased FiO2 to 50%, peep to 10 - creatinine trending up, decreased Lasix to 40 mg IV b.i.d. - Continue bronchodilators - BAL cultures growing Pseudomonas susceptible to ceftazidime, discontinued vancomycin, azithromycin and ceftriaxone - started patient on ceftazidime on 11/09/2019 - on propofol for sedation - Appreciate pulmonology evaluation and recommendation. - status post bronchoscopy on 11/05/2019 which showed moderate secretion throughout the airway, mild to moderate inflammation (2) Septic shock: Code(s): A41.9 - Sepsis, unspecified organism; R65.21 - Severe sepsis with septic shock Status: Acute Assessment and Plan: : RESOLVED: patient presented with altered mental status, leukocytosis, bradycardic, hypotensive, metabolic acidosis - off levophed patient has a PICC line - BAL culture growing Pseudomonas, changed antibiotics to ceftazidime only (3) Cardiac arrest: Code(s): I46.9 - Cardiac arrest, cause unspecified Status: Acute Assessment and Plan: brief cardiac arrest most likely related to bradycardia, hyperkalemia, hypoxia, respiratory failure, hypothermia, ROSC brief CPR, - echocardiogram done on 10/27/2019: LVEF 50-55%, left ventricular chamber dimension is normal. Moderately increased left ventricular wall thickness, RV systolic function is normal, no pericardial effusion, no significant valvular abnormalities - patient open her eyes and has followed commands in the past - hemodynamically stable (4) Metabolic acidosis: Code(s): E87.2 - Acidosis Status: Resolved Assessment and Plan: RESOLVED: severe metabolic acidosis ON ADMISSION likely related to acute on chronic kidney disease, possibly also due to hypercapnia, hypotension, sepsis - patient received IV fluids, maintain mean arterial pressure is greater than 65 mmHg - continue to monitor (5) Anemia: Qualifiers: Anemia type: unspecified type Qualified Code(s): D64.9 - Anemia, unspecified Code(s): D64.9 - Anemia, unspecified Status: Chronic Assessment and Plan: patient has chronic anemia, was transfused packed RBCs on 10/25/2019 here at [facility] - hemoglobin stable. Iron panel showing anemia of chronic disease. Status post one unit PRBC given on 10/30/2019 - continue to monitor - stool guaiac positive, - EGD done on 11/09/2019 with no stigmata of bleeding and the stomach or duodenum. (6) Influenza A: Code(s): J10.1 - Influenza due to other identified influenza virus with other respiratory manifestations Status: Acute Assessment and Plan: patient was positive for influenza A on admission, status post Tamiflu treatment course (7) Atrial fibrillation: Qualifiers: Atrial fibrillation type: unspecified Qualified Code(s): I48.91 - Unspecified atrial fibrillation Code(s): I48.91 - Unspecified atrial fibrillation Status: Acute Assessment and Plan: history of chronic AFib, on Xarelto at [facility], currently in sinus rhythm, continue to monitor - Holding Xarelto post tracheostomy and PEG tube placement (8) Acute kidney injury superimposed on chronic kidney disease: Code(s): N17.9 - Acute kidney failure, unspecified; N18.9 - Chronic kidney disease, unspecified Status: Acute Assessment and Pl
[2019-11-09 14:30] LABS: Glucose Point of Care 216 (65-105)
--- NOTE | 2019-11-09 14:50 | OP_ITS ---
DATE OF PROCEDURE: 11/09/2019 PROCEDURE: EGD and PEG placement. PREOPERATIVE DIAGNOSIS: Nutritional support and ventilator dependent. POSTOPERATIVE DIAGNOSIS: Normal EGD with PEG placement. DESCRIPTION OF PROCEDURE: Informed consent for the procedure is obtained from the patient's [id number]. The risks, benefits, alternatives and indications were discussed thoroughly with them prior to the procedure. The risks include, but are not limited to, adverse reaction to medications including allergies, the risk of bleeding and possible need for transfusion, the risk of perforation, possible need for surgery, and the risk for missed pathology. Also, the risk for infection of the skin site. Power of criminal attorney agreed to proceed. The patient is given no additional sedation aside from what she gets for being on the ventilator. The [employer] ([place]) video endoscope was passed through the esophagus, which appears normal. The squamocolumnar junction is intact at 40 cm. Stomach is seen in its entirety including U-turn is normal. IMPRESSION: Normal EGD. In the area of maximal finger indentation in the left upper quadrant of the abdomen, 1% lidocaine anesthesia is used. Guidewire needle is passed through the abdominal wall and visualized within the body of the stomach. Through the needle a guidewire is passed and withdrawn endoscopically over this 20-gauge gastrostomy tube was placed without difficulty. Patient tolerated the procedure well with no immediate complications. PLAN: Plan is for frequent cleansing of G-tube site. Please with Betadine or hydrogen peroxide. Tube feedings will be started slowly after an interval of 4 hours at 30 cc an hour and advance to 60 cc/hour in the morning, if G-tube is tolerated. No immediate complications ordered. Please send copy of all reports to the ladle patcher and a copy to myself Dr. Hernandez. Mariel I MT: Kaushik
--- NOTE | 2019-11-09 15:33 | WPDANESPN ---
Anes - Prog Note Post-Op Date/Time: 11/09/19 15:33 Cardiovascular status: normal Respiratory status: other (trached/vent) Airway patency: other (trached/vent) Mental status: baseline Post-Op hydration status: normal Vital Signs: Last Vital Signs Temp 37.1 C 11/09/19 12:00 Pulse 89 11/09/19 14:54 Resp 18 11/09/19 14:54 BP 113/58 L 11/09/19 12:00 Pulse Ox 95 11/09/19 14:40 I/O: Intake & Output 11/08/19 11/09/19 11/09/19 23:59 07:59 15:59 Intake Total 183 200 150 Output Total 3450 2325 Balance -8577 -6762 150 Laboratory Tests 11/09/19 05:52 11/09/19 05:51 11/08/19 11/08/19 11/09/19 18:08 21:25 00:21 WBC RBC Hgb Hct MCV MCH MCHC RDW Plt Count MPV Puncture Site ABG pH ABG pCO2 ABG pO2 ABG PO2/FiO2 Ratio ABG HCO3 ABG O2 Saturation ABG O2 Content ABG Base Excess A-a Gradient Oxyhemoglobin Carboxyhemoglobin Methemoglobin Reduced Hemoglobin Total Hemoglobin O2 Delivery Device O2 Liters/Min Minute Volume Vent Rate Vent Mode FiO2 Tidal Volume PEEP Peak Inspir Pressure Pressure Support Sodium Potassium Chloride Carbon Dioxide BUN Creatinine Estim Creat Clear Calc Estimated GFR Glucose POC Capillary Glucose 139 H 95 70 Lactic Acid Calcium Phosphorus Magnesium TSH Thyroxine (T4) Free T3 Random Vancomycin 11/09/19 11/09/19 11/09/19 01:00 03:18 05:04 WBC RBC Hgb Hct MCV MCH MCHC RDW Plt Count MPV Puncture Site Right radial ABG pH 7.576 H* ABG pCO2 42.6 ABG pO2 55.1 L ABG PO2/FiO2 Ratio 1.38 ABG HCO3 38.7 H ABG O2 Saturation 92.5 L ABG O2 Content 12.4 L ABG Base Excess 15.3 A-a Gradient 181.1 Oxyhemoglobin 88.7 L Carboxyhemoglobin 1.4 Methemoglobin 0.2 Reduced Hemoglobin 9.7 H Total Hemoglobin 9.9 L O2 Delivery Device Ventilator O2 Liters/Min Not Reportable Minute Volume Not Reportable Vent Rate 18 Vent Mode Cmv FiO2 40 Tidal Volume 350 PEEP 8 Peak Inspir Pressure Not Reportable Pressure Support Not Reportable Sodium Potassium Chloride Carbon Dioxide BUN Creatinine Estim Creat Clear Calc Estimated GFR Glucose POC Capillary Glucose 79 99 Lactic Acid Calcium Phosphorus Magnesium TSH Thyroxine (T4) Free T3 Random Vancomycin 11/09/19 11/09/19 11/09/19 05:51 05:51 05:51 WBC RBC Hgb Hct MCV MCH MCHC RDW Plt Count MPV Puncture Site ABG pH ABG pCO2 ABG pO2 ABG PO2/FiO2 Ratio ABG HCO3 ABG O2 Saturation ABG O2 Content ABG Base Excess A-a Gradient Oxyhemoglobin Carboxyhemoglobin Methemoglobin Reduced Hemoglobin Total Hemoglobin O2 Delivery Device O2 Liters/Min Minute Volume Vent Rate Vent Mode FiO2 Tidal Volume PEEP Peak Inspir Pressure Pressure Support Sodium 138 Potassium 3.0 L Chloride 88 L Carbon Dioxide > 40 H BUN 79 H D Creatinine 1.70 H Estim Creat Clear Calc 47 Estimated GFR 31 L Glucose 121 H POC Capillary Glucose Lactic Acid Calcium 7.8 L Phosphorus 2.9 Magnesium 1.5 L TSH 2.560 Thyroxine (T4) 4.50 L Free T3 Pending Random Vancomycin 16.3 11/09/19 11/09/19 11/09/19 05:51 05:52 06:00 WBC 8.7 RBC 3.14 L Hgb 8.5 L Hct 28.7 L MCV 91.4 MCH 27.1 MCHC 29.6 L RDW 15.9 H Plt Count 287 MPV 11.5 H Puncture Site ABG pH ABG pCO2 ABG pO2 ABG PO2/FiO2 Ratio ABG HCO3 ABG O2 Saturation ABG O2 Content ABG Base Excess A-a Gradient Oxyhemoglobin Carboxyhemoglobin Methemoglobin Reduced Hemoglobin Total Hemoglobin O2 Delivery Device O2 Liters/
[2019-11-09] MEDS: INSULIN ASPART (*BKC) 100 UNITS/ML SUB-Q ×2 (17:29→22:00)
[2019-11-09] MEDS: EPOETIN ALFA 10,000 UNITS/ML VIAL 10000 UNITS SUB-Q (17:34)
--- NOTE | 2019-11-09 17:37 | PM.IMPN ---
Progress Note: A&P Assessment and Plan (1) Influenza A: Code(s): J10.1 - Influenza due to other identified influenza virus with other respiratory manifestations Status: Acute Assessment and Plan: Pt is on tamiflu (2) Septic shock: Code(s): A41.9 - Sepsis, unspecified organism; R65.21 - Severe sepsis with septic shock Status: Acute Assessment and Plan: Patient's prognosis is very poor will need trach and PEG, site acquisition manager spoke with the family, PEG planned today. (3) History of CHF (congestive heart failure): Code(s): Z86.79 - Personal history of other diseases of the circulatory system Status: Acute Assessment and Plan: Patient was placed on Lasix infusion diuresed 14 L, off infusion now (4) Acute kidney injury superimposed on chronic kidney disease: Code(s): N17.9 - Acute kidney failure, unspecified; N18.9 - Chronic kidney disease, unspecified Status: Acute Assessment and Plan: continue to watch kidney function , pt has history of CKD (5) Atrial fibrillation: Qualifiers: Atrial fibrillation type: unspecified Qualified Code(s): I48.91 - Unspecified atrial fibrillation Code(s): I48.91 - Unspecified atrial fibrillation Status: Acute Assessment and Plan: pt is on xarelto for anticoagulation (6) DVT prophylaxis: Code(s): Z29.9 - Encounter for prophylactic measures, unspecified Status: Acute Assessment and Plan: pt is on xarelto for anticoagulation (7) Anemia: Qualifiers: Anemia type: unspecified type Qualified Code(s): D64.9 - Anemia, unspecified Code(s): D64.9 - Anemia, unspecified Status: Chronic Assessment and Plan: Continue to monitor (8) Metabolic acidosis: Code(s): E87.2 - Acidosis Status: Resolved Assessment and Plan: pt was on sodium bicarbondate drip now resolved (9) Respiratory failure: Qualifiers: Chronicity: acute Respiratory failure complication: hypoxia and hypercapnia Qualified Code(s): J96.01 - Acute respiratory failure with hypoxia; J96.02 - Acute respiratory failure with hypercapnia Code(s): J96.90 - Respiratory failure, unspecified, unspecified whether with hypoxia or hypercapnia Status: Acute Assessment and Plan: Pt is intubated in icu, on iv vancomycin, iv rocephin ad iv zithromax (10) Cardiac arrest: Code(s): I46.9 - Cardiac arrest, cause unspecified Status: Acute Assessment and Plan: REcent cardiac arrest due to resp arrest and hyperkalaemia (11) Acute renal failure: Qualifiers: Acute renal failure type: unspecified Qualified Code(s): N17.9 - Acute kidney failure, unspecified Code(s): N17.9 - Acute kidney failure, unspecified Status: Acute Assessment and Plan: Pt has a history of CKD (12) Hyperkalemia: Code(s): E87.5 - Hyperkalemia Status: Acute Assessment and Plan: Continue to monitor potassium levels. Subjective Date/time seen: 11/09/19 17:37 Interval history: Patient is a 54-year-old female morbidly obese resident of shelter was sent to emergency department acute mental status change as patient was not responding and was not herself upon arrival to emergency department see was not able to provide any review of symptoms patient was re-evaluated and was found to be bradycardiac and may need to cardiac arrest CPR was initiated and patient was intubated and transferred to ICU currently patient on vent and to provide any review of symptoms, patient was found to have pneumonia positive for influenza A, acute kidney injury, septic shock. As per previous notes. Unfortunately pt is difficult to wean off the ventilator, pt in icu, family deciding on PEg and trachestomy. Peg to be placed today. Review of Systems Review of Systems: ROS unobtainable: unobtainable due to endotracheal tube Exam Narrati
[2019-11-09 19:20] LABS: Glucose Point of Care 235 (65-105)
--- NOTE | 2019-11-09 20:43 | PM.PNPUL ---
Progress Note: A&P Assessment and Plan (1) Respiratory failure: Qualifiers: Chronicity: acute Respiratory failure complication: hypoxia and hypercapnia Qualified Code(s): J96.01 - Acute respiratory failure with hypoxia; J96.02 - Acute respiratory failure with hypercapnia Code(s): J96.90 - Respiratory failure, unspecified, unspecified whether with hypoxia or hypercapnia Status: Acute Assessment and Plan: She has acute hypoxemic respiratory failure, on 40%, had trach today; she has been diuresed, was not able to wean, has a new Shiley trach with too much movement of her head for a new tracheostomy/. Spoke with her nurse about increasing sedation to prevent losing the trach. She has mild hypercapnea which is compensatory for hte metabolic alkalosis. Growing Pseudomonas. (2) Influenza A: Code(s): J10.1 - Influenza due to other identified influenza virus with other respiratory manifestations Status: Acute Assessment and Plan: She has confirmed influenza A, with secondary bacterial pneumonia, on treatment. Had Tamiflu. (3) Acute kidney injury superimposed on chronic kidney disease: Code(s): N17.9 - Acute kidney failure, unspecified; N18.9 - Chronic kidney disease, unspecified Status: Acute Assessment and Plan: BUN was as high as 125, creat 3.0; improved with fluids, now BUN 95, creat 1.5. (4) Hypothyroidism: Qualifiers: Hypothyroidism type: unspecified Qualified Code(s): E03.9 - Hypothyroidism, unspecified Code(s): E03.9 - Hypothyroidism, unspecified Status: Acute Assessment and Plan: consistent with myxedema coma; high TSH, bradycardic, hypotensive, hypothermia, hypoventilation; mild drop in sodium 134, elevated T3 and T4; she has thin eyebrows, doughy skin, decreased body hair, puffy eyelids, very classic. She is on treatment with IV Synthroid, cytomel, supportive measure including mechanical ventilation and management of infection. (5) Sepsis: Qualifiers: Sepsis type: sepsis due to unspecified organism Sepsis acute organ dysfunction status: unspecified Qualified Code(s): A41.9 - Sepsis, unspecified organism Code(s): A41.9 - Sepsis, unspecified organism Status: Acute Assessment and Plan: initially with hypotension; weaned from pressor; source was lungs with influenza and pneumonia; Subjective Date/time seen: 11/09/19 20:43 This 54 yo female is seen for acute respiratory failure POD #1 trach, Review of Systems Review of Systems: Narrative: not obtainable from the patient due to patient factors including sedation and intubation Exam Narrative: Exam Narrative: Morbidly obese female with new trach in place; no bleeding; she is nodding head up and down, very vigorous head movements that my endanger the trach site; not in distress; she is flat in the bariatric bed, left arm PICC. Not following commands. Scattered ecchymoses over her chest. Edema 2+ in upper extremities. She has a new trachesotomy midline neck,legs are less swollen, Const: General: no acute distress Eyes: Pupils: Equal, round and reactive pupils present Other: puffy upper eyelids; thinned eyebrows betty outer portion Neck: Lymphatic: lymphadenopathy not noted Other: has bruising under the right side of her chin Resp: Auscultation: diminished lung sounds Other: decreased lung sounds both sides of her chest; she is large BMI 54 in a bariatric bed, and the stethoscope is an isolation scope with limited acoustic range; therefore the auscultation is low yield; she has equal excursion of the chest wall. Cardi
[2019-11-09 21:28] LABS: Glucose Point of Care 214 (65-105)
[2019-11-09] MEDS: hydrALAZINE HCL 25 MG TABLET PO (21:50)
[2019-11-09] MEDS: INSULIN DETEMIR 100 UNITS/ML 30 UNITS SUB-Q (21:51)
[2019-11-09] MEDS: TOLNAFTATE 1% POWDER 45 GM BTL 1 APPLIC TOPICAL (21:52)
[2019-11-10] VITALS (27 sets, daily range): BP systolic 101–133; BP diastolic 50–65; PULSE 78–112; RESP 17–33; TEMP 36.1–37; O2SAT 91–98
[2019-11-10] MEDS: INSULIN ASPART (*BKC) 100 UNITS/ML SUB-Q ×4 (00:25→17:02)
[2019-11-10] MEDS: ACETAMINOPHEN 325 MG TABLET 650 MG PO (00:26)
[2019-11-10 01:02] LABS: Glucose Point of Care 219 (65-105)
[2019-11-10] MEDS: IPRATROPIUM BR 0.02% INH SOLN 0.5 MG/2.5 ML VIAL INHALATION ×4 (02:31→20:40)
[2019-11-10] MEDS: ALBUTEROL SULFATE NEB 2.5 MG/0.5 ML INH 5 MG INHALATION ×4 (02:31→20:40)
[2019-11-10] MEDS: PROPOFOL IV EMULSION 100 ML 27.9 MG IV CONT (03:11)
[2019-11-10 04:28] LABS: Alveolar/Arterial O2 Gradient 227.9 mmHg; Base Excess ABG 12.6 mEq/l (+/-2.0); Carboxyhemoglobin 0.5 % THb (0-2.0); Device VENTILATOR; Fractional Inspired Oxygen 50 %; Methemoglobin ABG 0.2 %THb (0-1.5); Modified Allen's Test Pass; Oxygen Content ABG 14.6 %vol (16.0-22.0); Oxygen Saturation ABG 94.5 % (95.0-100.0); Oxyhemoglobin 91.7 % THb (90.0-100.0); PO2 FiO2 Ratio Arterial Blood 1.38 %; Reduced Hemoglobin 7.6 %THb (0-5.0); Site Drawn RIGHT RADIAL; Total Hemoglobin 11.3 g/dL (12.0-18.0); pH ABG 7.473 (7.350-7.450)
[2019-11-10 04:29] LABS: Arterial Blood Gas PEEP 10 cmH2O; Arterial Blood Gas Tidal Volume 350 ml; Arterial Blood Gas Vent Mode CMV; Arterial Blood Gas Ventilator rate 16 /MIN
[2019-11-10] MEDS: EUCERIN CREAM 120 GM JAR 1 APPLIC TOPICAL (05:57)
[2019-11-10 06:08] LABS: Basophils Absolute Auto 0.1 K/mm3 (0.0-0.1); Basophils Percent Auto 0.7 % (0.2-1.2); Eosinophils Absolute Auto 0.6 K/mm3 (0-0.3); Eosinophils Percent Auto 4.4 % (0-4.4); Hematocrit 28.4 % (37.0-47.0); Hemoglobin 8.4 g/dL (12.0-15.0); Immature Granulocyte Absolute 0.99 K/mm3 (0.00-0.031); Immature Granulocyte Percent A 7.4 % (0-0.5); Lymphocytes Absolute Auto 1.56 K/mm3 (0.9-3.2); Lymphocytes Percent Auto 11.7 % (18.3-44.2); Mean Corpuscular HGB Conc 29.6 g/dl (32-36); Mean Corpuscular Volume 91.3 fl (80-100); Mean Platelet Volume 11.5 fl (7.4-10.4); Monocytes Absolute Auto 0.9 K/mm3 (0.1-0.6); Monocytes Percent Auto 6.5 % (2.6-8.5); Neutrophils Absolute Auto 9.2 K/mm3 (1.3-6.7); Neutrophils Percent Auto 69.3 % (45.5-73.1); Nucleated Red Blood Cells Absolute Auto 0.3 K/mm3 (0.0-0.012); Nucleated Red Blood Cells Perc 1.9 % (0.0-0.2); Platelet Count Result 304 k/mm3 (150-375); Red Blood Count 3.11 M/mm3 (4.2-5.4); Red Cell Distribution Width 15.9 % (11.5-14.5); White Blood Count 13.3 K/mm3 (4.5-10.0)
[2019-11-10 06:12] LABS: Lactic Acid 1.6 mmol/L (0.7-2.1); Magnesium 1.8 mg/dL (1.6-2.3); Phosphorus 4.2 mg/dL (2.5-4.5)
[2019-11-10] MEDS: LEVOTHYROXINE SODIUM INJ 100 MCG/5 ML VIAL 50 MCG IV PUSH (06:12)
[2019-11-10 06:20] LABS: Glucose Point of Care 167 (65-105)
[2019-11-10 06:31] LABS: Albumin Level 2.6 g/dL (3.5-5.1); Blood Urea Nitrogen 76 mg/dL (7-17); Calcium 7.9 mg/dL (8.4-10.2); Carbon Dioxide 38 mmol/L (22-30); Chloride 86 mmol/L (98-107); Estimated CRCL calculation 43 ml/min; Estimated Glomerular Filt Rate 27; Glucose 175 mg/dL (65-105); Phosphorus 4.3 mg/dL (2.5-4.5); Potassium 3.7 mmol/L (3.4-5.0); Sodium 135 mmol/L (137-145)
[2019-11-10] MEDS: PROPOFOL IV EMULSION 100 ML 22.3 MG IV CONT (09:09)
--- NOTE | 2019-11-10 09:12 | WPDINTPN ---
Progress Note: A&P Assessment and Plan (1) Respiratory failure: Qualifiers: Chronicity: acute Respiratory failure complication: hypoxia and hypercapnia Qualified Code(s): J96.01 - Acute respiratory failure with hypoxia; J96.02 - Acute respiratory failure with hypercapnia Code(s): J96.90 - Respiratory failure, unspecified, unspecified whether with hypoxia or hypercapnia Status: Acute Assessment and Plan: Intubated on 10/27/2019, status post tracheostomy on 11/08/2019 - chest x-ray with no change, FiO2 50%, peep to 10 - decreased urine output and creatinine trending up, will discontinue Lasix for now - Continue bronchodilators - BAL cultures growing Pseudomonas susceptible to ceftazidime, discontinued vancomycin, azithromycin and ceftriaxone on 11/09/2019 - started patient on ceftazidime on 11/09/2019 - on propofol for sedation - Appreciate pulmonology evaluation and recommendation. - status post bronchoscopy on 11/05/2019 which showed moderate secretion throughout the airway, mild to moderate inflammation (2) Septic shock: Code(s): A41.9 - Sepsis, unspecified organism; R65.21 - Severe sepsis with septic shock Status: Acute Assessment and Plan: : RESOLVED: patient presented with altered mental status, leukocytosis, bradycardic, hypotensive, metabolic acidosis - off levophed patient has a PICC line - BAL culture growing Pseudomonas, changed antibiotics to ceftazidime only (3) Cardiac arrest: Code(s): I46.9 - Cardiac arrest, cause unspecified Status: Acute Assessment and Plan: brief cardiac arrest most likely related to bradycardia, hyperkalemia, hypoxia, respiratory failure, hypothermia, ROSC brief CPR, - echocardiogram done on 10/27/2019: LVEF 50-55%, left ventricular chamber dimension is normal. Moderately increased left ventricular wall thickness, RV systolic function is normal, no pericardial effusion, no significant valvular abnormalities - patient open her eyes and has followed commands in the past - hemodynamically stable (4) Metabolic acidosis: Code(s): E87.2 - Acidosis Status: Resolved Assessment and Plan: RESOLVED: severe metabolic acidosis ON ADMISSION likely related to acute on chronic kidney disease, possibly also due to hypercapnia, hypotension, sepsis - patient received IV fluids, maintain mean arterial pressure is greater than 65 mmHg - continue to monitor (5) Anemia: Qualifiers: Anemia type: unspecified type Qualified Code(s): D64.9 - Anemia, unspecified Code(s): D64.9 - Anemia, unspecified Status: Chronic Assessment and Plan: patient has chronic anemia, was transfused packed RBCs on 10/25/2019 here at [facility] - hemoglobin stable. Iron panel showing anemia of chronic disease. Status post one unit PRBC given on 10/30/2019 - continue to monitor - stool guaiac positive, - EGD done on 11/09/2019 with no stigmata of bleeding and the stomach or duodenum. (6) Influenza A: Code(s): J10.1 - Influenza due to other identified influenza virus with other respiratory manifestations Status: Acute Assessment and Plan: RESOLVED: patient was positive for influenza A on admission, status post Tamiflu treatment course (7) Atrial fibrillation: Qualifiers: Atrial fibrillation type: unspecified Qualified Code(s): I48.91 - Unspecified atrial fibrillation Code(s): I48.91 - Unspecified atrial fibrillation Status: Acute Assessment and Plan: history of chronic AFib, on Xarelto at [facility], currently in sinus rhythm, continue to monitor - Holding Xarelto post tracheostomy and PEG tube placement - will discuss with GI and ENT regarding restarting Xarelto (8) Acute kidney injury superimposed on chronic kidney disease: Code(s): N17.9 - Acute kidney failure, unspecified; N18.9 - Chronic kid
[2019-11-10] MEDS: PANTOPRAZOLE SODIUM IV 40 MG VIAL IV PUSH (09:15)
[2019-11-10] MEDS: INSULIN DETEMIR 100 UNITS/ML 30 UNITS SUB-Q ×2 (09:20→20:43)
[2019-11-10] MEDS: DORNASE ALFA INH SOLN 1 MG/ML 2.5 ML AMP 2.5 MG INHALATION ×2 (09:46→20:47)
[2019-11-10 09:54] LABS: Glucose Point of Care 221 (65-105)
[2019-11-10] MEDS: hydrALAZINE HCL 25 MG TABLET PO ×4 (09:55→22:18)
[2019-11-10] MEDS: LIOTHYRONINE SODIUM 25 MCG TABLET PO (09:55)
--- NOTE | 2019-11-10 10:07 | PM.PNNEP ---
Progress Note: A&P Assessment and Plan (1) Acute renal failure: Qualifiers: Acute renal failure type: unspecified Qualified Code(s): N17.9 - Acute kidney failure, unspecified Code(s): N17.9 - Acute kidney failure, unspecified Status: Acute Assessment and Plan: baseline creatinine ~ 0.8 - 1.3mg/dl (from review of OSH records) renal ultrasound could see only the right kidney which was normal; left kidney was unable to be seen possibly due to technical limitation because of her obesity urine electrolytes are non pre renal, Fe-Urea is around 30% which is borderline pre renal. UA shows a bland sediment; urine eosinophils are negative; CPK is normal; ESR is greater than 140; C3 is slightly low at 76 and C4 is normal. Rheumatoid factor is low; other tests are pending. The creatinine had improved her recently has risen. Most likely this is in response to diuretics. The diuretics have been held. Discussed with Dr. Alix mtz (2) Septic shock: Code(s): A41.9 - Sepsis, unspecified organism; R65.21 - Severe sepsis with septic shock Status: Acute Assessment and Plan: Resolved (3) Anemia: Qualifiers: Anemia type: unspecified type Qualified Code(s): D64.9 - Anemia, unspecified Code(s): D64.9 - Anemia, unspecified Status: Chronic Assessment and Plan: On Epogen. Hemoglobin gradually improving (4) Respiratory failure: Qualifiers: Chronicity: acute Respiratory failure complication: hypoxia and hypercapnia Qualified Code(s): J96.01 - Acute respiratory failure with hypoxia; J96.02 - Acute respiratory failure with hypercapnia Code(s): J96.90 - Respiratory failure, unspecified, unspecified whether with hypoxia or hypercapnia Status: Acute Assessment and Plan: remains on ventilator s/p tracheostomy Subjective Date/time seen: 11/10/19 10:07 Interval history: Patient is on the ventilator per tracheostomy. She looks comfortable. Not responsive. Review of Systems Cardiovascular: Cardiovascular: Reports no additional cardiovascular complaints Respiratory: Respiratory: Reports no additional respiratory complaints Gastrointestinal: Gastrointestinal: Reports no additional gastrointestinal complaints Genitourinary: Genitourinary: Reports no additional female genitourinary complaints Exam Narrative: Exam Narrative: General: WD/WN female in NAD; tracheostomy Heart: normal S1 and S2; no rub Lungs: coarse throughout and symmetric Abdomen: soft, nontender, nondistended, positive bowel sounds Extremities: 1+ edema. Skin: No rash Objective Data Vital Signs Vital Signs: Vital Signs - 24 hr 11/09/19 12:00 11/09/19 14:00 11/09/19 14:38 Temperature 37.1 C Pulse Rate 89 82 84 Respiratory Rate 21 H 19 Blood Pressure 113/58 L Pulse Oximetry 94 11/09/19 14:40 11/09/19 14:54 11/09/19 16:00 Temperature Pulse Rate 87 89 91 Respiratory Rate 18 Blood Pressure Pulse Oximetry 95 11/09/19 18:00 11/09/19 18:05 11/09/19 20:00 Temperature 37.3 C Pulse Rate 92 93 93 Respiratory Rate 18 Blood Pressure 103/57 L Pulse Oximetry 94 95 11/09/19 21:05 11/09/19 21:10 11/09/19 21:30 Temperature Pulse Rate 95 95 94 Respiratory Rate 24 H 18 Blood Pressure Pulse Oximetry 94 11/09/19 22:00 11/09/19 23:45 11/10/19 00:00 Temperature 37.0 C Pulse Rate 94 89 101 H Respiratory Rate 28 H 25 H Blood Pressure 122/69 121/64 Pulse Oximetry 93 96 91 11/10/19 02:00 11/10/19 02:27 11/10/19 02:32 Temperature Pulse Rate 87 85 84 Respiratory Rate 20 23 H Blood Pressure 101/59 L Pulse Oximetry 95 98 11/10/19 02:42 11/10/19 04:00 11/10/19 05:30 Temperature 36.1 C L Pulse Rate 88 95 88 Respiratory Rate 22 H 19 Blood Pressure 109/58 L Pulse Oximetry 95 96 11/10/19 06:00 11/10/19 08:58 11/10/19 09:00 Temperature Pulse Rate 86 78 81 Respi
--- NOTE | 2019-11-10 11:15 | WPDGIPROGNO ---
Progress Note: A&P Assessment and Plan (1) Dysphagia: Qualifiers: Dysphagia type: unspecified Qualified Code(s): R13.10 - Dysphagia, unspecified Code(s): R13.10 - Dysphagia, unspecified Status: Acute Assessment and Plan: Dr Hernandez placed G-tube and TF working ok, no issues. Plan for LATC when medically more stable. (2) Gastrojejunostomy tube status: Code(s): Z93.4 - Other artificial openings of gastrointestinal tract status Status: Acute (3) Respiratory failure: Qualifiers: Chronicity: acute Respiratory failure complication: hypoxia and hypercapnia Qualified Code(s): J96.01 - Acute respiratory failure with hypoxia; J96.02 - Acute respiratory failure with hypercapnia Code(s): J96.90 - Respiratory failure, unspecified, unspecified whether with hypoxia or hypercapnia Status: Acute Assessment and Plan: trach in place, by datastage architect. (4) Acute kidney injury superimposed on chronic kidney disease: Code(s): N17.9 - Acute kidney failure, unspecified; N18.9 - Chronic kidney disease, unspecified Status: Acute Subjective Date/time seen: 11/10/19 11:15 Interval history: patient tolerating TF by G-tube at 40ml/h. Review of Systems Review of Systems: ROS unobtainable: unobtainable due to endotracheal tube and unobtainable due to mental status Exam Const: General: comfortable HENMT: General nose exam: Normal nares present Other: ETT in place Eyes: Pupils: Equal, round and reactive pupils present Resp: Effort & Inspection: normal respiratory effort Auscultation: rales and diminished lung sounds Cardio: Rate: regular rate GI: Inspection: non-distended GI Palp: Yes Soft to palpation and No Tenderness to palpation present (GI) Auscultation: normal bowel sounds Other: morbid obesity, G-tube in position, tube feeding running : Other: Moscoso catheter in place Urinary Catheter: Urinary Catheter: patent and draining and urine clear Skin: Lesions: lesion noted Wounds: wounds noted (R SC CVC site has wound wth redness around it & small amount serosangdischa) Neuro: Cranial nerves: Yes Equal, round and reactive pupils present Other: patient is intubated and sedated Psych: Other: unable to assess at this time Objective Data Vital Signs Vital Signs: Vital Signs - 24 hr 11/09/19 12:00 11/09/19 14:00 11/09/19 14:38 Temperature 98.7 F Pulse Rate 89 82 84 Respiratory Rate 21 H 19 Blood Pressure 113/58 L Pulse Oximetry 94 11/09/19 14:40 11/09/19 14:54 11/09/19 16:00 Temperature Pulse Rate 87 89 91 Respiratory Rate 18 Blood Pressure Pulse Oximetry 95 11/09/19 18:00 11/09/19 18:05 11/09/19 20:00 Temperature 99.1 F Pulse Rate 92 93 93 Respiratory Rate 18 Blood Pressure 103/57 L Pulse Oximetry 94 95 11/09/19 21:05 11/09/19 21:10 11/09/19 21:30 Temperature Pulse Rate 95 95 94 Respiratory Rate 24 H 18 Blood Pressure Pulse Oximetry 94 11/09/19 22:00 11/09/19 23:45 11/10/19 00:00 Temperature 98.6 F Pulse Rate 94 89 101 H Respiratory Rate 28 H 25 H Blood Pressure 122/69 121/64 Pulse Oximetry 93 96 91 11/10/19 02:00 11/10/19 02:27 11/10/19 02:32 Temperature Pulse Rate 87 85 84 Respiratory Rate 20 23 H Blood Pressure 101/59 L Pulse Oximetry 95 98 11/10/19 02:42 11/10/19 04:00 11/10/19 05:30 Temperature 96.9 F L Pulse Rate 88 95 88 Respiratory Rate 22 H 19 Blood Pressure 109/58 L Pulse Oximetry 95 96 11/10/19 06:00 11/10/19 08:00 11/10/19 08:58 Temperature 98 F Pulse Rate 86 84 78 Respiratory Rate 18 17 Blood Pressure 112/50 L Pulse Oximetry 97 11/10/19 09:00 11/10/19 09:48 11/10/19 09:53 Temperature Pulse Rate 81 80 Respiratory Rate 17 Blood Pressure Pulse Oximetry 98 95 11/10/19 10:00 Temperature Pulse Rate 112 H Respiratory Rate 22 H Blood Pressure 120/55 L Pulse Oximetry 96 Intake/Output In
[2019-11-10] MEDS: TOLNAFTATE 1% POWDER 45 GM BTL 1 APPLIC TOPICAL ×2 (11:17→22:00)
[2019-11-10] MEDS: SILVERGEL (ELTA) 45 ML 1 APPLIC TOPICAL (11:17)
[2019-11-10] MEDS: NEOMYCIN/POLYMYXIN/BACITRACIN OINTMENT 15 GM TUBE 1 APPLIC TOPICAL (11:17)
[2019-11-10 12:05] LABS: Glucose Point of Care 212 (65-105)
[2019-11-10] MEDS: PROPOFOL IV EMULSION 100 ML 13.1 MG IV CONT ×2 (14:54→22:18)
[2019-11-10 17:18] LABS: Glucose Point of Care 201 (65-105)
--- NOTE | 2019-11-10 17:36 | PM.IMPN ---
Progress Note: A&P Assessment and Plan (1) Influenza A: Code(s): J10.1 - Influenza due to other identified influenza virus with other respiratory manifestations Status: Acute Assessment and Plan: Pt is on tamiflu (2) Septic shock: Code(s): A41.9 - Sepsis, unspecified organism; R65.21 - Severe sepsis with septic shock Status: Acute Assessment and Plan: Patient's prognosis is very poor will need trach and PEG, critical care nurse spoke with the family, PEG planned today. (3) History of CHF (congestive heart failure): Code(s): Z86.79 - Personal history of other diseases of the circulatory system Status: Acute Assessment and Plan: Patient was placed on Lasix infusion diuresed 14 L, off infusion now (4) Acute kidney injury superimposed on chronic kidney disease: Code(s): N17.9 - Acute kidney failure, unspecified; N18.9 - Chronic kidney disease, unspecified Status: Acute Assessment and Plan: continue to watch kidney function , pt has history of CKD (5) Atrial fibrillation: Qualifiers: Atrial fibrillation type: unspecified Qualified Code(s): I48.91 - Unspecified atrial fibrillation Code(s): I48.91 - Unspecified atrial fibrillation Status: Acute Assessment and Plan: pt is on xarelto for anticoagulation (6) DVT prophylaxis: Code(s): Z29.9 - Encounter for prophylactic measures, unspecified Status: Acute Assessment and Plan: pt is on xarelto for anticoagulation (7) Anemia: Qualifiers: Anemia type: unspecified type Qualified Code(s): D64.9 - Anemia, unspecified Code(s): D64.9 - Anemia, unspecified Status: Chronic Assessment and Plan: Continue to monitor (8) Metabolic acidosis: Code(s): E87.2 - Acidosis Status: Resolved Assessment and Plan: pt was on sodium bicarbondate drip now resolved (9) Respiratory failure: Qualifiers: Chronicity: acute Respiratory failure complication: hypoxia and hypercapnia Qualified Code(s): J96.01 - Acute respiratory failure with hypoxia; J96.02 - Acute respiratory failure with hypercapnia Code(s): J96.90 - Respiratory failure, unspecified, unspecified whether with hypoxia or hypercapnia Status: Acute Assessment and Plan: Pt is intubated in icu, on iv vancomycin, iv rocephin ad iv zithromax (10) Cardiac arrest: Code(s): I46.9 - Cardiac arrest, cause unspecified Status: Acute Assessment and Plan: REcent cardiac arrest due to resp arrest and hyperkalaemia (11) Acute renal failure: Qualifiers: Acute renal failure type: unspecified Qualified Code(s): N17.9 - Acute kidney failure, unspecified Code(s): N17.9 - Acute kidney failure, unspecified Status: Acute Assessment and Plan: Pt has a history of CKD (12) Hyperkalemia: Code(s): E87.5 - Hyperkalemia Status: Acute Assessment and Plan: Continue to monitor potassium levels. Subjective Date/time seen: 11/10/19 17:36 Interval history: Patient is a 54-year-old female morbidly obese resident of long-term was sent to emergency department acute mental status change as patient was not responding and was not herself upon arrival to emergency department see was not able to provide any review of symptoms patient was re-evaluated and was found to be bradycardiac and may need to cardiac arrest CPR was initiated and patient was intubated and transferred to ICU currently patient on vent and to provide any review of symptoms, patient was found to have pneumonia positive for influenza A, acute kidney injury, septic shock. As per previous notes. Unfortunately pt is difficult to wean off the ventilator, pt in icu, pt is sp trache and peg awaiting RUDY placement Review of Systems Review of Systems: ROS unobtainable: unobtainable due to endotracheal tube Exam Narrative: Exam Narr
--- NOTE | 2019-11-10 18:48 | PM.PNPUL ---
Progress Note: A&P Assessment and Plan (1) Respiratory failure: Qualifiers: Chronicity: acute Respiratory failure complication: hypoxia and hypercapnia Qualified Code(s): J96.01 - Acute respiratory failure with hypoxia; J96.02 - Acute respiratory failure with hypercapnia Code(s): J96.90 - Respiratory failure, unspecified, unspecified whether with hypoxia or hypercapnia Status: Acute Assessment and Plan: She has acute hypoxemic respiratory failure, on 40%, had trach 2/; POD #2, had sedation increased to prevent head shaking and worsening of incision. She has been diuresed 35 liters. Has Shiley trach; She has mild hypercapnea which is compensatory for the metabolic alkalosis. Growing Pseudomonas from bronch TuesdayNov 05. (2) Influenza A: Code(s): J10.1 - Influenza due to other identified influenza virus with other respiratory manifestations Status: Acute Assessment and Plan: She has confirmed influenza A, with secondary bacterial pneumonia, on treatment. Completed Tamiflu. (3) Acute kidney injury superimposed on chronic kidney disease: Code(s): N17.9 - Acute kidney failure, unspecified; N18.9 - Chronic kidney disease, unspecified Status: Acute Assessment and Plan: BUN was as high as 125, creat 3.0; improved with fluids, now BUN 76, creat 1.9. (4) Hypothyroidism: Qualifiers: Hypothyroidism type: unspecified Qualified Code(s): E03.9 - Hypothyroidism, unspecified Code(s): E03.9 - Hypothyroidism, unspecified Status: Acute Assessment and Plan: consistent with myxedema coma; high TSH, bradycardic, hypotensive, hypothermia, hypoventilation; mild drop in sodium 134, elevated T3 and T4; she has thin eyebrows, doughy skin, decreased body hair, puffy eyelids, very classic. She is on treatment with IV Synthroid, cytomel, supportive measure including mechanical ventilation and management of infection. (5) Sepsis: Qualifiers: Sepsis acute organ dysfunction status: unspecified Sepsis type: sepsis due to unspecified organism Qualified Code(s): A41.9 - Sepsis, unspecified organism Code(s): A41.9 - Sepsis, unspecified organism Status: Acute Assessment and Plan: initially with hypotension; weaned from pressor; source was lungs with influenza and pneumonia; (6) Diarrhea: Code(s): R19.7 - Diarrhea, unspecified Status: Acute Assessment and Plan: now has rectal tube; check stool for C diff. Subjective Date/time seen: 11/10/19 18:48 This 54 yo female is seen for acute respiratory failure POD #2 trach, now having diarrhea liquid gold color. She has a rectal tube, still has some escaping the tube in the perineal area. She is lightly sedated, not shaking her head at all. The trach site is healing. FiO2 40%. Review of Systems Review of Systems: Narrative: Narrative: not obtainable from the patient due to patient factors including sedation and intubation Exam Narrative: Exam Narrative: Morbidly obese female with trach in place; no bleeding; not moving her head as she was before. Left arm PICC. Not following commands. Scattered ecchymoses over her chest. Edema 1+ in upper extremities. She has a trachesotomy midline neck,legs are less much swollen, rectal tube with yellow gold liquid stool. Const: General: no acute distress Eyes: Pupils: Equal, round and reactive pupils present Other: puffy upper eyelids; thinned eyebrows Neck: Lymphatic: lymphadenopathy not noted Other: has bruising under the right side of her chin Resp: Auscultation: diminished lung sounds
[2019-11-10 21:18] LABS: Glucose Point of Care 179 (65-105)
[2019-11-11] VITALS (30 sets, daily range): BP systolic 89–129; BP diastolic 47–70; PULSE 88–135; RESP 18–35; TEMP 36.6–37.4; O2SAT 90–96
[2019-11-11] MEDS: ALBUTEROL SULFATE NEB 2.5 MG/0.5 ML INH 5 MG INHALATION ×4 (01:05→19:42)
[2019-11-11] MEDS: IPRATROPIUM BR 0.02% INH SOLN 0.5 MG/2.5 ML VIAL INHALATION ×4 (01:05→19:43)
[2019-11-11 01:07] LABS: Glucose Point of Care 178 (65-105)
[2019-11-11] MEDS: PROPOFOL IV EMULSION 100 ML 13.1 MG IV CONT ×3 (01:28→15:43)
[2019-11-11 04:54] LABS: Hematocrit 27.7 % (37.0-47.0); Hemoglobin 8.5 g/dL (12.0-15.0); Mean Corpuscular HGB Conc 30.7 g/dl (32-36); Mean Corpuscular Volume 91.1 fl (80-100); Mean Platelet Volume 11.2 fl (7.4-10.4); Platelet Count Result 301 k/mm3 (150-375); Red Blood Count 3.04 M/mm3 (4.2-5.4); Red Cell Distribution Width 16.2 % (11.5-14.5); White Blood Count 15.9 K/mm3 (4.5-10.0)
[2019-11-11 04:54] LABS: Alveolar/Arterial O2 Gradient 205.3 mmHg; Base Excess ABG 10.3 mEq/l (+/-2.0); Carboxyhemoglobin 0.9 % THb (0-2.0); Fractional Inspired Oxygen 45 %; HCO3 ABG 34.5 mEq/l (22.0-26.0); Methemoglobin ABG 0.2 %THb (0-1.5); Oxygen Content ABG 15.5 %vol (16.0-22.0); Oxygen Saturation ABG 94.1 % (95.0-100.0); Oxyhemoglobin 90.7 % THb (90.0-100.0); PCO2 ABG 44.9 mmHg (35.0-45.0); PO2 ABG 64.5 mmHg (80.0-100.0); PO2 FiO2 Ratio Arterial Blood 1.43 %; Reduced Hemoglobin 8.2 %THb (0-5.0); Total Hemoglobin 12.1 g/dL (12.0-18.0); pH ABG 7.504 (7.350-7.450)
[2019-11-11 04:55] LABS: Device VENTILATOR; Modified Allen's Test Pass; Site Drawn RIGHT RADIAL
[2019-11-11 04:56] LABS: Arterial Blood Gas PEEP 10 cmH2O; Arterial Blood Gas Tidal Volume 350 ml; Arterial Blood Gas Vent Mode CMV; Arterial Blood Gas Ventilator rate 16 /MIN
[2019-11-11] MEDS: LEVOTHYROXINE SODIUM INJ 100 MCG/5 ML VIAL 50 MCG IV PUSH (05:10)
[2019-11-11 05:14] LABS: Blood Urea Nitrogen 70 mg/dL (7-17); Calcium 7.9 mg/dL (8.4-10.2); Carbon Dioxide 36 mmol/L (22-30); Chloride 87 mmol/L (98-107); Estimated CRCL calculation 38 ml/min; Estimated Glomerular Filt Rate 23; Glucose 212 mg/dL (65-105); Lactic Acid 1.2 mmol/L (0.7-2.1); Magnesium 1.7 mg/dL (1.6-2.3); Phosphorus 4.6 mg/dL (2.5-4.5); Potassium 3.4 mmol/L (3.4-5.0); Sodium 133 mmol/L (137-145)
[2019-11-11] MEDS: INSULIN ASPART (*BKC) 100 UNITS/ML SUB-Q ×4 (05:27→20:22)
[2019-11-11] MEDS: PANTOPRAZOLE SODIUM IV 40 MG VIAL IV PUSH (09:06)
[2019-11-11] MEDS: INSULIN DETEMIR 100 UNITS/ML 30 UNITS SUB-Q ×2 (09:18→20:21)
[2019-11-11] MEDS: LIOTHYRONINE SODIUM 25 MCG TABLET PO (09:23)
[2019-11-11] MEDS: SILVERGEL (ELTA) 45 ML 1 APPLIC TOPICAL (09:23)
[2019-11-11] MEDS: EUCERIN CREAM 120 GM JAR 1 APPLIC TOPICAL (09:23)
[2019-11-11] MEDS: NEOMYCIN/POLYMYXIN/BACITRACIN OINTMENT 15 GM TUBE 1 APPLIC TOPICAL (09:23)
[2019-11-11] MEDS: hydrALAZINE HCL 25 MG TABLET PO ×2 (09:23→12:34)
[2019-11-11] MEDS: TOLNAFTATE 1% POWDER 45 GM BTL 1 APPLIC TOPICAL ×2 (09:41→20:19)
[2019-11-11 09:48] LABS: Glucose Point of Care 197 (65-105)
[2019-11-11 12:31] LABS: Glucose Point of Care 230 (65-105)
--- NOTE | 2019-11-11 12:57 | WPDINTPN ---
Progress Note: A&P Assessment and Plan (1) Respiratory failure: Qualifiers: Chronicity: acute Respiratory failure complication: hypoxia and hypercapnia Qualified Code(s): J96.01 - Acute respiratory failure with hypoxia; J96.02 - Acute respiratory failure with hypercapnia Code(s): J96.90 - Respiratory failure, unspecified, unspecified whether with hypoxia or hypercapnia Status: Acute Assessment and Plan: Intubated on 10/27/2019, status post tracheostomy on 11/08/2019 - chest x-ray with no change, FiO2 50%, peep to 10 - decreased urine output and creatinine trending up, will discontinue Lasix for now - Continue bronchodilators - BAL cultures growing Pseudomonas susceptible to ceftazidime, discontinued vancomycin, azithromycin and ceftriaxone on 11/09/2019 - started patient on ceftazidime on 11/09/2019 - on propofol for sedation - Appreciate pulmonology evaluation and recommendation. - status post bronchoscopy on 11/05/2019 which showed moderate secretion throughout the airway, mild to moderate inflammation (2) Acute kidney injury superimposed on chronic kidney disease: Code(s): N17.9 - Acute kidney failure, unspecified; N18.9 - Chronic kidney disease, unspecified Status: Acute Assessment and Plan: acute on chronic kidney disease, baseline creatinine 1.1-1.3 in November 2018 at [facility]. - Likely due to dehydration, sepsis, hypertension, diuretics. Also has longstanding diabetes, hypertension, CHF which all could be contributing to her chronic kidney disease. - decreased urine output and worsening creatinine, Lasix was stopped. may have over diuresed - will give 1 L IV fluid bolus and discussed with Nephrology - Appreciate nephrology following the patient (3) Septic shock: Code(s): A41.9 - Sepsis, unspecified organism; R65.21 - Severe sepsis with septic shock Status: Acute Assessment and Plan: : RESOLVED: patient presented with altered mental status, leukocytosis, bradycardic, hypotensive, metabolic acidosis - off levophed patient has a PICC line - BAL culture growing Pseudomonas, changed antibiotics to ceftazidime only (4) Cardiac arrest: Code(s): I46.9 - Cardiac arrest, cause unspecified Status: Acute Assessment and Plan: brief cardiac arrest most likely related to bradycardia, hyperkalemia, hypoxia, respiratory failure, hypothermia, ROSC brief CPR, - echocardiogram done on 10/27/2019: LVEF 50-55%, left ventricular chamber dimension is normal. Moderately increased left ventricular wall thickness, RV systolic function is normal, no pericardial effusion, no significant valvular abnormalities - patient open her eyes and has followed commands in the past - hemodynamically stable (5) Metabolic acidosis: Code(s): E87.2 - Acidosis Status: Resolved Assessment and Plan: RESOLVED: severe metabolic acidosis ON ADMISSION likely related to acute on chronic kidney disease, possibly also due to hypercapnia, hypotension, sepsis - patient received IV fluids, maintain mean arterial pressure is greater than 65 mmHg - continue to monitor (6) Anemia: Qualifiers: Anemia type: unspecified type Qualified Code(s): D64.9 - Anemia, unspecified Code(s): D64.9 - Anemia, unspecified Status: Chronic Assessment and Plan: patient has chronic anemia, was transfused packed RBCs on 10/25/2019 here at [facility] - hemoglobin stable. Iron panel showing anemia of chronic disease. Status post one unit PRBC given on 10/30/2019 - continue to monitor - stool guaiac positive, - EGD done on 11/09/2019 with no stigmata of bleeding and the stomach or duodenum. (7) Influenza A: Code(s): J10.1 - Influenza due to other identified influenza virus with other respiratory manifestations Status: Acute Assessment and Plan: RESOLVED: patient was
[2019-11-11] MEDS: SODIUM CHLORIDE 0.9% IV 1,000 ML 999 ML IV CONT (13:30)
[2019-11-11] MEDS: ACETAMINOPHEN 325 MG TABLET 650 MG PO ×2 (13:30→20:13)
[2019-11-11 16:17] LABS: Glucose Point of Care 212 (65-105)
--- NOTE | 2019-11-11 16:36 | PM.IMPN ---
Progress Note: A&P Assessment and Plan (1) Influenza A: Code(s): J10.1 - Influenza due to other identified influenza virus with other respiratory manifestations Status: Acute Assessment and Plan: Pt is on tamiflu completed course (2) Septic shock: Code(s): A41.9 - Sepsis, unspecified organism; R65.21 - Severe sepsis with septic shock Status: Acute Assessment and Plan: Patient's prognosis is very poor will need trach and PEG, strategic planner spoke with the family, PEG planned today. (3) History of CHF (congestive heart failure): Code(s): Z86.79 - Personal history of other diseases of the circulatory system Status: Acute Assessment and Plan: Patient was placed on Lasix infusion diuresed 14 L off lasix now (4) Acute kidney injury superimposed on chronic kidney disease: Code(s): N17.9 - Acute kidney failure, unspecified; N18.9 - Chronic kidney disease, unspecified Status: Acute Assessment and Plan: continue to watch kidney function , pt has history of CKD, pt needs some fluid today (5) Atrial fibrillation: Qualifiers: Atrial fibrillation type: unspecified Qualified Code(s): I48.91 - Unspecified atrial fibrillation Code(s): I48.91 - Unspecified atrial fibrillation Status: Acute Assessment and Plan: pt is on xarelto for anticoagulation (6) DVT prophylaxis: Code(s): Z29.9 - Encounter for prophylactic measures, unspecified Status: Acute Assessment and Plan: pt is on xarelto for anticoagulation (7) Anemia: Qualifiers: Anemia type: unspecified type Qualified Code(s): D64.9 - Anemia, unspecified Code(s): D64.9 - Anemia, unspecified Status: Chronic Assessment and Plan: Continue to monitor hb 8.5 (8) Metabolic acidosis: Code(s): E87.2 - Acidosis Status: Resolved Assessment and Plan: pt was on sodium bicarbondate drip now resolved (9) Respiratory failure: Qualifiers: Chronicity: acute Respiratory failure complication: hypoxia and hypercapnia Qualified Code(s): J96.01 - Acute respiratory failure with hypoxia; J96.02 - Acute respiratory failure with hypercapnia Code(s): J96.90 - Respiratory failure, unspecified, unspecified whether with hypoxia or hypercapnia Status: Acute Assessment and Plan: Pt is intubated in icu, on iv ceftazidime (10) Cardiac arrest: Code(s): I46.9 - Cardiac arrest, cause unspecified Status: Acute Assessment and Plan: REcent cardiac arrest due to resp arrest and hyperkalaemia (11) Acute renal failure: Qualifiers: Acute renal failure type: unspecified Qualified Code(s): N17.9 - Acute kidney failure, unspecified Code(s): N17.9 - Acute kidney failure, unspecified Status: Acute Assessment and Plan: Pt has a history of CKD (12) Hyperkalemia: Code(s): E87.5 - Hyperkalemia Status: Acute Assessment and Plan: Continue to monitor potassium levels. althea 3.4 Subjective Date/time seen: 11/11/19 16:36 Interval history: Patient is a 54-year-old female morbidly obese resident of half-way was sent to emergency department acute mental status change as patient was not responding and was not herself upon arrival to emergency department see was not able to provide any review of symptoms patient was re-evaluated and was found to be bradycardiac and may need to cardiac arrest CPR was initiated and patient was intubated and transferred to ICU currently patient on vent and to provide any review of symptoms, patient was found to have pneumonia positive for influenza A, acute kidney injury, septic shock. As per previous notes. Unfortunately pt is difficult to wean off the ventilator, pt in icu, pt is sp bronchoscopy, trache and peg awaiting RUDY placement. Pt creat is slightly up, pt receiving fluids today Review of Systems Review of
[2019-11-11] MEDS: DORNASE ALFA INH SOLN 1 MG/ML 2.5 ML AMP 2.5 MG INHALATION (19:42)
[2019-11-11] MEDS: SODIUM CHLORIDE 0.9% IV 1,000 ML 500 ML IV CONT (20:35)
--- NOTE | 2019-11-11 22:15 | ECG_ITS ---
Measurements Intervals [place] Rate: 132 P: IN: 0 QRS: -10 QRSD: 79 T: 76 QT: 318 QTc: 472 Interpretive Statements ATRIAL FLUTTER/TACHYCARDIA WITH RAPID VENTRICULAR RESPONSE INFERIOR INFARCT, AGE INDETERMINATE BORDERLINE ST-T WAVE ABNORMALITY- LATERAL LEADS ABNORMAL ECG Electronically Signed On 11-12-2019 10:51:03 ROBOTIC TECHNICIAN by Honorio Gaviria D.O.
[2019-11-11] MEDS: AMIODARONE 150 MG/D5W 100 ML 150 MG/100 ML BAG 600 MG IV CONT (22:37)
[2019-11-11 22:42] LABS: Glucose Point of Care 242 (65-105)
[2019-11-11] MEDS: AMIODARONE 360 MG/D5W 200 ML 360 MG/200 ML BAG 33.3 MG IV CONT (23:08)
[2019-11-12] VITALS (32 sets, daily range): BP systolic 100–144; BP diastolic 53–76; PULSE 76–127; RESP 24–30; TEMP 36.2–36.6; O2SAT 27–97
[2019-11-12 00:47] LABS: Glucose Point of Care 302 (65-105)
[2019-11-12] MEDS: PROPOFOL IV EMULSION 100 ML 8.7 MG IV CONT (00:48)
[2019-11-12] MEDS: INSULIN ASPART (*BKC) 100 UNITS/ML SUB-Q ×6 (00:49→20:55)
[2019-11-12] MEDS: IPRATROPIUM BR 0.02% INH SOLN 0.5 MG/2.5 ML VIAL INHALATION ×4 (01:13→21:40)
[2019-11-12] MEDS: ALBUTEROL SULFATE NEB 2.5 MG/0.5 ML INH 5 MG INHALATION ×4 (01:13→21:40)
[2019-11-12] MEDS: METOPROLOL TARTRATE INJ 5 MG/5 ML VIAL IV PUSH (02:37)
[2019-11-12] MEDS: ACETAMINOPHEN 325 MG TABLET 650 MG PO (03:50)
[2019-11-12] MEDS: AMIODARONE 360 MG/D5W 200 ML 360 MG/200 ML BAG 16.7 MG IV CONT ×3 (04:26→23:06)
[2019-11-12] MEDS: LEVOTHYROXINE SODIUM INJ 100 MCG/5 ML VIAL 50 MCG IV PUSH (05:29)
[2019-11-12 05:38] LABS: Alveolar/Arterial O2 Gradient 101.8 mmHg; Base Excess ABG 4.6 mEq/l (+/-2.0); Device VENTILATOR; Fractional Inspired Oxygen 30 %; Methemoglobin ABG 0.2 %THb (0-1.5); Modified Allen's Test Pass; Oxygen Content ABG 13.9 %vol (16.0-22.0); Oxygen Saturation ABG 95.2 % (95.0-100.0); Oxyhemoglobin 91.4 % THb (90.0-100.0); PCO2 ABG 36.9 mmHg (35.0-45.0); PO2 ABG 68.7 mmHg (80.0-100.0); PO2 FiO2 Ratio Arterial Blood 2.29 %; Reduced Hemoglobin 7.4 %THb (0-5.0); Site Drawn RIGHT RADIAL; Total Hemoglobin 10.8 g/dL (12.0-18.0); pH ABG 7.498 (7.350-7.450)
[2019-11-12 05:39] LABS: Arterial Blood Gas PEEP 10 cmH2O; Arterial Blood Gas Tidal Volume 350 ml; Arterial Blood Gas Vent Mode CMV; Arterial Blood Gas Ventilator rate 16 /MIN
[2019-11-12 06:08] LABS: Basophils Absolute Auto 0.1 K/mm3 (0.0-0.1); Basophils Percent Auto 0.8 % (0.2-1.2); Eosinophils Absolute Auto 0.6 K/mm3 (0-0.3); Hematocrit 28.4 % (37.0-47.0); Hemoglobin 8.6 g/dL (12.0-15.0); Immature Granulocyte Absolute 1.36 K/mm3 (0.00-0.031); Immature Granulocyte Percent A 9.4 % (0-0.5); Lymphocytes Absolute Auto 2.39 K/mm3 (0.9-3.2); Lymphocytes Percent Auto 16.5 % (18.3-44.2); Mean Corpuscular HGB Conc 30.3 g/dl (32-36); Mean Corpuscular Hemoglobin 27.7 pg (26-34); Mean Corpuscular Volume 91.3 fl (80-100); Mean Platelet Volume 11.7 fl (7.4-10.4); Monocytes Absolute Auto 0.7 K/mm3 (0.1-0.6); Monocytes Percent Auto 4.5 % (2.6-8.5); Neutrophils Absolute Auto 9.4 K/mm3 (1.3-6.7); Neutrophils Percent Auto 64.8 % (45.5-73.1); Nucleated Red Blood Cells Absolute Auto 0.3 K/mm3 (0.0-0.012); Nucleated Red Blood Cells Perc 2.3 % (0.0-0.2); Platelet Count Result 285 k/mm3 (150-375); Red Blood Count 3.11 M/mm3 (4.2-5.4); Red Cell Distribution Width 16.5 % (11.5-14.5); White Blood Count 14.5 K/mm3 (4.5-10.0)
[2019-11-12 06:20] LABS: Blood Urea Nitrogen 66 mg/dL (7-17); Calcium 8.1 mg/dL (8.4-10.2); Carbon Dioxide 30 mmol/L (22-30); Chloride 86 mmol/L (98-107); Estimated CRCL calculation 35 ml/min; Estimated Glomerular Filt Rate 21; Glucose 337 mg/dL (65-105); Magnesium 1.7 mg/dL (1.6-2.3); Phosphorus 3.8 mg/dL (2.5-4.5); Potassium 2.9 mmol/L (3.4-5.0); Sodium 132 mmol/L (137-145)
[2019-11-12 06:46] LABS: Free T4 Free Thyroxine 1.62 ng/mL (0.78-2.19)
[2019-11-12 07:22] LABS: Triiodothyronine T3 Free 1.8 pg/mL (2.3-4.2)
[2019-11-12] MEDS: POTASSIUM CHLORIDE 20 MEQ PACKET (FOR LIQUID) 40 MEQ FEED TUBE (08:21)
[2019-11-12] MEDS: NEOMYCIN/POLYMYXIN/BACITRACIN OINTMENT 15 GM TUBE 1 APPLIC TOPICAL (08:24)
[2019-11-12] MEDS: PANTOPRAZOLE SODIUM IV 40 MG VIAL IV PUSH (08:25)
[2019-11-12] MEDS: LIOTHYRONINE SODIUM 25 MCG TABLET PO (08:25)
[2019-11-12] MEDS: EUCERIN CREAM 120 GM JAR 1 APPLIC TOPICAL (08:25)
[2019-11-12] MEDS: hydrALAZINE HCL 25 MG TABLET PO (08:25)
[2019-11-12] MEDS: SILVERGEL (ELTA) 45 ML 1 APPLIC TOPICAL (08:26)
[2019-11-12] MEDS: TOLNAFTATE 1% POWDER 45 GM BTL 1 APPLIC TOPICAL ×2 (08:26→20:46)
[2019-11-12] MEDS: INSULIN DETEMIR 100 UNITS/ML 35 UNITS SUB-Q ×2 (08:27→20:55)
[2019-11-12] MEDS: MAGNESIUM SULF 2 GM/WATER 50ML 2 GM/50 ML BAG IVPB (08:50)
[2019-11-12] MEDS: DORNASE ALFA INH SOLN 1 MG/ML 2.5 ML AMP 2.5 MG INHALATION ×2 (09:11→21:40)
[2019-11-12 09:32] LABS: Glucose Point of Care 340 (65-105)
[2019-11-12 10:22] LABS: Add Urine Microscopic? YES; Appearance Urine Cloudy (Clear); Bacteria Urine Trace /hpf; Bilirubin Urine Negative (Negative); Budding Yeast Urine Present /hpf; Color Urine Yellow (Yellow); Glucose Urine UA Negative (Negative); Ketones Urine Trace mg/dL (Negative); Leukocyte Esterase Ur 2+ LEU/UL (Negative); Mucus Urine Rare /lpf; Nitrate Urine Negative (Negative); Protein Urine 2+ mg/dL (Negative); Specific Grav Ur 1.025 (1.001-1.035); Squamous Epithelial Cell Urine Rare /hpf (Few); Urobilinogen Urine Negative mg/dL (<2.0); WBC Urine >75 /hpf
[2019-11-12 10:31] LABS: Blood Urine Negative (Negative)
--- NOTE | 2019-11-12 11:25 | PCDIET ---
ICU Rounding Note: Patient tolerating PEG feedings: Nepro at goal of 40mL/hr with residuals 30mL and below. Last recorded weight is 149.5kg which is increased. +I/O. Bowel Motility: +BM today. Labs Reviewed: Glu (337), BUN (66), Cr (2.4), Na (132), K (2.9), Ca (8.1) Meds Noted: Albuterol, Precedex, Epogen, Novolog, Levemir, Levophed, Protonix, IV KCl Additional Notes: Recommend obtaining albumin level. Would continue Nepro at goal of 40mL/hr. Recommend adjusting glycemic medications as medically appropriate. Nepro is carbohydrate and volume controlled which is very appropriate. Following daily in ICU rounds. Assessing/reassessing every Tuesday/Tuesday.
[2019-11-12] MEDS: carvediloL 3.125 MG TABLET PO ×2 (11:40→20:50)
[2019-11-12] MEDS: EPOETIN ALFA 10,000 UNITS/ML VIAL 10000 UNITS SUB-Q (11:41)
--- NOTE | 2019-11-12 11:42 | WPDINTPN ---
Progress Note: A&P Assessment and Plan (1) Respiratory failure: Qualifiers: Chronicity: acute Respiratory failure complication: hypoxia and hypercapnia Qualified Code(s): J96.01 - Acute respiratory failure with hypoxia; J96.02 - Acute respiratory failure with hypercapnia Code(s): J96.90 - Respiratory failure, unspecified, unspecified whether with hypoxia or hypercapnia Status: Acute Assessment and Plan: Intubated on 10/27/2019, status post tracheostomy on 11/08/2019 - chest x-ray bilateral opacities with slight improvement of the right, FiO2 30%, peep to 10 - Lasix has been discontinued - Continue bronchodilators - will discontinue propofol and allow patient to wake up, may require CT head if she does not wake up - Appreciate pulmonology evaluation and recommendation. (2) Pneumonia: Qualifiers: Pneumonia type: due to Pseudomonas Laterality: bilateral Lung location: unspecified part of lung Qualified Code(s): J15.1 - Pneumonia due to Pseudomonas Code(s): J18.9 - Pneumonia, unspecified organism Status: Acute Assessment and Plan: - status post bronchoscopy on 11/05/2019 which showed moderate secretion throughout the airway, mild to moderate inflammation - BAL cultures growing Pseudomonas susceptible to ceftazidime, discontinued vancomycin, azithromycin and ceftriaxone on 11/09/2019 - started patient on ceftazidime on 11/09/2019 (3) Acute kidney injury superimposed on chronic kidney disease: Code(s): N17.9 - Acute kidney failure, unspecified; N18.9 - Chronic kidney disease, unspecified Status: Acute Assessment and Plan: acute on chronic kidney disease, baseline creatinine 1.1-1.3 in November [address] [facility]. - Likely due to dehydration, sepsis, hypertension, diuretics. Also has longstanding diabetes, hypertension, CHF which all could be contributing to her chronic kidney disease. - decreased urine output and worsening creatinine, Lasix was stopped. may have over diuresed, patient given 2 L of IV fluids on 11/11/2019. Will add albumin - will discuss with Nephrology (4) Septic shock: Code(s): A41.9 - Sepsis, unspecified organism; R65.21 - Severe sepsis with septic shock Status: Acute Assessment and Plan: : RESOLVED: patient presented with altered mental status, leukocytosis, bradycardic, hypotensive, metabolic acidosis - off levophed patient has a PICC line - BAL culture growing Pseudomonas, changed antibiotics to ceftazidime only (5) Cardiac arrest: Code(s): I46.9 - Cardiac arrest, cause unspecified Status: Acute Assessment and Plan: brief cardiac arrest most likely related to bradycardia, hyperkalemia, hypoxia, respiratory failure, hypothermia, ROSC brief CPR, - echocardiogram done on 10/27/2019: LVEF 50-55%, left ventricular chamber dimension is normal. Moderately increased left ventricular wall thickness, RV systolic function is normal, no pericardial effusion, no significant valvular abnormalities - patient open her eyes and has followed commands in the past - hemodynamically stable (6) Anemia: Qualifiers: Anemia type: unspecified type Qualified Code(s): D64.9 - Anemia, unspecified Code(s): D64.9 - Anemia, unspecified Status: Chronic Assessment and Plan: patient has chronic anemia, was transfused packed RBCs on 10/25/2019 here at [facility] - hemoglobin stable. Iron panel showing anemia of chronic disease. Status post one unit PRBC given on 10/30/2019 - continue to monitor - stool guaiac positive, - EGD done on 11/09/2019 with no stigmata of bleeding and the stomach or duodenum. (7) Influenza A: Code(s): J10.1 - Influenza due to other identified influenza virus with other respiratory manifestations Status: Acute Assessment and Plan: RESOLVED: patient was positive for influ
[2019-11-12 12:32] LABS: Glucose Point of Care 285 (65-105)
[2019-11-12] MEDS: ALBUMIN HUMAN 25% 12.5 GM/50ML 50 ML IVPB ×3 (12:41→23:06)
--- NOTE | 2019-11-12 16:56 | PM.PNNEP ---
Progress Note: A&P Assessment and Plan (1) Acute renal failure: Qualifiers: Acute renal failure type: unspecified Qualified Code(s): N17.9 - Acute kidney failure, unspecified Code(s): N17.9 - Acute kidney failure, unspecified Status: Acute Assessment and Plan: baseline creatinine ~ 0.8 - 1.3mg/dl (from review of OSH records) renal ultrasound could see only the right kidney which was normal; left kidney was unable to be seen possibly due to technical limitation because of her obesity urine electrolytes are non pre renal, Fe-Urea is around 30% which is borderline pre renal. UA shows a bland sediment; urine eosinophils are negative; CPK is normal; ESR is greater than 140; C3 is slightly low at 76 and C4 is normal. Rheumatoid factor is low; other tests are pending. The creatinine had improved however recently has risen daily for the last few days. She is off diuretics. She received IV fluids yesterday. Getting albumin today. Will check urine electrolytes Perhaps her blood pressure is too low. Will stop hydralazine (2) Septic shock: Code(s): A41.9 - Sepsis, unspecified organism; R65.21 - Severe sepsis with septic shock Status: Acute Assessment and Plan: Resolved (3) Anemia: Qualifiers: Anemia type: unspecified type Qualified Code(s): D64.9 - Anemia, unspecified Code(s): D64.9 - Anemia, unspecified Status: Chronic Assessment and Plan: On Epogen. Hemoglobin gradually improving (4) Respiratory failure: Qualifiers: Chronicity: acute Respiratory failure complication: hypoxia and hypercapnia Qualified Code(s): J96.01 - Acute respiratory failure with hypoxia; J96.02 - Acute respiratory failure with hypercapnia Code(s): J96.90 - Respiratory failure, unspecified, unspecified whether with hypoxia or hypercapnia Status: Acute Assessment and Plan: remains on ventilator s/p tracheostomy Subjective Date/time seen: 11/12/19 16:56 Interval history: Patient is on the ventilator per tracheostomy. She looks comfortable. Not responsive. Review of Systems Review of Systems: ROS unobtainable: unobtainable due to mental condition Exam Narrative: Exam Narrative: General: WD/WN female in NAD; tracheostomy Heart: normal S1 and S2; no rub Lungs: coarse throughout and symmetric Abdomen: soft, nontender, nondistended, positive bowel sounds Extremities: 1+ edema. And no cyanosis Skin: No rash or subcu nodules Objective Data Vital Signs Vital Signs: Vital Signs - 24 hr 11/11/19 17:54 11/11/19 18:00 11/11/19 18:22 Temperature Pulse Rate 131 H 127 H 107 H Respiratory Rate 26 H Blood Pressure 113/61 Pulse Oximetry 92 91 11/11/19 19:45 11/11/19 19:50 11/11/19 20:00 Temperature 36.9 C Pulse Rate 127 H 127 H 132 H Respiratory Rate 30 H 28 H Blood Pressure 89/60 L Pulse Oximetry 96 92 11/11/19 20:08 11/11/19 22:00 11/11/19 23:00 Temperature Pulse Rate 129 H 130 H 126 H Respiratory Rate 30 H 28 H Blood Pressure 129/70 Pulse Oximetry 95 94 11/12/19 00:00 11/12/19 01:23 11/12/19 01:33 Temperature Pulse Rate 107 H 101 H 105 H Respiratory Rate 26 H 30 H 30 H Blood Pressure 131/68 Pulse Oximetry 96 96 11/12/19 02:00 11/12/19 02:37 11/12/19 03:55 Temperature 36.2 C L Pulse Rate 127 H 120 H 100 Respiratory Rate 30 H 30 H Blood Pressure 144/76 H 123/63 Pulse Oximetry 93 94 11/12/19 04:00 11/12/19 05:14 11/12/19 06:00 Temperature Pulse Rate 100 110 H 108 H Respiratory Rate 29 H Blood Pressure 117/67 Pulse Oximetry 96 94 11/12/19 08:00 11/12/19 09:12 11/12/19 09:25 Temperature 36.4 C L Pulse Rate 100 102 H 101 H Respiratory Rate 24 H 24 H Blood Pressure Pulse Oximetry 97 11/12/19 10:00 11/12/19 10:09 11/12/19 11:33 Temperature 36.4 C L Pulse Rate 96 95 89 Respiratory Rate 29 H Blood Pressure 132/59 L Pul
[2019-11-12 17:01] LABS: Glucose Point of Care 293 (65-105)
[2019-11-12] MEDS: RIVAROXABAN 20 MG TABLET PO (17:37)
--- NOTE | 2019-11-12 18:14 | PM.IMPN ---
Progress Note: A&P Assessment and Plan (1) Influenza A: Code(s): J10.1 - Influenza due to other identified influenza virus with other respiratory manifestations Status: Acute Assessment and Plan: Pt is on tamiflu completed course (2) Septic shock: Code(s): A41.9 - Sepsis, unspecified organism; R65.21 - Severe sepsis with septic shock Status: Acute Assessment and Plan: Patient's prognosis is very poor patient had trach and PEG placed awaiting LTAC transfer (3) History of CHF (congestive heart failure): Code(s): Z86.79 - Personal history of other diseases of the circulatory system Status: Acute Assessment and Plan: Patient was placed on Lasix infusion diuresed 14 L off lasix now (4) Acute kidney injury superimposed on chronic kidney disease: Code(s): N17.9 - Acute kidney failure, unspecified; N18.9 - Chronic kidney disease, unspecified Status: Acute Assessment and Plan: continue to watch kidney function , pt has history of CKD, pt needs some fluid today (5) Atrial fibrillation: Qualifiers: Atrial fibrillation type: unspecified Qualified Code(s): I48.91 - Unspecified atrial fibrillation Code(s): I48.91 - Unspecified atrial fibrillation Status: Acute Assessment and Plan: pt is on xarelto for anticoagulation (6) DVT prophylaxis: Code(s): Z29.9 - Encounter for prophylactic measures, unspecified Status: Acute Assessment and Plan: pt is on xarelto for anticoagulation (7) Anemia: Qualifiers: Anemia type: unspecified type Qualified Code(s): D64.9 - Anemia, unspecified Code(s): D64.9 - Anemia, unspecified Status: Chronic Assessment and Plan: Continue to monitor hb 8.5 (8) Metabolic acidosis: Code(s): E87.2 - Acidosis Status: Resolved Assessment and Plan: pt was on sodium bicarbondate drip now resolved (9) Respiratory failure: Qualifiers: Chronicity: acute Respiratory failure complication: hypoxia and hypercapnia Qualified Code(s): J96.01 - Acute respiratory failure with hypoxia; J96.02 - Acute respiratory failure with hypercapnia Code(s): J96.90 - Respiratory failure, unspecified, unspecified whether with hypoxia or hypercapnia Status: Acute Assessment and Plan: Pt is intubated in icu, on iv ceftazidime (10) Cardiac arrest: Code(s): I46.9 - Cardiac arrest, cause unspecified Status: Acute Assessment and Plan: REcent cardiac arrest due to resp arrest and hyperkalaemia (11) Acute renal failure: Qualifiers: Acute renal failure type: unspecified Qualified Code(s): N17.9 - Acute kidney failure, unspecified Code(s): N17.9 - Acute kidney failure, unspecified Status: Acute Assessment and Plan: Pt has a history of CKD (12) Hyperkalemia: Code(s): E87.5 - Hyperkalemia Status: Acute Assessment and Plan: Continue to monitor potassium levels. althea 3.4 Subjective Date/time seen: 11/12/19 18:14 nterval history: Patient is a 54-year-old female morbidly obese resident of detention was sent to emergency department acute mental status change as patient was not responding and was not herself upon arrival to emergency department see was not able to provide any review of symptoms patient was re-evaluated and was found to be bradycardiac and may need to cardiac arrest CPR was initiated and patient was intubated and transferred to ICU currently patient on vent and to provide any review of symptoms, patient was found to have pneumonia positive for influenza A, acute kidney injury, septic shock. As per previous notes. Unfortunately pt is difficult to wean off the ventilator, pt in icu, pt is sp bronchoscopy, trache and peg awaiting RUDY placement. Pt creat is slightly up, pt receiving fluids today Review of Systems Review of Systems: ROS unobtainabl
--- NOTE | 2019-11-12 19:50 | PM.PNPUL ---
Progress Note: A&P Assessment and Plan (1) Respiratory failure: Qualifiers: Chronicity: acute Respiratory failure complication: hypoxia and hypercapnia Qualified Code(s): J96.01 - Acute respiratory failure with hypoxia; J96.02 - Acute respiratory failure with hypercapnia Code(s): J96.90 - Respiratory failure, unspecified, unspecified whether with hypoxia or hypercapnia Status: Acute Assessment and Plan: She has acute hypoxemic respiratory failure, on 40%, had trach 2/; POD #2, had sedation increased to prevent head shaking and worsening of incision. She has been diuresed 35 liters. Has Shiley trach; She has mild hypercapnea which is compensatory for the metabolic alkalosis. Growing Pseudomonas from bronch TuesdayNov 05. (2) Influenza A: Code(s): J10.1 - Influenza due to other identified influenza virus with other respiratory manifestations Status: Acute Assessment and Plan: She has confirmed influenza A, with secondary bacterial pneumonia, on treatment. Completed Tamiflu. (3) Acute kidney injury superimposed on chronic kidney disease: Code(s): N17.9 - Acute kidney failure, unspecified; N18.9 - Chronic kidney disease, unspecified Status: Acute Assessment and Plan: BUN was as high as 125, creat 3.0; improved with fluids, now BUN 76, creat 1.9. (4) Hypothyroidism: Qualifiers: Hypothyroidism type: unspecified Qualified Code(s): E03.9 - Hypothyroidism, unspecified Code(s): E03.9 - Hypothyroidism, unspecified Status: Acute Assessment and Plan: consistent with myxedema coma; high TSH, bradycardic, hypotensive, hypothermia, hypoventilation; mild drop in sodium 134, elevated T3 and T4; she has thin eyebrows, doughy skin, decreased body hair, puffy eyelids, very classic. She is on treatment with IV Synthroid, cytomel, supportive measure including mechanical ventilation and management of infection. (5) Sepsis: Qualifiers: Sepsis type: sepsis due to unspecified organism Sepsis acute organ dysfunction status: unspecified Qualified Code(s): A41.9 - Sepsis, unspecified organism Code(s): A41.9 - Sepsis, unspecified organism Status: Acute Assessment and Plan: initially with hypotension; weaned from pressor; source was lungs with influenza and pneumonia; (6) Diarrhea: Code(s): R19.7 - Diarrhea, unspecified Status: Acute Assessment and Plan: now has rectal tube; check stool for C diff. Subjective Date/time seen: 11/12/19 19:50 this 54 yo female is seen in follow up for acute on chronic failure on the vent, POD #4 tracheostomy; poor mentation. Exam Narrative: Exam Narrative: Morbidly obese female with trach in place; no bleeding; not moving her head as she was before. Left arm PICC. Not following commands. Scattered ecchymoses over her chest. Edema 1+ in upper extremities. She has a trachesotomy midline neck,legs are less much swollen, rectal tube with yellow gold liquid stool. Const: General: no acute distress Eyes: Pupils: Equal, round and reactive pupils present Other: puffy upper eyelids; thinned eyebrows Neck: Lymphatic: lymphadenopathy not noted Other: has bruising under the right side of her chin Resp: Auscultation: diminished lung sounds Other: decreased lung sounds both sides of her chest; she is large BMI 56.8 in a bariatric bed, and the stethoscope is an isolation scope with limited acoustic range; therefore the auscultation is low yield; she has equal excursion of the chest wall. Cardio: Rate: regular rate Rhythm: regular rhythm Heart s
[2019-11-12 20:41] LABS: Glucose Point of Care 296 (65-105)
[2019-11-13] VITALS (28 sets, daily range): BP systolic 110–151; BP diastolic 52–69; PULSE 67–93; RESP 19–29; TEMP 37–38.1; O2SAT 91–100
[2019-11-13 00:06] LABS: Glucose Point of Care 290 (65-105)
[2019-11-13] MEDS: INSULIN ASPART (*BKC) 100 UNITS/ML SUB-Q ×6 (00:11→21:47)
[2019-11-13] MEDS: IPRATROPIUM BR 0.02% INH SOLN 0.5 MG/2.5 ML VIAL INHALATION ×4 (02:30→20:44)
[2019-11-13] MEDS: ALBUTEROL SULFATE NEB 2.5 MG/0.5 ML INH 5 MG INHALATION ×4 (02:30→20:44)
[2019-11-13 04:28] LABS: Alveolar/Arterial O2 Gradient 107.6 mmHg; Base Excess ABG 4.9 mEq/l (+/-2.0); Carboxyhemoglobin 1.3 % THb (0-2.0); Device VENTILATOR; Fractional Inspired Oxygen 30 %; HCO3 ABG 28.6 mEq/l (22.0-26.0); Methemoglobin ABG 0.2 %THb (0-1.5); Modified Allen's Test Pass; Oxygen Content ABG 10.4 %vol (16.0-22.0); Oxygen Saturation ABG 93.3 % (95.0-100.0); Oxyhemoglobin 88.8 % THb (90.0-100.0); PCO2 ABG 38.3 mmHg (35.0-45.0); PO2 ABG 61.3 mmHg (80.0-100.0); PO2 FiO2 Ratio Arterial Blood 2.04 %; Reduced Hemoglobin 9.7 %THb (0-5.0); Site Drawn RIGHT RADIAL; Total Hemoglobin 8.3 g/dL (12.0-18.0); pH ABG 7.491 (7.350-7.450)
[2019-11-13 04:29] LABS: Arterial Blood Gas PEEP 10 cmH2O; Arterial Blood Gas Tidal Volume 350 ml; Arterial Blood Gas Vent Mode CMV; Arterial Blood Gas Ventilator rate 16 /MIN
[2019-11-13 05:01] LABS: Hematocrit 24.8 % (37.0-47.0); Hemoglobin 7.9 g/dL (12.0-15.0); Mean Corpuscular HGB Conc 31.9 g/dl (32-36); Mean Corpuscular Hemoglobin 27.7 pg (26-34); Mean Platelet Volume 11.4 fl (7.4-10.4); Platelet Count Result 231 k/mm3 (150-375); Red Blood Count 2.85 M/mm3 (4.2-5.4); Red Cell Distribution Width 16.4 % (11.5-14.5); White Blood Count 16.7 K/mm3 (4.5-10.0)
[2019-11-13] MEDS: ALBUMIN HUMAN 25% 12.5 GM/50ML 50 ML IVPB ×3 (05:34→17:52)
[2019-11-13] MEDS: LEVOTHYROXINE SODIUM INJ 100 MCG/5 ML VIAL 50 MCG IV PUSH (05:35)
[2019-11-13 05:52] LABS: Glucose Point of Care 274 (65-105)
[2019-11-13 05:52] LABS: Blood Urea Nitrogen 65 mg/dL (7-17); Calcium 8.3 mg/dL (8.4-10.2); Carbon Dioxide 30 mmol/L (22-30); Chloride 86 mmol/L (98-107); Estimated CRCL calculation 35 ml/min; Estimated Glomerular Filt Rate 21; Glucose 280 mg/dL (65-105); Phosphorus 3.1 mg/dL (2.5-4.5); Sodium 132 mmol/L (137-145)
[2019-11-13 06:05] LABS: Eosinophils Absolute Manual 0.33 K/mm3 (0.02-0.5); Eosinophils Percent Manual 2 % (0-4); Lymphocytes Absolute Manual 1.83 K/mm3 (1.1-4.5); Monocytes Percent Manual 6 % (3-9); Neutrophils Percent Manual 81 % (46-73); Nucleated Red Blood Cells 2 %; Total Cells Counted 100
[2019-11-13 06:06] LABS: Macrocytosis 1+ (NORMAL); Polychromasia 1+ (NORMAL)
[2019-11-13 06:07] LABS: Hypochromasia 1+ (NORMAL); Platelet Estimate Adequate (Adequate)
--- NOTE | 2019-11-13 07:32 | PM.PNNEP ---
Progress Note: A&P Assessment and Plan (1) Acute renal failure: Qualifiers: Acute renal failure type: unspecified Qualified Code(s): N17.9 - Acute kidney failure, unspecified Code(s): N17.9 - Acute kidney failure, unspecified Status: Acute Assessment and Plan: baseline creatinine ~ 0.8 - 1.3mg/dl (from review of OSH records) renal ultrasound could see only the right kidney which was normal; left kidney was unable to be seen possibly due to technical limitation because of her obesity urine electrolytes are non pre renal, Fe-Urea is around 30% which is borderline pre renal. UA shows a bland sediment; urine eosinophils are negative; CPK is normal; ESR is greater than 140; C3 is slightly low at 76 and C4 is normal. Rheumatoid factor is low; other tests are pending. The creatinine is the same today as it was yesterday. She received 5 out of 6 doses of the albumin. This seems to be helping with her intravascular volume depletion. Discussed with (2) Septic shock: Code(s): A41.9 - Sepsis, unspecified organism; R65.21 - Severe sepsis with septic shock Status: Acute Assessment and Plan: Resolved (3) Anemia: Qualifiers: Anemia type: unspecified type Qualified Code(s): D64.9 - Anemia, unspecified Code(s): D64.9 - Anemia, unspecified Status: Chronic Assessment and Plan: On Epogen. Hemoglobin gradually improving (4) Respiratory failure: Qualifiers: Chronicity: acute Respiratory failure complication: hypoxia and hypercapnia Qualified Code(s): J96.01 - Acute respiratory failure with hypoxia; J96.02 - Acute respiratory failure with hypercapnia Code(s): J96.90 - Respiratory failure, unspecified, unspecified whether with hypoxia or hypercapnia Status: Acute Assessment and Plan: remains on ventilator s/p tracheostomy Subjective Date/time seen: 11/13/19 07:32 Interval history: Patient is on the ventilator per tracheostomy. She does not interact. She is on only a low-dose of Precedex. She looks comfortable. Review of Systems Cardiovascular: Cardiovascular: Reports no additional cardiovascular complaints Respiratory: Respiratory: Reports no additional respiratory complaints Gastrointestinal: Gastrointestinal: Reports no additional gastrointestinal complaints Genitourinary: Genitourinary: Reports no additional female genitourinary complaints Exam Narrative: Exam Narrative: General: WD/WN female in NAD; tracheostomy Heart: normal S1 and S2; no rub Lungs: coarse throughout and symmetric Abdomen: soft, nontender, nondistended, positive bowel sounds Extremities: 1+ edema. Skin: No rash. Chronic venous stasis changes on the lower extremities but nothing acute. Objective Data Vital Signs Vital Signs: Vital Signs - 24 hr 11/12/19 08:00 11/12/19 09:12 11/12/19 09:25 Temperature 36.4 C L Pulse Rate 100 102 H 101 H Respiratory Rate 24 H 24 H Blood Pressure Pulse Oximetry 97 11/12/19 10:00 11/12/19 10:09 11/12/19 11:33 Temperature 36.4 C L Pulse Rate 96 95 89 Respiratory Rate 29 H Blood Pressure 132/59 L Pulse Oximetry 94 97 11/12/19 11:40 11/12/19 12:00 11/12/19 14:00 Temperature 36.4 C L 36.6 C Pulse Rate 98 90 89 Respiratory Rate 30 H 28 H Blood Pressure 130/61 110/54 L Pulse Oximetry 96 91 11/12/19 14:50 11/12/19 14:53 11/12/19 15:05 Temperature Pulse Rate 97 101 H 90 Respiratory Rate 28 H 26 H Blood Pressure Pulse Oximetry 97 11/12/19 16:00 11/12/19 17:49 11/12/19 18:00 Temperature Pulse Rate 84 90 83 Respiratory Rate 27 H 25 H Blood Pressure 110/53 L 124/61 Pulse Oximetry 94 96 95 11/12/19 20:00 11/12/19 20:50 11/12/19 21:40 Temperature Pulse Rate 84 81 77 Respiratory Rate 28 H 25 H Blood Pressure 114/56 L Pulse Oximetry 95 11/12/19 21:45 11/12/19 21:54 11/12/19 22:00 Temperature Pu
[2019-11-13] MEDS: DORNASE ALFA INH SOLN 1 MG/ML 2.5 ML AMP 2.5 MG INHALATION ×2 (08:28→20:43)
[2019-11-13] MEDS: INSULIN DETEMIR 100 UNITS/ML 40 UNITS SUB-Q ×2 (09:16→21:47)
[2019-11-13] MEDS: PANTOPRAZOLE SODIUM IV 40 MG VIAL IV PUSH (09:47)
[2019-11-13] MEDS: carvediloL 3.125 MG TABLET PO ×2 (09:56→21:53)
[2019-11-13] MEDS: LIOTHYRONINE SODIUM 25 MCG TABLET PO (09:56)
[2019-11-13] MEDS: LIDOCAINE HCL 1% LOCAL INJ 20 ML VIAL (10:04)
[2019-11-13] MEDS: NEOMYCIN/POLYMYXIN/BACITRACIN OINTMENT 15 GM TUBE 1 APPLIC TOPICAL (10:05)
[2019-11-13] MEDS: SILVERGEL (ELTA) 45 ML 1 APPLIC TOPICAL (10:07)
[2019-11-13] MEDS: TOLNAFTATE 1% POWDER 45 GM BTL 1 APPLIC TOPICAL ×2 (10:08→21:54)
[2019-11-13 10:38] LABS: Glucose Point of Care 272 (65-105)
--- NOTE | 2019-11-13 11:23 | PCDIET ---
Nutrition Follow-Up Complete: Nutrition Diagnosis: Inadequate oral intake related to tracheostomy as evidenced by inability to take oral diet. Nutrition Goal: Tube feeding tolerance at goal rate Goal met. Patient tolerating Nepro at 40mL/hr goal rate with residuals 140mL and below. Banatrol has been added QID for loose stools. Last recorded weight is 149.5 kg which is increased. I/O positive. Bowel Motility: Fecal management system in place. Labs Reviewed: Glu (280), BUN (65), Cr (2.4), Na (132), Ca (8.3) Meds Noted: Levophed, Epogen, Levemir, Ceftazidime, Protonix, Novolog, Precedex, Amiodarone, Albuterol, Albutein Additional Notes: Awaiting transfer to [place]. sutured area around tracheostomy this morning. Recommend continuing present tube feeding. Nutrition Monitoring and Evaluation: Follow up every Tuesday/Tuesday. Follow daily in ICU rounds.
--- NOTE | 2019-11-13 13:45 | WPDINFPN2 ---
Progress Note: A&P Assessment and Plan (1) Pneumonia: Qualifiers: Pneumonia type: due to Pseudomonas Laterality: bilateral Lung location: unspecified part of lung Qualified Code(s): J15.1 - Pneumonia due to Pseudomonas Code(s): J18.9 - Pneumonia, unspecified organism Status: Acute Assessment and Plan: Pseudomonas pneumonia. RA. Sulfa allergy. REC Ceftazidime 14 day course, agree with present dosing. Subjective Date/time seen: 11/13/19 13:45 Objective Data Vital Signs Vital Signs: Vital Signs - 24 hr 11/12/19 14:00 11/12/19 14:50 11/12/19 14:53 Temperature 36.6 C Pulse Rate 89 97 101 H Respiratory Rate 28 H 28 H Blood Pressure 110/54 L Pulse Oximetry 91 97 11/12/19 15:05 11/12/19 16:00 11/12/19 17:49 Temperature Pulse Rate 90 84 90 Respiratory Rate 26 H 27 H Blood Pressure 110/53 L Pulse Oximetry 94 96 11/12/19 18:00 11/12/19 20:00 11/12/19 20:50 Temperature Pulse Rate 83 84 81 Respiratory Rate 25 H 28 H Blood Pressure 124/61 114/56 L Pulse Oximetry 95 95 11/12/19 21:40 11/12/19 21:45 11/12/19 21:54 Temperature Pulse Rate 77 77 81 Respiratory Rate 25 H 25 H Blood Pressure Pulse Oximetry 95 11/12/19 22:00 11/12/19 22:58 11/12/19 23:31 Temperature Pulse Rate 78 76 79 Respiratory Rate 28 H 29 H Blood Pressure 100/57 L Pulse Oximetry 27 L 94 95 11/13/19 00:00 11/13/19 02:00 11/13/19 02:30 Temperature 38.1 C H Pulse Rate 75 81 76 Respiratory Rate 29 H 25 H 26 H Blood Pressure 125/59 L 124/59 L Pulse Oximetry 96 95 11/13/19 02:34 11/13/19 02:37 11/13/19 03:57 Temperature Pulse Rate 76 76 71 Respiratory Rate 25 H 24 H Blood Pressure Pulse Oximetry 94 94 11/13/19 04:00 11/13/19 04:56 11/13/19 06:00 Temperature 37.0 C Pulse Rate 71 70 67 Respiratory Rate 26 H 20 Blood Pressure 112/52 L 113/69 Pulse Oximetry 96 92 97 11/13/19 08:20 11/13/19 08:30 11/13/19 09:56 Temperature Pulse Rate 70 73 69 Respiratory Rate 20 20 Blood Pressure Pulse Oximetry 97 11/13/19 11:35 Temperature Pulse Rate 73 Respiratory Rate Blood Pressure Pulse Oximetry 96 Intake/Output Intake/Output: Intake & Output 11/10/19 11/11/19 11/12/19 11/13/19 23:59 23:59 23:59 23:59 Intake Total 1548 2665 2221 1063 Output Total 1050 800 825 320 Balance 498 1865 1396 743 Meds/Results Medications: Active Medications Generic Name Dose Route Start Last Admin Trade Name Freq PRN Reason Stop Dose Admin Acetaminophen 650 mg 11/06/19 12:37 11/12/19 03:50 Tylenol Tablet PO 650 mg Q6H PRN Administration Mild Pain (1-3) or Fever Albuterol 5 mg 10/27/19 08:00 11/13/19 08:28 Albuterol Sulf Neb 2.5mg/0.5ml INHALATION 5 mg Q6HRT PILI Administration Atropine Sulfate 1 mg 10/27/19 15:48 Atropine Sulfate IV PUSH PRN PRN Bradycardia Carvedilol 3.125 mg 11/12/19 10:25 11/13/19 09:56 Coreg PO 3.125 mg Q12HR PILI Administration Dextrose 12.5 gm 10/27/19 10:01 11/05/19 12:33 Dextrose 50% Syringe IV PUSH 12.5 gm PRN PRN Administration Hypoglycemia Protocol Dornase Molina 2.5 mg 11/05/19 20:00 11/13/19 08:28 Pulmozyme INHALATION 2.5 mg Q12HRT PILI Administration Epoetin Molina 10,000 units 11/02/19 10:30 11/12/19 11:41 Epogen SUB-Q 10,000 units MOWEFR PILI Administration Glucagon 1 mg 10/27/19 10:01 Glucagon For Inj IM PRN PRN Hypoglycemia Protocol Glucose 15 gm 10/27/19 10:01 Glutose 15 PO PRN PRN Hypoglycemia Protocol Norepinephrine Bitartrate 8 mg in 250 mls @ 0 mls/hr 10/27/19 12:00 10/30/19 07:38 Levophed 8 Mg/D5w 250 Ml IV CONT Not Given .Q0M PILI Protocol Dextrose 1,000 mls @ 100 mls/hr 10/27/19 10:01 11/09/19 10:35 Dextrose 5% 1,000 Ml IVPB Infused PRN PRN Infusion Hypoglycemia Protocol Ceftazidime 2 gm/ Dextrose 50 mls @
[2019-11-13 14:09] LABS: Glucose Point of Care 253 (65-105)
--- NOTE | 2019-11-13 14:16 | WPDINTPN ---
Progress Note: A&P Assessment and Plan (1) Encephalopathy: Code(s): G93.40 - Encephalopathy, unspecified Status: Acute Assessment and Plan: patient off propofol infusion, now on Precedex only. Patient only withdraws to pain. Does not open her eyes or follow commands - CT brain on 11/12/2019 with no acute intracranial findings, chronic age-related findings, extensive sinusitis. - Neurology consulted - I ordered an EEG (2) Respiratory failure: Qualifiers: Chronicity: acute Respiratory failure complication: hypoxia and hypercapnia Qualified Code(s): J96.01 - Acute respiratory failure with hypoxia; J96.02 - Acute respiratory failure with hypercapnia Code(s): J96.90 - Respiratory failure, unspecified, unspecified whether with hypoxia or hypercapnia Status: Acute Assessment and Plan: Intubated on 10/27/2019, status post tracheostomy on 11/08/2019 - chest x-ray bilateral opacities with slight improvement of the right, FiO2 30%, peep to 10 - Continue bronchodilators - on Precedex infusion - sutures were applied to the tracheostomy incision this morning - Appreciate pulmonology evaluation and recommendation. (3) Pneumonia: Qualifiers: Pneumonia type: due to Pseudomonas Laterality: bilateral Lung location: unspecified part of lung Qualified Code(s): J15.1 - Pneumonia due to Pseudomonas Code(s): J18.9 - Pneumonia, unspecified organism Status: Acute Assessment and Plan: - status post bronchoscopy on 11/05/2019 which showed moderate secretion throughout the airway, mild to moderate inflammation - BAL cultures growing Pseudomonas susceptible to ceftazidime, discontinued vancomycin, azithromycin and ceftriaxone on 11/09/2019 - started patient on ceftazidime on 11/09/2019 - appreciate infectious Disease input (4) Acute kidney injury superimposed on chronic kidney disease: Code(s): N17.9 - Acute kidney failure, unspecified; N18.9 - Chronic kidney disease, unspecified Status: Acute Assessment and Plan: acute on chronic kidney disease, baseline creatinine 1.1-1.3 in November 2018 at [facility]. - Likely due to dehydration, sepsis, hypertension, diuretics. Also has longstanding diabetes, hypertension, CHF which all could be contributing to her chronic kidney disease. - decreased urine output and worsening creatinine, Lasix was discontinued on 11/09/2019. may have over diuresed, patient given 2 L of IV fluids on 11/11/2019. - Continue albumin, discussed with nephrology and agreeable the treatment plan. (5) Septic shock: Code(s): A41.9 - Sepsis, unspecified organism; R65.21 - Severe sepsis with septic shock Status: Acute Assessment and Plan: : RESOLVED: patient presented with altered mental status, leukocytosis, bradycardic, hypotensive, metabolic acidosis - off levophed patient has a PICC line - BAL culture growing Pseudomonas, changed antibiotics to ceftazidime only (6) Cardiac arrest: Code(s): I46.9 - Cardiac arrest, cause unspecified Status: Acute Assessment and Plan: brief cardiac arrest most likely related to bradycardia, hyperkalemia, hypoxia, respiratory failure, hypothermia, ROSC brief CPR, - echocardiogram done on 10/27/2019: LVEF 50-55%, left ventricular chamber dimension is normal. Moderately increased left ventricular wall thickness, RV systolic function is normal, no pericardial effusion, no significant valvular abnormalities - patient open her eyes and has followed commands in the past - hemodynamically stable (7) Anemia: Qualifiers: Anemia type: unspecified type Qualified Code(s): D64.9 - Anemia, unspecified Code(s): D64.9 - Anemia, unspecified Status: Chronic Assessment and Plan: patient has chronic anemia, was transfused packed RBCs on 10/25/2019 here at [facility] - hemoglob
--- NOTE | 2019-11-13 15:07 | PM.PNPUL ---
Progress Note: A&P Assessment and Plan (1) Pneumonia: Qualifiers: Pneumonia type: due to Pseudomonas Laterality: bilateral Lung location: unspecified part of lung Qualified Code(s): J15.1 - Pneumonia due to Pseudomonas Code(s): J18.9 - Pneumonia, unspecified organism Status: Acute Assessment and Plan: Given fever last night and increase thick secretions from ET tube will send for repeat sputum culture. Psuedomonas can sometimes develop resistance during course of treatment. CXR still shows bibasilar infiltrates with LLL atlectasis (2) Ventilator dependence: Code(s): Z99.11 - Dependence on respirator [ventilator] status Status: Acute Assessment and Plan: - s/p trach on 11/08 - can start slow weaning from pulmonary point of view despite the encephalopathy. Would start with PSV 15 and PEEP of 5 during the day until 10 pm as tolerated. Time Spent With Patient Time with patient: 15 - 25 minutes Subjective Date/time seen: 11/13/19 15:07 Interval history: Still encephalopathic, sedatives have been shut off. Had fever last night with increase tracheal secretions this morning. On minimal vent settings with stable O2 sats s/p trach on 11/08 Review of Systems Review of Systems: All systems reviewed & are unremarkable except as noted in HPI and below Exam Const: General: no acute distress HENMT: Mouth: Yes moist mucous membranes Neck: Neck: supple Resp: Auscultation: rhonchi and diminished lung sounds Cardio: Rate: regular rate Rhythm: regular rhythm Heart sounds: no gallops and no murmurs GI: Auscultation: normal bowel sounds Skin: General skin exam: no rashes or lesions noted (scattered bilateral lesions thought to be due to plastic dermatitis ) Neuro: Cognition (Neuro): abnormal cognition ( encphalopathic) Objective Data Vital Signs Vital Signs: Vital Signs - 24 hr 11/12/19 16:00 11/12/19 17:49 11/12/19 18:00 Temperature Pulse Rate 84 90 83 Respiratory Rate 27 H 25 H Blood Pressure 110/53 L 124/61 Pulse Oximetry 94 96 95 11/12/19 20:00 11/12/19 20:50 11/12/19 21:40 Temperature Pulse Rate 84 81 77 Respiratory Rate 28 H 25 H Blood Pressure 114/56 L Pulse Oximetry 95 11/12/19 21:45 11/12/19 21:54 11/12/19 22:00 Temperature Pulse Rate 77 81 78 Respiratory Rate 25 H 28 H Blood Pressure 100/57 L Pulse Oximetry 95 27 L 11/12/19 22:58 11/12/19 23:31 11/13/19 00:00 Temperature 38.1 C H Pulse Rate 76 79 75 Respiratory Rate 29 H 29 H Blood Pressure 125/59 L Pulse Oximetry 94 95 96 11/13/19 02:00 11/13/19 02:30 11/13/19 02:34 Temperature Pulse Rate 81 76 76 Respiratory Rate 25 H 26 H Blood Pressure 124/59 L Pulse Oximetry 95 94 11/13/19 02:37 11/13/19 03:57 11/13/19 04:00 Temperature 37.0 C Pulse Rate 76 71 71 Respiratory Rate 25 H 24 H 26 H Blood Pressure 112/52 L Pulse Oximetry 94 96 11/13/19 04:56 11/13/19 06:00 11/13/19 08:20 Temperature Pulse Rate 70 67 70 Respiratory Rate 20 20 Blood Pressure 113/69 Pulse Oximetry 92 97 97 11/13/19 08:30 11/13/19 09:56 11/13/19 11:35 Temperature Pulse Rate 73 69 73 Respiratory Rate 20 Blood Pressure Pulse Oximetry 96 Intake/Output Intake/Output: Intake & Output 11/10/19 11/11/19 11/12/19 11/13/19 23:59 23:59 23:59 23:59 Intake Total 1548 2665 2221 1063 Output Total 1050 800 825 320 Balance 498 1865 1396 743 Meds/Results Medications: Active Medications Generic Name Dose Route Start Last Admin Trade Name Freq PRN Reason Stop Dose Admin Acetaminophen 650 mg 11/06/19 12:37 11/12/19 03:50 Tylenol Tablet PO 650 mg Q6H PRN Administration Mild Pain (1-3) or Fever Albuterol 5 mg 10/27/19 08:00 11/13/19 14:09 Albuterol Sulf Neb 2.5mg/0.5ml INHALATION 5 mg Q6HRT PILI Administration Atropine Sulfate 1 mg 10/27/19 15:48 Atropine Sulfate IV PUSH PRN PRN Bradycardia Carv
--- NOTE | 2019-11-13 15:07 | WPDNEURCNPN ---
Assessment and Plan Assessment and plan (1) Ventilator dependence: Code(s): Z99.11 - Dependence on respirator [ventilator] status Status: Acute (2) Encephalopathy: Code(s): G93.40 - Encephalopathy, unspecified Status: Acute (3) Pneumonia: Qualifiers: Pneumonia type: due to Pseudomonas Laterality: bilateral Lung location: unspecified part of lung Qualified Code(s): J15.1 - Pneumonia due to Pseudomonas Code(s): J18.9 - Pneumonia, unspecified organism Status: Acute (4) Gastrojejunostomy tube status: Code(s): Z93.4 - Other artificial openings of gastrointestinal tract status Status: Acute (5) Atrial fibrillation: Qualifiers: Atrial fibrillation type: unspecified Qualified Code(s): I48.91 - Unspecified atrial fibrillation Code(s): I48.91 - Unspecified atrial fibrillation Status: Acute (6) Hypothyroidism: Qualifiers: Hypothyroidism type: unspecified Qualified Code(s): E03.9 - Hypothyroidism, unspecified Code(s): E03.9 - Hypothyroidism, unspecified Status: Acute (7) History of CHF (congestive heart failure): Code(s): Z86.79 - Personal history of other diseases of the circulatory system Status: Acute (8) Hyperglycemia: Code(s): R73.9 - Hyperglycemia, unspecified Status: Acute (9) Rheumatoid arthritis: Code(s): M06.9 - Rheumatoid arthritis, unspecified Status: Acute (10) Influenza A: Code(s): J10.1 - Influenza due to other identified influenza virus with other respiratory manifestations Status: Acute (11) Septic shock: Code(s): A41.9 - Sepsis, unspecified organism; R65.21 - Severe sepsis with septic shock Status: Acute (12) Acute kidney injury superimposed on chronic kidney disease: Code(s): N17.9 - Acute kidney failure, unspecified; N18.9 - Chronic kidney disease, unspecified Status: Acute (13) DVT prophylaxis: Code(s): Z29.9 - Encounter for prophylactic measures, unspecified Status: Acute (14) Anemia: Qualifiers: Anemia type: unspecified type Qualified Code(s): D64.9 - Anemia, unspecified Code(s): D64.9 - Anemia, unspecified Status: Chronic (15) Metabolic acidosis: Code(s): E87.2 - Acidosis Status: Resolved (16) Respiratory failure: Qualifiers: Chronicity: acute Respiratory failure complication: hypoxia and hypercapnia Qualified Code(s): J96.01 - Acute respiratory failure with hypoxia; J96.02 - Acute respiratory failure with hypercapnia Code(s): J96.90 - Respiratory failure, unspecified, unspecified whether with hypoxia or hypercapnia Status: Acute (17) Cardiac arrest: Code(s): I46.9 - Cardiac arrest, cause unspecified Status: Acute (18) Sepsis: Qualifiers: Sepsis type: sepsis due to unspecified organism Sepsis acute organ dysfunction status: unspecified Qualified Code(s): A41.9 - Sepsis, unspecified organism Code(s): A41.9 - Sepsis, unspecified organism Status: Acute (19) Acute renal failure: Qualifiers: Acute renal failure type: unspecified Qualified Code(s): N17.9 - Acute kidney failure, unspecified Code(s): N17.9 - Acute kidney failure, unspecified Status: Acute (20) Hyperkalemia: Code(s): E87.5 - Hyperkalemia Status: Acute Additional Plan discussed with the father the proper insists at this point is guarded EEG is going to be than this afternoon I will be able to read this tomorrow morning I suspect is going to be slow based on the clinical impression of encephalopathy which of multiple factors the present supportive care needs to be continued I do not expect that the patient is going to improve soon it might take a pretty long time for her to get back to her baseline however seems like the even the baseline was compromised because of significant obesity and being i
--- NOTE | 2019-11-13 15:19 | CONS_ITS ---
DATE OF CONSULTATION: 11/13/2019 REASON FOR CONSULTATION: Pseudomonas pneumonia. HISTORY OF PRESENT ILLNESS: The patient is a 54-year-old female who cannot provide any history as she is sedated and intubated. She is not on pressors. She has a history of rheumatoid arthritis and recently was admitted to the hospital on the [place] hours of October 27, with altered mental status. She had a brief cardiac arrest that was witnessed and was resuscitated. She has been intubated since. Her hospital course has been complicated by acute renal failure, documentation of influenza, having completed oseltamivir, respiratory failure with PEG and tracheostomy placed, AF, and concern over lower respiratory tract infection. She underwent bronchoscopy on November 05 for her lung infiltrates. She was found to have Pseudomonas on BAL and was started on ceftazidime on November 09, now day #5. Consultation saw today to ensure that she is on appropriate therapy. A PIC has been placed and a [place] is in place. No other prosthetic devices. ALLERGIES: TRIMETHOPRIM SULFA CAUSES UNKNOWN REACTION IN THE PAST. HABITS: No tobacco. No alcohol to excess. PRESENT MEDICATIONS: List reviewed. PAST MEDICAL HISTORY: In addition to the above, hypothyroidism, morbid obesity, AF. FAMILY HISTORY: Not pertinent to her present illness. REVIEW OF SYSTEMS: She was on leflunomide prior to admission as well as hydroxychloroquine. No other immunosuppressants and those are presently on hold. A 14-point review of systems otherwise negative though not obtainable nor direct fashion from the patient due to intubated status. SOCIAL HISTORY: No family at bedside. She is listed as single and father has been in contact with her providers. PHYSICAL EXAMINATION: GENERAL: This is a middle-aged female who appears her actual age. No acute distress. VITAL SIGNS: She has been febrile up to 37.8 core, and in the last 24 hours, T-max 38.1 core, pulse 73, respirations 20, 35% FiO2, and 113/69, noninvasive. SKIN: She has several abrasions, which appear chronic over the upper extremities. She has no rashes. Skin is warm and dry, pale. NODES: She has no cervical adenopathy. EENT: The conjunctivae are clear. Pupils equal and round. Orally intubated earlier, but now with a tracheostomy in place and connected to the ventilator. NECK: Otherwise, no masses or thyromegaly. LUNGS: Diminished breath sounds, otherwise clear to auscultation and percussion. CARDIAC: Distant S1, S2. Regular rate and rhythm. No heaves. Pulses are 2+ and equal. ABDOMEN: Massively obese. No tenderness apparent. No organomegaly. Nondistended. EXTREMITIES: 2+ nonpitting edema, arms and legs especially distally. LABORATORY DATA: Blood cultures multiple sets, all no growth so far. Sputum with Pseudomonas aeruginosa. I reviewed the susceptibilities. MRSA screen from admission was positive and has been positive since as well. C diff assay by PCR not detected, though GDH antigen and toxin a and b were detected. White blood cell count has been persistently high in the last 3 days, 16.7 today, hemoglobin 7.9, which is down slightly, platelets are 231. Differential with a minimal left shift. Blood gases 7.49, 38, 61, 29, 93% on the noted ventilator settings. AA gradient over time 100s to 200s and today is the same as yesterday at 108 roughly. She has hyponatremia, persistent BUN 65, and creatinine 2.4. RADIOLOGICAL DATA: I personally reviewed her chest x-ray. She has suboptimal technical technique with nonspecific infiltrates in both lung bases. Reviewed the radiologist readings. ASSESSMENT: 1. Respiratory failure. 2. Status post cardiac arrest. 3. Rheumatoid arthritis and immunosuppression prior to admission. 4
--- NOTE | 2019-11-13 15:30 | NEURO_ITS ---
TEST: ELECTROENCEPHALOGRAM DIAGNOSIS: ENCEPHALOPATHY PATIENT NUMBER: [id number] EEG NUMBER: [id number] RECORDING DATE: 11/13/19 CLINICAL HISTORY: Patient was brought into ER unresponsive. CPR was done twice. CONDITION OF RECORDING: Awake, drowsy and sleep EEG DESCRIPTION: The whole record consists of diffused medium to high voltage 3- 4hz delta activity mixed with medium to high voltage 5-7hz theta activity. Hyperventilation and photic stimulation were not done. Nonparoxysmal. Nonfocal. Nonlateralizing IMPRESSION: Severely abnormal record due to the presence of bi-hemispheric delta and theta activity. The abnormalities are suggestive of underlying organic or metabolic encephalopathy. There is no evidence of paroxysmal activity. Clinical correlation recommended. [facility]
--- NOTE | 2019-11-13 17:01 | PCRCNOTE ---
PT was tried on a CPAP trial for less then 2min and respirations increased to the high 50's. PT has a lot of thick green/yellow secretions at this time. RN is aware of CPAP trial attempt
[2019-11-13] MEDS: RIVAROXABAN 20 MG TABLET PO (18:10)
[2019-11-13 18:12] LABS: Glucose Point of Care 243 (65-105)
[2019-11-13 21:01] LABS: Glucose Point of Care 226 (65-105)
[2019-11-14] VITALS (17 sets, daily range): BP systolic 105–145; BP diastolic 45–71; PULSE 95–132; RESP 25–38; TEMP 37.1–39.6; O2SAT 91–98
[2019-11-14 00:25] LABS: Glucose Point of Care 210 (65-105)
[2019-11-14] MEDS: INSULIN ASPART (*BKC) 100 UNITS/ML SUB-Q ×3 (00:25→12:05)
[2019-11-14] MEDS: ALBUTEROL SULFATE NEB 2.5 MG/0.5 ML INH 5 MG INHALATION ×2 (01:00→08:37)
[2019-11-14] MEDS: IPRATROPIUM BR 0.02% INH SOLN 0.5 MG/2.5 ML VIAL INHALATION ×2 (01:01→08:37)
[2019-11-14 03:44] LABS: Hematocrit 26.3 % (37.0-47.0); Hemoglobin 8.2 g/dL (12.0-15.0); Mean Corpuscular HGB Conc 31.2 g/dl (32-36); Mean Corpuscular Hemoglobin 28.1 pg (26-34); Mean Corpuscular Volume 90.1 fl (80-100); Mean Platelet Volume 11.4 fl (7.4-10.4); Platelet Count Result 192 k/mm3 (150-375); Red Blood Count 2.92 M/mm3 (4.2-5.4); Red Cell Distribution Width 16.6 % (11.5-14.5); White Blood Count 18.7 K/mm3 (4.5-10.0)
[2019-11-14 03:54] LABS: Alanine Aminotransferase 15 U/L (4-35); Albumin Level 2.6 g/dL (3.5-5.1); Alkaline Phosphatase 295 U/L (38-126); Aspartate Amino Transferase 19 U/L (14-36); Bilirubin,Total 0.7 mg/dL (0.2-1.3); Blood Urea Nitrogen 61 mg/dL (7-17); Calcium 8.6 mg/dL (8.4-10.2); Carbon Dioxide 29 mmol/L (22-30); Chloride 90 mmol/L (98-107); Estimated CRCL calculation 31 ml/min; Estimated Glomerular Filt Rate 18; Glucose 219 mg/dL (65-105); Potassium 2.9 mmol/L (3.4-5.0); Sodium 133 mmol/L (137-145)
[2019-11-14 04:11] LABS: Alveolar/Arterial O2 Gradient 149.1 mmHg; Base Excess ABG 7.6 mEq/l (+/-2.0); Carboxyhemoglobin 1.7 % THb (0-2.0); Fractional Inspired Oxygen 35 %; HCO3 ABG 30.3 mEq/l (22.0-26.0); Methemoglobin ABG 0.3 %THb (0-1.5); Oxygen Saturation ABG 94.1 % (95.0-100.0); Oxyhemoglobin 90.4 % THb (90.0-100.0); PCO2 ABG 34.6 mmHg (35.0-45.0); PO2 ABG 60.2 mmHg (80.0-100.0); PO2 FiO2 Ratio Arterial Blood 1.72 %; Reduced Hemoglobin 7.6 %THb (0-5.0); Total Hemoglobin 8.6 g/dL (12.0-18.0)
[2019-11-14 04:13] LABS: Device VENTILATOR; Modified Allen's Test Pass; Site Drawn RIGHT RADIAL
[2019-11-14 04:18] LABS: Glucose Point of Care 205 (65-105)
[2019-11-14 05:03] LABS: Triiodothyronine T3 Free 1.4 pg/mL (2.3-4.2)
[2019-11-14] MEDS: LEVOTHYROXINE SODIUM INJ 100 MCG/5 ML VIAL 50 MCG IV PUSH (05:33)
[2019-11-14] MEDS: SODIUM CHLORIDE 0.9% IV 1,000 ML 100 ML IV CONT (07:26)
[2019-11-14] MEDS: TOLNAFTATE 1% POWDER 45 GM BTL 1 APPLIC TOPICAL (07:26)
[2019-11-14] MEDS: SILVERGEL (ELTA) 45 ML 1 APPLIC TOPICAL (07:26)
[2019-11-14] MEDS: NEOMYCIN/POLYMYXIN/BACITRACIN OINTMENT 15 GM TUBE 1 APPLIC TOPICAL (07:27)
[2019-11-14] MEDS: PANTOPRAZOLE SODIUM IV 40 MG VIAL IV PUSH (07:29)
[2019-11-14] MEDS: LIOTHYRONINE SODIUM 25 MCG TABLET PO (07:29)
[2019-11-14] MEDS: carvediloL 3.125 MG TABLET PO ×2 (07:29→14:02)
[2019-11-14] MEDS: INSULIN DETEMIR 100 UNITS/ML 40 UNITS SUB-Q (07:30)
--- NOTE | 2019-11-14 07:54 | PM.PNNEP ---
Progress Note: A&P Assessment and Plan (1) Acute renal failure: Qualifiers: Acute renal failure type: unspecified Qualified Code(s): N17.9 - Acute kidney failure, unspecified Code(s): N17.9 - Acute kidney failure, unspecified Status: Acute Assessment and Plan: baseline creatinine ~ 0.8 - 1.3mg/dl (from review of OSH records) renal ultrasound could see only the right kidney which was normal; left kidney was unable to be seen possibly due to technical limitation because of her obesity Her creatinine has been recently rising. This was unresponsive to fluids and albumin. The creatinine is up to 2.7 today. Yesterday it was discovered that she had bilateral pneumonia with Pseudomonas. ID is on the case and is giving her antibiotics. Discussed with Dr. Anaya. (2) Septic shock: Code(s): A41.9 - Sepsis, unspecified organism; R65.21 - Severe sepsis with septic shock Status: Acute Assessment and Plan: Resolved She does have pneumonia and is on ceftriaxone. (3) Anemia: Qualifiers: Anemia type: unspecified type Qualified Code(s): D64.9 - Anemia, unspecified Code(s): D64.9 - Anemia, unspecified Status: Chronic Assessment and Plan: On Epogen. Hemoglobin is up and down in the 8s. Will get a reticulocyte count More EPO if it is not low. (4) Respiratory failure: Qualifiers: Chronicity: acute Respiratory failure complication: hypoxia and hypercapnia Qualified Code(s): J96.01 - Acute respiratory failure with hypoxia; J96.02 - Acute respiratory failure with hypercapnia Code(s): J96.90 - Respiratory failure, unspecified, unspecified whether with hypoxia or hypercapnia Status: Acute Assessment and Plan: remains on ventilator s/p tracheostomy Subjective Date/time seen: 11/14/19 07:54 Interval history: Patient is on the ventilator per tracheostomy. She does not interact. Breathing okay Review of Systems Review of Systems: ROS unobtainable: unobtainable due to mental condition Exam Narrative: Exam Narrative: General: WD/WN female in NAD; tracheostomy Heart: normal S1 and S2; no rub or gallop Lungs: coarse throughout and symmetric Abdomen: soft, nontender, nondistended, positive bowel sounds Extremities: 1+ edema. And no cyanosis Skin: No rash. Chronic venous stasis changes on the lower extremities but nothing acute. Objective Data Vital Signs Vital Signs: Vital Signs - 24 hr 11/13/19 08:00 11/13/19 08:20 11/13/19 08:30 Temperature 37.1 C Pulse Rate 85 70 73 Respiratory Rate 26 H 20 20 Blood Pressure 132/55 L Pulse Oximetry 92 97 11/13/19 09:56 11/13/19 10:00 11/13/19 11:35 Temperature 37.1 C Pulse Rate 69 70 73 Respiratory Rate 20 Blood Pressure 133/57 L Pulse Oximetry 97 96 11/13/19 12:00 11/13/19 14:00 11/13/19 14:10 Temperature 37.2 C Pulse Rate 70 72 75 Respiratory Rate 19 25 H 20 Blood Pressure 110/53 L 117/55 L Pulse Oximetry 95 93 100 11/13/19 14:20 11/13/19 16:00 11/13/19 17:25 Temperature 37.3 C Pulse Rate 75 82 78 Respiratory Rate 20 24 H Blood Pressure 134/62 Pulse Oximetry 93 100 11/13/19 18:00 11/13/19 19:40 11/13/19 20:00 Temperature 37.2 C 37.3 C Pulse Rate 87 78 88 Respiratory Rate 26 H 27 H Blood Pressure 140/59 L 143/58 H Pulse Oximetry 93 100 91 11/13/19 20:45 11/13/19 21:53 11/13/19 22:00 Temperature Pulse Rate 89 91 92 Respiratory Rate 20 20 Blood Pressure 151/61 H Pulse Oximetry 92 11/13/19 23:00 11/14/19 00:00 11/14/19 02:00 Temperature 37.2 C Pulse Rate 93 106 H 95 Respiratory Rate 25 H 26 H Blood Pressure 132/62 115/48 L Pulse Oximetry 95 92 92 11/14/19 04:00 11/14/19 04:17 11/14/19 06:00 Temperature 37.1 C Pulse Rate 106 H 106 H 108 H Respiratory Rate 28 H 26 H Blood Pressure 116/45 L 145/62 H Pulse Oximetry 92 91 93 11/14/19 07:29 Temperature Pulse R
[2019-11-14 08:32] LABS: Immature Reticulocyte Fraction 44.4 % (3.0-15.9); Reticulocyte Hemoglobin Conten 30.6 pg (28.2-35.7); Reticulocyte Percent 3.68 % (0.7-4.3); Reticulocytes Absolute 0.11 B/L (32.2-175.7)
[2019-11-14 08:45] LABS: Glucose Point of Care 197 (65-105)
[2019-11-14] MEDS: EPOETIN ALFA 10,000 UNITS/ML VIAL 10000 UNITS SUB-Q (09:16)
--- NOTE | 2019-11-14 11:13 | PCDIET ---
ICU Rounding Note: Patient remains on Nepro at 40mL/hr with no reported issues. Neurology to see patient today, then family to discuss plan of care. Last recorded weight is 149.5kg. Recommend obtaining new weight. Bowel Motility: BM x 1 today. Labs Reviewed: Glu (197), BUN (61), Cr (2.70), Na (133), K (2.9), Alb (2.6) Meds Noted: Albuterol, Ceftazidime, Epogen, Precedex, Novolog, Levemir, Levophed, Protonix, NS at 100mL/hr Additional Notes: No change in skin reported. Recommend continued K+ replacement, as medically appropriate. If patient tolerates fluid volume, may consider change to Glucerna 1.2 tube feeding. Following daily in ICU rounds. Assessing/reassessing every Tuesday/Tuesday.
--- NOTE | 2019-11-14 11:36 | WPDNEUROPN ---
Progress Note: A&P Assessment and Plan (1) Ventilator dependence: Code(s): Z99.11 - Dependence on respirator [ventilator] status Status: Acute (2) Encephalopathy: Code(s): G93.40 - Encephalopathy, unspecified Status: Acute (3) Pneumonia: Qualifiers: Pneumonia type: due to Pseudomonas Laterality: bilateral Lung location: unspecified part of lung Qualified Code(s): J15.1 - Pneumonia due to Pseudomonas Code(s): J18.9 - Pneumonia, unspecified organism Status: Acute (4) Diarrhea: Code(s): R19.7 - Diarrhea, unspecified Status: Acute (5) Gastrojejunostomy tube status: Code(s): Z93.4 - Other artificial openings of gastrointestinal tract status Status: Acute (6) Dysphagia: Qualifiers: Dysphagia type: unspecified Qualified Code(s): R13.10 - Dysphagia, unspecified Code(s): R13.10 - Dysphagia, unspecified Status: Acute (7) Atrial fibrillation: Qualifiers: Atrial fibrillation type: unspecified Qualified Code(s): I48.91 - Unspecified atrial fibrillation Code(s): I48.91 - Unspecified atrial fibrillation Status: Acute (8) Hypothyroidism: Qualifiers: Hypothyroidism type: unspecified Qualified Code(s): E03.9 - Hypothyroidism, unspecified Code(s): E03.9 - Hypothyroidism, unspecified Status: Acute (9) History of CHF (congestive heart failure): Code(s): Z86.79 - Personal history of other diseases of the circulatory system Status: Acute (10) Hyperglycemia: Code(s): R73.9 - Hyperglycemia, unspecified Status: Acute (11) Rheumatoid arthritis: Code(s): M06.9 - Rheumatoid arthritis, unspecified Status: Acute (12) Influenza A: Code(s): J10.1 - Influenza due to other identified influenza virus with other respiratory manifestations Status: Acute (13) Septic shock: Code(s): A41.9 - Sepsis, unspecified organism; R65.21 - Severe sepsis with septic shock Status: Acute (14) Acute kidney injury superimposed on chronic kidney disease: Code(s): N17.9 - Acute kidney failure, unspecified; N18.9 - Chronic kidney disease, unspecified Status: Acute (15) DVT prophylaxis: Code(s): Z29.9 - Encounter for prophylactic measures, unspecified Status: Acute (16) Anemia: Qualifiers: Anemia type: unspecified type Qualified Code(s): D64.9 - Anemia, unspecified Code(s): D64.9 - Anemia, unspecified Status: Chronic (17) Metabolic acidosis: Code(s): E87.2 - Acidosis Status: Resolved (18) Respiratory failure: Qualifiers: Chronicity: acute Respiratory failure complication: hypoxia and hypercapnia Qualified Code(s): J96.01 - Acute respiratory failure with hypoxia; J96.02 - Acute respiratory failure with hypercapnia Code(s): J96.90 - Respiratory failure, unspecified, unspecified whether with hypoxia or hypercapnia Status: Acute (19) Cardiac arrest: Code(s): I46.9 - Cardiac arrest, cause unspecified Status: Acute (20) Sepsis: Qualifiers: Sepsis type: sepsis due to unspecified organism Sepsis acute organ dysfunction status: unspecified Qualified Code(s): A41.9 - Sepsis, unspecified organism Code(s): A41.9 - Sepsis, unspecified organism Status: Acute (21) Acute renal failure: Qualifiers: Acute renal failure type: unspecified Qualified Code(s): N17.9 - Acute kidney failure, unspecified Code(s): N17.9 - Acute kidney failure, unspecified Status: Acute (22) Hyperkalemia: Code(s): E87.5 - Hyperkalemia Status: Acute Additional Plan remains unresponsive with abnormally slow eeg but definitely not paroxysmal Review of Systems Review of Systems: All systems reviewed & are unremarkable except as noted in HPI and below Exam Const: Nutritional Appearance: obese Eyes: General: appe
[2019-11-14 12:10] LABS: Glucose Point of Care 207 (65-105)
--- NOTE | 2019-11-14 12:30 | WPDINFPN2 ---
Progress Note: A&P Assessment and Plan (1) Pneumonia: Qualifiers: Pneumonia type: due to Pseudomonas Laterality: bilateral Lung location: unspecified part of lung Qualified Code(s): J15.1 - Pneumonia due to Pseudomonas Code(s): J18.9 - Pneumonia, unspecified organism Status: Acute Assessment and Plan: 1. Pseudomonas pneumonia, on therapy, febrile 2. RA with immunosuppression 3. Sulfa allergy 4. Renal insufficiency. REC Ceftazidime # 6 / 14 day course, dosing already adjusted for her renal insufficiency. No additional antibiotics. Discussed with father. Subjective Date/time seen: 11/14/19 12:30 Interval history: intubated and sedated Exam Narrative: Exam Narrative: t max 39.6 core Const: General: no acute distress Other: morbid obesity Eyes: General: appearance normal, both eyes and all related structures Resp: Effort & Inspection: normal respiratory effort Auscultation: rales and diminished lung sounds Cardio: Rate: tachycardic Rhythm: regular rhythm Heart sounds: no murmurs GI: Inspection: non-distended GI Palp: Yes Firmness to palpation present (GI), No Tenderness to palpation present (GI) and No Guarding due to palpation present (GI) Urinary Catheter: Urinary Catheter: patent and draining and urine clear Objective Data Vital Signs Vital Signs: Vital Signs - 24 hr 11/13/19 14:00 11/13/19 14:10 11/13/19 14:20 Temperature Pulse Rate 72 75 75 Respiratory Rate 25 H 20 20 Blood Pressure 117/55 L Pulse Oximetry 93 100 11/13/19 16:00 11/13/19 17:25 11/13/19 18:00 Temperature 37.3 C 37.2 C Pulse Rate 82 78 87 Respiratory Rate 24 H 26 H Blood Pressure 134/62 140/59 L Pulse Oximetry 93 100 93 11/13/19 19:40 11/13/19 20:00 11/13/19 20:45 Temperature 37.3 C Pulse Rate 78 88 89 Respiratory Rate 27 H 20 Blood Pressure 143/58 H Pulse Oximetry 100 91 11/13/19 21:53 11/13/19 22:00 11/13/19 23:00 Temperature Pulse Rate 91 92 93 Respiratory Rate 20 Blood Pressure 151/61 H Pulse Oximetry 92 95 11/14/19 00:00 11/14/19 02:00 11/14/19 04:00 Temperature 37.2 C 37.1 C Pulse Rate 106 H 95 106 H Respiratory Rate 25 H 26 H 28 H Blood Pressure 132/62 115/48 L 116/45 L Pulse Oximetry 92 92 92 11/14/19 04:17 11/14/19 06:00 11/14/19 07:29 Temperature Pulse Rate 106 H 108 H 132 H Respiratory Rate 26 H Blood Pressure 145/62 H Pulse Oximetry 91 93 11/14/19 08:00 11/14/19 08:25 11/14/19 08:37 Temperature 39.4 C H 39.4 C H Pulse Rate 122 H 122 H Respiratory Rate 32 H 36 H Blood Pressure 130/56 L Pulse Oximetry 93 95 11/14/19 08:47 11/14/19 08:55 11/14/19 09:48 Temperature 39.6 C H 39.4 C H Pulse Rate 119 H Respiratory Rate 33 H Blood Pressure Pulse Oximetry 11/14/19 10:00 11/14/19 12:00 Temperature 39.0 C H Pulse Rate 121 H 117 H Respiratory Rate 31 H 31 H Blood Pressure 118/71 115/56 L Pulse Oximetry 93 95 Intake/Output Intake/Output: Intake & Output 11/11/19 11/12/19 11/13/19 11/14/19 23:59 23:59 23:59 23:59 Intake Total 2665 2221 1829 489.3 Output Total 800 825 820 550 Balance 1865 1396 1009 -60.7 Meds/Results Medications: Active Medications Generic Name Dose Route Start Last Admin Trade Name Freq PRN Reason Stop Dose Admin Acetaminophen 650 mg 11/06/19 12:37 11/12/19 03:50 Tylenol Tablet PO 650 mg Q6H PRN Administration Mild Pain (1-3) or Fever Albuterol 5 mg 10/27/19 08:00 11/14/19 08:37 Albuterol Sulf Neb 2.5mg/0.5ml INHALATION 5 mg Q6HRT PILI Administration Atropine Sulfate 1 mg 10/27/19 15:48 Atropine Sulfate IV PUSH PRN PRN Bradycardia Carvedilol 6.25 mg 11/14/19 21:00 Coreg PO Q12HR PILI Dextrose 12.5 gm 10/27/19 10:01 11/05/19 12:33 Dextrose 50% Syringe IV PUSH 12.5 gm PRN PRN Administration Hypoglycemia Protocol Dornase Molina 2.5 mg 11/05/19 20:00 11/14/19 02:52 Pulmozyme
--- NOTE | 2019-11-14 13:12 | WPDNEUROPN ---
Progress Note: A&P Assessment and Plan (1) Ventilator dependence: Code(s): Z99.11 - Dependence on respirator [ventilator] status Status: Acute (2) Encephalopathy: Code(s): G93.40 - Encephalopathy, unspecified Status: Acute (3) Pneumonia: Qualifiers: Pneumonia type: due to Pseudomonas Laterality: bilateral Lung location: unspecified part of lung Qualified Code(s): J15.1 - Pneumonia due to Pseudomonas Code(s): J18.9 - Pneumonia, unspecified organism Status: Acute (4) Gastrojejunostomy tube status: Code(s): Z93.4 - Other artificial openings of gastrointestinal tract status Status: Acute (5) Dysphagia: Qualifiers: Dysphagia type: unspecified Qualified Code(s): R13.10 - Dysphagia, unspecified Code(s): R13.10 - Dysphagia, unspecified Status: Acute (6) Atrial fibrillation: Qualifiers: Atrial fibrillation type: unspecified Qualified Code(s): I48.91 - Unspecified atrial fibrillation Code(s): I48.91 - Unspecified atrial fibrillation Status: Acute (7) Hypothyroidism: Qualifiers: Hypothyroidism type: unspecified Qualified Code(s): E03.9 - Hypothyroidism, unspecified Code(s): E03.9 - Hypothyroidism, unspecified Status: Acute (8) History of CHF (congestive heart failure): Code(s): Z86.79 - Personal history of other diseases of the circulatory system Status: Acute (9) Hyperglycemia: Code(s): R73.9 - Hyperglycemia, unspecified Status: Acute (10) Rheumatoid arthritis: Code(s): M06.9 - Rheumatoid arthritis, unspecified Status: Acute (11) Influenza A: Code(s): J10.1 - Influenza due to other identified influenza virus with other respiratory manifestations Status: Acute (12) Acute kidney injury superimposed on chronic kidney disease: Code(s): N17.9 - Acute kidney failure, unspecified; N18.9 - Chronic kidney disease, unspecified Status: Acute (13) Anemia: Qualifiers: Anemia type: unspecified type Qualified Code(s): D64.9 - Anemia, unspecified Code(s): D64.9 - Anemia, unspecified Status: Chronic (14) Respiratory failure: Qualifiers: Chronicity: acute Respiratory failure complication: hypoxia and hypercapnia Qualified Code(s): J96.01 - Acute respiratory failure with hypoxia; J96.02 - Acute respiratory failure with hypercapnia Code(s): J96.90 - Respiratory failure, unspecified, unspecified whether with hypoxia or hypercapnia Status: Acute (15) Cardiac arrest: Code(s): I46.9 - Cardiac arrest, cause unspecified Status: Acute (16) Acute renal failure: Qualifiers: Acute renal failure type: unspecified Qualified Code(s): N17.9 - Acute kidney failure, unspecified Code(s): N17.9 - Acute kidney failure, unspecified Status: Acute (17) Hyperkalemia: Code(s): E87.5 - Hyperkalemia Status: Acute Additional Plan discuss with the father and the sister explained to them pretty are minutes and grave situation and barely any chance of meaningful recovery from this state considering all the factors including of course the severe in significant encephalopathy their questions were answered their leaning toward discontinuation of the life support system and that will be appropriate as for as I am concerned have shared this with the tea plantation worker and he has the same thought process which she has communicated to the father and a sister The EEG findings in particular were related to the family members and they understood the implication and appreciated my candid approach Review of Systems Review of Systems: ROS unobtainable: unobtainable due to endotracheal tube and unobtainable due to mental condition Exam Const: General: comfortable HENMT: General nose exam: Normal nares present Mouth: Yes moist mucous membranes Eyes: Other: pupi
[2019-11-14] MEDS: LORAZEPAM INJ 2 MG/ML VIAL IV PUSH (14:42)
[2019-11-14] MEDS: MORPHINE SULFATE 2 MG/ML INJ IV PUSH (14:42)
--- NOTE | 2019-11-14 14:50 | WPDINTPN ---
Progress Note: A&P Assessment and Plan (1) Encephalopathy: Code(s): G93.40 - Encephalopathy, unspecified Status: Acute Assessment and Plan: patient off propofol infusion, now on Precedex only. Patient only withdraws to pain. Does not open her eyes or follow commands - CT brain on 11/12/2019 with no acute intracranial findings, chronic age-related findings, extensive sinusitis. - Appreciate Neurology evaluation recommendations. EEG showed severe slowing of brain wave activity. Neurology discussed with family, they have decided for withdrawal of support and comfort measures. (2) Respiratory failure: Qualifiers: Chronicity: acute Respiratory failure complication: hypoxia and hypercapnia Qualified Code(s): J96.01 - Acute respiratory failure with hypoxia; J96.02 - Acute respiratory failure with hypercapnia Code(s): J96.90 - Respiratory failure, unspecified, unspecified whether with hypoxia or hypercapnia Status: Acute Assessment and Plan: Intubated on 10/27/2019, status post tracheostomy on 11/08/2019 - chest x-ray bilateral opacities with slight improvement of the right, FiO2 30%, peep to 10 - Continue bronchodilators - on Precedex infusion - sutures were applied to the tracheostomy incision this morning - Appreciate pulmonology evaluation and recommendation. (3) Pneumonia: Qualifiers: Pneumonia type: due to Pseudomonas Laterality: bilateral Lung location: unspecified part of lung Qualified Code(s): J15.1 - Pneumonia due to Pseudomonas Code(s): J18.9 - Pneumonia, unspecified organism Status: Acute Assessment and Plan: - status post bronchoscopy on 11/05/2019 which showed moderate secretion throughout the airway, mild to moderate inflammation - BAL cultures growing Pseudomonas susceptible to ceftazidime, discontinued vancomycin, azithromycin and ceftriaxone on 11/09/2019 - started patient on ceftazidime on 11/09/2019 - appreciate infectious Disease input (4) Acute kidney injury superimposed on chronic kidney disease: Code(s): N17.9 - Acute kidney failure, unspecified; N18.9 - Chronic kidney disease, unspecified Status: Acute Assessment and Plan: acute on chronic kidney disease, baseline creatinine 1.1-1.3 in November 2018 at [facility]. - Likely due to dehydration, sepsis, hypertension, diuretics. Also has longstanding diabetes, hypertension, CHF which all could be contributing to her chronic kidney disease. - decreased urine output and worsening creatinine, Lasix was discontinued on 11/09/2019. may have over diuresed, patient given 2 L of IV fluids on 11/11/2019. - Continue albumin, discussed with nephrology and agreeable the treatment plan. (5) Septic shock: Code(s): A41.9 - Sepsis, unspecified organism; R65.21 - Severe sepsis with septic shock Status: Acute Assessment and Plan: : RESOLVED: patient presented with altered mental status, leukocytosis, bradycardic, hypotensive, metabolic acidosis - off levophed patient has a PICC line - BAL culture growing Pseudomonas, changed antibiotics to ceftazidime only (6) Cardiac arrest: Code(s): I46.9 - Cardiac arrest, cause unspecified Status: Acute Assessment and Plan: brief cardiac arrest most likely related to bradycardia, hyperkalemia, hypoxia, respiratory failure, hypothermia, ROSC brief CPR, - echocardiogram done on 10/27/2019: LVEF 50-55%, left ventricular chamber dimension is normal. Moderately increased left ventricular wall thickness, RV systolic function is normal, no pericardial effusion, no significant valvular abnormalities - patient open her eyes and has followed commands in the past - hemodynamically stable (7) Anemia: Qualifiers: Anemia type: unspecified type Qualified Code(s): D64.9 - Anemia, unspecified Code(s): D64.9 - Anemia, unspecified
[2019-11-14 16:35] LABS: Arterial Blood Gas Vent Mode ASSIST CONTROL; Arterial Blood Gas Ventilator rate 16 /MIN
[2019-11-14 16:36] LABS: Arterial Blood Gas PEEP 10 cmH2O; Arterial Blood Gas Tidal Volume 350 ml
--- NOTE | 2019-11-15 07:38 | P.DN_ITS ---
Discharge Sum: Prov Provider Primary care physician: Seven Donahue MD Admitting provider: Samuel Trent MD Consults: 10/27/19 Consult to Physician Routine Comment: ICU/CODE IN ED Consulting Provider: Shanta Anaya Reason for consultation: ARF/CODE ED ICU PT Has provider been notified: Yes 10/29/19 Wound/ET Consult Routine Reason for Consult:: open areas to R heel and L side of foot 10/30/19 Consult to Physician Routine Comment: 10/30/2019 Dr. Steel spoke with Dr. Bey Consulting Provider: Peter Bey call centre supervisor/MD group to consult: nephrology Reason for consultation: acute renal failure Has provider been notified: Yes 11/03/19 10:37 Consult to Physician Routine Comment: dr. schilling Consulting Provider: Emelia Schilling call centre supervisor/MD group to consult: pulmonology Reason for consultation: pneumonia, bronchoscopy Has provider been notified: Yes 11/07/19 Consult to Physician Routine Comment: called office and notified Consulting Provider: Gennaro Hernandez call centre supervisor/MD group to consult: GI Reason for consultation: Anemia and PEG Has provider been notified: Yes Consult to Physician Routine Comment: called office and notified of consult Consulting Provider: Eliot Rice call centre supervisor/MD group to consult: ENT Reason for consultation: Trach Has provider been notified: Yes 11/13/19 10:27 Consult to Physician Routine Comment: GAVE INFORMATION TO DR. VILLAFANA Consulting Provider: Jose Villafana call centre supervisor/MD group to consult: NEUROLOGY Reason for consultation: encephalopathy, EEG Has provider been notified: Yes 11/13/19 10:29 Consult to Physician Routine Comment: called pager Consulting Provider: Mitch Page call centre supervisor/MD group to consult: Dr. Page Reason for consultation: pseudomonas pneumonia Has provider been notified: No Discharge Sum: Summary Date and Time Date of admission: 10/27/19 06:07 Date of : 11/14/19 Time of : 16:18 Summary Details: nterval history: Patient is a 54-year-old female morbidly obese resident of shelter was sent to emergency department acute mental status change as patient was not responding and was not herself upon arrival to emergency department see was not able to provide any review of symptoms patient was re-evaluated and was found to be bradycardiac and may need to cardiac arrest CPR was initiated and patient was intubated and transferred to ICU currently patient on vent and to provide any review of symptoms, patient was found to have pneumonia positive for influenza A, acute kidney injury, septic shock. As per previous notes. Unfortunately pt is difficult to wean off the ventilator, pt in icu, pt is sp bronchoscopy, trache and peg, patient was not improving and had EEG there was activity, family dicided to withdraw care and patient later that day. Additional Data Confirmation of as documented by pronouncing clinician: no pulse, no respirations, no heart sounds and pupils fixed and dilated Family: at bedside Attending/PCP notified?: Yes Attending physician: Samuel Trent MD Was code activated?: No Autopsy requested?: No insurance examiner notified?: Yes Organ bank notified?: No Advance directives: No Hospice patient?: No
--- NOTE | 2019-12-13 06:23 | WPDCN ---
HPI Data of Consult Date/Time: 12/13/19 06:23 Requesting Physician: Evelia Oliveira MD Primary Care Provider: Seven Donahue MD Consult Narrative Narrative: Stevan Rahman is a 54 year old female needs trach. prolonged intubation PMFSH Past Medical History Medical History Atrial fibrillation Dysphagia Gastrojejunostomy tube status History of CHF (congestive heart failure) Hypothyroidism Rheumatoid arthritis Family History Family History Other Unknown family medical history Social History Social History Smoking status: Never smoker Alcohol intake: former Substance use: never Gender identity (if verbalized by the patient): Female Spiritual care concerns: No Agree to blood products: Yes Meds Home Medications and Allergies Home Medications Medication Instructions Recorded Confirmed Type amlodipine 10 mg PO DAILY 10/27/19 10/27/19 History atorvastatin 20 mg PO HS 10/27/19 10/27/19 History carvedilol 25 mg PO Q12H 10/27/19 10/27/19 History ergocalciferol (vitamin D2) 1,250 mcg PO WEEKLY 10/27/19 10/27/19 History ferrous sulfate 325 mg PO BID 10/27/19 10/27/19 History furosemide 40 mg PO DAILY 10/27/19 10/27/19 History hydralazine 25 mg PO TID 10/27/19 10/27/19 History hydroxychloroquine 200 mg PO BID 10/27/19 10/27/19 History insulin NPH isoph U-100 human 45 unit SUBCUT BID 10/27/19 10/28/19 History [Humulin N NPH U-100 Insulin] insulin lispro [Humalog U-100 40 sliding scale dose SUBCUT AC 10/27/19 10/28/19 History Insulin] leflunomide 20 mg PO DAILY 10/27/19 10/27/19 History [id number] [Creon] 1 cap PO TID 10/27/19 10/27/19 History meloxicam 7.5 mg PO BID 10/27/19 10/27/19 History methocarbamol 750 mg PO TID 10/27/19 10/27/19 History metolazone 5 mg PO DAILY 10/27/19 10/27/19 History morphine 30 mg PO Q12H 10/27/19 10/27/19 History multivitamin [Daily-Devin] 1 tablet PO DAILY 10/27/19 10/27/19 History naloxegol [Movantik] 25 mg PO QAM 10/27/19 10/27/19 History omeprazole 20 mg PO DAILY 10/27/19 10/27/19 History oxycodone-acetaminophen 1 tablet PO Q4H PRN 10/27/19 10/27/19 History prednisone 20 mg PO DAILY 10/27/19 10/27/19 History rivaroxaban [Xarelto] 20 mg PO DAILY 10/27/19 10/27/19 History sennosides [senna] 8.6 mg PO BID PRN 10/27/19 10/27/19 History Allergies Allergy/AdvReac Type Severity Reaction Status Date / Time adhesive tape Allergy Unknown Verified 10/25/19 15:28 cimetidine Allergy Unknown Verified 10/25/19 15:25 gabapentin Allergy Unknown Verified 10/25/19 15:26 methotrexate Allergy Unknown Verified 10/25/19 15:26 sulfamethoxazole Allergy Unknown Verified 10/25/19 15:25 [From Bactrim] trimethoprim [From Bactrim] Allergy Unknown Verified 10/25/19 15:25 warfarin Allergy Unknown Verified 10/25/19 15:27 plastic Allergy Blister Uncoded 11/04/19 09:40 Results Labs CBC & Chem 7: 11/14/19 03:34 11/14/19 03:34
== END 2019-11-14 15:00 | disposition expired | DRG 4 ==
LOC: ANHED 07:05 → ANHICU 12:48
PROVIDERS: Emergency Medicine; Family Medicine; Internal Medicine; Internal Medicine Critical Care Medicine; Internal Medicine Gastroenterology; Internal Medicine Nephrology; Otolaryngology; Admitting Provider Family Medicine; Emergency Provider Emergency Medicine; PCP Family Medicine; Visit Provider Family Medicine
PROC: 0BJ08ZZ Inspection of Tracheobronchial Tree, Via Natural or Artificial Opening Endoscopic (ICD-10-PCS; CPT 31622; principal; 2019-11-05 13:00)
PROC: 0B110F4 Bypass Trachea to Cutaneous with Tracheostomy Device, Open Approach (ICD-10-PCS; principal; 2019-11-08 13:30)
PROC: 0DH63UZ Insertion of Feeding Device into Stomach, Percutaneous Approach (ICD-10-PCS; CPT 43246; principal; 2019-11-09 12:00)
DX: A41.9 Sepsis, unspecified organism (principal); J96.02 Acute respiratory failure with hypercapnia; R65.21 Severe sepsis with septic shock; E03.5 Myxedema coma; J10.08 Influenza due to other identified influenza virus with other specified pneumonia; J15.1 Pneumonia due to Pseudomonas; N17.9 Acute kidney failure, unspecified; Z68.43 Body mass index [BMI] 50.0-59.9, adult; E87.4 Mixed disorder of acid-base balance; N39.0 Urinary tract infection, site not specified; E87.2 Acidosis; I13.0 Hypertensive heart and chronic kidney disease with heart failure and stage 1 through stage 4 chronic kidney disease, or unspecified chronic kidney disease; Z99.11 Dependence on respirator [ventilator] status; G93.49 Other encephalopathy; J10.1 Influenza due to other identified influenza virus with other respiratory manifestations; M06.9 Rheumatoid arthritis, unspecified; Z99.3 Dependence on wheelchair; I50.9 Heart failure, unspecified; G89.29 Other chronic pain; E78.5 Hyperlipidemia, unspecified; L40.9 Psoriasis, unspecified; I89.0 Lymphedema, not elsewhere classified; I46.9 Cardiac arrest, cause unspecified; E87.5 Hyperkalemia; N18.9 Chronic kidney disease, unspecified; Z79.891 Long term (current) use of opiate analgesic; E66.01 Morbid (severe) obesity due to excess calories; R00.1 Bradycardia, unspecified; R68.0 Hypothermia, not associated with low environmental temperature; I27.20 Pulmonary hypertension, unspecified; I48.0 Paroxysmal atrial fibrillation; E11.22 Type 2 diabetes mellitus with diabetic chronic kidney disease; D63.1 Anemia in chronic kidney disease; Z79.01 Long term (current) use of anticoagulants; E11.65 Type 2 diabetes mellitus with hyperglycemia; E11.649 Type 2 diabetes mellitus with hypoglycemia without coma; E03.9 Hypothyroidism, unspecified; Z89.421 Acquired absence of other right toe(s); R13.10 Dysphagia, unspecified; R19.7 Diarrhea, unspecified; E86.0 Dehydration
CPT/HCPCS: 31500; 36415; 36430; 36556; 36569; 36600; 43246; 51701; 70450; 71045; 71250; 74018; 76775; 80048; 80053; 80069; 80202; 80307; 81001; 82274; 82375; 82436; 82533; 82550; 82570; 82805; 83010; 83036; 83050; 83540; 83550; 83605; 83615; 83690; 83735; 83883; 84100; 84133; 84156; 84300; 84436; 84439; 84443; 84480; 84481; 84484; 84540; 85014; 85018; 85025; 85027; 85046; 85055; 85610; 85652; 85730; 85999; 86038; 86140; 86160; 86162; 86235; 86334; 86335; 86430; 86644; 86850; 86900; 86901; 86923; 87015; 87040; 87070; 87077; 87081; 87086; 87088; 87116; 87186; 87205; 87206; 87252; 87279; 87281; 87324; 87493; 87497; 87804; 88104; 88108; 88305; 93005; 93306; 94002; 94003; 94640; 95816; 96361; 96365; 96375; 99285; A9270; C1751; C9113; J0131; J0171; J0282; J0456; J0461; J0610; J0696; J0713; J1720; J1815; J1940; J2060; J2250; J2270; J2704; J3010; J3370; J3475; J3480; J7030; J7050; J7070; J7120; J7512; P9016; P9047; Q4081